=== PATIENT | female | born 1955 | race Two or more races ===

== ENCOUNTER 2022-03-30 15:10 | Outpatient (REF) | payer MEDICARE, SELFPAY ==
--- NOTE | ~2022-03-30 | XR_ITS ---
EXAMINATION: XR HAND, BILATERAL CLINICAL INFORMATION: Pain COMPARISON: None TECHNIQUE: 3 views each hand. FINDINGS: LEFT HAND: There is loss of PIP and DIP joint space with periarticular spurring, DIP joint 2nd through 4th digits. No visible fracture, dislocation or subluxation seen. There is mild soft tissue swelling. The wrist joints are unremarkable. RIGHT HAND: There is mild loss of PIP and DIP joints with mild periarticular spurring, DIP joints 2nd and 3rd digit. There is mild soft tissue swelling involving the PIP and DIP joints. No visible acute fracture, dislocation or subluxation seen. There is no soft tissue swelling. XR/XR hand RT min 3V IMPRESSION: Degenerative arthritic changes PIP and DIP joints. No visible acute fracture, dislocation or subluxation seen.
--- NOTE | ~2022-03-30 | XR_ITS ---
EXAMINATION: XR HAND, BILATERAL CLINICAL INFORMATION: Pain COMPARISON: None TECHNIQUE: 3 views each hand. FINDINGS: LEFT HAND: There is loss of PIP and DIP joint space with periarticular spurring, DIP joint 2nd through 4th digits. No visible fracture, dislocation or subluxation seen. There is mild soft tissue swelling. The wrist joints are unremarkable. RIGHT HAND: There is mild loss of PIP and DIP joints with mild periarticular spurring, DIP joints 2nd and 3rd digit. There is mild soft tissue swelling involving the PIP and DIP joints. No visible acute fracture, dislocation or subluxation seen. There is no soft tissue swelling. XR/XR hand LT min 3V IMPRESSION: Degenerative arthritic changes PIP and DIP joints. No visible acute fracture, dislocation or subluxation seen.
== END 2022-03-30 15:11 | disposition home or self-care (01) ==
LOC: HO.XRAY 15:10
PROVIDERS: PCP Physician Assistant; Visit Provider Nurse Practitioner Family
DX: M79.641 Pain in right hand (principal); M79.642 Pain in left hand
CPT/HCPCS: 73130; 99202

== ENCOUNTER 2022-04-16 14:54 | Outpatient (REF) | payer MEDICARE, SELFPAY ==
[2022-04-16 15:39] LABS: Alanine Aminotransferase 29 U/L (0-31); Aspartate Amino Transferase 33 U/L (5-31); C Reactive Protein 0.25 mg/dL (< or = 0.50); Rheumatoid Factor 80.8 IU/mL (<15.0)
[2022-04-16 15:56] LABS: Erythrocyte Sedimentation Rate 12 MM/HR (0-20)
[2022-04-20 14:19] LABS: Cyclic Citrullinated Peptide >250 UNITS
== END 2022-04-16 14:55 | disposition home or self-care (01) ==
LOC: HO.LAB 14:54
PROVIDERS: Visit Provider Nurse Practitioner Family
DX: M25.50 Pain in unspecified joint (principal); Z79.899 Other long term (current) drug therapy
CPT/HCPCS: 36415; 84450; 84460; 85652; 86140; 86200; 86431

== ENCOUNTER → 2022-05-12 11:11 | Outpatient (BNVA) | payer MEDICARE, SELFPAY | PROVIDERS: PCP Physician Assistant; Visit Provider Nurse Practitioner Family | DX: M05.9 Rheumatoid arthritis with rheumatoid factor, unspecified (principal) | CPT/HCPCS: 99212 ==

== ENCOUNTER 2022-06-01 12:13 | Outpatient (REF) | payer MEDICARE, SELFPAY ==
[2022-06-01 12:53] LABS: Alanine Aminotransferase 36 U/L (0-31); Aspartate Amino Transferase 37 U/L (5-31)
== END 2022-06-01 12:14 | disposition home or self-care (01) ==
LOC: HO.LAB 12:13
PROVIDERS: PCP Physician Assistant; Visit Provider Nurse Practitioner Family
DX: M05.9 Rheumatoid arthritis with rheumatoid factor, unspecified (principal)
CPT/HCPCS: 36415; 84450; 84460

== ENCOUNTER 2022-07-22 10:12 | Outpatient (REF) | payer MEDICARE, SELFPAY ==
[2022-07-22 11:11] LABS: MANUAL DIFF FLAG NO
[2022-07-22 11:18] LABS: Basophils Percent Auto 0.7 % (0-2); Eosinophils Absolute Auto 0.1 X10*3/uL (0.0-0.4); Eosinophils Percent Auto 1.2 % (0-4); Hematocrit 39.1 % (37.0-47.0); Hemoglobin 13.5 g/dl (12.0-16.0); Imm Gran Abs Auto 0.02 X10*3/uL (0.00-0.03); Imm Gran Pct Auto 0.3 % (0.0-0.4); Lymphocytes Absolute Auto 1.7 X10*3/uL (1.2-4.9); Lymphocytes Percent Auto 29.2 % (20-40); Mean Corpuscular HGB Conc 34.5 g/dl (31.0-35.0); Mean Corpuscular Volume 92.7 fL (80.0-98.0); Mean Platelet Volume 9.8 fL (9.4-12.3); Monocytes Absolute Auto 0.7 X10*3/uL (0.1-1.2); Monocytes Percent Auto 11.9 % (2-11); Neutrophils Absolute Auto 3.3 x10*3/uL (2.0-8.3); Neutrophils Percent Auto 56.7 % (45-73); Platelet Count 296 X10*3/uL (160-400); Red Blood Count 4.22 X10*6/uL (4.20-5.50); Red Cell Distribution Width 12.5 % (11.0-16.0); White Blood Count 5.9 X10*3/uL (4.8-10.8)
[2022-07-22 11:56] LABS: Erythrocyte Sedimentation Rate 11 MM/HR (0-20)
[2022-07-22 12:30] LABS: Alanine Aminotransferase 22 U/L (0-31); Albumin Level 4.2 g/dL (3.5-5.0); Alkaline Phosphatase 82 U/L (39-117); Anion Gap 11 (12-20); Aspartate Amino Transferase 24 U/L (5-31); Bilirubin Total 0.7 mg/dL (0.0-1.0); Blood Urea Nitrogen 11 mg/dL (9-16); C Reactive Protein 0.26 mg/dL (< or = 0.50); Calcium 9.6 mg/dL (8.4-10.2); Carbon Dioxide 29 mmol/L (22-29); Chloride 103 mmol/L (96-108); Estimated Glomerular Filt Rate > 60; Glucose Random 84 mg/dL (60-115); Phosphorus 3.1 mg/dL (2.7-4.5); Potassium 4.1 mmol/L (3.3-5.1); Sodium 139 mmol/L (135-145); Total Protein 6.7 g/dL (6.5-8.0); Vitamin D 25-OH Total 45.2 ng/mL (>30)
== END 2022-07-22 10:13 | disposition home or self-care (01) ==
LOC: HO.LAB 10:12
PROVIDERS: PCP Physician Assistant; Visit Provider Nurse Practitioner Family
DX: M05.9 Rheumatoid arthritis with rheumatoid factor, unspecified (principal); M81.0 Age-related osteoporosis without current pathological fracture
CPT/HCPCS: 36415; 80053; 82306; 84100; 85025; 85652; 86140; 99212

== ENCOUNTER 2022-08-27 10:05 | Outpatient (REF) | payer MEDICARE, SELFPAY ==
--- NOTE | ~2022-08-27 | CT_ITS ---
EXAMINATION: Chest CT without IV contrast CLINICAL INFORMATION: Chronic cough COMPARISON: Previous chest x-ray July 2022 TECHNIQUE: Axial images through the chest without IV contrast. Thin axial high-resolution images obtained. Sagittal and coronal reconstructions performed on the technologist workstation. This CT examination was performed using dose optimization techniques as appropriate, variously including the following: *Automated exposure control *Adjustment of mA and/or kV according to patient size (this includes techniques or standardized protocols for targeted exams where dose is matched to indication/reason for exam; i.e. extremities or head) *Use of iterative reconstruction technique FINDINGS: No evidence of interstitial lung disease. Clustered peribronchial nodules in the right upper lobe suggestive of tree-in-bud appearance or airways disease. 3 mm superior segment right lower lobe nodule axial image 83 series 11. 3 mm peripheral or subpleural left lower lobe nodule axial image 148 series 11. The mediastinum is normal. No coronary artery calcification. No enlarged hilar or mediastinal lymph nodes. No pleural effusion or pleural thickening. No chest wall mass or enlarged axillary lymph nodes. Images through the upper abdomen are unremarkable. Mild degenerative changes of the thoracic spine. Probable Schmorl's node in the superior endplate of the L1 vertebral body.. CT/CT chest wo con - High Res IMPRESSION: No evidence of interstitial lung disease. Clustered peribronchial nodules or tree-in-bud appearance in the right upper lobe probably representing infectious or inflammatory process/airways disease. Small pulmonary nodules. According to the UPDATED 2017 Fleischner Society recommendations, the advised follow-up imaging for less than 6 mm solid nodule: Low risk, no chest CT follow-up and high risk, optional chest CT follow-up in one year.
== END 2022-08-27 10:06 | disposition home or self-care (01) ==
LOC: HO.CT 10:05
PROVIDERS: Visit Provider Nurse Practitioner Family
DX: R05.3 Chronic cough (principal); M05.9 Rheumatoid arthritis with rheumatoid factor, unspecified
CPT/HCPCS: 71250

== ENCOUNTER 2022-11-10 08:59 | Outpatient (AMB) | payer MEDICARE, SELFPAY ==
--- NOTE | 2022-11-10 09:01 | MHC.OFFVIS ---
Intake Vital Signs 11/10/22 09:02 Height 5 ft 2.5 in Weight 128 lb BMI 23.0 BP 124/68 Blood Pressure Location Lt brachial Position Sitting Respiration 16 Pulse 75 Pulse Source Pulse Oximeter Temp 97.2 F Temp Source Temporal Artery Scan Pulse Oximetry (%) 98 Oxygen Delivery Method Room Air Intake Visit Reasons: rheumatoid arthritis - Confirmed Allergies alendronate sodium Allergy (Intermediate, Verified 11/10/22 09:08) bone pain Sulfa (Sulfonamide Antibiotics) Allergy (Intermediate, Verified 11/10/22 09:08) Nausea HPI HPI Comments History of Present Illness Details The patient returns today for evaluation of her history of rheumatoid arthritis and osteoporosis. She is getting occasional pain at the left 5th MTP joint. This had been operated on about 6 weeks ago because of bony prominence. She also is complaining of right shoulder pain. She has had 3 cortisone injections there through an orthopedist. She has also been in physical therapy for that. There is an MRI scan pending of the shoulder. She does not take any pain medicine usually. In the past she has had the diagnosis of osteoporosis made. There were plans to start her on Prolia but she was worried about the potential for side effects. She was worried that the Prolia would hang around her body for months after her received of it. She tells me it was approved at one point but she backed out of the plan. She did have alendronate orally that she took 3 or 4 years ago for about 4 months. This seemingly was causing some overall body pain so it was stopped. [facility] Medical History (Updated 11/10/22 @ 10:03 by Pete Guzmán MD) Allergic conjunctivitis and rhinitis Anxiety Astigmatism Carpal tunnel syndrome Depression GERD (gastroesophageal reflux disease) Hypercholesteremia Hyperlipidemia Hypermetropia Migraines Osteoporosis Presbyopia Seropositive rheumatoid arthritis Surgical History [place] teeth extracted Family History Mother Dementia Emphysema lung Father Myocardial infarct Social History Household Members: None Alcohol intake: current Alcohol intake frequency: does not drink Patient Tobacco Use Status: Former Tobacco user Quit Date: 25 years ago Current occupational status: 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 Const Details: Negative for appetite change, weight change, fever, chills, malaise and fatigue Eyes Details: Negative for vision change, dry eyes,headaches and dizziness GI Details: Negative indigestion/heartburn, nausea, abdominal pain, bowel changes, diarrhea, constipation and bloody stool. Aamir/Lymph Details: Negative for excessive bruising or bleeding. Physical Exam Vital Signs: Last Vital Signs Temp 97.2 F 11/10/22 09:02 Pulse 75 11/10/22 09:02 Resp 16 11/10/22 09:02 BP 124/68 11/10/22 09:02 Pulse Ox 98 11/10/22 09:02 Oxygen Delivery Method Room Air 11/10/22 09:02 BMI result Body Mass Index 23.0 APPEARANCE: Patient in no acute distress EYES no redness, pupils equal and reactive to light, eyelids normal. No temporal artery tenderness, redness or swelling EXTREMITIES: No edema, no calf tenderness, normal peripheral pulses. JOINT EXAM: ?? Cervical Spine: Full range of motion without pain; no tenderness. Thoracic Spine: No scoliosis.? No tenderness on palpation. Lumbar Spine: Alignment normal.? Full range of motion without pain, no tenderness. Hands: LEFT:? Normal pain-free range of motion without tenderness, soft tissue swelling, increased warmth or erythema.? Mild bony enlargement throughout the DIPs. Able to make a full fist and has a good automated weaver strength. ? RIGHT:? Normal pain-free range of motion without tenderness, soft tissue swelling, increased warmth or erythema. Mild bony enlargement throughout the DIPs.? Able to make a full fist and has good automated weaver strength. Wrists:? Normal pain-free range of motion without tenderness, swelling, increased warmth or erythema. Elbows: Normal pain-free range of motion without tenderness, swelling, increased warmth or erythema. Shoulders:?? Full range of motion without pain. No tenderness, weakness, swelling, increased warmth or erythema. Hips:? Full range of motion without pain. Hip bursa:? No tenderness. Knees:?? Normal pain-free range of motion without tenderness, swelling, increased warmth or erythema.? There is no effusion or crepitation Ankles:? LEFT: Normal pain-free range of motion without tenderness, swelling, increased warmth or erythema. ? RIGHT: Normal pain-free range of motion without tenderness, joint swelling, increased warmth or erythema.? Small area of soft tissue swelling below the lateral malleolus (this has been present for a few years after sprain ankle per patient report.) Feet:? LEFT: Slight prominence over the 5th MTP. The area is minimally tender without redness. There is a scar there from the surgery that seems well healed. Elsewhere there is normal pain-free range of motion without tenderness, swelling, increased warmth or erythema.? RIGHT:? Normal pain-free range of motion without tenderness, swelling, increased warmth or erythema. ? Results Reviewed Results Reviewed: Laboratory Tests 06/01/22 07/22/22 07/22/22 12:25 11:09 11:09 WBC 5.9 Hgb 13.5 ESR 11 Creatinine AST 37 H ALT 36 H C-Reactive Protein 07/22/22 11:09 WBC Hgb ESR Creatinine 0.81 AST 24 ALT 22 C-Reactive Protein 0.26 Assessment & Plan Assessment & Plan (1) Seropositive rheumatoid arthritis: Comment: Plaquenil: approx 2014- 2015 Methotrexate: approx 11/2021- February 2022 -discontinued due to increased LFTs. 07/22/2022 not on any medication for RA, no active disease on exam. Code(s): M05.9 - Rheumatoid arthritis with rheumatoid factor, unspecified (2) Osteoporosis: Comment: DEXA [facility] 03/26/2022 t-score -3.9 AP spine, -3.2 fem neck, -2.0 hip. A few months of alendronate - stopped due to arthralgia(?2019) Advised treatment July 2022, patient undecided Code(s): M81.0 - Age-related osteoporosis without current pathological fracture Plan She has no evidence currently of active rheumatoid arthritis. I suspect the right shoulder pain is from rotator cuff attrition. Surgical evaluation for that is underway with MRI scanning. The left 5th MTP was just operated on and seems to be relatively benign with some slight thickening but no redness or breaks in the skin. We had a long discussion about treating osteoporosis. It would appear like she did have some polyarthralgias and myalgias on alendronate after being on it for about 4 months. She had been offered and she says it was approved to take Prolia. She seems to be willing at this point to go on the Prolia injections. We will check BMP and vitamin-D today. We will also check and see if her approval for the use of Prolia is still in effectt. When we find that out we will have her come back for a subcutaneous injection. She wants to see me back in March so we will arrange that as well. Orders: Orders Basic Metabolic Panel Today M81.0 - Age-related osteoporosis without current pathological fracture Vitamin D 25-OH (D2 and D3) Today M81.0 - Age-related osteoporosis without current pathological fracture Coding Level of Care Code New Pt Level 3 (79048) Diagnoses Seropositive rheumatoid arthritis M05.9 Osteoporosis M81.0
[2022-11-10 09:02] VITALS: BP 124/68; PULSE 75; RESP 16; TEMP 36.2; O2SAT 98; BMI 23.0
== END 2022-11-10 09:51 | disposition home or self-care (01) ==
PROVIDERS: PCP Physician Assistant; Visit Provider Internal Medicine Rheumatology
DX: M05.89 Other rheumatoid arthritis with rheumatoid factor of multiple sites (principal); M81.0 Age-related osteoporosis without current pathological fracture
CPT/HCPCS: 99213

== ENCOUNTER → 2022-11-10 08:59 | Outpatient (BNVA) | payer MEDICARE, SELFPAY | PROVIDERS: PCP Physician Assistant; Visit Provider Internal Medicine Rheumatology ==

== ENCOUNTER 2022-11-10 09:54 | Outpatient (REF) | payer MEDICARE, SELFPAY ==
[2022-11-10 11:06] LABS: Anion Gap 15 (12-20); Blood Urea Nitrogen 14 mg/dL (9-16); Calcium 9.9 mg/dL (8.4-10.2); Carbon Dioxide 25 mmol/L (22-29); Chloride 103 mmol/L (96-108); Estimated Glomerular Filt Rate > 60; Glucose Random 66 mg/dL (60-115); Potassium 3.8 mmol/L (3.3-5.1); Sodium 139 mmol/L (135-145)
[2022-11-14 14:19] LABS: Vitamin D 25-OH, D2 <4 ng/mL; Vitamin D 25-OH, D3 62 ng/mL; Vitamin D 25-OH, Total 62 ng/mL (30-100)
== END 2022-11-10 09:55 | disposition home or self-care (01) ==
LOC: HO.10HDL 09:54
PROVIDERS: Visit Provider Internal Medicine Rheumatology
DX: M81.0 Age-related osteoporosis without current pathological fracture (principal)
CPT/HCPCS: 36415; 80048; 82306

== ENCOUNTER 2022-11-25 10:04 | Outpatient (AMB) | payer MEDICARE, SELFPAY ==
--- NOTE | 2022-11-25 12:07 | AM.OFFVISNUR ---
Intake Vital Signs 11/25/22 12:08 BP 127/78 Blood Pressure Location Lt brachial Position Sitting Pulse 77 Pulse Source Pulse Oximeter Intake Visit Reasons: osteoporosis/prolia inj Intake Note: Patient here for first Prolia injection. Patient was given all the Allergies alendronate sodium Allergy (Intermediate, Verified 11/25/22 12:10) bone pain Sulfa (Sulfonamide Antibiotics) Allergy (Intermediate, Verified 11/25/22 12:10) Nausea Medication List - Last Reconciled 11/25/22 by Ashlyn Basilio RN calcium carbonate-vitamin D3 600 mg-10 mcg (400 unit) (Calcium 600 + D(3)) 1 tab PO DAILY cetirizine (Zyrtec) 10 mg PO DAILY PRN hydrocodone-acetaminophen 5-325 mg 1 tab PO Q6H PRN ivermectin 1% (Soolantra) 1 appl topical DAILY PRN lidocaine 5% 1 appl topical DAILY PRN lorazepam 0.5 mg PO BID PRN propranolol 40 mg PO DAILY tretinoin 0.025% 1 appl topical BEDTIME PRN zolmitriptan take 1 tab at onset of headache; if no relief may repeat 1 tab after at least 2 hrs; max = 4 tabs/24 hr orally PRN; Nursing Note Patient is here to receive first Prolia injection. Patient given all pertinent information about Prolia including symptoms to report. I provided patient with a Prolia information sheet. I administered Prolia on left arm, she tolerated injection well. Patient was advised to look out for any symptoms of a reaction, patient to contact us with any questions or concerns. Office Meds Prolia Performing Provider: Pete Guzmán MD Administered by: Ashlyn Basilio RN on 11/25/22 12:18 Dose Route Admin Location Lot Number Expiration Date NDC Tapping Machine Operator Automatic 60 mg subcut [id number] 12/10/24 30423-002-19 [facility] Coding Level of Care Code Est Pt Level 1 (23773) Diagnoses Assessment & Plan Assessment & Plan Orders: Orders AMB Denosumab Injection Practice Supplied Today M81.0 - Age-related osteoporosis without current pathological fracture
[2022-11-25 12:08] VITALS: BP 127/78; PULSE 77
== END 2022-11-25 10:35 | disposition home or self-care (01) ==
PROVIDERS: PCP Physician Assistant
DX: M81.0 Age-related osteoporosis without current pathological fracture (principal)

== ENCOUNTER → 2022-11-25 10:04 | Outpatient (BNVA) | payer MEDICARE, SELFPAY | PROVIDERS: PCP Physician Assistant | DX: M81.0 Age-related osteoporosis without current pathological fracture (principal); Z79.620 Long term (current) use of immunosuppressive biologic | CPT/HCPCS: 96372; 99211; J0897 ==

== ENCOUNTER 2022-12-25 14:35 | Outpatient (AMB) | payer MEDICARE, SELFPAY ==
[2022-12-25 14:38] VITALS: BP 130/72; PULSE 68; O2SAT 98; BMI 23.8
--- NOTE | 2022-12-25 14:38 | A.OFFVIS_ITS ---
Intake Vital Signs 12/25/22 14:38 Height 5 ft 2.5 in Weight 132 lb 4 oz BMI 23.8 BP 130/72 Blood Pressure Location Rt brachial Position Sitting Pulse 68 Pulse Source Pulse Oximeter Pulse Oximetry (%) 98 Oxygen Delivery Method Room Air Intake Visit Reasons: INP Migraines - Confirmed Intake Note: Patient presents for migraines. Patient states I've had migraines since I was 11 years old and through out all the years have subsided so I decided to stop medications (propranolol) a while back and 2 months later started getting migraines so I went back on the medication. Allergies alendronate sodium Allergy (Intermediate, Verified 11/25/22 12:10) bone pain Sulfa (Sulfonamide Antibiotics) Allergy (Intermediate, Verified 11/25/22 12:10) Nausea msg Allergy (Severe, Uncoded 12/25/22 14:46) migraines nitrates Allergy (Severe, Uncoded 12/25/22 14:46) migraine Medication List - Last Reconciled 12/25/22 by KATE Alfaro calcium carbonate-vitamin D3 600 mg-10 mcg (400 unit) (Calcium 600 + D(3)) 1 tab PO DAILY cetirizine (Zyrtec) 10 mg PO DAILY PRN denosumab (Prolia) 60 mg subcut [id number] hydrocodone-acetaminophen 5-325 mg 1 tab PO Q6H PRN ivermectin 1% (Soolantra) 1 appl topical DAILY PRN lidocaine 5% 1 appl topical DAILY PRN lorazepam 0.5 mg PO BID PRN propranolol 40 mg PO DAILY tretinoin 0.025% 1 appl topical BEDTIME PRN zolmitriptan take 1 tab at onset of headache; if no relief may repeat 1 tab after at least 2 hrs; max = 4 tabs/24 hr orally PRN; HPI HPI Comments History of Present Illness Details Right-handed 67-yr-old female presents for new pt evaluation of headache disorder, to establish care with neurology. PMH significant for osteoporosis, RA, HLD, GERD, anxiety, chronic right ear hearing loss, stress incontinence. 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 Over the years, the headaches have fluctuated in frequency and severity. Then about 8 yrs ago, she was started on Propranolol which was very helpful. Could go even a year w/o a headache. Then about a year ago, she thought maybe she could stop her propranolol but to be careful increased her flutcanisone, however after a few months, the headaches slowly increased to to more frequent and severe. Thus, she resumed Propranolol, but is still having bothersome headaches. Headache questionnaire: Age/time of onset? 12-13 yo Preceding causes? None Previous work-up? None Typical headache characteristics: Prodrome symptoms? None Aura? None Location, quality, characteristics? Frontal headache. Pressure, heaviness. Pain intensity? 4-5/10, could be 7-8/10 if more severe. Associated symptoms? Photophobia, nausea, now rarely vomiting, activity tolerance. Focal weakness, Parethesias, Autonomic s/s? sinus congestion, runny nose, deep sighs Postdrome? may have an exhiliration sensation Triggers? Certain foods- MSG, nitrates. Any positional, valsalva, exertional, sexual activity triggers? none Time of day? Often at 3-4 am Duration? If takes Zomig right away, usually 2 hrs. Frequency? Tends to occur more in early Spring and early Fall. The last week, she woke up every day w/ a headache, priro 1 day per week. How does headache impact your life? Needs to rest Current acute medication use/interventions: Zomig 2.5mg 1/4-1/2 tab, may repeat. Rarely has need to take 3 doses/day. Previous acute medication use: Sumatriptan- not tolerated. Cafargot- was ineffective. Ergotamine- not effective. Current preventative medication use: Propranol Previous preventative medication use: Feverfew- ineffective. Propranol Er- was not as effective. Non-pharmacological interventions: hot wash clothes, rest Family history of migraine or other headache disorder? Mother, grandmother PFSH Medical History (Updated 12/27/22 @ 20:43 by KATE Alfaro) Osteoporosis Seropositive rheumatoid arthritis GERD (gastroesophageal reflux disease) Allergic conjunctivitis and rhinitis Presbyopia Astigmatism Hypermetropia Carpal tunnel syndrome Migraines Depression Anxiety Hyperlipidemia Hypercholesteremia Surgical History [place] teeth extracted Family History Mother Dementia Emphysema lung Father Myocardial infarct Social History (Updated 12/25/22 @ 14:49 by Ibis Conte [facility]) Household Members: None Alcohol intake: current Alcohol intake frequency: does not drink Patient Tobacco Use Status: Former Tobacco user Quit Date: 25 years ago Current occupational status: 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 Const Details: See scanned ROS form Physical Exam Vital Signs: Last Vital Signs Pulse 68 12/25/22 14:38 BP 130/72 12/25/22 14:38 Pulse Ox 98 12/25/22 14:38 Oxygen Delivery Method Room Air 12/25/22 14:38 BMI result Body Mass Index 23.8 Const Orientation/consciousness: patient oriented x3 HEENT Other: No palpable scalp tenderness. Head: Yes normocephalic Resp Effort & Inspection: normal respiratory effort and able to speak in complete sentences Neuro General: patient oriented x3 Cranial nerves: Yes CN's II-XII intact bilaterally Cognition (Neuro): normal cognition Gait exam (Neuro): Normal gait present Motor exam (neuro): 5/5 motor strength present throughout Deep tendon reflexes (DTR's): Right triceps reflex intensity grade: 2+, Left triceps reflex intensity grade: 2+, Rt Biceps (C5, C6): 2+, Left biceps reflex intensity grade: 2+, Right brachioradialis reflex intensity grade: 2+, Left brachioradialis reflex intensity grade: 2+, Right patellar reflex intensity grade: 2+ and Left patellar reflex intensity grade: 2+ Coordination: [id number] test normal and Romberg test negative Pupils: Normal pupillary reactivity/response: bilateral Psych Appearance: grossly normal Mental Status: mental status grossly normal Speech and movement: Normal speech and movement present Affect: normal affect Attitude: cooperative Thought process: Normal thought process present Assessment & Plan Assessment & Plan (1) Migraine without aura: Code(s): G43.009 - Migraine without aura, not intractable, without status migrainosus Plan For overall headache management: Discussed importance of good self-care, including but not limited to maintaining a healthy diet, adequate fluid intake, adequate sleep, and engaging in regular physical activity. For headache triggers: Track headaches. Light sensitivity tips: Patient may try blue light filtering glasses, green glasses, green light therapy.. Information also given on non-pharmacological interventions, such as migraine cooling/warming caps.. For acute headache treatment: Discussed importance of taking acute medications at the first sign of headache. Continue Zolmitriptan 2.5mg prn at onset of migraine, MR in 2 hrs. Previous acute migraine medication trials: Sumatriptan- not tolerated. Cafargot- was ineffective. Ergotamine- not effective. Acute migraine medication contraindications: None at this time For headache prevention medication: Discussed that preventative medications should be taken routinely as prescribed for best effect, it may take several weeks for full effect to take effect. Start Riboflavin 400mg qam Start Magnesium 400mg qhs Try increasing Propranolol from 40mg to 60mg qam and 40mg qpm, if tolerated may increase up to 60mg bid. Reviewed potential adverse effects of betablockers, including but not limited to fatigue, hypotension, slow heart rate, mood changes, respiratory changes. Previous preventative medication use: Feverfew- ineffective. Propranol Er- was not as effective. Migraine prevention medication contraindications: None absolute contraindications at this time. Pt to follow-up in 3-4 months or sooner prn. Medications: New riboflavin (vitamin B2) 400 mg PO DAILY 30 days 30 tabs 6RF magnesium oxide may hold for loose stools 400 mg PO BEDTIME 30 days 30 tabs 6RF Changed From propranolol 40 mg PO DAILY To propranolol 60mg qam and 40mg qpm, may increase to 60mg bid orally daily; 30 days 90 tabs 0RF Coding Level of Care Code New Pt Level 4 (06226) Diagnoses Migraine without aura G43.009
== END 2022-12-25 15:59 | disposition home or self-care (01) ==
PROVIDERS: PCP Physician Assistant; Visit Provider Nurse Practitioner Family
DX: G43.009 Migraine without aura, not intractable, without status migrainosus (principal)
CPT/HCPCS: 99204; 99214

== ENCOUNTER → 2022-12-25 14:35 | Outpatient (BNVA) | payer MEDICARE, SELFPAY | PROVIDERS: PCP Physician Assistant; Visit Provider Nurse Practitioner Family ==

== ENCOUNTER 2023-01-14 09:47 | Outpatient (AMB) | payer MEDICARE, SELFPAY ==
--- NOTE | 2023-01-14 09:51 | MHC.OFFVIS ---
Intake Vital Signs 01/14/23 10:02 Height 5 ft 2.5 in Weight 130 lb 15.273 oz BMI 23.6 BP 150/90 H Blood Pressure Location Rt brachial Position Sitting Pulse 71 Pulse Source Pulse Oximeter Temp 97.4 F Temp Source Skin Pulse Oximetry (%) 98 Oxygen Delivery Method Room Air Intake Visit Reasons: Osteoporosis Intake Note: Patient presents today to follow up on osteoporosis. 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: No Allergies alendronate sodium Allergy (Intermediate, Verified 01/14/23 09:51) bone pain Sulfa (Sulfonamide Antibiotics) Allergy (Intermediate, Verified 01/14/23 09:51) Nausea msg Allergy (Severe, Uncoded 01/14/23 09:51) migraines nitrates Allergy (Severe, Uncoded 01/14/23 09:51) migraine Medication List - Last Reconciled 01/14/23 by Pete Guzmán MD calcium carbonate-vitamin D3 600 mg-10 mcg (400 unit) (Calcium 600 + D(3)) 1 tab PO DAILY cetirizine (Zyrtec) 10 mg PO DAILY PRN denosumab (Prolia) 60 mg subcut [id number] ivermectin 1% (Soolantra) 1 appl topical DAILY PRN lidocaine 5% 1 appl topical DAILY PRN lorazepam 0.5 mg PO BID PRN magnesium oxide 400 mg PO BEDTIME 30 days pantoprazole 20 mg PO BID propranolol 60mg qam and 40mg qpm, may increase to 60mg bid orally daily; 30 days riboflavin (vitamin B2) 400 mg PO DAILY 30 days sertraline 25 mg PO BEDTIME tretinoin 0.025% 1 appl topical BEDTIME PRN zolmitriptan take 1 tab at onset of headache; if no relief may repeat 1 tab after at least 2 hrs; max = 4 tabs/24 hr orally PRN; HPI HPI Comments History of Present Illness Details The patient presents with concerns about side effects from the administration of Prolia about 6 weeks ago. We had spoken on the phone yesterday. Since Wednesday she has been bothered by episodes of feeling flushed in the face and chest. She says the skin feels burning but does not turn red. This is followed shortly thereafter by of heaviness in the anterior head suggesting a migraine but not quite as severe as such. She also gets some epigastric discomfort that she describes as an empty feeling. She feels like she cannot eat. She does not have any vomiting but she was occasionally nauseated. She says she had similar symptoms in November after she had received the Prolia injection. She does not have any fevers, chills, chest pain or diarrhea. She does seem to have some degree of constipation. Review of her records that I was able to found showed she had a colonoscopy with polyp removal a few years ago and also upper endoscopy that was basically normal for symptoms of recurrent cough. The cough is felt to be due to GERD and did improve with pantoprazole but she has since stopped the medication. She also has a history of being depressed over the last 2 years following the of her . She had been on sertraline but tapered off it earlier this year. She decided to restart it on Wednesday. She also took a dose of sertraline 25 mg on Wednesday. She does have lorazepam at home that she takes for anxiety with flying but did not take any of that. She is on some propranolol for migraine prevention. Earlier this year she has had some discomfort in the right shoulder thought to be due to rotator cuff tear. This was minor and eventually improved on its own. Yesterday, after our discussion she did visit the [facility] ER. She brings n the discharge papers. Exam and lab work failed to find anything significant. She brings in the discharge note from there showing normal blood pressure and temperature. She also had a normal CBC, urinalysis showing trace blood but no red cells, normal electrolytes, normal creatinine, normal bilirubin, normal alkaline phosphatase, normal lipase and slight elevation of SGPT at 62. She also underwent CT scanning of the abdomen showing a few punctate calcifications in the pancreas but it was otherwise interpreted as normal. Says she feels absolutely terrible when these events occur. She still believes that could be some connection to the Prolia since she did have similar symptoms a day or 2 after the Prolia injection back in November. [facility] Medical History (Updated 01/14/23 @ 13:27 by Pete Guzmán MD) Osteoporosis Seropositive rheumatoid arthritis GERD (gastroesophageal reflux disease) Allergic conjunctivitis and rhinitis Presbyopia Astigmatism Hypermetropia Carpal tunnel syndrome Migraines Depression Anxiety Hyperlipidemia Hypercholesteremia Surgical History [place] teeth extracted Family History Mother Dementia Emphysema lung Father Myocardial infarct Social History Household Members: None Alcohol intake: current Alcohol intake frequency: does not drink Patient Tobacco Use Status: Former Tobacco user Quit Date: 25 years ago Current occupational status: 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 Const Details: Fatigue and malaise, especially when she gets 1 of her spells. Some anorexia as well over the last few days. Negative for weight change, fever, chill Eyes Details: As she is prone to migraine headaches but does not think she has had 1 recently. Negative for vision change, dry eyes,headaches and dizziness ENT Details: Negative for hearing change, tinnitus, oral ulcer, nose bleeds and oral dryness. Card Details: Negative chest pain, edema and syncope Resp Details: She says that when she feels very uncomfortable she does re heavily but does not think it is because of pain. Negative for exertional SOB, cough and wheezing GI Details: Rare heartburn at present, nausea during the spells as noted above. Negative abdominal pain, bowel changes, diarrhea, constipation and bloody stool. Details: Negative for dysuria, hematuria, nocturia, decreased force/flow and genital discharge Skin/Breast Details: She has the burning and warmth feeling of the skin, mostly over her upper torso and face. Negative for itching, rash, hives, Raynaud's symptoms, sun sensitivity, and skin cancer Neuro Details: Negative for epilepsy, palsy, stroke, changes in speech, tingling and weakness Psych Details: She does not except that this could be related to anxiety. She admits to feeling a bit more depressed recently and did take some of the sertraline. Endo Details: Negative for polyuria and polydypsia Aamir/Lymph Details: Negative for excessive bruising or bleeding. Physical Exam Vital Signs: Last Vital Signs Temp 97.4 F 01/14/23 10:02 Pulse 71 01/14/23 10:02 BP 150/90 H 01/14/23 10:02 Pulse Ox 98 01/14/23 10:02 Oxygen Delivery Method Room Air 01/14/23 10:02 BMI result Body Mass Index 23.6 APPEARANCE: Patient in no acute distress EYES no redness, pupils equal and reactive to light, eyelids normal. No temporal artery tenderness, redness or swelling NOSE/SINUS: Airflow through both nares, no nasal discharge, no bleeding THROAT: Oral mucosa moist, no ulcerations NECK: No thyromegaly or masses, no adenopathy, trachea midline. HEART: Regulrar rhythm, S1-S2 heard, no murmurs, rubs or gallops. LUNG: Clear to percussion and auscultation ABD: Normal bowel sounds, no organomegaly, masses or tenderness. EXTREMITIES: No edema, no calf tenderness, normal peripheral pulses. NEURO: Oriented and alert x3. No focal weakness. Reflexes symmetric. Gait normal. SKIN: No inflammatory or neoplastic lesions. Normal color and turgor JOINT EXAM:? Cervical Spine: Full range of motion without pain; no tenderness. Thoracic Spine: No scoliosis.? No tenderness on palpation. Lumbar Spine: Alignment normal.? Full range of motion without pain, no tenderness. Hands: LEFT:? Normal pain-free range of motion without tenderness, soft tissue swelling, increased warmth or erythema.? Mild bony enlargement throughout the DIPs. Able to make a full fist and has a good professor of poultry science strength. ? RIGHT:? Normal pain-free range of motion without tenderness, soft tissue swelling, increased warmth or erythema. Mild bony enlargement throughout the DIPs.? Able to make a full fist and has good professor of poultry science strength. Wrists:? Normal pain-free range of motion without tenderness, swelling, increased warmth or erythema. Elbows: Normal pain-free range of motion without tenderness, swelling, increased warmth or erythema. Shoulders: Left: Slight top of the shoulder discomfort with extremes of range of motion. No tenderness, weakness or swelling. No adenopathy. Right:?? Full range of motion without pain. No tenderness, weakness, swelling, increased warmth or erythema. Hips:? Full range of motion without pain. Hip bursa:? No tenderness. Knees:?? Normal pain-free range of motion without tenderness, swelling, increased warmth or erythema.? There is no effusion or crepitation Ankles:? LEFT: Normal pain-free range of motion without tenderness, swelling, increased warmth or erythema. ? RIGHT: Normal pain-free range of motion without tenderness, joint swelling, increased warmth or erythema.? Small area of soft tissue swelling below the lateral malleolus (this has been present for a few years after sprain ankle per patient report.) Results Reviewed Results Reviewed: Lab work and CT scan from [facility] as noted above in the HPI Assessment & Plan Assessment & Plan (1) Osteoporosis: Comment: DEXA [facility] 03/26/2022 t-score -3.9 AP spine, -3.2 fem neck, -2.0 hip. A few months of alendronate - stopped due to arthralgia(?2019) Advised treatment July 2022, patient undecided Code(s): M81.0 - Age-related osteoporosis without current pathological fracture (2) Malaise and fatigue: Code(s): R53.81 - Other malaise; R53.83 - Other fatigue (3) Nausea: Code(s): R11.0 - Nausea Plan: Patient has been experiencing now a few days of some flushing, a feeling of skin warmth, dyspnea and nausea. She is very distressed by this level of symptoms and says she cannot sleep. She has been on sertraline in the past for depression and decided to try to restart it recently. It is possible the sertraline is giving her a bit more anxiety as it was restarted. I told her I do not see anything that we could treat right now outside of symptoms. It is possible that her current syndrome is related to anxiety and panic disorder. She does not seem to receptive to that idea for now. I did suggest she could take some [id number] Benadryl in the evening to see if that would help her. She does have a GI appointment tomorrow and unless further problems are discovered I think she may need to return to PCP for some treatment of her anxiety. I told her that the Prolia injection was weeks ago and 1 would have expected more side effects in the short term rather than coming out at this late stage. I asked her to call me in a few weeks to let me know the outcome of her symptoms at that point. Coding Level of Care Code Est Pt Level 4 (53124) Diagnoses Osteoporosis M81.0 Malaise and fatigue R53.81; R53.83 Nausea R11.0
[2023-01-14 10:02] VITALS: BP 150/90; PULSE 71; TEMP 36.3; O2SAT 98; BMI 23.6
== END 2023-01-14 11:00 | disposition home or self-care (01) ==
PROVIDERS: PCP Physician Assistant; Visit Provider Internal Medicine Rheumatology
DX: M81.0 Age-related osteoporosis without current pathological fracture (principal); R53.81 Other malaise; R53.83 Other fatigue; R11.0 Nausea
CPT/HCPCS: 99214

== ENCOUNTER → 2023-01-14 09:47 | Outpatient (BNVA) | payer MEDICARE, SELFPAY | PROVIDERS: PCP Physician Assistant; Visit Provider Internal Medicine Rheumatology | DX: M81.0 Age-related osteoporosis without current pathological fracture (principal); R53.81 Other malaise; R53.83 Other fatigue; R11.0 Nausea | CPT/HCPCS: 99212 ==

== ENCOUNTER 2023-03-09 14:28 | Outpatient (AMB) | payer MEDICARE, SELFPAY ==
--- NOTE | 2023-03-09 14:40 | MHC.OFFVIS ---
Intake Vital Signs 03/09/23 14:41 Height 5 ft 2.5 in Weight 133 lb 2 oz BMI 24.0 BP 128/70 Blood Pressure Location Lt brachial Position Sitting Pulse 83 Pulse Source Pulse Oximeter Pulse Oximetry (%) 97 Oxygen Delivery Method Room Air Intake Visit Reasons: f/u Migraines and meds not working/Confirmed Intake Note: Patient presents for migraines. Allergies alendronate sodium Allergy (Intermediate, Verified 03/09/23 14:50) bone pain Sulfa (Sulfonamide Antibiotics) Allergy (Intermediate, Verified 03/09/23 14:50) Nausea msg Allergy (Severe, Uncoded 03/09/23 14:50) migraines nitrates Allergy (Severe, Uncoded 03/09/23 14:50) migraine Medication List - Last Reconciled 03/09/23 by KATE Alfaro calcium carbonate-vitamin D3 600 mg-10 mcg (400 unit) (Calcium 600 + D(3)) 1 tab PO DAILY cetirizine (Zyrtec) 10 mg PO DAILY PRN denosumab (Prolia) 60 mg subcut [id number] ivermectin 1% (Soolantra) 1 appl topical DAILY PRN lidocaine 5% 1 appl topical DAILY PRN lorazepam 0.5 mg PO BID PRN propranolol 1 tab orally 2 times a day; 30 days riboflavin (vitamin B2) 400 mg PO DAILY 30 days sertraline 25 mg PO BEDTIME tretinoin 0.025% 1 appl topical BEDTIME PRN zolmitriptan take 1 tab at onset of headache; if no relief may repeat 1 tab after at least 2 hrs; max = 4 tabs/24 hr orally PRN; HPI HPI Comments History of Present Illness Details 67-yr-old female presents for f/u visit. Pt denies any significant interval medical changes. Pt endorses the following interval medical history changes: Recently was tx'd w/ nitroforantoin for an uncomplicated UTI. Pt reports she has had a slight change in her headaches- was typically 4-5am, but in the past few weeks, she has had a headache in the am and again around 9pm. She does note that an area between her shoulder blades that is sore and painful when she has a migraine- does not radiate. Currently having 4-5 migraine days per week. She is usually compliant w/ Propranolol 60mg bid. [facility] Medical History Osteoporosis Seropositive rheumatoid arthritis GERD (gastroesophageal reflux disease) Allergic conjunctivitis and rhinitis Presbyopia Astigmatism Hypermetropia Carpal tunnel syndrome Migraines Depression Anxiety Hyperlipidemia Hypercholesteremia Surgical History [place] teeth extracted Family History Mother Dementia Emphysema lung Father Myocardial infarct Social History (Updated 03/09/23 @ 14:53 by Sole Brown MA) Household Members: None Alcohol intake: current Alcohol intake frequency: a few times a month Alcohol type: hard liquor Patient Tobacco Use Status: Former Tobacco user Quit Date: 25 years ago Current occupational status: 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 Const All systems reviewed & are unremarkable except as noted in HPI and below Physical Exam Vital Signs: Last Vital Signs Pulse 83 03/09/23 14:41 BP 128/70 03/09/23 14:41 Pulse Ox 97 03/09/23 14:41 Oxygen Delivery Method Room Air 03/09/23 14:41 BMI result Body Mass Index 24.0 Const General: cooperative and no acute distress Orientation/consciousness: patient oriented x3 HEENT Head: Yes normocephalic Resp Effort & Inspection: normal respiratory effort and able to speak in complete sentences Neuro General: patient oriented x3, gait normal and CN's II-XI intact bilaterally Cognition (Neuro): normal cognition Motor exam (neuro): 5/5 motor strength present throughout Psych Appearance: grossly normal Mental Status: mental status grossly normal Speech and movement: Normal speech and movement present Affect: normal affect Attitude: cooperative Thought process: Normal thought process present Thought content: Normal thought content present Insight: Good insight present (Psych) Judgement: Good judgement present (Psych) Assessment & Plan Assessment & Plan (1) Migraine without aura: Code(s): G43.009 - Migraine without aura, not intractable, without status migrainosus (2) Back pain: Code(s): M54.9 - Dorsalgia, unspecified (3) Cervicalgia: Code(s): M54.2 - Cervicalgia Plan Will check c-spine and t-spine XR. For overall headache management: Continue to optimize good self-care, including but not limited to maintaining a healthy diet, adequate fluid intake, adequate sleep, and engaging in regular physical activity. Track headaches. ? For acute headache treatment: Continue Zolmitriptan 2.5mg prn at onset of migraine, MR in 2 hrs. Previous acute migraine medication trials: Sumatriptan- not tolerated. Cafargot- was ineffective. Ergotamine- not effective. Acute migraine medication contraindications: None at this time ? For headache prevention medication: Continue Riboflavin 400mg qam Hold Magnesium 400mg qhs Continue Propranolol from 60 mg bid. As pt is continuing to have at least 4 migraine days per week, pt advised to start Ajovy 225mg sc q month. In the meantime, continue Sertraline 75mg qd. Previous preventative medication use: Feverfew- ineffective. Propranol Er- was not as effective. Migraine prevention medication contraindications: TCAs and AEDs as pt is 67 yo ? Pt to follow-up in 3-4 months or sooner prn. Orders: Orders XR thoracic spine 2V Today M54.2 - Cervicalgia, M54.9 - Dorsalgia, unspecified, M81.0 - Age-related osteoporosis without current pathological fracture XR cervical spine 2V Today M54.2 - Cervicalgia, M54.9 - Dorsalgia, unspecified, M81.0 - Age-related osteoporosis without current pathological fracture Medications: New fremanezumab-vfrm (Ajovy) administer 225mg sc q month 225 mg (1.5 mL) subcut ONCE 30 days 1.5 mL 6RF Changed From sertraline 25 mg PO BEDTIME To sertraline 75 mg PO BEDTIME Coding Level of Care Code Est Pt Level 4 (51320) Diagnoses Migraine without aura G43.009 Back pain M54.9 Cervicalgia M54.2
[2023-03-09 14:41] VITALS: BP 128/70; PULSE 83; O2SAT 97; BMI 24.0
== END 2023-03-09 15:53 | disposition home or self-care (01) ==
PROVIDERS: PCP Physician Assistant; Visit Provider Nurse Practitioner Family
DX: G43.009 Migraine without aura, not intractable, without status migrainosus (principal); M54.9 Dorsalgia, unspecified; M54.2 Cervicalgia
CPT/HCPCS: 99214

== ENCOUNTER → 2023-03-09 14:28 | Outpatient (BNVA) | payer MEDICARE, SELFPAY | PROVIDERS: PCP Physician Assistant; Visit Provider Nurse Practitioner Family | DX: G43.009 Migraine without aura, not intractable, without status migrainosus (principal); M54.9 Dorsalgia, unspecified; M54.2 Cervicalgia | CPT/HCPCS: 99212 ==

== ENCOUNTER 2023-03-11 10:29 | Outpatient (REF) | payer MEDICARE, SELFPAY ==
--- NOTE | ~2023-03-11 | XR_ITS ---
STUDY: Cervical and thoracic spine HISTORY: Dorsalgia COMPARISON: None. TECHNIQUE: 3 view cervical and three-view thoracic spine FINDINGS: Cervical spine: Straightening of normal cervical lordosis. Mild anterolisthesis C4 and C5. Mild vertebral body height losses likely degenerative. Multilevel disc space narrowings, most pronounced C7-T1. Odontoid is intact, posterior elements are aligned and no prevertebral soft tissue swelling is seen. Lung apices are clear. Soft tissues are unremarkable. Thoracic spine: Vertebral bodies and intervertebral discs are maintained in height. Pedicles and visualized ribs are intact. No focal paravertebral soft tissue swelling seen. Heart, mediastinum and visualized lung chou are unremarkable. Aortic calcifications identified. XR/XR cervical spine 2V IMPRESSION: Cervical lordotic straightening, mild anterolisthesis C4 on C5. Multilevel disc space narrowings, most pronounced C7-T1. Unremarkable thoracic spine.
--- NOTE | ~2023-03-11 | XR_ITS ---
STUDY: Cervical and thoracic spine HISTORY: Dorsalgia COMPARISON: None. TECHNIQUE: 3 view cervical and three-view thoracic spine FINDINGS: Cervical spine: Straightening of normal cervical lordosis. Mild anterolisthesis C4 and C5. Mild vertebral body height losses likely degenerative. Multilevel disc space narrowings, most pronounced C7-T1. Odontoid is intact, posterior elements are aligned and no prevertebral soft tissue swelling is seen. Lung apices are clear. Soft tissues are unremarkable. Thoracic spine: Vertebral bodies and intervertebral discs are maintained in height. Pedicles and visualized ribs are intact. No focal paravertebral soft tissue swelling seen. Heart, mediastinum and visualized lung chou are unremarkable. Aortic calcifications identified. XR/XR thoracic spine 2V IMPRESSION: Cervical lordotic straightening, mild anterolisthesis C4 on C5. Multilevel disc space narrowings, most pronounced C7-T1. Unremarkable thoracic spine.
== END 2023-03-11 10:30 | disposition home or self-care (01) ==
LOC: HO.XRAY 10:29
PROVIDERS: PCP Physician Assistant; Visit Provider Nurse Practitioner Family
DX: M54.2 Cervicalgia (principal); M54.9 Dorsalgia, unspecified; M81.0 Age-related osteoporosis without current pathological fracture
CPT/HCPCS: 72040; 72070

== ENCOUNTER 2023-03-23 09:53 | Outpatient (REF) | payer MEDICARE, SELFPAY ==
[2023-03-23 10:37] LABS: MANUAL DIFF FLAG NO
[2023-03-23 10:42] LABS: Basophils Absolute Auto 0.1 X10*3/uL (0.0-0.2); Basophils Percent Auto 0.9 % (0-2); Eosinophils Absolute Auto 0.1 X10*3/uL (0.0-0.4); Eosinophils Percent Auto 1.7 % (0-4); Hematocrit 37.5 % (37.0-47.0); Hemoglobin 12.5 g/dl (12.0-16.0); Imm Gran Abs Auto 0.02 X10*3/uL (0.00-0.03); Imm Gran Pct Auto 0.3 % (0.0-0.4); Lymphocytes Absolute Auto 1.6 X10*3/uL (1.2-4.9); Mean Corpuscular HGB Conc 33.3 g/dl (31.0-35.0); Mean Corpuscular Hemoglobin 31.1 pg (27.0-33.0); Mean Corpuscular Volume 93.3 fL (80.0-98.0); Monocytes Absolute Auto 0.8 X10*3/uL (0.1-1.2); Monocytes Percent Auto 12.6 % (2-11); Neutrophils Absolute Auto 3.9 x10*3/uL (2.0-8.3); Neutrophils Percent Auto 59.5 % (45-73); Platelet Count 326 X10*3/uL (160-400); Red Blood Count 4.02 X10*6/uL (4.20-5.50); Red Cell Distribution Width 11.4 % (11.0-16.0); White Blood Count 6.5 X10*3/uL (4.8-10.8)
[2023-03-23 10:52] LABS: Alanine Aminotransferase 33 U/L (0-31); Alkaline Phosphatase 82 U/L (39-117); Anion Gap 9 (12-20); Aspartate Amino Transferase 29 U/L (5-31); Bilirubin Total 0.3 mg/dL (0.0-1.0); Blood Urea Nitrogen 10 mg/dL (9-16); C Reactive Protein 0.46 mg/dL (< or = 0.50); Calcium 9.2 mg/dL (8.4-10.2); Carbon Dioxide 28 mmol/L (22-29); Chloride 101 mmol/L (96-108); Estimated Glomerular Filt Rate > 60; Glucose Random 77 mg/dL (60-115); Potassium 4.1 mmol/L (3.3-5.1); Sodium 134 mmol/L (135-145); Total Protein 7.2 g/dL (6.5-8.0)
[2023-03-23 11:24] LABS: HBc Num1 0.06 S/CO (0.00-0.79); HBsAGNum1 0.32 S/CO (0.00-0.99); Hepatitis A Antibody IgM 0.15 Index (0-0.79); Hepatitis B Core Antibody Nonreactive (Nonreactive); Hepatitis B Surface Antigen Negative (Negative); ~HepC Num1 0.08 S/CO (0.00-0.79); ~Hepatitis A Antibody IgM Nonreactive (Nonreactive); ~Hepatitis B Surface Antibody NONREACTIVE (Nonreactive); ~Hepatitis C Antibody Nonreactive (Nonreactive)
[2023-03-23 12:58] LABS: Erythrocyte Sedimentation Rate 16 MM/HR (0-20)
== END 2023-03-23 09:54 | disposition home or self-care (01) ==
LOC: HO.10HDL 09:53
PROVIDERS: Visit Provider Internal Medicine Rheumatology
DX: R76.8 Other specified abnormal immunological findings in serum (principal); R74.01 Elevation of levels of liver transaminase levels; Z79.899 Other long term (current) drug therapy
CPT/HCPCS: 36415; 80053; 85025; 85652; 86140; 86704; 86706; 86709; 86803; 87340

== ENCOUNTER 2023-03-29 09:04 | Outpatient (AMB) | payer MEDICARE, SELFPAY ==
[2023-03-29 09:06] VITALS: BP 124/60; PULSE 76; TEMP 36.1; O2SAT 97; BMI 23.7
--- NOTE | 2023-03-29 09:06 | A.OFFVIS_ITS ---
Intake Vital Signs 03/29/23 09:06 Height 5 ft 2.5 in Weight 131 lb 13.383 oz BMI 23.7 BP 124/60 Blood Pressure Location Lt brachial Position Sitting Pulse 76 Pulse Source Pulse Oximeter Temp 97 F Temp Source Skin Pulse Oximetry (%) 97 Oxygen Delivery Method Room Air Intake Visit Reasons: 4 mnts f/u Intake Note: Patient presents today c/o hand inflammation since Wednesday night. Took Nabumetone through Wednesday, caused abd discomfort. Science Writer Required: No Accompanied by: Self / Same As Patient Allergies alendronate sodium Allergy (Intermediate, Verified 03/09/23 14:50) bone pain Sulfa (Sulfonamide Antibiotics) Allergy (Intermediate, Verified 03/09/23 14:50) Nausea msg Allergy (Severe, Uncoded 03/09/23 14:50) migraines nitrates Allergy (Severe, Uncoded 03/09/23 14:50) migraine Medication List - Last Reconciled 03/29/23 by Pete Guzmán MD calcium carbonate-vitamin D3 600 mg-10 mcg (400 unit) (Calcium 600 + D(3)) 1 tab PO DAILY cetirizine (Zyrtec) 10 mg PO DAILY PRN denosumab (Prolia) 60 mg subcut [id number] fremanezumab-vfrm (Ajovy) 225 mg (1.5 mL) subcut ONCE 30 days ivermectin 1% (Soolantra) 1 appl topical DAILY PRN lidocaine 5% 1 appl topical DAILY PRN lorazepam 0.5 mg PO BID PRN propranolol 1 tab orally 2 times a day; 30 days riboflavin (vitamin B2) 400 mg PO DAILY 30 days sertraline 75 mg PO BEDTIME tretinoin 0.025% 1 appl topical BEDTIME PRN zolmitriptan take 1 tab at onset of headache; if no relief may repeat 1 tab afte r at least 2 hrs; max = 4 tabs/24 hr orally PRN; HPI HPI Comments History of Present Illness Details The patient returns for evaluation of hand pain. She has been followed in the past for seropositive rheumatoid arthritis but recently she has been off methotrexate for about a year now with no joint swelling. It was not clear she had much in the way of joint swelling before that. Methotrexate was stopped because of LFT elevations. She also had been on hydroxychloroquine for a number of months that was not helpful so it was stopped. She saw her primary doctor last week after developing some hand pain on Wednesday. She was prescribed 500 mg nabumetone b.i.d. which she took once a day. The hands did improve. However she developed epigastric fullness and heartburn. She recalls that she was treated with Cipro for urinary symptoms a few days before the hands started to be painful. She also thinks there was some widespread but migratory itchiness in her skin. This seemed to also follow the Cipro but she was not quite sure exactly the time between the dose of the Cipro and this pruritus. No rash ever developed. When the hands were painful there was also some numbness that she felt. She only took 1 tablet of the Cipro and stopped it when she read that it could cause tendinitis. She has had intermittent problems with the left shoulder and that has been worse in the last 2 weeks or so. There was no injury involved. In the past she had had right shoulder pain and was thought to have a small rotator cuff tear. This was treated conservatively with physical therapy. She is back on sertraline 75 mg daily and has not been requiring the lorazepam. She takes propranolol as prevention for migraine headaches. She had received a dose of Prolia back in November for osteoporosis. She was very anxious before taking it and had been declining it for a year or so before that. Afterwards she felt like she had some side effects including some lightheadedness, nausea, abdominal fullness. This resulted in a visit to the ER where she had further workup that did not reveal any pathology. She would be due for another dose of the Prolia in May. Present she says she is not inclined to take it. [facility] Medical History Osteoporosis Seropositive rheumatoid arthritis GERD (gastroesophageal reflux disease) Allergic conjunctivitis and rhinitis Presbyopia Astigmatism Hypermetropia Carpal tunnel syndrome Migraines Depression Anxiety Hyperlipidemia Hypercholesteremia Surgical History [place] teeth extracted Family History Mother Dementia Emphysema lung Father Myocardial infarct Social History Household Members: None Alcohol intake: current Alcohol intake frequency: a few times a month Alcohol type: hard liquor Patient Tobacco Use Status: Former Tobacco user Quit Date: 25 years ago Current occupational status: 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 Const Details: Negative for appetite change, weight change, fever, chills, malaise and fatigue Eyes Details: Negative for vision change, dry eyes,headaches and dizziness ENT Details: Negative for hearing change, tinnitus, oral ulcer, nose bleeds and oral dryness. Card Details: Negative chest pain, edema and syncope Resp Details: Negative for SOB, cough and wheezing GI Details: Intermittent epigastric fullness and discomfort. This seemed to developed in the past day or so. Negative nausea, abdominal pain, bowel changes, diarrhea, constipation and bloody stool. Skin/Breast Details: Negative for itching, rash, hives, Raynaud's symptoms, sun sensitivity, and skin cancer Neuro Details: Negative for epilepsy, palsy, stroke, changes in speech, tingling and weakness Psych Details: Negative for anxiety, depression and stress Endo Details: Negative for polyuria and polydypsia Aamir/Lymph Details: Negative for excessive bruising or bleeding. Physical Exam Vital Signs: Last Vital Signs Temp 97 F 03/29/23 09:06 Pulse 76 03/29/23 09:06 BP 124/60 03/29/23 09:06 Pulse Ox 97 03/29/23 09:06 Oxygen Delivery Method Room Air 03/29/23 09:06 BMI result Body Mass Index 23.7 APPEARANCE: Patient in no acute distress EYES no redness, pupils equal and reactive to light, eyelids normal ABD: Normal bowel sounds, no organomegaly. There is some slight epigastric discomfort with pressure. No mass palpable. EXTREMITIES: No edema, no calf tenderness, normal peripheral pulses. NEURO: Oriented and alert x3. No focal weakness. Reflexes symmetric. Gait normal. SKIN: No inflammatory or neoplastic lesions. Normal color and turgor JOINT EXAM: ?? Cervical Spine: Full range of motion without pain; no tenderness. Thoracic Spine: No scoliosis.? No tenderness on palpation. Lumbar Spine: Alignment normal.? Full range of motion without pain, no tenderness. Hands: LEFT:? Normal pain-free range of motion with slight tenderness without swelling in the 1st MCP joint. The other MCP and PIP is are without tenderness, soft tissue swelling, increased warmth or erythema.? Mild bony enlargement throughout the DIPs. 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 ? RIGHT:? Normal pain-free range of motion with some slight tenderness at the base of the thumb, the 1st MCP, and all the PIP is where there is some slight bony in thickening. Elsewhere there is no tenderness, soft tissue swelling, increased warmth or erythema. Mild bony enlargement throughout the DIPs.? Able to make a full fist and has good steam shovel engineer strength. Wrists:? Normal pain-free range of motion with slight dorsal tenderness but no swelling, increased warmth or erythema. Elbows: Normal pain-free range of motion without tenderness, swelling, increased warmth or erythema. Shoulders:?? Left: The pain with 150 degrees of abduction or with extremes of rotation. The pain is felt over the posterior shoulder and anterior deltoid. The anterior region is slightly tender without swelling or adenopathy. Right: Full range of motion without pain. No tenderness, weakness, swelling, increased warmth or erythema. Hips:? Full range of motion without pain. Hip bursa:? No tenderness. Knees:?? Normal pain-free range of motion without tenderness, swelling, increased warmth or erythema.? There is no effusion or crepitation Ankles:? LEFT: Normal pain-free range of motion without tenderness, swelling, increased warmth or erythema. ? RIGHT: Normal pain-free range of motion without tenderness, joint swelling, increased warmth or erythema.? Small area of soft tissue swelling below the lateral malleolus (this has been present for a few years after sprain ankle per patient report.) Feet:? LEFT: Slight prominence over the 5th MTP. The area is minimally tender without redness. There is a scar there from the surgery that seems well healed. Elsewhere there is normal pain-free range of motion without tenderness, swelling, increased warmth or erythema.? Tender points:.? Slight tenderness to digital palpation at the trapezius, greater trochanter area bilaterally. ? Results Reviewed Results Reviewed: Laboratory Tests 03/23/23 10:00 WBC 6.5 Hgb 12.5 ESR 16 AST 29 ALT 33 H C-Reactive Protein [address] [address] XRay Report Signed Patient: Chanel Ruelas MR#: [id number] : 1955 Acct:[id number] Age/Sex: 66 / F ADM Date: 03/30/22 Ordering Physician: Steffanie Talbot NP Date of Service: 03/30/22 Procedure(s): XR hand RT min 3V Accession Number(s): [id number] cc: Steffanie Talbot COMMUNICATIONS SYSTEMS ENGINEER~ EXAMINATION: XR HAND, BILATERAL CLINICAL INFORMATION: Pain COMPARISON: None TECHNIQUE: 3 views each hand. FINDINGS: LEFT HAND: There is loss of PIP and DIP joint space with periarticular spurring, DIP joint 2nd through 4th digits. No visible fracture, dislocation or subluxation seen. There is mild soft tissue swelling. The wrist joints are unremarkable. RIGHT HAND: There is mild loss of PIP and DIP joints with mild periarticular spurring, DIP joints 2nd and 3rd digit. There is mild soft tissue swelling involving the PIP and DIP joints. No visible acute fracture, dislocation or subluxation seen. There is no soft tissue swelling. XR/XR hand RT min 3V IMPRESSION: Degenerative arthritic changes PIP and DIP joints. No visible acute fracture, dislocation or subluxation seen. Dictated By: Zoltan Dickey MD Signed By: <Electronically signed by Zoltan Dickey MD in OV> 04/08/22 1638 Assessment & Plan Assessment & Plan (1) Elevated transaminase measurement: Code(s): R74.01 - Elevation of levels of liver transaminase levels (2) Osteoarthritis of hands, bilateral: Code(s): M19.041 - Primary osteoarthritis, right hand; M19.042 - Primary osteoarthritis, left hand (3) Shoulder pain, left: Code(s): M25.512 - Pain in left shoulder (4) Rheumatoid factor positive: Code(s): R76.8 - Other specified abnormal immunological findings in serum Plan The patient had a flare-up of joint pain in the hands last week although it seems to be better this week. Whether the 4 doses of the nabumetone were all that helpful is unclear. She also questions of course whether there could have been a reaction to the Cipro that she had taken a week or so before that. It would be hard to say how that would happen after just one dose and last so long however. She does have a positive rheumatoid factor and a markedly positive CCP antibody. I told her she probably fit the category of what most people are calling pre RA. This would be arthralgias with positive serologies but no active synovitis. This has been going on for 10 years so I told her there was a likelihood that this would never evolve into full RA but one could not say that that for sure. She has already had treatment with hydroxychloroquine that was not effective treatment with methotrexate also not effective and it caused LFT ab abnormalities. The next step if one wanted to treat this type of disorder would be a TNF inhibitor, abatacept, LUDWIN inhibitor or a similar strong immunosuppressive drug. I do not think she has enough disease to warrant that approach. She probably had some benefit taking nabumetone but it did bother stomach. We suggested a trial of the Celebrex 200 mg daily. It still could cause some GI upset but that is less likely to occur than with other NSAIDs. A follow-up in about 6 weeks would be reasonable. She would be seeing a new leather dresser then to also consider what to do with her osteoporosis. She had the reaction to the Prolia which sounded more like an anxiety attack rather than anything physiologic or that worrisome. She still is very anxious of course about trying any new drug for a chronic basis. Orders: Orders XR shoulder LT min 2V Today M25.512 - Pain in left shoulder Medications: New celecoxib 200 mg PO DAILY 30 caps 2RF M19.041 - Primary osteoarthritis, right hand, M19.042 - Primary osteoarthritis, left hand, M25.512 - Pain in left shoulder Coding Level of Care Code Est Pt Level 4 (49027) Diagnoses Elevated transaminase measurement R74.01 Osteoarthritis of hands, bilateral M19.041; M19.042 Shoulder pain, left M25.512 Rheumatoid factor positive R76.8
== END 2023-03-29 10:05 | disposition home or self-care (01) ==
PROVIDERS: PCP Physician Assistant; Visit Provider Internal Medicine Rheumatology
DX: R74.01 Elevation of levels of liver transaminase levels (principal); M19.041 Primary osteoarthritis, right hand; M19.042 Primary osteoarthritis, left hand; M25.512 Pain in left shoulder; R76.8 Other specified abnormal immunological findings in serum
CPT/HCPCS: 99214

== ENCOUNTER 2023-03-29 09:04 | Outpatient (REF) | payer MEDICARE, SELFPAY ==
--- NOTE | ~2023-03-29 | XR_ITS ---
EXAMINATION: XR SHOULDER, LEFT CLINICAL INFORMATION: Pain in left shoulder COMPARISON: None available. TECHNIQUE: AP external rotation, Grashey, scapular Y, and axillary views of the left shoulder. FINDINGS: The bones are diffusely osteopenic. The bones are intact. No fracture. Glenohumeral and acromioclavicular alignment is anatomic with glenohumeral normal joint space. Mild degenerative change acromioclavicular joint. Small cortical defect is seen in the posterior aspect of the humeral head likely due to prior trauma. No abnormal soft tissue calcifications. XR/XR shoulder LT min 2V IMPRESSION: 1. No acute bony abnormality. 2. Mild degenerative change of the acromioclavicular joint.
== END 2023-03-29 09:05 | disposition home or self-care (01) ==
LOC: HO.XRAY 09:04
PROVIDERS: PCP Physician Assistant; Visit Provider Internal Medicine Rheumatology
DX: R74.01 Elevation of levels of liver transaminase levels (principal); R76.8 Other specified abnormal immunological findings in serum; M19.041 Primary osteoarthritis, right hand; M19.042 Primary osteoarthritis, left hand; M25.512 Pain in left shoulder
CPT/HCPCS: 73030; 99212

== ENCOUNTER 2023-05-10 14:31 | Outpatient (AMB) | payer MEDICARE, SELFPAY ==
--- OUTSIDE RECORDS SUMMARY | 2023-05-10 14:33 | XMS_ITS | Continuity of Care Document ---
Author Name Unknown Organization [facility] Address [address] [place] [address]- Care Team Providers Care Angiography Technologist Name Role Phone Shyann Desai Primary Care Physician [id number] Date(s): 04/28/23 - 05/05/23 [facility] [address] [place] [address]- Attending Physician: Abram Mackay Referring Physician: Shyann Desai Allergies, Adverse Reactions, Alerts Substance Reaction Severity Status Bactrim Itchy Active Medications adapalene 0.1% topical lotion 1 application, Topically, Daily, # 45 Gm, 0 Refills, Maintenance, 04/19/18 10:24:17 EST, Lotion Start Date: 04/19/18 Status: Ordered Advil By Mouth, PRN, Maintenance, as needed for pain, 06/23/12 11:18:48 Start Date: 06/23/12 Status: Ordered aspirin 81 mg oral tablet 1 tablet = 81 mg, By Mouth, Daily, 0 Refills, Maintenance Start Date: 06/23/12 Status: Ordered Clindamycin Maintenance, 04/19/18 10:23:41 EST Start Date: 04/19/18 Status: Ordered Fluticasone Nasal Daily, 0 Refills, Maintenance Start Date: 06/23/12 Status: Ordered Gabapentin By Mouth, 0 Refills, Maintenance, 04/19/18 10:23:50 EST Start Date: 04/19/18 Status: Ordered magic mouthwash magic mouthwash, See Instructions, # 200 mL, Refills 0, Tot. Refills 0, Maintenance, swish and spitevery 2 hours prn for pain., 04/19/18 10:43:44 EST, equal parts maalox, lidocaine and benadryl, Compound Start Date: 04/19/18 Status: Ordered Naproxen By Mouth, 0 Refills, Maintenance, 04/19/18 10:23:59 EST Start Date: 04/19/18 Status: Ordered NuLYTELY with Flavor Packs oral powder for reconstitution See Instructions, 1 glass every 15-30 minutes until finished, # 4,000 mL, 0 Refills, Maintenance, 02/08/19 12:07:48 EDT, 1 glass every 15-30 minutes until finished Start Date: 02/08/19 Status: Ordered omeprazole 20 mg oral enteric coated capsule 1 capsule = 20 mg, By Mouth, 2 times a day, # 60 capsule, 1 Refills, Maintenance, 06/11/22 7:38:00 EST, EC Capsule, [facility], Partial fill upon patient request if the prescription is for a schedule II opioid drug., 160, cm, 05/14/22 8:33:00... Start Date: 06/11/22 Status: Ordered omeprazole 20 mg oral enteric coated capsule 1 capsule = 20 mg, By Mouth, Daily, # 30 capsule, 6 Refills, Maintenance Start Date: 10/20/12 Status: Ordered pantoprazole 20 mg oral delayed release tablet 1 tablet = 20 mg, By Mouth, 2 times a day, # 30 tablet, 3 Refills, Maintenance, 05/29/22 15:32:00 EST, 160, cm, 05/14/22 8:33:00 EST, Height Start Date: 05/29/22 Status: Ordered pantoprazole 40 mg oral delayed release tablet 1 tablet = 40 mg, By Mouth, 2 times a day, # 60 tablet, 3 Refills, Maintenance, 06/30/22 10:56:00 EDT, CR Tablet, 160, cm, 06/30/22 10:39:00 EDT, Height Start Date: 06/30/22 Status: Ordered Propranolol Maintenance, 06/23/12 11:16:35 Start Date: 06/23/12 Status: Ordered sulfacetamide sodium-sulfur 8%-4% topical suspension 1 application, Topically, Daily, # 473 mL, 0 Refills, Maintenance, 04/19/18 10:23:33 EST, Suspension Start Date: 04/19/18 Status: Ordered Suprep Bowel Prep Kit oral liquid See Instructions, Bottle 1: the night before colonoscopy Bottle 2: the morning of colonoscopy, 6 hours before, # 1 kit, 0 Refills, Maintenance, 06/06/19 10:44:00 EST, [facility], Bottle1: the night before colonoscopy; Bottle 2: the mor... Start Date: 06/06/19 Status: Ordered Tylenol (PRN) Tylenol (PRN), Refills 0, Maintenance, 06/23/12 11:18:23 Start Date: 06/23/12 Status: Ordered Zomig By Mouth, Daily, 0 Refills, Maintenance Start Date: 06/23/12 Status: Ordered Zyrtec Zyrtec, Refills 0, Maintenance, 06/23/12 11:17:27 Start Date: 06/23/12 Status: Ordered Problem List Condition Confirmation Course Effective Dates Status Health St atus Informant Epigastric discomfort Confirmed Active HTN - Hypertension Confirmed Active Screening colonoscopy Confirmed Active Tubular adenoma of colon 1 Confirmed Active Well female adult Confirmed Active 1repeat screening colonoscopy in 2026 Vital Signs Most recent to oldest [Reference Range]: 1 Height 160 cm (04/28/23 5:48 PM) Oxygen Saturation [94-100 %] 96 % (04/28/23 5:48 PM) Pulse Rate [55-90 bpm] 62 bpm (04/28/23 5:48 PM) Blood Pressure [90-138/55-84 mm Hg] 118/ 65mm Hg (04/28/23 5:48 PM) Respiratory Rate [16-30 br/min] 18 br/mi n (04/28/23 5:48 PM) Temperature [96.8-100.4 DegF] 98.0 DegF (04/28/23 5:48 PM) Mode of Delivery (Oxygen) Room air (04/28/23 5:48 PM) Blood pressure sites Arm, right (04/28/23 5:48 PM) Temperature Route Oral (04/28/23 5:48 PM) Patient Care team information Care Team Personnel Name: Shyann Desai Position: [facility] Associate Professional Member Role: PCP Address: Address: [address] [place] [id number] Name: Pete Guzmán Position: [facility] Outreach Member Role: Lifetime Consulting Physician Care Team Related Persons Name: SERA AVERY Name: ELENI LI Address: [address] [address]
--- OUTSIDE RECORDS SUMMARY | 2023-05-10 14:33 | XMS_ITS | Continuity of Care Document ---
Author Name Unknown Organization [facility] Address [address] [place] [address]- Care Team Providers Care Industrial Maintenance Repairer Name Role Phone Shyann Desai Primary Care Physician Encounter 04/02/23 - 04/09/23 [facility] [address], [address] [place] [address]- Attending Physician: Shyann Desai Admitting Physician: Shyann Desai Referring Physician: Shyann Desai Allergies, Adverse Reactions, [...] kit, 0 Refills, Maintenance, 06/06/19 10:44:00 EST, [facility], Bottle1: the night before [...] Confirmed Active 1repeat screening colonoscopy in 2026 Results Radiology Reports * Exam Date Time Procedure Performing Provider Status 04/02/23 4:22 PM US Breast Right Limited Joey Mcmahon (Verified) Notes: (US Breast Right Limited) Reason For Exam: RT ABNORMAL MAMMO RESULT: US Breast Right Limited PROCEDURE: MM Digital Mammo Unilat Right, US Breast Right Limited INDICATION: Reason: RT ABNORMAL MAMMO Callback from screening mammogram, medial RIGHT breast asymmetry. COMPARISON: 03/25/2023 mammogram and dating back to 02/28/2019. TECHNIQUE: Digital diagnostic RIGHT mammogram: 3-D spot compression CC view. 3-D full field ML view. Computer-aided detection (CAD) was utilized in the interpretation of this study. Targeted high-resolution RIGHT breast ultrasound. FINDINGS: MAMMOGRAM: The previously described asymmetry effaces on the spot compression CC view, consistent with superimposition artifact. There is no significant abnormality on the full-field ML view. There are no suspicious masses, suspicious areas of architectural distortion or suspicious microcalcifications. ULTRASOUND: Targeted high-resolution RIGHT breast ultrasound. Focused imaging 2:00 to 4:00 between 1 cm and 6 cm from the nipple, in the region of the originallydescribed asymmetry. There is no solid mass, cyst or suspicious shadowing. Normal breast tissue identified. IMPRESSION: No mammographic or ultrasound evidence of malignancy. No persistent abnormality. RECOMMENDATION: Annual mammographic screening BI-RADS: 1 (Negative) Lay letter mailed to patient Results and follow-up recommendations verbally communicated to the patient at [facility] 04/02/2023 4:25 PM. WSN: [id number] Ordering Physician: Shyann Sandoval Dictated By: Daysi Ng MD Dictated Date/Time: 04/02/23 4:25 pm Reviewed By: Daysi Ng MD Signed By: Daysi Ng MD Signed Date/Time: 04/02/23 4:25 pm Transcribed By: PANCHITO Transcribed Date/Time: 04/02/23 4:16 pm * Exam Date Time Procedure Performing Provider Status 04/02/23 4:01 PM MM Digital Mammo Unilat Right Kay Kearns; Auth (Verified) Notes: (MM Digital Mammo Unilat Right) Reason For Exam: RT ABNORMAL MAMMO RESULT: MM Digital Mammo Unilat Right PROCEDURE: MM Digital Mammo Unilat Right, US Breast Right Limited INDICATION: Reason: RT ABNORMAL MAMMO Callback from screening mammogram, medial RIGHT breast asymmetry. COMPARISON: 03/25/2023 mammogram and dating back to 02/28/2019. TECHNIQUE: Digital diagnostic RIGHT mammogram: 3-D spot compression CC view. 3-D full field ML view. Computer-aided detection (CAD) was utilized in the interpretation of this study. Targeted high-resolution RIGHT breast ultrasound. FINDINGS: MAMMOGRAM: The previously described asymmetry effaces on the spot compression CC view, consistent with superimposition artifact. There is no significant abnormality on the full-field ML view. There are no suspicious masses, suspicious areas of architectural distortion or suspicious microcalcifications. ULTRASOUND: Targeted high-resolution RIGHT breast ultrasound. Focused imaging 2:00 to 4:00 between 1 cm and 6 cm from the nipple, in the region of the originallydescribed asymmetry. There is no solid mass, cyst or suspicious shadowing. Normal breast tissue identified. IMPRESSION: No mammographic or ultrasound evidence of malignancy. No persistent abnormality. RECOMMENDATION: Annual mammographic screening BI-RADS: 1 (Negative) Lay letter mailed to patient Results and follow-up recommendations verbally communicated to the patient at [facility] 04/02/2023 4:25 PM. WSN: [id number] Ordering Physician: Shyann Sandoval Dictated By: Daysi Ng MD Dictated Date/Time: 04/02/23 4:25 pm Reviewed By: Daysi Ng MD Signed By: Daysi Ng MD Signed Date/Time: 04/02/23 4:25 pm Transcribed By: PANCHITO Mri Technician Date/Time: 04/02/23 4:16 pm Birads: Patient Care team information Care Team Personnel Name: Shyann Desai Position: [facility] Associate Professional Member Role: PCP Address: Address: [address] [place] [id number] Name: Pete Guzmán Position: [facility] Outreach Member Role: Lifetime Consulting Physician Care Team Related Persons Name: SERA AVERY Name: ELENI LI Address: [address] [address]
--- OUTSIDE RECORDS SUMMARY | 2023-05-10 14:34 | XMS_ITS | Continuity of Care Document ---
Author Name Unknown Organization [facility] Address [address] [place] [address]- Care Team Providers Care Tire Curer Name Role Phone Shyann Desai Primary Care Physician Encounter 03/25/23 - 04/01/23 [facility] [address], [address] [place] [address]- Attending Physician: Shyann Desai Admitting Physician: Shyann [...] kit, 0 Refills, Maintenance, 06/06/19 10:44:00 EST, [facility], Bottle1: the night before [...] Exam Date Time Procedure Performing Provider Status 03/25/23 11:05 AM MM Digital Mammo Screening Kay Kearns; Auth (Verified) Notes: (MM Digital Mammo Screening) Reason For Exam: Z12.31 SCREENING MAMMOGRAM RESULT: MM Digital Mammo Screening PROCEDURE: MM Digital Mammo Screening INDICATION: Screening for breast cancer. No known palpable abnormalities. COMPARISON: [facility] dating back to 02/28/2019. TECHNIQUE: Full-field digital CC and MLO 3D tomosynthesis images of both breasts were acquired. Computer-aided detection (CAD) was utilized in the interpretation of this study. DENSITY: The breast tissue contains scattered areas of fibroglandular density. FINDINGS: The right breast demonstrates a tiny irregular 1 view asymmetry in the medial breast about 4 cm from nipple (cc bereket image 35/54.) 3-D Spot cc and full 90 degree view are recommended with ultrasound to follow if a lesion persists. No suspicious findings are seen in the left breast. IMPRESSION: Additional imaging recommended. We will recall the patient. RECOMMENDATION: Diagnostic 3D tomosynthesis of the right breast with scheduled ultrasound BI-RADS: 0 Incomplete - Need Additional Imaging Evaluation. Lay letter mailed to patient WSN: [id number] Ordering Physician: Shyann Sandoval Dictated By: Heydi Brown MD, I Dictated Date/Time: 03/25/23 4:01 pm Reviewed By: Heydi Brown MD, I Signed By: Heydi Brown MD, I Signed Date/Time: 03/25/23 4:01 pm Transcribed By: PANCHITO Bog Worker Date/Time: 03/25/23 3:57 pm Birads: Patient Care team information Care Team Personnel Name: Shyann Desai Position: [facility] Associate Professional Member Role: PCP Address: Address: [address] [place] [id number] Name: Pete Guzmán Position: [facility] Outreach Member Role: Lifetime Consulting Physician Care Team Related Persons Name: SERA AVERY Name: ELENI LI Address: [address] [address]
--- OUTSIDE RECORDS SUMMARY | 2023-05-10 14:34 | XMS_ITS | Continuity of Care Document ---
Author Name Unknown Organization [facility] Address [address] [place] [id number]- Care Team Providers Care Extruding Machine Operator Name Role Phone Shyann Desai Primary Care Physician Encounter [facility] [id number] Date(s): 06/30/22 - 07/30/22 [facility] [address] [place] [id number]- Attending Physician: Mary Lou Jasso Admitting Physician: Admtr, Mary Lou Referring Physician: Admtr, Ar8 Allergies, Adverse Reactions, Alerts Substance Reaction Severity [...] 0 Refills, Maintenance, 06/06/19 10:44:00 EST, [facility], Bottle1: the night before colonoscopy; [...] Confirmed Active 1repeat screening colonoscopy in 2026 Patient Care team information Care Team Personnel Name: Shyann Desai Position: S Associate Professional Member Role: PCP Address: Address: [address] [place] [id number]- Care Team Related Persons Name: SERA AVERY Name: ELENI LI Address: home [address] [place] [id number]
--- NOTE | 2023-05-10 14:38 | MHC.OFFVIS ---
Intake Vital Signs 05/10/23 14:39 Height 5 ft 2.5 in Weight 133 lb 13.129 oz BMI 24.1 BP 108/64 Blood Pressure Location Rt brachial Position Sitting Pulse 67 Pulse Source Pulse Oximeter Temp 96.8 F Temp Source Skin Pulse Oximetry (%) 96 Oxygen Delivery Method Room Air Intake Visit Reasons: op, ? ra Intake Note: Patient last seen 03/29/23 presents today for follow up and test results. Nail Kegger Required: No Accompanied by: Self / Same As Patient Allergies alendronate sodium Allergy (Intermediate, Verified 05/10/23 14:42) bone pain Sulfa (Sulfonamide Antibiotics) Allergy (Intermediate, Verified 05/10/23 14:42) Nausea msg Allergy (Severe, Uncoded 05/10/23 14:42) migraines nitrates Allergy (Severe, Uncoded 05/10/23 14:42) migraine Medication List - Last Reconciled 05/10/23 by Polo Zamudio MD calcium carbonate-vitamin D3 600 mg-10 mcg (400 unit) (Calcium 600 + D(3)) 1 tab PO DAILY cetirizine (Zyrtec) 10 mg PO DAILY PRN denosumab (Prolia) 60 mg subcut [id number] fremanezumab-vfrm (Ajovy) 225 mg (1.5 mL) subcut ONCE 30 days ivermectin 1% (Soolantra) 1 appl topical DAILY PRN lidocaine 5% 1 appl topical DAILY PRN lorazepam 0.5 mg PO BID PRN propranolol 1 tab orally 2 times a day; 30 days riboflavin (vitamin B2) 400 mg PO DAILY 30 days sertraline 50 mg PO BEDTIME tretinoin 0.025% 1 appl topical BEDTIME PRN zolmitriptan take 1 tab at onset of headache; if no relief may repeat 1 tab after at least 2 hrs; max = 4 tabs/24 hr orally PRN; HPI HPI Comments History of Present Illness Details This is a 67-year-old female with bilateral hand pain and positive RF and anti CCP who presents for follow-up. Patient states that for about 10 years she has had intermittent swollen tendons She stated that she twisted her left ankle years ago and afterwards she well developed prolonged pain and swelling of the posterior tibial tendon she mentions that about 5 years ago while moving, she was doing a lot of twisting movements with her right hand and she developed pain of the ulnar aspect of her right wrist and she received 4-5 injections in that area over a few years by hand surgeon which helped. She developed similar left wrist pain that was treated in the same way. Last summer while patient was working in the garden, she believes she lifted something heavy. She had chronic pain in that right shoulder for at least 2 months. She did PT which did not help, eventually she had right shoulder MRI which showed a partial supraspinatus tear, slap injury and moderate glenohumeral joint synovitis and synovial thickening. She also states that she developed similar left shoulder condition last year. Last month she was having bilateral hand pain that lasted a few days. This was after taking 1 dose of ciprofloxacin. She mentions that with Prolia she felt sick for 1-2 days after the injection and a few weeks later she was tired and fatigued for 4 days she attributes that to Prolia Patient feels well today. She has no active complaints Most recent history by Dr. Guzmán 03/2023: The patient returns for evaluation of hand pain. She has been followed in the past for seropositive rheumatoid arthritis but recently she has been off methotrexate for about a year now with no joint swelling. It was not clear she had much in the way of joint swelling before that. Methotrexate was stopped because of LFT elevations. She also had been on hydroxychloroquine for a number of months that was not helpful so it was stopped. She saw her primary doctor last week after developing some hand pain on Wednesday. She was prescribed 500 mg nabumetone b.i.d. which she took once a day. The hands did improve. However she developed epigastric fullness and heartburn. She recalls that she was treated with Cipro for urinary symptoms a few days before the hands started to be painful. She also thinks there was some widespread but migratory itchiness in her skin. This seemed to also follow the Cipro but she was not quite sure exactly the time between the dose of the Cipro and this pruritus. No rash ever developed. When the hands were painful there was also some numbness that she felt. She only took 1 tablet of the Cipro and stopped it when she read that it could cause tendinitis. She has had intermittent problems with the left shoulder and that has been worse in the last 2 weeks or so. There was no injury involved. In the past she had had right shoulder pain and was thought to have a small rotator cuff tear. This was treated conservatively with physical therapy. She is back on sertraline 75 mg daily and has not been requiring the lorazepam. She takes propranolol as prevention for migraine headaches. She had received a dose of Prolia back in November for osteoporosis. She was very anxious before taking it and had been declining it for a year or so before that. Afterwards she felt like she had some side effects including some lightheadedness, nausea, abdominal fullness. This resulted in a visit to the ER where she had further workup that did not reveal any pathology. She would be due for another dose of the Prolia in May. Present she says she is not inclined to take it. [facility] Medical History Osteoporosis Seropositive rheumatoid arthritis GERD (gastroesophageal reflux disease) Allergic conjunctivitis and rhinitis Presbyopia Astigmatism Hypermetropia Carpal tunnel syndrome Migraines Depression Anxiety Hyperlipidemia Hypercholesteremia Surgical History [place] teeth extracted Family History Mother Dementia Emphysema lung Father Myocardial infarct Social History Household Members: None Alcohol intake: current Alcohol intake frequency: a few times a month Alcohol type: hard liquor Patient Tobacco Use Status: Former Tobacco user Quit Date: 25 years ago Current occupational status: 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 Musc Denies arthralgias, Denies joint swelling and Denies stiffness Physical Exam Vital Signs: Last Vital Signs Temp 96.8 F 05/10/23 14:39 Pulse 67 05/10/23 14:39 BP 108/64 05/10/23 14:39 Pulse Ox 96 05/10/23 14:39 Oxygen Delivery Method Room Air 05/10/23 14:39 BMI result Body Mass Index 24.1 Const General: cooperative, healthy appearing and comfortable Nutritional Appearance: average body habitus Orientation/consciousness: patient oriented x3 Limitations: no limitations HEENT Head: Yes normocephalic and Yes atraumatic Mouth: moist mucous membranes Resp Effort & Inspection: normal respiratory effort and able to speak in complete sentences Auscultation: clear to auscultation bilaterally Cardio Rate: regular rate Rhythm: regular rhythm Skin General skin exam: no rashes or lesions noted Neuro General: patient oriented x3 Extrem Other: Mild osteoarthritic changes of both hands with no active synovitis Mild prominence of ulnar styloid bilaterally without swelling or tenderness Normal range of motion of both shoulders without pain Equivocal Speed's test on the right Negative empty can test, infraspinatus test and lift-off test bilaterally Negative MTP tenderness bilaterally No ankle swelling or tenderness bilateral Results Reviewed Results Reviewed: Laboratory Tests 03/23/ Patient: Chanel Ruelas MR#: [id number] : 1955 Acct:[id number] Age/Sex: 66 / F ADM Date: 03/30/22 Ordering Physician: Steffanie Talbot NP Date of Service: 03/30/22 Procedure(s): XR hand RT min 3V Accession Number(s): [id number] cc: Steffanie Talbot NP~ EXAMINATION: XR HAND, BILATERAL CLINICAL INFORMATION: Pain COMPARISON: None TECHNIQUE: 3 views each hand. FINDINGS: LEFT HAND: There is loss of PIP and DIP joint space with periarticular spurring, DIP joint 2nd through 4th digits. No visible fracture, dislocation or subluxation seen. There is mild soft tissue swelling. The wrist joints are unremarkable. RIGHT HAND: There is mild loss of PIP and DIP joints with mild periarticular spurring, DIP joints 2nd and 3rd digit. There is mild soft tissue swelling involving the PIP and DIP joints. No visible acute fracture, dislocation or subluxation seen. There is no soft tissue swelling. XR/XR hand RT min 3V IMPRESSION: Degenerative arthritic changes PIP and DIP joints. No visible acute fracture, dislocation or subluxation seen. Dictated By: Zoltan Dickey MD Signed By: <Electronically signed by Zoltan Dickey MD in OV> 04/08/22 [id number] Assessment & Plan Assessment & Plan (1) Seropositive rheumatoid arthritis: Comment: ++RF +++CCP Plaquenil: approx 2014- 2015 not effective Methotrexate: approx 11/2021- February 2022 -discontinued due to increased LFTs. Also not effective 07/22/2022 not on any medication for RA, no active disease on exam. Code(s): M05.9 - Rheumatoid arthritis with rheumatoid factor, unspecified Plan: This is a 67-year-old female who presents for evaluation of RA. 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 She does not have any active disease on exam today. Will continue to monitor patient off DMARDs. Follow-up in about 7 months. Advised patient to call our clinic if she develops any pain or swelling as I would like to see her in clinic. Can consider TNF inhibitors or Orencia if needed (2) Osteoporosis: Comment: DEXA [facility] 03/26/2022 t-score -3.9 AP spine, -3.2 fem neck, -2.0 hip. A few months of alendronate - stopped due to arthralgia(?2019) Advised Prolia treatment July 2022, patient undecided -eventually agreed to Prolia 11/25/2022 - followed by nausea, malaise, abdominal discomfort ? cause Code(s): M81.0 - Age-related osteoporosis without current pathological fracture Qualifiers: Presence of current pathological fracture: without current pathological fracture Osteoporosis type: age-related Qualified Code(s): M81.0 - Age-related osteoporosis without current pathological fracture Plan: Severe osteoporosis.. Needs antiresorptive therapy. We had a long conversation about osteoporosis today. Discussed continuing Prolia versus starting Tymlos or Forteo. We discussed risks and benefits of each. Patient elected to continue with Prolia. She is scheduled for injection in about 3 weeks. Will continue with Prolia for a total of 4 injections and repeat DEXA scan. Discussed calcium and vitamin-D supplementation as well as weight-bearing exercises Plan I spent 47 minutes reviewing patient's chart, evaluating patient, ordering diagnostic workup, counseling patient and documenting in the chart Coding Level of Care Code Est Pt Level 5 (51267) Diagnoses Seropositive rheumatoid arthritis M05.9 Age-related osteoporosis without current pathological fracture M81.0 Presence of current pathological fracture: without current pathological fracture Osteoporosis type: age-related
[2023-05-10 14:39] VITALS: BP 108/64; PULSE 67; TEMP 36; O2SAT 96; BMI 24.1
== END 2023-05-10 15:44 | disposition home or self-care (01) ==
LOC: HO.RHE 14:31
PROVIDERS: PCP Physician Assistant; Visit Provider Student in an Organized Health Care Education/Training Program
DX: M05.79 Rheumatoid arthritis with rheumatoid factor of multiple sites without organ or systems involvement (principal); M81.0 Age-related osteoporosis without current pathological fracture
CPT/HCPCS: 99215

== ENCOUNTER → 2023-05-10 14:31 | Outpatient (BNVA) | payer MEDICARE, SELFPAY | PROVIDERS: PCP Physician Assistant; Visit Provider Student in an Organized Health Care Education/Training Program | DX: M05.9 Rheumatoid arthritis with rheumatoid factor, unspecified (principal); M81.0 Age-related osteoporosis without current pathological fracture | CPT/HCPCS: 99212 ==

== ENCOUNTER 2023-05-18 13:00 | Outpatient (RCR) | payer MEDICARE, SELFPAY | END 2023-05-27 08:12 | disposition home or self-care (01) | LOC: HO.PT 13:00 | PROVIDERS: PCP Physician Assistant; Visit Provider Nurse Practitioner Family | DX: M54.2 Cervicalgia (principal); M81.0 Age-related osteoporosis without current pathological fracture; M54.9 Dorsalgia, unspecified | CPT/HCPCS: 97110; 97140; 97161 ==

== ENCOUNTER 2023-06-01 11:05 | Outpatient (AMB) | payer MEDICARE, SELFPAY ==
--- OUTSIDE RECORDS SUMMARY | 2023-06-01 11:07 | XMS_ITS | Continuity of Care Document ---
Author Name Unknown Organization [facility] Address [address] [place] [address]- Care Team Providers Care Stab Setter And Driller Name Role Phone Shyann Desai Primary Care Physician [place] [facility] Date(s): 04/28/23 - 05/28/23 [facility] [address] [place], [place] [address] Attending Physician: Mary Lou Jasso Admitting Physician: Mary Lou Jasso Referring Physician: AdmtrMary Lou Allergies, Adverse Reactions, Alerts Substance Reaction Severity [...] kit, 0 Refills, Maintenance, 06/06/19 10:44:00 EST, [facility], Bottle1: the night before [...] Care Team Personnel Name: Shyann Desai Position: [facility] Associate Professional Member Role: PCP Address: Address: [address] [place] [id number] Name: Pete Guzmán Position: [facility] Outreach Member Role: Lifetime Consulting Physician Care Team Related Persons Name: SERA AVERY Name: ELENI LI Address: [address] [address]
--- NOTE | 2023-06-01 15:58 | AM.OFFVISNUR ---
Intake Intake Visit Reasons: osteoporosis/prolia inj Allergies alendronate sodium Allergy (Intermediate, Verified 05/10/23 14:42) bone pain Sulfa (Sulfonamide Antibiotics) Allergy (Intermediate, Verified 05/10/23 14:42) Nausea msg Allergy (Severe, Uncoded 05/10/23 14:42) migraines nitrates Allergy (Severe, Uncoded 05/10/23 14:42) migraine Nursing Note Patient here for continued Prolia therapy. Patient denies new allergies and tolerated last injection. I administered Prolia on right arm, she tolerated injection well. Office Meds Prolia 60 mg/mL subcutaneous syringe Performing Provider: Polo Zamudio MD Performing Location: [facility] Administered by: Ashlyn Basilio RN on 06/01/23 11:02 Dose Route Admin Location Dispensed Lot Number Expiration Date [facility] [employer] Manager 60 mg subcut right arm 1 mL [id number] 06/09/25 55364-459-64 [facility] Coding Level of Care Code Procedure Only Assessment & Plan Assessment & Plan Orders: Orders AMB Denosumab Injection Practice Supplied Today M81.0 - Age-related osteoporosis without current pathological fracture
== END 2023-06-01 11:47 | disposition home or self-care (01) ==
LOC: HO.RHE 11:05
PROVIDERS: PCP Physician Assistant
DX: M81.0 Age-related osteoporosis without current pathological fracture (principal)

== ENCOUNTER → 2023-06-01 11:05 | Outpatient (BNVA) | payer MEDICARE, SELFPAY | PROVIDERS: PCP Physician Assistant | DX: M81.0 Age-related osteoporosis without current pathological fracture (principal) | CPT/HCPCS: 96372; J0897 ==

== ENCOUNTER 2023-06-08 09:16 | Outpatient (AMB) | payer MEDICARE, SELFPAY ==
--- NOTE | 2023-06-08 09:19 | A.OFFVIS_ITS ---
Intake Vital Signs 3 06/08/23 09:23 Height 5 ft 2.5 in Weight 135 lb 12.876 oz BMI 24.4 BP 118/62 Blood Pressure Location Rt brachial Position Sitting Pulse 71 Pulse Source Pulse Oximeter Temp 97.6 F Temp Source Skin Pulse Oximetry (%) 98 Oxygen Delivery Method Room Air Intake Visit Reasons: Hand pain Intake Note: Patient last seen Apr, [address] Zamudio. Presents to office today complaining of hand pain/swelling. 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 Accompanied by: Self / Same As Patient Allergies alendronate sodium Allergy (Intermediate, Verified 06/08/23 09:26) bone pain Sulfa (Sulfonamide Antibiotics) Allergy (Intermediate, Verified 06/08/23 09:26) Nausea msg Allergy (Severe, Uncoded 06/08/23 09:26) migraines nitrates Allergy (Severe, Uncoded 06/08/23 09:26) migraine Medication List - Last Reconciled 06/08/23 by Polo Zamudio MD calcium carbonate-vitamin D3 600 mg-10 mcg (400 unit) (Calcium 600 + D(3)) 1 tab PO DAILY cetirizine (Zyrtec) 10 mg PO DAILY PRN denosumab (Prolia) 60 mg subcut [id number] esomeprazole magnesium 40 mg PO DAILY fremanezumab-vfrm (Ajovy) 225 mg (1.5 mL) subcut ONCE 30 days ivermectin 1% (Soolantra) 1 appl topical DAILY PRN lidocaine 5% 1 appl topical DAILY PRN lorazepam 0.5 mg PO BID PRN propranolol 1 tab orally 2 times a day; 30 days riboflavin (vitamin B2) 400 mg PO DAILY 30 days sertraline 50 mg PO DAILY tretinoin 0.025% 1 appl topical BEDTIME PRN zolmitriptan take 1 tab at onset of headache; if no relief may repeat 1 tab after at least 2 hrs; max = 4 tabs/24 hr orally PRN; HPI HPI Comments 2 History of Present Illness0 Details Patient returns for urgent follow-up visit due to abrupt onset of 2 day history of right hand pain and swelling. She has been taking Celebrex with some improvement. About 50% improvement. She does not recall any triggering factor. No trauma, infections or overuse. She stated that in the past when she was started on hydroxychloroquine, she was having pain at the bottom of her toes especially when walking, hydroxychloroquine did not help those. She was on hydroxychloroquine for at least 9 months Initial visit with me 04/2023: This is a 67-year-old female with bilateral hand pain and positive RF and anti CCP who presents for follow-up. Patient states that for about 10 years she has had intermittent swollen tendons She stated that she twisted her left ankle years ago and afterwards she well developed prolonged pain and swelling of the posterior tibial tendon she mentions that about 5 years ago while moving, she was doing a lot of twisting movements with her right hand and she developed pain of the ulnar aspect of her right wrist and she received 4-5 injections in that area over a few years by hand surgeon which helped. She developed similar left wrist pain that was treated in the same way. Last summer while patient was working in the garden, she believes she lifted something heavy. She had chronic pain in that right shoulder for at least 2 months. She did PT which did not help, eventually she had right shoulder MRI which showed a partial supraspinatus tear, slap injury and moderate glenohumeral joint synovitis and synovial thickening. She also states that she developed similar left shoulder condition last year. Last month she was having bilateral hand pain that lasted a few days. This was after taking 1 dose of ciprofloxacin. She mentions that with Prolia she felt sick for 1-2 days after the injection and a few weeks later she was tired and fatigued for 4 days she attributes that to Prolia Patient feels well today. She has no active complaints Most recent history by Dr. Guzmán 03/2023: The patient returns for evaluation of hand pain. She has been followed in the past for seropositive rheumatoid arthritis but recently she has been off methotrexate for about a year now with no joint swelling. It was not clear she had much in the way of joint swelling before that. Methotrexate was stopped because of LFT elevations. She also had been on hydroxychloroquine for a number of months that was not helpful so it was stopped. She saw her primary doctor last week after developing some hand pain on Wednesday. She was prescribed 500 mg nabumetone b.i.d. which she took once a day. The hands did improve. However she developed epigastric fullness and heartburn. She recalls that she was treated with Cipro for urinary symptoms a few days before the hands started to be painful. She also thinks there was some widespread but migratory itchiness in her skin. This seemed to also follow the Cipro but she was not quite sure exactly the time between the dose of the Cipro and this pruritus. No rash ever developed. When the hands were painful there was also some numbness that she felt. She only took 1 tablet of the Cipro and stopped it when she read that it could cause tendinitis. She has had intermittent problems with the left shoulder and that has been worse in the last 2 weeks or so. There was no injury involved. In the past she had had right shoulder pain and was thought to have a small rotator cuff tear. This was treated conservatively with physical therapy. She is back on sertraline 75 mg daily and has not been requiring the lorazepam. She takes propranolol as prevention for migraine headaches. She had received a dose of Prolia back in November for osteoporosis. She was very anxious before taking it and had been declining it for a year or so before that. Afterwards she felt like she had some side effects including some lightheadedness, nausea, abdominal fullness. This resulted in a visit to the ER where she had further workup that did not reveal any pathology. She would be due for another dose of the Prolia in May. Present she says she is not inclined to take it. [facility] Medical History Osteoporosis Seropositive rheumatoid arthritis GERD (gastroesophageal reflux disease) Allergic conjunctivitis and rhinitis Presbyopia Astigmatism Hypermetropia Carpal tunnel syndrome Migraines Depression Anxiety Hyperlipidemia Hypercholesteremia Surgical History [place] teeth extracted Family History Mother Dementia Emphysema lung Father Myocardial infarct Social History Household Members: None Alcohol intake: current Alcohol intake frequency: a few times a month Alcohol type: hard liquor Patient Tobacco Use Status: Former Tobacco user Quit Date: 25 years ago Current occupational status: 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 [facility] Reports arthralgias, Reports joint swelling and Reports stiffness Physical Exam Vital Signs: Last Vital Signs Temp 97.6 F 06/08/23 09:23 Pulse 71 06/08/23 09:23 BP 118/62 06/08/23 09:23 Pulse Ox 98 06/08/23 09:23 Oxygen Delivery Method Room Air 06/08/23 09:23 BMI result Body Mass Index 24.4 Const General: cooperative, healthy appearing and comfortable Nutritional Appearance: average body habitus Orientation/consciousness: patient oriented x3 Limitations: no limitations HEENT Head: Yes normocephalic and Yes atraumatic Mouth: moist mucous membranes Resp Effort & Inspection: normal respiratory effort and able to speak in complete sentences Cardio Rate: regular rate Rhythm: regular rhythm Skin General skin exam: no rashes or lesions noted Neuro General: patient oriented x3 Extrem Other: Osteoarthritic changes of both hands Puffiness of right hand fingers Tenderness across the flexor tendons Left 1st MCP tenderness Results Reviewed Results Reviewed: Laboratory Tests Patient: Chanel Ruelas MR#: [id number] : 1955 Acct:[id number] Age/Sex: 66 / F ADM Date: 03/30/22 Ordering Physician: Steffanie Talbot NP Date of Service: 03/30/22 Procedure(s): XR hand RT min 3V Accession Number(s): [id number] cc: Steffanie Talbot NP~ EXAMINATION: XR HAND, BILATERAL CLINICAL INFORMATION: Pain COMPARISON: None TECHNIQUE: 3 views each hand. FINDINGS: LEFT HAND: There is loss of PIP and DIP joint space with periarticular spurring, DIP joint 2nd through 4th digits. No visible fracture, dislocation or subluxation seen. There is mild soft tissue swelling. The wrist joints are unremarkable. RIGHT HAND: There is mild loss of PIP and DIP joints with mild periarticular spurring, DIP joints 2nd and 3rd digit. There is mild soft tissue swelling involving the PIP and DIP joints. No visible acute fracture, dislocation or subluxation seen. There is no soft tissue swelling. XR/XR hand RT min 3V IMPRESSION: Degenerative arthritic changes PIP and DIP joints. No visible acute fracture, dislocation or subluxation seen. Dictated By: Zoltan Dickey MD Signed By: <Electronically signed by Zoltan Dickey MD in [place]> 04/08/22 3536 Assessment & Plan Assessment & Plan (1) Seropositive rheumatoid arthritis: Comment: ++RF +++CCP Plaquenil: approx 2014- 2015 not effective Methotrexate: approx 11/2021- February 2022 -discontinued due to increased LFTs. Also not effective 07/22/2022 not on any medication for RA, no active disease on exam. Code(s): M05.9 - Rheumatoid arthritis with rheumatoid factor, unspecified Plan: This is a 67-year-old female who presents for evaluation of RA. 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 Right shoulder MRI last year showed glenohumeral synovitis with synovial thickening, which is also a sign of rheumatoid arthritis Upon evaluation today patient is having synovitis affecting her right hand, especially affecting the flexor tendons. Left 1st MCP swelling and tenderness Needs to restart DMARDs. Hydroxychloroquine was not effective, methotrexate was not effective and caused transaminitis. We had a long conversation about rheumatoid arthritis, its complications including deformities, tendon ruptures and increase cardiovascular risk. I suggested starting a TNF inhibitor such as Enbrel. She will think about and give us a call (2) Osteoporosis: Comment: DEXA [facility] 03/26/2022 t-score -3.9 AP spine, -3.2 fem neck, -2.0 hip. A few months of alendronate - stopped due to arthralgia(?2019) Advised Prolia treatment July 2022, patient undecided -eventually agreed to Prolia 11/25/2022 - followed by nausea, malaise, abdominal discomfort ? cause Code(s): M81.0 - Age-related osteoporosis without current pathological fracture Qualifiers: Osteoporosis type: age-related Presence of current pathological fracture: without current pathological fracture Qualified Code(s): M81.0 - Age- related osteoporosis without current pathological fracture Plan: Patient had some side effects with 1st Prolia injection She received her 2nd Prolia injection 05/2023 it was uneventful but patient took lorazepam Will continue with Prolia for a total of 4 injections and repeat DEXA scan. Discussed calcium and vitamin-D supplementation as well as weight-bearing exercises Plan I spent 47 minutes reviewing patient's chart, evaluating patient, ordering diagnostic workup, counseling patient and documenting in the chart Orders: Orders 2 Complete Blood Count Auto Diff Today M05.9 - Rheumatoid arthritis with rheumatoid factor, unspecified C Reactive Protein Today M05.9 - Rheumatoid arthritis with rheumatoid factor, unspecified T Spot TB Today Z11.7 - Encounter for testing for latent tuberculosis infection Comprehensive Met. Panel Today M05.9 - Rheumatoid arthritis with rheumatoid factor, unspecified Erythrocyte Sedimentation Rate Today M05.9 - Rheumatoid arthritis with rheumatoid factor, unspecified Coding Level of Care Code Est Pt Level 5 (17577) Diagnoses Seropositive rheumatoid arthritis M05.9 Age-related osteoporosis without current pathological fracture M81.0 Osteoporosis type: age-related Presence of current pathological fracture: without current pathological fracture
[2023-06-08 09:23] VITALS: BP 118/62; PULSE 71; TEMP 36.4; O2SAT 98; BMI 24.4
== END 2023-06-08 10:03 | disposition home or self-care (01) ==
LOC: HO.RHE 09:18
PROVIDERS: PCP Physician Assistant; Visit Provider Student in an Organized Health Care Education/Training Program
DX: M05.79 Rheumatoid arthritis with rheumatoid factor of multiple sites without organ or systems involvement (principal); M81.0 Age-related osteoporosis without current pathological fracture
CPT/HCPCS: 99214

== ENCOUNTER → 2023-06-08 09:16 | Outpatient (BNVA) | payer MEDICARE, SELFPAY | PROVIDERS: PCP Physician Assistant; Visit Provider Student in an Organized Health Care Education/Training Program | DX: M05.9 Rheumatoid arthritis with rheumatoid factor, unspecified (principal); M81.0 Age-related osteoporosis without current pathological fracture | CPT/HCPCS: 36415; 80053; 85025; 85652; 86140; 86481; 99212 ==

== ENCOUNTER 2023-06-08 10:10 | Outpatient (REF) | payer MEDICARE, SELFPAY ==
[2023-06-08 13:25] LABS: MANUAL DIFF FLAG NO
[2023-06-08 13:40] LABS: Basophils Absolute Auto 0.1 X10*3/uL (0.0-0.2); Basophils Percent Auto 0.8 % (0-2); Eosinophils Absolute Auto 0.1 X10*3/uL (0.0-0.4); Eosinophils Percent Auto 1.3 % (0-4); Hematocrit 38.2 % (37.0-47.0); Hemoglobin 12.9 g/dl (12.0-16.0); Imm Gran Abs Auto 0.02 X10*3/uL (0.00-0.03); Imm Gran Pct Auto 0.3 % (0.0-0.4); Lymphocytes Absolute Auto 1.7 X10*3/uL (1.2-4.9); Lymphocytes Percent Auto 28.3 % (20-40); Mean Corpuscular HGB Conc 33.8 g/dl (31.0-35.0); Mean Corpuscular Hemoglobin 31.3 pg (27.0-33.0); Mean Corpuscular Volume 92.7 fL (80.0-98.0); Mean Platelet Volume 11.1 fL (9.4-12.3); Monocytes Absolute Auto 0.7 X10*3/uL (0.1-1.2); Monocytes Percent Auto 11.6 % (2-11); Neutrophils Absolute Auto 3.5 x10*3/uL (2.0-8.3); Neutrophils Percent Auto 57.7 % (45-73); Platelet Count 309 X10*3/uL (160-400); Red Blood Count 4.12 X10*6/uL (4.20-5.50); Red Cell Distribution Width 13.1 % (11.0-16.0); White Blood Count 6.1 X10*3/uL (4.8-10.8)
[2023-06-08 14:10] LABS: Alanine Aminotransferase 117 U/L (0-31); Albumin Level 4.2 g/dL (3.5-5.0); Alkaline Phosphatase 135 U/L (39-117); Anion Gap 10 (12-20); Aspartate Amino Transferase 70 U/L (5-31); Bilirubin Total 0.4 mg/dL (0.0-1.0); Blood Urea Nitrogen 10 mg/dL (9-16); C Reactive Protein 1.13 mg/dL (< or = 0.50); Calcium 9.5 mg/dL (8.4-10.2); Carbon Dioxide 29 mmol/L (22-29); Chloride 102 mmol/L (96-108); Estimated Glomerular Filt Rate > 60; Glucose Random 72 mg/dL (60-115); Potassium 4.2 mmol/L (3.3-5.1); Sodium 137 mmol/L (135-145); Total Protein 7.4 g/dL (6.5-8.0)
[2023-06-08 14:15] LABS: Erythrocyte Sedimentation Rate 20 MM/HR (0-20)
[2023-06-10 21:44] LABS: TS Negative Control Passed; TS Panel A 0; TS Panel B 0; TS Positive Control Passed; TSpotTB Negative (Negative)
== END 2023-06-08 10:11 | disposition home or self-care (01) ==
LOC: HO.10HDL 10:10
PROVIDERS: Visit Provider Student in an Organized Health Care Education/Training Program
DX: Z13.89 Encounter for screening for other disorder (principal)
CPT/HCPCS: 36415; 80053; 85025; 85652; 86140; 86481

== ENCOUNTER 2023-06-15 11:00 | Outpatient (RCR) | payer MEDICARE, SELFPAY | END 2023-06-15 14:36 | disposition home or self-care (01) | LOC: HO.PT 11:00 | PROVIDERS: Absent Provider Nurse Practitioner Family; PCP Physician Assistant; Visit Provider Internal Medicine Sports Medicine | DX: M81.0 Age-related osteoporosis without current pathological fracture (principal); M54.9 Dorsalgia, unspecified; M54.2 Cervicalgia | CPT/HCPCS: 97110; 97112; 97162 ==

== ENCOUNTER 2023-06-18 14:23 | Outpatient (AMB) | payer MEDICARE, SELFPAY ==
--- NOTE | 2023-06-18 14:31 | A.OFFVIS_ITS ---
Intake Vital Signs 06/18/23 14:32 Height 5 ft 2.5 in Pulse 68 Pulse Source Pulse Oximeter Pulse Oximetry (%) 97 Oxygen Delivery Method Room Air Intake Visit Reasons: 4 mo f/u- Migraines-conf Intake Note: Patient presents for 4 month follow up migraines. last couple of weeks they've been better Allergies alendronate sodium Allergy (Intermediate, Verified 06/18/23 14:36) bone pain Sulfa (Sulfonamide Antibiotics) Allergy (Intermediate, Verified 06/18/23 14:36) Nausea msg Allergy (Severe, Uncoded 06/18/23 14:36) migraines nitrates Allergy (Severe, Uncoded 06/18/23 14:36) migraine Medication List - Last Reconciled 06/18/23 by KATE Alfaro calcium carbonate-vitamin D3 600 mg-10 mcg (400 unit) (Calcium 600 + D(3)) 1 tab PO DAILY cetirizine (Zyrtec) 10 mg PO DAILY PRN denosumab (Prolia) 60 mg subcut [id number] esomeprazole magnesium 40 mg PO DAILY fexofenadine (Samreen Allergy) 60 mg PO Q12H fremanezumab-vfrm (Ajovy) 225 mg (1.5 mL) subcut ONCE 30 days ivermectin 1% (Soolantra) 1 appl topical DAILY PRN lidocaine 5% 1 appl topical DAILY PRN lorazepam 0.5 mg PO BID PRN propranolol 1 tab orally 2 times a day; 30 days riboflavin (vitamin B2) 400 mg PO DAILY 30 days sertraline 50 mg PO DAILY tretinoin 0.025% 1 appl topical BEDTIME PRN zolmitriptan take 1 tab at onset of headache; if no relief may repeat 1 tab after at least 2 hrs; max = 4 tabs/24 hr orally PRN; HPI HPI Comments History of Present Illness Details 68-yr-old female presents for f/u visit. Her construction analyst has advised her to start Embrel, which she has not started yet. Had allergy consult- allergy testing confirmed her cat and dust mite allergy, but other environmental allergies. She was advised to try samreen, zyrtec, poss ibly trying allergy shots. She had 10 migraine days in the last month- she can have longer durations w/o a migraine attack. She did try accupuncture- she does not know if she likes it. She is taking Propranolol 60mg IR tab qd, down from 60mg bid. She did not start Ajovy- was worried about starting it w/ Embrel. Baseline headache characteristics: Moderate to Severe frontal headache. Pressure, heaviness a/e photophobia, nausea, now rarely vomiting, activity tolerance, sinus congestion, runny nose, deep sighs Postdrome- may have an exhilaration sensation C-spine and T-spine XR: XR/XR cervical spine 2V IMPRESSION: Cervical lordotic straightening, mild anterolisthesis C4 on C5. Multilevel disc space narrowings, most pronounced C7-T1. Unremarkable thoracic spine. [facility] Medical History (Updated 06/08/23 @ 16:58 by Polo Zamudio MD) Osteoporosis Seropositive rheumatoid arthritis GERD (gastroesophageal reflux disease) Allergic conjunctivitis and rhinitis Presbyopia Astigmatism Hypermetropia Carpal tunnel syndrome Migraines Depression Anxiety Hyperlipidemia Hypercholesteremia Surgical History [place] teeth extracted Family History Mother Dementia Emphysema lung Father Myocardial infarct Social History Household Members: None Alcohol intake: current Alcohol intake frequency: a few times a month Alcohol type: hard liquor Patient Tobacco Use Status: Former Tobacco user Quit Date: 25 years ago Current occupational status: retired Physical Exam Vital Signs: Last Vital Signs Pulse 68 06/18/23 14:32 Pulse Ox 97 06/18/23 14:32 Oxygen Delivery Method Room Air 06/18/23 14:32 Const General: cooperative and no acute distress Orientation/consciousness: patient oriented x3 Resp Effort & Inspection: normal respiratory effort and able to speak in complete sentences Neuro General: patient oriented x3 Cranial nerves: Yes CN's II-XII intact bilaterally Cognition (Neuro): normal cognition Psych Appearance: grossly normal Mental Status: mental status grossly normal Speech and movement: Normal speech and movement present Affect: normal affect Attitude: cooperative Assessment & Plan Assessment & Plan (1) Migraine without aura: Code(s): G43.009 - Migraine without aura, not intractable, without status migrainosus (2) Cervicalgia: Code(s): M54.2 - Cervicalgia Plan Reviewed c-spine and t-spine XR- Cervical lordotic straightening, mild anterolisthesis C4 on C5, Multilevel disc space narrowings, most pronounced C7- T1. F/u w/ rheumatology. For overall headache management: Continue to optimize good self-care, including but not limited to maintaining a healthy diet, adequate fluid intake, adequate sleep, and engaging in regular physical activity. Track headaches. ? For acute headache treatment: Continue Zolmitriptan 2.5mg prn at onset of migraine, MR in 2 hrs. Previous acute migraine medication trials: Sumatriptan- not tolerated. Cafargot- was ineffective. Ergotamine- not effective. Acute migraine medication contraindications: None at this time ? For headache prevention medication: Continue Riboflavin 400mg qam Hold Magnesium 400mg qhs Continue Propranolol 60 mg qd. May start Ajovy 225mg sc q month. Continue Sertraline. Previous preventative medication use: Feverfew- ineffective. Propranol Er- was not as effective. Migraine prevention medication contraindications: TCAs and AEDs as pt is 67 yo ? Pt to follow-up in 4 months or sooner prn. Coding Level of Care Code Est Pt Level 4 (04530) Diagnoses Migraine without aura G43.009 Cervicalgia M54.2
[2023-06-18 14:32] VITALS: PULSE 68; O2SAT 97
== END 2023-06-18 15:34 | disposition home or self-care (01) ==
PROVIDERS: PCP Physician Assistant; Visit Provider Nurse Practitioner Family
DX: G43.009 Migraine without aura, not intractable, without status migrainosus (principal); M54.2 Cervicalgia
CPT/HCPCS: 99214

== ENCOUNTER → 2023-06-18 14:23 | Outpatient (BNVA) | payer MEDICARE, SELFPAY | PROVIDERS: PCP Physician Assistant; Visit Provider Nurse Practitioner Family | DX: G43.009 Migraine without aura, not intractable, without status migrainosus (principal); M54.2 Cervicalgia | CPT/HCPCS: 99212 ==

== ENCOUNTER 2023-08-13 11:19 | Outpatient (REF) | payer MEDICARE, SELFPAY ==
[2023-08-13 13:04] LABS: MANUAL DIFF FLAG NO
[2023-08-13 13:08] LABS: MANUAL DIFF FLAG NO
[2023-08-13 13:13] LABS: Basophils Absolute Auto 0.1 X10*3/uL (0.0-0.2); Basophils Percent Auto 0.9 % (0-2); Eosinophils Absolute Auto 0.1 X10*3/uL (0.0-0.4); Eosinophils Percent Auto 1.4 % (0-4); Hematocrit 37.8 % (37.0-47.0); Hemoglobin 12.8 g/dl (12.0-16.0); Imm Gran Abs Auto 0.03 X10*3/uL (0.00-0.03); Imm Gran Pct Auto 0.5 % (0.0-0.4); Lymphocytes Absolute Auto 1.8 X10*3/uL (1.2-4.9); Lymphocytes Percent Auto 27.6 % (20-40); Mean Corpuscular HGB Conc 33.9 g/dl (31.0-35.0); Mean Corpuscular Hemoglobin 31.4 pg (27.0-33.0); Mean Corpuscular Volume 92.6 fL (80.0-98.0); Mean Platelet Volume 10.2 fL (9.4-12.3); Monocytes Absolute Auto 0.8 X10*3/uL (0.1-1.2); Monocytes Percent Auto 11.6 % (2-11); Neutrophils Absolute Auto 3.9 x10*3/uL (2.0-8.3); Platelet Count 357 X10*3/uL (160-400); Red Blood Count 4.08 X10*6/uL (4.20-5.50); Red Cell Distribution Width 11.9 % (11.0-16.0); White Blood Count 6.6 X10*3/uL (4.8-10.8)
[2023-08-13 13:40] LABS: Alanine Aminotransferase 42 U/L (0-31); Albumin Level 4.1 g/dL (3.5-5.0); Alkaline Phosphatase 73 U/L (39-117); Anion Gap 13 (12-20); Aspartate Amino Transferase 44 U/L (5-31); Bilirubin Total 0.4 mg/dL (0.0-1.0); Blood Urea Nitrogen 14 mg/dL (9-16); C Reactive Protein 0.24 mg/dL (< or = 0.50); Calcium 9.5 mg/dL (8.4-10.2); Carbon Dioxide 27 mmol/L (22-29); Chloride 101 mmol/L (96-108); Estimated Glomerular Filt Rate > 60; Glucose Random 72 mg/dL (60-115); Potassium 4.2 mmol/L (3.3-5.1); Sodium 137 mmol/L (135-145); Total Protein 7.3 g/dL (6.5-8.0)
[2023-08-13 13:47] LABS: Erythrocyte Sedimentation Rate 13 MM/HR (0-20)
== END 2023-08-13 11:20 | disposition home or self-care (01) ==
LOC: HO.10HDL 11:19
PROVIDERS: Student in an Organized Health Care Education/Training Program; Visit Provider Nurse Practitioner Family
DX: M05.9 Rheumatoid arthritis with rheumatoid factor, unspecified (principal); R74.01 Elevation of levels of liver transaminase levels; R74.8 Abnormal levels of other serum enzymes
CPT/HCPCS: 36415; 80053; 85025; 85652; 86140

== ENCOUNTER 2023-08-30 09:38 | Outpatient (AMB) | payer MEDICARE, SELFPAY ==
--- NOTE | 2023-08-30 09:40 | MHC.OFFVIS ---
Vital Signs 08/30/23 09:51 Height 5 ft 2.5 in Weight 133 lb 9.602 oz BMI 24.0 BP 122/68 Blood Pressure Location Rt brachial Position Sitting Pulse 70 Pulse Source Pulse Oximeter Pulse Oximetry (%) 95 Oxygen Delivery Method Room Air Intake Visit Reasons: RA Intake Note: Patient last seen 06/08/23 presents today for follow up and test results. Pt has been taking plaquenil 1 tab as opposed to 1.5 tabs because she couldn't tolerate it. She would like to know if she needs another bone density before prolia in November. Animal Husbandman Required: No Accompanied by: Self / Same As Patient Allergies alendronate sodium Allergy (Intermediate, Verified 08/30/23 09:52) bone pain Sulfa (Sulfonamide Antibiotics) Allergy (Intermediate, Verified 08/30/23 09:52) Nausea msg Allergy (Severe, Uncoded 08/30/23 09:52) migraines nitrates Allergy (Severe, Uncoded 08/30/23 09:52) migraine Medication List - Last Reconciled 08/30/23 by Polo Zamudio MD calcium carbonate-vitamin D3 600 mg-10 mcg (400 unit) (Calcium 600 + D(3)) 1 tab PO DAILY cetirizine (Zyrtec) 10 mg PO DAILY PRN denosumab (Prolia) 60 mg subcut [id number] fexofenadine (Sweta Allergy) 60 mg PO Q12H hydroxychloroquine 300 mg (1.5 x 200 mg) PO DAILY ivermectin 1% (Soolantra) 1 appl topical DAILY PRN lidocaine 5% 1 appl topical DAILY PRN lorazepam 0.5 mg PO BID PRN propranolol 1 tab orally 2 times a day; 30 days riboflavin (vitamin B2) 400 mg PO DAILY 30 days sertraline 50 mg PO DAILY tretinoin 0.025% 1 appl topical BEDTIME PRN zolmitriptan take 1 tab at onset of headache; if no relief may repeat 1 tab after at least 2 hrs; max = 4 tabs/24 hr orally PRN; HPI Comments Details: 68-year-old female with seropositive RA returns for follow-up. After last visit patient was having a flare-up. She did not start hydroxychloroquine as prescribed. She started it only after she completed the prednisone taper. She only started the hydroxychloroquine in July. She was taking 1.5 tabs as prescribed but it caused stomach upset. She had 1 episode of GI upset and vomiting. She was advised by Roxane to lower the dose to 1 tab daily. He further lowered it 0.5 tabs daily for about a week and now she is back on 1 tab daily. She is tolerating this dose well enough. Denies any joint pain or swelling of her hands. But she is having some left shoulder achiness. Initial visit with me 04/2023: This is a 67-year-old female with bilateral hand pain and positive RF and anti CCP who presents for follow-up. Patient states that for about 10 years she has had intermittent swollen tendons She stated that she twisted her left ankle years ago and afterwards she well developed prolonged pain and swelling of the posterior tibial tendon she mentions that about 5 years ago while moving, she was doing a lot of twisting movements with her right hand and she developed pain of the ulnar aspect of her right wrist and she received 4-5 injections in that area over a few years by hand surgeon which helped. She developed similar left wrist pain that was treated in the same way. Last summer while patient was working in the garden, she believes she lifted something heavy. She had chronic pain in that right shoulder for at least 2 months. She did PT which did not help, eventually she had right shoulder MRI which showed a partial supraspinatus tear, slap injury and moderate glenohumeral joint synovitis and synovial thickening. She also states that she developed similar left shoulder condition last year. Last month she was having bilateral hand pain that lasted a few days. This was after taking 1 dose of ciprofloxacin. She mentions that with Prolia she felt sick for 1-2 days after the injection and a few weeks later she was tired and fatigued for 4 days she attributes that to Prolia Patient feels well today. She has no active complaints Most recent history by Dr. Guzmán 03/2023: The patient returns for evaluation of hand pain. She has been followed in the past for seropositive rheumatoid arthritis but recently she has been off methotrexate for about a year now with no joint swelling. It was not clear she had much in the way of joint swelling before that. Methotrexate was stopped because of LFT elevations. She also had been on hydroxychloroquine for a number of months that was not helpful so it was stopped. She saw her primary doctor last week after developing some hand pain on Wednesday. She was prescribed 500 mg nabumetone b.i.d. which she took once a day. The hands did improve. However she developed epigastric fullness and heartburn. She recalls that she was treated with Cipro for urinary symptoms a few days before the hands started to be painful. She also thinks there was some widespread but migratory itchiness in her skin. This seemed to also follow the Cipro but she was not quite sure exactly the time between the dose of the Cipro and this pruritus. No rash ever developed. When the hands were painful there was also some numbness that she felt. She only took 1 tablet of the Cipro and stopped it when she read that it could cause tendinitis. She has had intermittent problems with the left shoulder and that has been worse in the last 2 weeks or so. There was no injury involved. In the past she had had right shoulder pain and was thought to have a small rotator cuff tear. This was treated conservatively with physical therapy. She is back on sertraline 75 mg daily and has not been requiring the lorazepam. She takes propranolol as prevention for migraine headaches. She had received a dose of Prolia back in November for osteoporosis. She was very anxious before taking it and had been declining it for a year or so before that. Afterwards she felt like she had some side effects including some lightheadedness, nausea, abdominal fullness. This resulted in a visit to the ER where she had further workup that did not reveal any pathology. She would be due for another dose of the Prolia in May. Present she says she is not inclined to take it. [facility] Medical History Osteoporosis Seropositive rheumatoid arthritis GERD (gastroesophageal reflux disease) Allergic conjunctivitis and rhinitis Presbyopia Astigmatism Hypermetropia Carpal tunnel syndrome Migraines Depression Anxiety Hyperlipidemia Hypercholesteremia Surgical History [place] teeth extracted Family History Mother Dementia Emphysema lung Father Myocardial infarct Social History Household Members: None Alcohol intake: current Alcohol intake frequency: a few times a month Alcohol type: hard liquor Patient Tobacco Use Status: Former Tobacco user Quit Date: 25 years ago Current occupational status: 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 [facility]ralgias Physical Exam Vital Signs: Last Vital Signs Pulse 70 08/30/23 09:51 BP 122/68 08/30/23 09:51 Pulse Ox 95 08/30/23 09:51 Oxygen Delivery Method Room Air 08/30/23 09:51 BMI result Body Mass Index 24.0 Const General: cooperative, healthy appearing and comfortable Nutritional Appearance: average body habitus Orientation/consciousness: patient oriented x3 Limitations: no limitations HEENT Head: Yes normocephalic and Yes atraumatic Mouth: moist mucous membranes Resp Effort & Inspection: normal respiratory effort and able to speak in complete sentences Cardio Rate: regular rate Rhythm: regular rhythm Skin General skin exam: no rashes or lesions noted Neuro General: patient oriented x3 Extrem Other: Osteoarthritic changes of both hands with no active synovitis Results Reviewed Results Reviewed: Laboratory Tests 03/23/ Patient: Chanel Ruelas MR#: [id number] : 1955 Acct:[id number] Age/Sex: 66 / F ADM Date: 03/30/22 Ordering Physician: Steffanie Talbot NP Date of Service: 03/30/22 Procedure(s): XR hand RT min 3V Accession Number(s): [id number] cc: Steffanie Talbot NP~ EXAMINATION: XR HAND, BILATERAL CLINICAL INFORMATION: Pain COMPARISON: None TECHNIQUE: 3 views each hand. FINDINGS: LEFT HAND: There is loss of PIP and DIP joint space with periarticular spurring, DIP joint 2nd through 4th digits. No visible fracture, dislocation or subluxation seen. There is mild soft tissue swelling. The wrist joints are unremarkable. RIGHT HAND: There is mild loss of PIP and DIP joints with mild periarticular spurring, DIP joints 2nd and 3rd digit. There is mild soft tissue swelling involving the PIP and DIP joints. No visible acute fracture, dislocation or subluxation seen. There is no soft tissue swelling. XR/XR hand RT min 3V IMPRESSION: Degenerative arthritic changes PIP and DIP joints. No visible acute fracture, dislocation or subluxation seen. Dictated By: Zoltan Dickey MD Signed By: <Electronically signed by Zoltan Dickey MD in OV> 04/08/22 5699 Assessment & Plan Assessment & Plan (1) Seropositive rheumatoid arthritis: Comment: ++RF +++CCP Plaquenil: approx 2014- 2015 not effective Methotrexate: approx 11/2021- February 2022 -discontinued due to increased LFTs. Also not effective 07/22/2022 not on any medication for RA, no active disease on exam. Flare 05/2023 HCQ started Code(s): M05.9 - Rheumatoid arthritis with rheumatoid factor, unspecified Category: Medical Plan: This is a 68-year-old female with seropositive RA who presents for follow-up. Patient could not tolerate hydroxychloroquine 1.5 tabs daily due to GI upset and 1 episode of vomiting. She lowered it to 1 tab daily then further lowered it 0.5 tabs daily. She has been taking 1 tab daily recently however and well-tolerated. There is no active synovitis on exam but patient had just completed the prednisone taper a month ago. I had a long conversation today with patient about the importance of medication compliance and different side effects of medication. Advised patient to continue with hydroxychloroquine 1 tab daily for 3 months and we will assess response. Labs before next visit in 3 months (2) Osteoporosis: Comment: DEXA [facility] 03/26/2022 t-score -3.9 AP spine, -3.2 fem neck, -2.0 hip. A few months of alendronate - stopped due to arthralgia(?2019) Advised Prolia treatment July 2022, patient undecided -eventually agreed to Prolia 11/25/2022 - followed by nausea, malaise, abdominal discomfort ? cause Code(s): M81.0 - Age-related osteoporosis without current pathological fracture Category: Medical Qualifiers: Osteoporosis type: age-related Presence of current pathological fracture: without current pathological fracture Qualified Code(s): M81.0 - Age-related osteoporosis without current pathological fracture Plan: Patient had some side effects with 1st Prolia injection She received her 2nd Prolia injection 05/2023 it was uneventful but patient took lorazepam. Next Prolia 11/2023 Will continue with Prolia for a total of 4 injections and repeat DEXA scan. Discussed calcium and vitamin-D supplementation as well as weight-bearing exercises Plan I spent 47 minutes reviewing patient's chart, evaluating patient, ordering diagnostic workup, counseling patient and documenting in the chart Orders: Orders Complete Blood Count Auto Diff 3 Months M05.9 - Rheumatoid arthritis with rheumatoid factor, unspecified Comprehensive Met. Panel 3 Months M05.9 - Rheumatoid arthritis with rheumatoid factor, unspecified Erythrocyte Sedimentation Rate 3 Months M05.9 - Rheumatoid arthritis with rheumatoid factor, unspecified C Reactive Protein 3 Months M05.9 - Rheumatoid arthritis with rheumatoid factor, unspecified Coding Level of Care Code Est Pt Level 4 (70304) Diagnoses Seropositive rheumatoid arthritis M05.9 Age-related osteoporosis without current pathological fracture M81.0 Osteoporosis type: age-related Presence of current pathological fracture: without current pathological fracture
[2023-08-30 09:51] VITALS: BP 122/68; PULSE 70; O2SAT 95; BMI 24.0
== END 2023-08-30 10:17 | disposition home or self-care (01) ==
PROVIDERS: PCP Physician Assistant; Visit Provider Student in an Organized Health Care Education/Training Program
DX: M05.79 Rheumatoid arthritis with rheumatoid factor of multiple sites without organ or systems involvement (principal); M81.0 Age-related osteoporosis without current pathological fracture
CPT/HCPCS: 99214

== ENCOUNTER → 2023-08-30 09:38 | Outpatient (BNVA) | payer MEDICARE, SELFPAY | PROVIDERS: PCP Physician Assistant; Visit Provider Student in an Organized Health Care Education/Training Program | DX: M05.9 Rheumatoid arthritis with rheumatoid factor, unspecified (principal); M81.0 Age-related osteoporosis without current pathological fracture; Z79.899 Other long term (current) drug therapy; Z79.620 Long term (current) use of immunosuppressive biologic | CPT/HCPCS: 99212 ==

== ENCOUNTER 2023-09-28 09:00 | Outpatient (AMB) | payer MEDICARE, SELFPAY ==
--- OUTSIDE RECORDS SUMMARY | 2023-09-28 09:03 | XMS_ITS | Continuity of Care Document ---
Author Organization [facility] ter Address [address] [place] [id number]- Care Team Providers Care Die Sinker Apprentice Name Role Phone Shyann Desai Primary Care Physician [phone] Encounter 09/17/23 - 09/18/[address] [id number] Attending Physician: Not on Staff, Attending MD Referring Physician: Not on Staff, Referring MD Allergies, Adverse Reactions, Alerts Substance Reaction Severity [...] kit, 0 Refills, Maintenance, 06/06/19 10:44:00 EST, [facility], Bottle1: the night before [...] Care Team Personnel Name: Shyann Desai Position: [facility] Associate Professional Member Role: PCP Address: Address: [address] [place] [id number] Name: Pete Guzmán Position: [facility] Outreach Member Role: Lifetime Consulting Physician Care Team Related Persons Name: SERA AVERY Name: ELENI LI Address: [address] [address]
--- NOTE | 2023-09-28 09:08 | MHC.OFFVIS ---
Vital Signs 09/28/23 09:09 Height 5 ft 2.5 in Weight 134 lb 0.657 oz BMI 24.1 BP 120/80 Blood Pressure Location Rt brachial Position Sitting Pulse 67 Pulse Source Pulse Oximeter Pulse Oximetry (%) 97 Oxygen Delivery Method Room Air Intake Visit Reasons: RA/Discuss med/CM Intake Note: Patient present today for RA follow up visit and to discuss medication. [employer] [place] Required: No Accompanied by: Self / Same As Patient Allergies alendronate sodium Allergy (Intermediate, Verified 09/28/23 09:14) bone pain Sulfa (Sulfonamide Antibiotics) Allergy (Intermediate, Verified 09/28/23 09:14) Nausea msg Allergy (Severe, Uncoded 09/28/23 09:14) migraines nitrates Allergy (Severe, Uncoded 09/28/23 09:14) migraine Medication List - Last Reconciled 09/28/23 by Polo Zamudio MD calcium carbonate-vitamin D3 600 mg-10 mcg (400 unit) (Calcium 600 + D(3)) 1 tab PO DAILY cetirizine (Zyrtec) 10 mg PO DAILY PRN denosumab (Prolia) 60 mg subcut [id number] fexofenadine (Sweta Allergy) 60 mg PO Q12H ivermectin 1% (Soolantra) 1 appl topical DAILY PRN lidocaine 5% 1 appl topical DAILY PRN lorazepam 0.5 mg PO BID PRN oxycodone-acetaminophen 5-325 mg 1 tab PO DAILY PRN prednisone 10 mg PO DAILY propranolol 1 tab orally 2 times a day; 30 days riboflavin (vitamin B2) 400 mg PO DAILY 30 days sertraline 50 mg PO DAILY tretinoin 0.025% 1 appl topical BEDTIME PRN zolmitriptan take 1 tab at onset of headache; if no relief may repeat 1 tab after at least 2 hrs; max = 4 tabs/24 hr orally PRN; HPI Comments Details: 68-year-old female with seropositive RA returns for follow-up. She is on hydroxychloroquine 300 mg daily. Over the last 3-4 weeks patient has been having left shoulder pain. She was evaluated by an orthopedic surgeon and had a left shoulder MRI which showed glenohumeral synovitis. No significant tendon tears. She a couple of left shoulder injections, 1 was blind and the other was ultrasound-guided. Patient stated that it did not help much. She was prescribed Percocet by her PCP with some improvement. Patient call the clinic and I had prescribed her prednisone taper which did provide some relief but not as much relief as she had when she had a flare-up in her hands. Initial visit with me 04/2023: This is a 67-year-old female with bilateral hand pain and positive RF and anti CCP who presents for follow-up. Patient states that for about 10 years she has had intermittent swollen tendons She stated that she twisted her left ankle years ago and afterwards she well developed prolonged pain and swelling of the posterior tibial tendon she mentions that about 5 years ago while moving, she was doing a lot of twisting movements with her right hand and she developed pain of the ulnar aspect of her right wrist and she received 4-5 injections in that area over a few years by hand surgeon which helped. She developed similar left wrist pain that was treated in the same way. Last summer while patient was working in the garden, she believes she lifted something heavy. She had chronic pain in that right shoulder for at least 2 months. She did PT which did not help, eventually she had right shoulder MRI which showed a partial supraspinatus tear, slap injury and moderate glenohumeral joint synovitis and synovial thickening. She also states that she developed similar left shoulder condition last year. Last month she was having bilateral hand pain that lasted a few days. This was after taking 1 dose of ciprofloxacin. She mentions that with Prolia she felt sick for 1-2 days after the injection and a few weeks later she was tired and fatigued for 4 days she attributes that to Prolia Patient feels well today. She has no active complaints Most recent history by Dr. Guzmán 03/2023: The patient returns for evaluation of hand pain. She has been followed in the past for seropositive rheumatoid arthritis but recently she has been off methotrexate for about a year now with no joint swelling. It was not clear she had much in the way of joint swelling before that. Methotrexate was stopped because of LFT elevations. She also had been on hydroxychloroquine for a number of months that was not helpful so it was stopped. She saw her primary doctor last week after developing some hand pain on Wednesday. She was prescribed 500 mg nabumetone b.i.d. which she took once a day. The hands did improve. However she developed epigastric fullness and heartburn. She recalls that she was treated with Cipro for urinary symptoms a few days before the hands started to be painful. She also thinks there was some widespread but migratory itchiness in her skin. This seemed to also follow the Cipro but she was not quite sure exactly the time between the dose of the Cipro and this pruritus. No rash ever developed. When the hands were painful there was also some numbness that she felt. She only took 1 tablet of the Cipro and stopped it when she read that it could cause tendinitis. She has had intermittent problems with the left shoulder and that has been worse in the last 2 weeks or so. There was no injury involved. In the past she had had right shoulder pain and was thought to have a small rotator cuff tear. This was treated conservatively with physical therapy. She is back on sertraline 75 mg daily and has not been requiring the lorazepam. She takes propranolol as prevention for migraine headaches. She had received a dose of Prolia back in November for osteoporosis. She was very anxious before taking it and had been declining it for a year or so before that. Afterwards she felt like she had some side effects including some lightheadedness, nausea, abdominal fullness. This resulted in a visit to the ER where she had further workup that did not reveal any pathology. She would be due for another dose of the Prolia in May. Present she says she is not inclined to take it. PENDING SALE TO [facility] Medical History Osteoporosis Seropositive rheumatoid arthritis GERD (gastroesophageal reflux disease) Allergic conjunctivitis and rhinitis Presbyopia Astigmatism Hypermetropia Carpal tunnel syndrome Migraines Depression Anxiety Hyperlipidemia Hypercholesteremia Surgical History [place] teeth extracted Family History Mother Dementia Emphysema lung Father Myocardial infarct Social History Household Members: None Alcohol intake: current Alcohol intake frequency: a few times a month Alcohol type: hard liquor Patient Tobacco Use Status: Former Tobacco user Current occupational status: 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 [facility] [place] Reports arthralgias and Reports limited range of motion Physical Exam Vital Signs: Last Vital Signs Pulse 67 09/28/23 09:09 BP 120/80 09/28/23 09:09 Pulse Ox 97 09/28/23 09:09 Oxygen Delivery Method Room Air 09/28/23 09:09 BMI result Body Mass Index 24.1 Const General: cooperative, healthy appearing and comfortable Nutritional Appearance: average body habitus Orientation/consciousness: patient oriented x3 Limitations: no limitations HEENT Head: Yes normocephalic and Yes atraumatic Mouth: moist mucous membranes Resp Effort & Inspection: normal respiratory effort and able to speak in complete sentences Cardio Rate: regular rate Rhythm: regular rhythm Skin General skin exam: no rashes or lesions noted Neuro General: patient oriented x3 Extrem Other: Osteoarthritic changes of both hands with no active synovitis Significantly limited range of motion left shoulder Results Reviewed Results Reviewed: Laboratory Tests Patient: Chanel Ruelas MR#: [id number] : 1955 Acct:[id number] Age/Sex: 66 / F ADM Date: 03/30/22 Ordering Physician: Steffanie Talbot NP Date of Service: 03/30/22 Procedure(s): XR hand RT min 3V Accession Number(s): [id number] cc: Steffanie Talbot NP~ EXAMINATION: XR HAND, BILATERAL CLINICAL INFORMATION: Pain COMPARISON: None TECHNIQUE: 3 views each hand. FINDINGS: LEFT HAND: There is loss of PIP and DIP joint space with periarticular spurring, DIP joint 2nd through 4th digits. No visible fracture, dislocation or subluxation seen. There is mild soft tissue swelling. The wrist joints are unremarkable. RIGHT HAND: There is mild loss of PIP and DIP joints with mild periarticular spurring, DIP joints 2nd and 3rd digit. There is mild soft tissue swelling involving the PIP and DIP joints. No visible acute fracture, dislocation or subluxation seen. There is no soft tissue swelling. XR/XR hand RT min 3V IMPRESSION: Degenerative arthritic changes PIP and DIP joints. No visible acute fracture, dislocation or subluxation seen. Dictated By: Zoltan Dickey MD Signed By: <Electronically signed by Zoltan Dickey MD in OV> 04/08/22 1635 Left shoulder MRI 09/17/2023? Impression: Images are degraded by motion artifact Moderate size complex glenohumeral joint effusion extending into the biceps tendon sheath is consistent with glenohumeral synovitis and biceps tenosynovitis Supraspinatus and infraspinatus tendinopathy.? Superimposed small low-grade partial supraspinatus tear. Mild acromioclavicular osteoarthritis Assessment & Plan Assessment & Plan (1) Seropositive rheumatoid arthritis: Comment: ++RF +++CCP Plaquenil: approx 2014- 2015 not effective Methotrexate: approx 11/2021- February 2022 -discontinued due to increased LFTs. Also not effective 07/22/2022 not on any medication for RA, no active disease on exam. Flare 05/2023 HCQ started. DC 09/2023 ineffective Code(s): M05.9 - Rheumatoid arthritis with rheumatoid factor, unspecified Category: Medical Plan: This is a 68-year-old female with seropositive RA who presents for follow-up. She is on hydroxychloroquine 300 mg daily for the last 2 months without relief. She has having significant flare-up affecting her left shoulder which did not respond to a couple of steroid injections and a prednisone course. Will need to change DMARDs. DC hydroxychloroquine. It has not been effective. Patient can not be on methotrexate, leflunomide, sulfasalazine due to transaminitis. We had a long conversation about medications and their side effects today. Discussed risks and benefits of TNF inhibitors. Patient agreed to proceed. Will start prior authorization for Enbrel Continue prednisone 20 mg for 5 days, 10 mg for 5 days then stop Labs before next visit in 2 months (2) Osteoporosis: Comment: DEXA [facility] 03/26/2022 t-score -3.9 AP spine, -3.2 fem neck, -2.0 hip. A few months of alendronate - stopped due to arthralgia(?2019) Advised Prolia treatment July 2022, patient undecided -eventually agreed to Prolia 11/25/2022 - followed by nausea, malaise, abdominal discomfort ? cause Code(s): M81.0 - Age-related osteoporosis without current pathological fracture Category: Medical Qualifiers: Osteoporosis type: age-related Presence of current pathological fracture: without current pathological fracture Qualified Code(s): M81.0 - Age-related osteoporosis without current pathological fracture Plan: Patient had some side effects with 1st Prolia injection She received her 2nd Prolia injection 05/2023 it was uneventful but patient took lorazepam. Next Prolia 11/2023 Will continue with Prolia for a total of 4 injections and repeat DEXA scan. 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 Side effects of Enbrel were discussed with the patient in detail including increased risk of infection, demyelinating disease, possible increased risk of solid and skin tumors. Patient fully aware. Patient has had all her age appropriate malignancy screenings. There is no known family history of cancer. She does not have any known heart conditions. She is unaware of any family history of a demyelinating disease. Advised patient to seek medical care as soon as possible if patient has an infection and advised patient to stop the medication until the infection is resolved. Plan I spent 47 minutes reviewing patient's chart, evaluating patient, ordering diagnostic workup, counseling patient and documenting in the chart Coding Level of Care Code Est Pt Level 5 (99652) Complex EM visit Add On G2211 Diagnoses Seropositive rheumatoid arthritis M05.9 Age-related osteoporosis without current pathological fracture M81.0 Osteoporosis type: age-related Presence of current pathological fracture: without current pathological fracture On etanercept therapy Z79.620
[2023-09-28 09:09] VITALS: BP 120/80; PULSE 67; O2SAT 97; BMI 24.1
== END 2023-09-28 09:46 | disposition home or self-care (01) ==
LOC: HO.RHE 09:00
PROVIDERS: PCP Family Medicine; Visit Provider Student in an Organized Health Care Education/Training Program
DX: M05.79 Rheumatoid arthritis with rheumatoid factor of multiple sites without organ or systems involvement (principal); M81.0 Age-related osteoporosis without current pathological fracture; Z79.620 Long term (current) use of immunosuppressive biologic
CPT/HCPCS: 99215; G2211

== ENCOUNTER → 2023-09-28 09:00 | Outpatient (BNVA) | payer MEDICARE, SELFPAY | PROVIDERS: PCP Family Medicine; Visit Provider Student in an Organized Health Care Education/Training Program | DX: M05.9 Rheumatoid arthritis with rheumatoid factor, unspecified (principal); M81.0 Age-related osteoporosis without current pathological fracture; Z79.52 Long term (current) use of systemic steroids; Z79.620 Long term (current) use of immunosuppressive biologic; Z79.899 Other long term (current) drug therapy | CPT/HCPCS: 99212 ==

== ENCOUNTER 2023-11-25 11:40 | Outpatient (REF) | payer MEDICARE, SELFPAY ==
[2023-11-25 12:01] LABS: MANUAL DIFF FLAG NO
[2023-11-25 12:38] LABS: Basophils Absolute Auto 0.1 X10*3/uL (0.0-0.2); Basophils Percent Auto 0.8 % (0-2); Eosinophils Absolute Auto 0.1 X10*3/uL (0.0-0.4); Eosinophils Percent Auto 1.4 % (0-4); Hematocrit 34.4 % (37.0-47.0); Imm Gran Abs Auto 0.03 X10*3/uL (0.00-0.03); Imm Gran Pct Auto 0.4 % (0.0-0.4); Lymphocytes Absolute Auto 1.9 X10*3/uL (1.2-4.9); Lymphocytes Percent Auto 24.2 % (20-40); Mean Corpuscular HGB Conc 34.9 g/dl (31.0-35.0); Mean Corpuscular Hemoglobin 31.5 pg (27.0-33.0); Mean Corpuscular Volume 90.3 fL (80.0-98.0); Mean Platelet Volume 9.9 fL (9.4-12.3); Monocytes Absolute Auto 0.7 X10*3/uL (0.1-1.2); Monocytes Percent Auto 9.4 % (2-11); Neutrophils Absolute Auto 4.9 x10*3/uL (2.0-8.3); Neutrophils Percent Auto 63.8 % (45-73); Platelet Count 318 X10*3/uL (160-400); Red Blood Count 3.81 X10*6/uL (4.20-5.50); Red Cell Distribution Width 12.9 % (11.0-16.0); White Blood Count 7.7 X10*3/uL (4.8-10.8)
[2023-11-25 13:12] LABS: Alanine Aminotransferase 83 U/L (0-31); Alkaline Phosphatase 102 U/L (39-117); Anion Gap 13 (12-20); Aspartate Amino Transferase 71 U/L (5-31); Bilirubin Total 0.4 mg/dL (0.0-1.0); Blood Urea Nitrogen 14 mg/dL (9-16); C Reactive Protein 0.76 mg/dL (< or = 0.50); Calcium 9.4 mg/dL (8.4-10.2); Carbon Dioxide 25 mmol/L (22-29); Chloride 99 mmol/L (96-108); Estimated Glomerular Filt Rate > 60; Glucose Random 86 mg/dL (60-115); Potassium 4.3 mmol/L (3.3-5.1); Sodium 133 mmol/L (135-145); Total Protein 6.9 g/dL (6.5-8.0)
[2023-11-25 13:16] LABS: Erythrocyte Sedimentation Rate 14 MM/HR (0-20)
[2023-11-25 13:29] LABS: Vitamin D 25-OH Total 56.1 ng/mL (>30)
== END 2023-11-25 11:41 | disposition home or self-care (01) ==
LOC: HO.LAB 11:40
PROVIDERS: PCP Family Medicine; Visit Provider Student in an Organized Health Care Education/Training Program
DX: M05.9 Rheumatoid arthritis with rheumatoid factor, unspecified (principal); Z13.21 Encounter for screening for nutritional disorder
CPT/HCPCS: 36415; 80053; 82306; 85025; 85652; 86140

== ENCOUNTER 2023-11-26 07:49 | Outpatient (REF) | payer MEDICARE, SELFPAY ==
[2023-12-02 22:08] LABS: Collagen Type I C-Telopeptide 181 pg/mL (see note)
== END 2023-11-26 07:50 | disposition home or self-care (01) ==
LOC: HO.LAB 07:49
PROVIDERS: PCP Family Medicine; Visit Provider Student in an Organized Health Care Education/Training Program
DX: M81.0 Age-related osteoporosis without current pathological fracture (principal)
CPT/HCPCS: 36415; 82523

== ENCOUNTER 2023-12-09 11:07 | Outpatient (AMB) | payer MEDICARE, SELFPAY ==
[2023-12-09 11:19] VITALS: BP 118/66; PULSE 66; O2SAT 97; BMI 24.5
--- NOTE | 2023-12-09 11:19 | MHC.OFFVIS ---
Vital Signs 12/09/23 11:19 Height 5 ft 2.5 in Weight 136 lb 3.931 oz BMI 24.5 BP 118/66 Blood Pressure Location Lt brachial Position Sitting Pulse 66 Pulse Source Pulse Oximeter Pulse Oximetry (%) 97 Oxygen Delivery Method Room Air Intake Visit Reasons: RA follow up/ osteoporosisProlia injection Allergies alendronate sodium Allergy (Intermediate, Verified 09/28/23 09:14) bone pain Sulfa (Sulfonamide Antibiotics) Allergy (Intermediate, Verified 09/28/23 09:14) Nausea msg Allergy (Severe, Uncoded 09/28/23 09:14) migraines nitrates Allergy (Severe, Uncoded 09/28/23 09:14) migraine Medication List - Last Reconciled 12/09/23 by Polo Zamudio MD calcium carbonate-vitamin D3 600 mg-10 mcg (400 unit) (Calcium 600 + D(3)) 1 tab PO DAILY cetirizine (Zyrtec) 10 mg PO DAILY PRN denosumab (Prolia) 60 mg subcut [id number] fexofenadine (Sweta Allergy) 60 mg PO Q12H hydroxychloroquine 300 mg (1.5 x 200 mg) PO DAILY ivermectin 1% (Soolantra) 1 appl topical DAILY PRN lidocaine 5% 1 appl topical DAILY PRN lorazepam 0.5 mg PO BID PRN oxycodone-acetaminophen 5-325 mg 1 tab PO DAILY PRN prednisone 10 mg PO DAILY propranolol 60 mg PO BID 30 days riboflavin (vitamin B2) 400 mg PO DAILY 30 days sertraline 50 mg PO DAILY tretinoin 0.025% 1 appl topical BEDTIME PRN zolmitriptan take 1 tab at onset of headache; if no relief may repeat 1 tab after at least 2 hrs; max = 4 tabs/24 hr orally PRN; HPI Comments Details: 68-year-old female with seropositive RA returns for follow-up. She is on hydroxychloroquine 300 mg daily. She has been on it consistently for 2 months now. She states that she had a left shoulder injection into the joint about 4 weeks ago by Orthopedics. She stated that this was the injection that was helpful compared to the previous 2 injections. She has chronic swelling of her right 3rd PIP. It is not particularly helpful. She takes Celebrex daily Initial visit with me 04/2023: This is a 67-year-old female with bilateral hand pain and positive RF and anti CCP who presents for follow-up. Patient states that for about 10 years she has had intermittent swollen tendons She stated that she twisted her left ankle years ago and afterwards she well developed prolonged pain and swelling of the posterior tibial tendon she mentions that about 5 years ago while moving, she was doing a lot of twisting movements with her right hand and she developed pain of the ulnar aspect of her right wrist and she received 4-5 injections in that area over a few years by hand surgeon which helped. She developed similar left wrist pain that was treated in the same way. Last summer while patient was working in the garden, she believes she lifted something heavy. She had chronic pain in that right shoulder for at least 2 months. She did PT which did not help, eventually she had right shoulder MRI which showed a partial supraspinatus tear, slap injury and moderate glenohumeral joint synovitis and synovial thickening. She also states that she developed similar left shoulder condition last year. Last month she was having bilateral hand pain that lasted a few days. This was after taking 1 dose of ciprofloxacin. She mentions that with Prolia she felt sick for 1-2 days after the injection and a few weeks later she was tired and fatigued for 4 days she attributes that to Prolia Patient feels well today. She has no active complaints Most recent history by Dr. Guzmán 03/2023: The patient returns for evaluation of hand pain. She has been followed in the past for seropositive rheumatoid arthritis but recently she has been off methotrexate for about a year now with no joint swelling. It was not clear she had much in the way of joint swelling before that. Methotrexate was stopped because of LFT elevations. She also had been on hydroxychloroquine for a number of months that was not helpful so it was stopped. She saw her primary doctor last week after developing some hand pain on Wednesday. She was prescribed 500 mg nabumetone b.i.d. which she took once a day. The hands did improve. However she developed epigastric fullness and heartburn. She recalls that she was treated with Cipro for urinary symptoms a few days before the hands started to be painful. She also thinks there was some widespread but migratory itchiness in her skin. This seemed to also follow the Cipro but she was not quite sure exactly the time between the dose of the Cipro and this pruritus. No rash ever developed. When the hands were painful there was also some numbness that she felt. She only took 1 tablet of the Cipro and stopped it when she read that it could cause tendinitis. She has had intermittent problems with the left shoulder and that has been worse in the last 2 weeks or so. There was no injury involved. In the past she had had right shoulder pain and was thought to have a small rotator cuff tear. This was treated conservatively with physical therapy. She is back on sertraline 75 mg daily and has not been requiring the lorazepam. She takes propranolol as prevention for migraine headaches. She had received a dose of Prolia back in November for osteoporosis. She was very anxious before taking it and had been declining it for a year or so before that. Afterwards she felt like she had some side effects including some lightheadedness, nausea, abdominal fullness. This resulted in a visit to the ER where she had further workup that did not reveal any pathology. She would be due for another dose of the Prolia in May. Present she says she is not inclined to take it. [facility] Medical History Osteoporosis Seropositive rheumatoid arthritis GERD (gastroesophageal reflux disease) Allergic conjunctivitis and rhinitis Presbyopia Astigmatism Hypermetropia Carpal tunnel syndrome Migraines Depression Anxiety Hyperlipidemia Hypercholesteremia Surgical History [place] teeth extracted Family History Mother Dementia Emphysema lung Father Myocardial infarct Social History Household Members: None Alcohol intake: current Alcohol intake frequency: a few times a month Alcohol type: hard liquor Patient Tobacco Use Status: Former Tobacco user Current occupational status: 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 [facility] Reports arthralgias, Reports joint swelling and Reports limited range of motion Physical Exam Const General: cooperative, healthy appearing and comfortable Nutritional Appearance: average body habitus Orientation/consciousness: patient oriented x3 Limitations: no limitations HEENT Head: Yes normocephalic and Yes atraumatic Mouth: moist mucous membranes Resp Effort & Inspection: normal respiratory effort and able to speak in complete sentences Cardio Rate: regular rate Rhythm: regular rhythm Skin General skin exam: no rashes or lesions noted Neuro General: patient oriented x3 Extrem Other: Osteoarthritic changes of both hands Significant right 3rd PIP swelling No active synovitis otherwise Office Meds Prolia 60 mg/mL subcutaneous syringe Performing Provider: Polo Zamudio MD Performing Location: [facility] Rheumatology Administered by: Pretty Darden RN on 12/09/23 11:29 Dose Route Admin Location Dispensed Lot Number Expiration Date [facility] [employer] 60 mg subcut right upper arm 1 mL [id number] 03/11/26 79736-774-52 AMGEN Comments: Consent form signed. Pt tolerated well. Pt denies any problems with previous injections. This is pt's 3rd injection. Results Reviewed Results Reviewed: Laboratory Tests Patient: Chanel Ruelas MR#: [id number] : 1955 Acct:[id number] Age/Sex: 66 / F ADM Date: 03/30/22 Ordering Physician: Steffanie Talbot NP Date of Service: 03/30/22 Procedure(s): XR hand RT min 3V Accession Number(s): [id number] cc: Steffanie Talbot NP~ EXAMINATION: XR HAND, BILATERAL CLINICAL INFORMATION: Pain COMPARISON: None TECHNIQUE: 3 views each hand. FINDINGS: LEFT HAND: There is loss of PIP and DIP joint space with periarticular spurring, DIP joint 2nd through 4th digits. No visible fracture, dislocation or subluxation seen. There is mild soft tissue swelling. The wrist joints are unremarkable. RIGHT HAND: There is mild loss of PIP and DIP joints with mild periarticular spurring, DIP joints 2nd and 3rd digit. There is mild soft tissue swelling involving the PIP and DIP joints. No visible acute fracture, dislocation or subluxation seen. There is no soft tissue swelling. XR/XR hand RT min 3V IMPRESSION: Degenerative arthritic changes PIP and DIP joints. No visible acute fracture, dislocation or subluxation seen. Dictated By: Zoltan Dickey MD Signed By: <Electronically signed by Zoltan Dickey MD in OV> 04/08/22 1635 Left shoulder MRI 09/17/2023? Impression: Images are degraded by motion artifact Moderate size complex glenohumeral joint effusion extending into the biceps tendon sheath is consistent with glenohumeral synovitis and biceps tenosynovitis Supraspinatus and infraspinatus tendinopathy.? Superimposed small low-grade partial supraspinatus tear. Mild acromioclavicular osteoarthritis Assessment & Plan Assessment & Plan (1) Seropositive rheumatoid arthritis: Comment: ++RF +++CCP Plaquenil: approx 2014- 2015 not effective Methotrexate: approx 11/2021- February 2022 -discontinued due to increased LFTs. Also not effective 07/22/2022 not on any medication for RA, no active disease on exam. Flare 05/2023 HCQ started. DC 09/2023 ineffective, restarted 09/2023 Code(s): M05.9 - Rheumatoid arthritis with rheumatoid factor, unspecified Category: Medical Plan: This is a 68-year-old female with seropositive RA who presents for follow-up. She is on hydroxychloroquine 300 mg daily for the last 2 months. On exam she only has 1 swollen joint today. The right 3rd PIP. No active synovitis otherwise. She also received steroid injections in her left shoulder over the last few months, the last of which was a month ago which was helpful. Continue hydroxychloroquine 200 mg daily Labs before next visit in 3 months (2) Osteoporosis: [place] t-score -3.9 AP spine, -3.2 fem neck, -2.0 hip. A few months of alendronate - stopped due to arthralgia(?2019) Advised Prolia treatment July 2022, patient undecided -eventually agreed to Prolia 11/25/2022 - followed by nausea, malaise, abdominal discomfort ? cause Code(s): M81.0 - Age-related osteoporosis without current pathological fracture Category: Medical Qualifiers: Osteoporosis type: age-related Presence of current pathological fracture: without current pathological fracture Qualified Code(s): M81.0 - Age-related osteoporosis without current pathological fracture Plan: Patient had some side effects with 1st Prolia injection She received her 2nd Prolia injection 05/2023 it was uneventful but patient took lorazepam. She received her 3rd Prolia in clinic today with no side effects Will continue with Prolia for a total of 4 injections and repeat DEXA scan. Discussed calcium and vitamin-D supplementation as well as weight-bearing exercises (3) termination clerk (current) use of non-steroidal anti-inflammatories (nsaid): Code(s): Z79.1 - jail (current) use of non-steroidal anti-inflammatories (NSAID) Category: Medical Plan: Discussed long-term side effects of systemic NSAID use including cardiac, GI and nephrotoxicity. Patient has been using Celebrex 200 mg daily. Advised patient to use it only sparingly Plan I spent 47 minutes reviewing patient's chart, evaluating patient, ordering diagnostic workup, counseling patient and documenting in the chart Orders: Orders Complete Blood Count Auto Diff 3 Months M05.9 - Rheumatoid arthritis with rheumatoid factor, unspecified Comprehensive Met. Panel 3 Months M05.9 - Rheumatoid arthritis with rheumatoid factor, unspecified Erythrocyte Sedimentation Rate 3 Months M05.9 - Rheumatoid arthritis with rheumatoid factor, unspecified Complete Blood Count Auto Diff 6 Months M05.9 - Rheumatoid arthritis with rheumatoid factor, unspecified Erythrocyte Sedimentation Rate 6 Months M05.9 - Rheumatoid arthritis with rheumatoid factor, unspecified Vitamin D 25-OH (D2 and D3) 6 Months E55.9 - Vitamin D deficiency, unspecified AMB Denosumab Injection Practice Supplied Today M81.0 - Age-related osteoporosis without current pathological fracture C Reactive Protein 3 Months M05.9 - Rheumatoid arthritis with rheumatoid factor, unspecified Comprehensive Met. Panel 6 Months M05.9 - Rheumatoid arthritis with rheumatoid factor, unspecified C Reactive Protein 6 Months M05.9 - Rheumatoid arthritis with rheumatoid factor, unspecified Medications: Changed From celecoxib 200 mg PO DAILY 30 caps 2RF M19.041 - Primary osteoarthritis, right hand, M19.042 - Primary osteoarthritis, left hand, M25.512 - Pain in left shoulder To celecoxib 200 mg PO DAILY PRN 15 caps 1RF pain M19.041 - Primary osteoarthritis, right hand, M19.042 - Primary osteoarthritis, left hand, M25.512 - Pain in left shoulder Coding Level of Care Code Est Pt Level 5 (66770) Complex EM visit Add On G2211 Diagnoses Seropositive rheumatoid arthritis M05.9 Age-related osteoporosis without current pathological fracture M81.0 Osteoporosis type: age-related Presence of current pathological fracture: without current pathological fracture termination clerk (current) use of non-steroidal anti-inflammatories (nsaid) Z79.1
== END 2023-12-09 11:49 | disposition home or self-care (01) ==
PROVIDERS: PCP Physician Assistant; Visit Provider Student in an Organized Health Care Education/Training Program
DX: M05.79 Rheumatoid arthritis with rheumatoid factor of multiple sites without organ or systems involvement (principal); M81.0 Age-related osteoporosis without current pathological fracture; Z79.1 Long term (current) use of non-steroidal anti-inflammatories (NSAID)
CPT/HCPCS: 99215; G2211

== ENCOUNTER → 2023-12-09 11:07 | Outpatient (BNVA) | payer MEDICARE, SELFPAY | PROVIDERS: PCP Physician Assistant; Visit Provider Student in an Organized Health Care Education/Training Program | DX: M05.9 Rheumatoid arthritis with rheumatoid factor, unspecified (principal); M81.0 Age-related osteoporosis without current pathological fracture; M19.041 Primary osteoarthritis, right hand; M19.042 Primary osteoarthritis, left hand; Z79.1 Long term (current) use of non-steroidal anti-inflammatories (NSAID) | CPT/HCPCS: 96372; 99212; J0897 ==

== ENCOUNTER 2024-01-05 10:00 | Outpatient (RCR) | payer MEDICARE, SELFPAY | END 2024-02-15 14:36 | disposition home or self-care (01) | LOC: HO.PT 10:00 | PROVIDERS: PCP Family Medicine; Visit Provider Internal Medicine Sports Medicine | DX: M67.814 Other specified disorders of tendon, left shoulder (principal) | CPT/HCPCS: 97014; 97035; 97110; 97140; 97162; 97535 ==

== ENCOUNTER 2024-01-10 10:00 | Outpatient (RCR) | payer MEDICARE, SELFPAY | END 2024-02-02 11:57 | disposition home or self-care (01) | LOC: HO.OT 10:00 | PROVIDERS: PCP Family Medicine; Visit Provider Internal Medicine Sports Medicine | DX: M79.642 Pain in left hand (principal) | CPT/HCPCS: 97035; 97110; 97140; 97165 ==

== ENCOUNTER 2024-01-21 12:58 | Outpatient (REF) | payer MEDICARE, SELFPAY ==
[2024-01-21 13:16] LABS: MANUAL DIFF FLAG NO
[2024-01-21 13:32] LABS: Basophils Percent Auto 0.3 % (0-2); Eosinophils Percent Auto 0.1 % (0-4); Hematocrit 37.3 % (37.0-47.0); Hemoglobin 12.4 g/dl (12.0-16.0); Imm Gran Abs Auto 0.06 X10*3/uL (0.00-0.03); Imm Gran Pct Auto 0.7 % (0.0-0.4); Lymphocytes Absolute Auto 1.9 X10*3/uL (1.2-4.9); Lymphocytes Percent Auto 21.3 % (20-40); Mean Corpuscular HGB Conc 33.2 g/dl (31.0-35.0); Mean Corpuscular Hemoglobin 30.5 pg (27.0-33.0); Mean Corpuscular Volume 91.6 fL (80.0-98.0); Mean Platelet Volume 8.9 fL (9.4-12.3); Monocytes Absolute Auto 0.7 X10*3/uL (0.1-1.2); Monocytes Percent Auto 7.6 % (2-11); Neutrophils Absolute Auto 6.4 x10*3/uL (2.0-8.3); Platelet Count 394 X10*3/uL (160-400); Red Blood Count 4.07 X10*6/uL (4.20-5.50); White Blood Count 9.1 X10*3/uL (4.8-10.8)
[2024-01-21 14:11] LABS: Alanine Aminotransferase 29 U/L (0-31); Albumin Level 4.4 g/dL (3.5-5.0); Alkaline Phosphatase 93 U/L (39-117); Anion Gap 12 (12-20); Aspartate Amino Transferase 25 U/L (5-31); Bilirubin Total 0.3 mg/dL (0.0-1.0); Blood Urea Nitrogen 15 mg/dL (9-16); C Reactive Protein 0.48 mg/dL (< or = 0.50); Calcium 10.5 mg/dL (8.4-10.2); Carbon Dioxide 27 mmol/L (22-29); Chloride 99 mmol/L (96-108); Estimated Glomerular Filt Rate > 60; Glucose Random 99 mg/dL (60-115); Potassium 3.8 mmol/L (3.3-5.1); Sodium 134 mmol/L (135-145)
[2024-01-21 14:15] LABS: Erythrocyte Sedimentation Rate 30 MM/HR (0-20)
== END 2024-01-21 12:59 | disposition home or self-care (01) ==
LOC: HO.LAB 12:58
PROVIDERS: Absent Provider Student in an Organized Health Care Education/Training Program; PCP Family Medicine; Visit Provider Nurse Practitioner Family
DX: M05.9 Rheumatoid arthritis with rheumatoid factor, unspecified (principal); M81.0 Age-related osteoporosis without current pathological fracture; Z79.1 Long term (current) use of non-steroidal anti-inflammatories (NSAID); Z79.899 Other long term (current) drug therapy
CPT/HCPCS: 36415; 80053; 85025; 85652; 86140; 99212

== ENCOUNTER 2024-01-21 14:31 | Outpatient (AMB) | payer MEDICARE, SELFPAY ==
--- NOTE | 2024-01-21 14:40 | MHC.OFFVIS ---
Vital Signs 01/21/24 14:45 Height 5 ft 2.5 in Weight 132 lb 0.91 oz BMI 23.8 BP 118/70 Blood Pressure Location Rt brachial Position Sitting Pulse 82 Pulse Source Pulse Oximeter Pulse Oximetry (%) 97 Oxygen Delivery Method Room Air Intake Visit Reasons: RA Intake Note: Patient presents for RA. Allergies alendronate sodium Allergy (Intermediate, Verified 01/21/24 14:43) bone pain Sulfa (Sulfonamide Antibiotics) Allergy (Intermediate, Verified 01/21/24 14:43) Nausea msg Allergy (Severe, Uncoded 09/28/23 09:14) migraines nitrates Allergy (Severe, Uncoded 09/28/23 09:14) migraine Medication List - Last Reconciled 01/21/24 by Polo Zamudio MD calcium carbonate-vitamin D3 600 mg-10 mcg (400 unit) (Calcium 600 + D(3)) 1 tab PO DAILY celecoxib 200 mg PO DAILY PRN cetirizine (Zyrtec) 10 mg PO DAILY PRN denosumab (Prolia) 60 mg subcut [id number] fexofenadine (Sweta Allergy) 60 mg PO Q12H golimumab (Simponi ARIA) 100 mg IV Q8W ivermectin 1% (Soolantra) 1 appl topical DAILY PRN lidocaine 5% 1 appl topical DAILY PRN lorazepam 0.5 mg PO BID PRN oxycodone-acetaminophen 5-325 mg 1 tab PO DAILY PRN prednisone 10 mg PO DAILY propranolol 60 mg PO BID 30 days riboflavin (vitamin B2) 400 mg PO DAILY 30 days sertraline 50 mg PO DAILY tretinoin 0.025% 1 appl topical BEDTIME PRN zolmitriptan take 1 tab at onset of headache; if no relief may repeat 1 tab after at least 2 hrs; max = 4 tabs/24 hr orally PRN; HPI Comments Details: 68-year-old female with seropositive RA returns for follow-up. Throughout this past month she was having frequent flare-ups affecting multiple joints. Including swelling of her right middle finger. She finally agreed to start Simponi infusions. She received the infusion 3 days ago. She states that she had significant relief of her overall pains. She had a steroid injection her left shoulder 02/18. She states that her left shoulder is also improving. Initial visit with me 04/2023: This is a 67-year-old female with bilateral hand pain and positive RF and anti CCP who presents for follow-up. Patient states that for about 10 years she has had intermittent swollen tendons She stated that she twisted her left ankle years ago and afterwards she well developed prolonged pain and swelling of the posterior tibial tendon she mentions that about 5 years ago while moving, she was doing a lot of twisting movements with her right hand and she developed pain of the ulnar aspect of her right wrist and she received 4-5 injections in that area over a few years by hand surgeon which helped. She developed similar left wrist pain that was treated in the same way. Last summer while patient was working in the garden, she believes she lifted something heavy. She had chronic pain in that right shoulder for at least 2 months. She did PT which did not help, eventually she had right shoulder MRI which showed a partial supraspinatus tear, slap injury and moderate glenohumeral joint synovitis and synovial thickening. She also states that she developed similar left shoulder condition last year. Last month she was having bilateral hand pain that lasted a few days. This was after taking 1 dose of ciprofloxacin. She mentions that with Prolia she felt sick for 1-2 days after the injection and a few weeks later she was tired and fatigued for 4 days she attributes that to Prolia Patient feels well today. She has no active complaints Most recent history by Dr. Guzmán 03/2023: The patient returns for evaluation of hand pain. She has been followed in the past for seropositive rheumatoid arthritis but recently she has been off methotrexate for about a year now with no joint swelling. It was not clear she had much in the way of joint swelling before that. Methotrexate was stopped because of LFT elevations. She also had been on hydroxychloroquine for a number of months that was not helpful so it was stopped. She saw her primary doctor last week after developing some hand pain on Wednesday. She was prescribed 500 mg nabumetone b.i.d. which she took once a day. The hands did improve. However she developed epigastric fullness and heartburn. She recalls that she was treated with Cipro for urinary symptoms a few days before the hands started to be painful. She also thinks there was some widespread but migratory itchiness in her skin. This seemed to also follow the Cipro but she was not quite sure exactly the time between the dose of the Cipro and this pruritus. No rash ever developed. When the hands were painful there was also some numbness that she felt. She only took 1 tablet of the Cipro and stopped it when she read that it could cause tendinitis. She has had intermittent problems with the left shoulder and that has been worse in the last 2 weeks or so. There was no injury involved. In the past she had had right shoulder pain and was thought to have a small rotator cuff tear. This was treated conservatively with physical therapy. She is back on sertraline 75 mg daily and has not been requiring the lorazepam. She takes propranolol as prevention for migraine headaches. She had received a dose of Prolia back in November for osteoporosis. She was very anxious before taking it and had been declining it for a year or so before that. Afterwards she felt like she had some side effects including some lightheadedness, nausea, abdominal fullness. This resulted in a visit to the ER where she had further workup that did not reveal any pathology. She would be due for another dose of the Prolia in May. Present she says she is not inclined to take it. [facility] Medical History Osteoporosis Seropositive rheumatoid arthritis GERD (gastroesophageal reflux disease) Allergic conjunctivitis and rhinitis Presbyopia Astigmatism Hypermetropia Carpal tunnel syndrome Migraines Depression Anxiety Hyperlipidemia Hypercholesteremia Surgical History [place] teeth extracted Family History Mother Dementia Emphysema lung Father Myocardial infarct Social History Household Members: None Alcohol intake: current Alcohol intake frequency: a few times a month Alcohol type: hard liquor Patient Tobacco Use Status: Former Tobacco user Current occupational status: 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 [facility] Reports arthralgias, Denies joint swelling and Reports limited range of motion Physical Exam Vital Signs: Last Vital Signs Pulse 82 01/21/24 14:45 BP 118/70 01/21/24 14:45 Pulse Ox 97 01/21/24 14:45 Oxygen Delivery Method Room Air 01/21/24 14:45 BMI result Body Mass Index 23.8 Const General: cooperative, healthy appearing and comfortable Nutritional Appearance: average body habitus Orientation/consciousness: patient oriented x3 Limitations: no limitations HEENT Head: Yes normocephalic and Yes atraumatic Mouth: moist mucous membranes Resp Effort & Inspection: normal respiratory effort and able to speak in complete sentences Cardio Rate: regular rate Rhythm: regular rhythm Skin General skin exam: no rashes or lesions noted Neuro General: patient oriented x3 Extrem Other: Osteoarthritic changes of both hands Significant right 3rd PIP swelling, does not look acute today Limited range of motion of left shoulder No active synovitis otherwise Results Reviewed Results Reviewed: Laboratory Tests 03/23/ Patient: Chanel Ruelas MR#: [id number] : 1955 Acct:[id number] Age/Sex: 66 / F ADM Date: 03/30/22 Ordering Physician: Steffanie Talbot NP Date of Service: 03/30/22 Procedure(s): XR hand RT min 3V Accession Number(s): [id number] cc: Steffanie Tlabot NP~ EXAMINATION: XR HAND, BILATERAL CLINICAL INFORMATION: Pain COMPARISON: None TECHNIQUE: 3 views each hand. FINDINGS: LEFT HAND: There is loss of PIP and DIP joint space with periarticular spurring, DIP joint 2nd through 4th digits. No visible fracture, dislocation or subluxation seen. There is mild soft tissue swelling. The wrist joints are unremarkable. RIGHT HAND: There is mild loss of PIP and DIP joints with mild periarticular spurring, DIP joints 2nd and 3rd digit. There is mild soft tissue swelling involving the PIP and DIP joints. No visible acute fracture, dislocation or subluxation seen. There is no soft tissue swelling. XR/XR hand RT min 3V IMPRESSION: Degenerative arthritic changes PIP and DIP joints. No visible acute fracture, dislocation or subluxation seen. Dictated By: Zoltan Dickey MD Signed By: <Electronically signed by Zoltan Dickey MD in OV> 04/08/22 [id number] Left shoulder MRI 09/17/2023? Impression: Images are degraded by motion artifact Moderate size complex glenohumeral joint effusion extending into the biceps tendon sheath is consistent with glenohumeral synovitis and biceps tenosynovitis Supraspinatus and infraspinatus tendinopathy.? Superimposed small low-grade partial supraspinatus tear. Mild acromioclavicular osteoarthritis Assessment & Plan Assessment & Plan (1) Seropositive rheumatoid arthritis: Comment: ++RF +++CCP Plaquenil: approx 2014- 2015 not effective Methotrexate: approx 11/2021- February 2022 -discontinued due to increased LFTs. Also not effective 07/22/2022 not on any medication for RA, no active disease on exam. Flare 05/2023 HCQ started. DC 09/2023 ineffective, restarted 09/2023-DC 01/2024 ineffective Simponi infusions 01/2024 effective Code(s): M05.9 - Rheumatoid arthritis with rheumatoid factor, unspecified Category: Medical Plan: This is a 68-year-old female with seropositive RA who presents for follow-up. She received her 1st Simponi infusion 01/17. Has not had any side effects. She is actually feeling much better overall. Improved joint pain swelling and stiffness. Continue Simponi infusions as prescribed Labs before next visit in 3 months (2) Osteoporosis: Comment: DEXA [facility] 03/26/2022 t-score -3.9 AP spine, -3.2 fem neck, -2.0 hip. A few months of alendronate - stopped due to arthralgia(?2019) Advised Prolia treatment July 2022, patient undecided -eventually agreed to Prolia 11/25/2022 - followed by nausea, malaise, abdominal discomfort ? cause Code(s): M81.0 - Age-related osteoporosis without current pathological fracture Category: Medical Qualifiers: Osteoporosis type: age-related Presence of current pathological fracture: without current pathological fracture Qualified Code(s): M81.0 - Age-related osteoporosis without current pathological fracture Plan: Patient had some side effects with 1st Prolia injection She received her 2nd Prolia injection 05/2023 it was uneventful but patient took lorazepam. She received her 3rd Prolia in clinic today with no side effects Will continue with Prolia for a total of 4 injections and repeat DEXA scan. 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 Patient has been using Celebrex 200 mg daily. Advised patient to use it only sparingly (4) High risk medication use: Code(s): Z79.899 - Other half-way (current) drug therapy Category: Medical Plan: Side effects of Simponi were discussed with the patient in detail including increased risk of infection, demyelinating disease, reactivation of latent TB, possible increased risk of solid and skin tumors. Patient fully aware. Advised patient to seek medical care [facility] if patient has an infection and advised patient to stop the medication until the infection is resolved. Plan I spent 27 minutes reviewing patient's chart, evaluating patient, ordering diagnostic workup, counseling patient and documenting in the chart Orders: Orders Erythrocyte Sedimentation Rate 3 Months M05.9 - Rheumatoid arthritis with rheumatoid factor, unspecified, Z79.899 - Other half-way (current) drug therapy Complete Blood Count Auto Diff 3 Months M05.9 - Rheumatoid arthritis with rheumatoid factor, unspecified, Z79.899 - Other half-way (current) drug therapy Comprehensive Met. 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
[2024-01-21 14:45] VITALS: BP 118/70; PULSE 82; O2SAT 97; BMI 23.8
== END 2024-01-21 15:14 | disposition home or self-care (01) ==
PROVIDERS: PCP Physician Assistant; Visit Provider Student in an Organized Health Care Education/Training Program
DX: M05.79 Rheumatoid arthritis with rheumatoid factor of multiple sites without organ or systems involvement (principal); M81.0 Age-related osteoporosis without current pathological fracture; Z79.1 Long term (current) use of non-steroidal anti-inflammatories (NSAID); Z79.899 Other long term (current) drug therapy
CPT/HCPCS: 99214; G2211

== ENCOUNTER 2024-03-15 14:33 | Outpatient (REF) | payer MEDICARE, SELFPAY ==
[2024-03-15 14:44] LABS: MANUAL DIFF FLAG NO
[2024-03-15 15:00] LABS: Basophils Absolute Auto 0.1 X10*3/uL (0.0-0.2); Basophils Percent Auto 0.9 % (0-2); Eosinophils Absolute Auto 0.1 X10*3/uL (0.0-0.4); Eosinophils Percent Auto 2.1 % (0-4); Hematocrit 39.9 % (37.0-47.0); Hemoglobin 13.2 g/dl (12.0-16.0); Imm Gran Abs Auto 0.02 X10*3/uL (0.00-0.03); Imm Gran Pct Auto 0.3 % (0.0-0.4); Lymphocytes Absolute Auto 2.3 X10*3/uL (1.2-4.9); Lymphocytes Percent Auto 38.5 % (20-40); Mean Corpuscular HGB Conc 33.1 g/dl (31.0-35.0); Mean Corpuscular Hemoglobin 30.3 pg (27.0-33.0); Mean Corpuscular Volume 91.7 fL (80.0-98.0); Mean Platelet Volume 9.5 fL (9.4-12.3); Monocytes Absolute Auto 0.6 X10*3/uL (0.1-1.2); Monocytes Percent Auto 9.8 % (2-11); Neutrophils Absolute Auto 2.8 x10*3/uL (2.0-8.3); Neutrophils Percent Auto 48.4 % (45-73); Platelet Count 279 X10*3/uL (160-400); Red Blood Count 4.35 X10*6/uL (4.20-5.50); Red Cell Distribution Width 12.7 % (11.0-16.0); White Blood Count 5.8 X10*3/uL (4.8-10.8)
[2024-03-15 15:38] LABS: Alanine Aminotransferase 46 U/L (0-31); Albumin Level 4.1 g/dL (3.5-5.0); Alkaline Phosphatase 77 U/L (39-117); Anion Gap 12 (12-20); Aspartate Amino Transferase 48 U/L (5-31); Bilirubin Total 0.3 mg/dL (0.0-1.0); Blood Urea Nitrogen 12 mg/dL (9-16); C Reactive Protein 0.65 mg/dL (< or = 0.50); Calcium 9.8 mg/dL (8.4-10.2); Carbon Dioxide 28 mmol/L (22-29); Chloride 105 mmol/L (96-108); Estimated Glomerular Filt Rate > 60; Glucose Random 101 mg/dL (60-115); Potassium 3.7 mmol/L (3.3-5.1); Sodium 141 mmol/L (135-145); Total Protein 7.1 g/dL (6.5-8.0)
[2024-03-15 15:41] LABS: Erythrocyte Sedimentation Rate 11 MM/HR (0-20)
== END 2024-03-15 14:34 | disposition home or self-care (01) ==
LOC: HO.LAB 14:33
PROVIDERS: Nurse Practitioner Family; PCP Family Medicine; Visit Provider Student in an Organized Health Care Education/Training Program
DX: M05.9 Rheumatoid arthritis with rheumatoid factor, unspecified (principal); R74.8 Abnormal levels of other serum enzymes; Z79.1 Long term (current) use of non-steroidal anti-inflammatories (NSAID); Z79.899 Other long term (current) drug therapy
CPT/HCPCS: 36415; 80053; 85025; 85652; 86140

== ENCOUNTER 2024-03-16 12:40 | Outpatient (AMB) | payer MEDICARE, SELFPAY ==
--- NOTE | 2024-03-16 12:47 | A.OFFVIS_ITS ---
Vital Signs 03/16/24 12:53 Height 5 ft 2.5 in Weight 136 lb 14.513 oz BMI 24.6 BP 130/80 Blood Pressure Location Rt brachial Position Sitting Pulse 93 Pulse Source Pulse Oximeter Pulse Oximetry (%) 96 Oxygen Delivery Method Room Air Intake Visit Reasons: RA/cm Intake Note: Patient presents for RA. Allergies alendronate sodium Allergy (Intermediate, Verified 03/16/24 12:51) bone pain Sulfa (Sulfonamide Antibiotics) Allergy (Intermediate, Verified 03/16/24 12:51) Nausea msg Allergy (Severe, Uncoded 09/28/23 09:14) migraines nitrates Allergy (Severe, Uncoded 09/28/23 09:14) migraine Medication List - Last Reconciled 03/16/24 by Polo Zamudio MD calcium carbonate-vitamin D3 600 mg-10 mcg (400 unit) (Calcium 600 + D(3)) 1 tab PO DAILY cetirizine (Zyrtec) 10 mg PO DAILY PRN denosumab (Prolia) 60 mg subcut [id number] fexofenadine (Sweta Allergy) 60 mg PO Q12H golimumab (Simponi ARIA) 100 mg IV Q8W ivermectin 1% (Soolantra) 1 appl topical DAILY PRN lidocaine 5% 1 appl topical DAILY PRN lorazepam 0.5 mg PO BID PRN oxycodone-acetaminophen 5-325 mg 1 tab PO DAILY PRN sertraline 50 mg PO DAILY tretinoin 0.025% 1 appl topical BEDTIME PRN zolmitriptan take 1 tab at onset of headache; if no relief may repeat 1 tab after at least 2 hrs; max = 4 tabs/24 hr orally PRN; HPI Comments Details: 68-year-old female with seropositive RA returns for follow-up. She received her 2nd dose of Simponi Aria about a month ago. She stated that after the 2nd dose she did not feel as well as she did with the 1st dose. She has been having achiness and pain in both her shoulders, right wrist, intermittent pain and swelling of her right 3rd PIP, intermittent pain of her ankles. Pains are not severe. They do not generally keep her from doing what she needs to do. She takes Tylenol about 2000 mg a day. Initial visit with me 04/2023: This is a 67-year-old female with bilateral hand pain and positive RF and anti CCP who presents for follow-up. Patient states that for about 10 years she has had intermittent swollen tendons She stated that she twisted her left ankle years ago and afterwards she well developed prolonged pain and swelling of the posterior tibial tendon she mentions that about 5 years ago while moving, she was doing a lot of twisting movements with her right hand and she developed pain of the ulnar aspect of her right wrist and she received 4-5 injections in that area over a few years by hand surgeon which helped. She developed similar left wrist pain that was treated in the same way. Last summer while patient was working in the garden, she believes she lifted something heavy. She had chronic pain in that right shoulder for at least 2 months. She did PT which did not help, eventually she had right shoulder MRI which showed a partial supraspinatus tear, slap injury and moderate glenohumeral joint synovitis and synovial thickening. She also states that she developed similar left shoulder condition last year. Last month she was having bilateral hand pain that lasted a few days. This was after taking 1 dose of ciprofloxacin. She mentions that with Prolia she felt sick for 1-2 days after the injection and a few weeks later she was tired and fatigued for 4 days she attributes that to Prolia Patient feels well today. She has no active complaints Most recent history by Dr. Guzmán 03/2023: The patient returns for evaluation of hand pain. She has been followed in the past for seropositive rheumatoid arthritis but recently she has been off methotrexate for about a year now with no joint swelling. It was not clear she had much in the way of joint swelling before that. Methotrexate was stopped because of LFT elevations. She also had been on hydroxychloroquine for a number of months that was not helpful so it was stopped. She saw her primary doctor last week after developing some hand pain on Wednesday. She was prescribed 500 mg nabumetone b.i.d. which she took once a day. The hands did improve. However she developed epigastric fullness and heartburn. She recalls that she was treated with Cipro for urinary symptoms a few days before the hands started to be painful. She also thinks there was some widespread but migratory itchiness in her skin. This seemed to also follow the Cipro but she was not quite sure exactly the time between the dose of the Cipro and this pruritus. No rash ever developed. When the hands were painful there was also some numbness that she felt. She only took 1 tablet of the Cipro and stopped it when she read that it could cause tendinitis. She has had intermittent problems with the left shoulder and that has been worse in the last 2 weeks or so. There was no injury involved. In the past she had had right shoulder pain and was thought to have a small rotator cuff tear. This was treated conservatively with physical therapy. She is back on sertraline 75 mg daily and has not been requiring the lorazepam. She takes propranolol as prevention for migraine headaches. She had received a dose of Prolia back in November for osteoporosis. She was very anxious before taking it and had been declining it for a year or so before that. Afterwards she felt like she had some side effects including some lightheadedness, nausea, abdominal fullness. This resulted in a visit to the ER where she had further workup that did not reveal any pathology. She would be due for another dose of the Prolia in May. Present she says she is not inclined to take it. [facility] Medical History Osteoporosis Seropositive rheumatoid arthritis GERD (gastroesophageal reflux disease) Allergic conjunctivitis and rhinitis Presbyopia Astigmatism Hypermetropia Carpal tunnel syndrome Migraines Depression Anxiety Hyperlipidemia Hypercholesteremia Surgical History [place] teeth extracted Family History Mother Dementia Emphysema lung Father Myocardial infarct Social History Household Members: None Alcohol intake: current Alcohol intake frequency: a few times a month Alcohol type: hard liquor Patient Tobacco Use Status: Former Tobacco user Current occupational status: 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 [facility] [place] arthralgias, Reports joint swelling and Reports limited range of motion Physical Exam Vital Signs: Last Vital Signs Pulse 93 03/16/24 12:53 BP 130/80 03/16/24 12:53 Pulse Ox 96 03/16/24 12:53 Oxygen Delivery Method Room Air 03/16/24 12:53 BMI result Body Mass Index 24.6 Const General: cooperative, healthy appearing and comfortable Nutritional Appearance: average body habitus Orientation/consciousness: patient oriented x3 Limitations: no limitations HEENT Head: Yes normocephalic and Yes atraumatic Mouth: moist mucous membranes Resp Effort & Inspection: normal respiratory effort and able to speak in complete sentences Cardio Rate: regular rate Rhythm: regular rhythm Skin General skin exam: no rashes or lesions noted Neuro General: patient oriented x3 Extrem Other: Osteoarthritic changes of both hands Very subtle swelling of the right wrists on the ulnar side Bilateral 1st MCP tenderness right 3rd PIP swelling, does not look acute today Right 2nd and 3rd flexor tendon tenderness Minimally Limited range of motion of left shoulder No knee swelling, warmth or pain with full flexion-extension bilaterally No ankle swelling or tenderness bilaterally today Assessment & Plan Assessment & Plan (1) Seropositive rheumatoid arthritis: Comment: ++RF +++CCP Plaquenil: approx 2014- 2015 not effective Methotrexate: approx 11/2021- February 2022 -discontinued due to increased LFTs. Also not effective 07/22/2022 not on any medication for RA, no active disease on exam. Flare 05/2023 HCQ started. DC 09/2023 ineffective, restarted 09/2023-DC 01/2024 ineffective Simponi infusions 01/2024 effective Code(s): M05.9 - Rheumatoid arthritis with rheumatoid factor, unspecified Category: Medical Plan: This is a 68-year-old female with seropositive RA who presents for follow-up. She received her 1st Simponi infusion 01/17. [place] great. She did not feel as well after her 2nd injection. Patient continues to have multiple joint pains. On exam I think patient is doing better overall. However she may have had some secondary nonresponse to golimumab. We discussed continuing Simponi Aria versus switching her to a TNF receptor blockers such as Enbrel. We opted to do another in Simponi infusion and monitor her response. Advised patient to call the office 2 weeks after her next Simponi infusion. If she does not feel any better, plan to switch her to Enbrel. In previous visits, she stated that she was not able to afford Enbrel. At this time she states that she should be able to afford it as her out of pocket cost should be limited at 2000 dollars /year Labs before next visit in 2 months (2) Osteoporosis: Comment: [facility] [place] 03/26/2022 t-score -3.9 AP spine, -3.2 fem neck, -2.0 hip. A few months of alendronate - stopped due to arthralgia(?2019) Advised Prolia treatment July 2022, patient undecided -eventually agreed to Prolia 11/25/2022 - followed by nausea, malaise, abdominal discomfort ? cause Code(s): M81.0 - Age-related osteoporosis without current pathological fracture Category: Medical Qualifiers: Osteoporosis type: age-related Presence of current pathological fracture: without current pathological fracture Qualified Code(s): M81.0 - Age- related osteoporosis without current pathological fracture Plan: Patient had some side effects with 1st Prolia injection She received her 2nd Prolia injection 05/2023 it was uneventful but patient took lorazepam. She received her 3rd Prolia in clinic 11/2023 with no side effects Will continue with Prolia for a total of 4 injections then repeat DEXA scan. I would do it a few months after the next Prolia injection Discussed calcium and vitamin-D supplementation as well as weight-bearing exercises (3) skilled nursing (current) use of non-steroidal anti-inflammatories (nsaid): Code(s): Z79.1 - joint terminal attack controller (current) use of non-steroidal anti-inflammatories (NSAID) Category: Medical Plan: Discussed long-term side effects of systemic NSAID use including cardiac, GI and nephrotoxicity. Patient uses Celebrex only sparingly, once a week at the most (4) High risk medication use: Code(s): Z79.899 - Other fdc (current) drug therapy Category: Medical Plan: Side effects of Simponi were discussed with the patient in detail including increased risk of infection, demyelinating disease, reactivation of latent TB, possible increased risk of solid and skin tumors. Patient fully aware. Advised patient to seek medical care [facility] if patient has an infection and advised patient to stop the medication until the infection is resolved. Plan I spent 27 minutes reviewing patient's chart, evaluating patient, ordering diagnostic workup, counseling patient and documenting in the chart Orders: Orders Comprehensive Met. Panel 03/15/24 R74.8 - Abnormal levels of other serum enzymes Complete Blood Count Auto Diff 2 Months M05.9 - Rheumatoid arthritis with rheumatoid factor, unspecified Comprehensive Met. Panel 2 Months M05.9 - Rheumatoid arthritis with rheumatoid factor, unspecified Vitamin D 25-OH Total 2 Months E55.9 - Vitamin D deficiency, unspecified C Reactive Protein 2 Months M05.9 - Rheumatoid arthritis with rheumatoid factor, unspecified Erythrocyte Sedimentation Rate 2 Months M05.9 - Rheumatoid arthritis with rheumatoid factor, unspecified Collagen Type I C-Telopeptide 2 Months M81.0 - Age-related osteoporosis without current pathological fracture Coding Level of Care Code Est Pt Level 4 (64064) Complex EM visit Add On G2211 Diagnoses Seropositive rheumatoid arthritis M05.9 Age-related osteoporosis without current pathological fracture M81.0 Osteoporosis type: age-related Presence of current pathological fracture: without current pathological fracture joint terminal attack controller (current) use of non-steroidal anti-inflammatories (nsaid) Z79.1 High risk medication use Z79.899
[2024-03-16 12:53] VITALS: BP 130/80; PULSE 93; O2SAT 96; BMI 24.6
== END 2024-03-16 13:54 | disposition home or self-care (01) ==
PROVIDERS: PCP Family Medicine; Visit Provider Student in an Organized Health Care Education/Training Program
DX: M05.79 Rheumatoid arthritis with rheumatoid factor of multiple sites without organ or systems involvement (principal); M81.0 Age-related osteoporosis without current pathological fracture; Z79.1 Long term (current) use of non-steroidal anti-inflammatories (NSAID); Z79.899 Other long term (current) drug therapy
CPT/HCPCS: 99213; G2211

== ENCOUNTER → 2024-03-16 12:40 | Outpatient (BNVA) | payer MEDICARE, SELFPAY | PROVIDERS: PCP Family Medicine; Visit Provider Student in an Organized Health Care Education/Training Program | DX: M05.9 Rheumatoid arthritis with rheumatoid factor, unspecified (principal); M81.0 Age-related osteoporosis without current pathological fracture; E55.9 Vitamin D deficiency, unspecified; R74.8 Abnormal levels of other serum enzymes; Z79.1 Long term (current) use of non-steroidal anti-inflammatories (NSAID); Z79.899 Other long term (current) drug therapy | CPT/HCPCS: 99212 ==

== ENCOUNTER 2024-04-24 14:16 | Outpatient (AMB) | payer MEDICARE, SELFPAY ==
[2024-04-24 14:24] VITALS: BP 110/70; PULSE 81; O2SAT 98; BMI 24.7
--- NOTE | 2024-04-24 14:24 | A.OFFVIS_ITS ---
Vital Signs 04/24/24 14:24 Height 5 ft 2.5 in Weight 137 lb BMI 24.7 BP 110/70 Blood Pressure Location Lt brachial Position Sitting Pulse 81 Pulse Source Pulse Oximeter Pulse Oximetry (%) 98 Oxygen Delivery Method Room Air Intake Visit Reasons: RA Intake Note: Patient last seen by Doctor Polo Zamudio on 03/16/24. Presents today for RA follow up and test results. Allergies alendronate sodium Allergy (Intermediate, Verified 04/24/24 14:25) bone pain Sulfa (Sulfonamide Antibiotics) Allergy (Intermediate, Verified 04/24/24 14:25) Nausea golimumab [From Simponi ARIA] Adverse Reaction (Intermediate, Verified 04/24/24 14:29) body pain msg Allergy (Severe, Uncoded 04/24/24 14:25) migraines nitrates Allergy (Severe, Uncoded 04/24/24 14:25) migraine Medication List - Last Reconciled 04/24/24 by Polo Zamudio MD calcium carbonate-vitamin D3 600 mg-10 mcg (400 unit) (Calcium 600 + D(3)) 1 tab PO DAILY cetirizine (Zyrtec) 10 mg PO DAILY PRN denosumab (Prolia) 60 mg subcut [id number] fexofenadine (Sweta Allergy) 60 mg PO Q12H golimumab (Simponi ARIA) 100 mg IV Q8W ivermectin 1% (Soolantra) 1 appl topical DAILY PRN lidocaine 5% 1 appl topical DAILY PRN lorazepam 0.5 mg PO BID PRN oxycodone-acetaminophen 5-325 mg 1 tab PO DAILY PRN prednisone orally; sertraline 50 mg PO DAILY tretinoin 0.025% 1 appl topical BEDTIME PRN zolmitriptan take 1 tab at onset of headache; if no relief may repeat 1 tab after at least 2 hrs; max = 4 tabs/24 hr orally PRN; HPI Comments Details: 68-year-old female with seropositive RA returns for follow-up. She received her 2nd dose of Simponi Aria in the beginning of February. She states that she did not feel well with her 2nd infusion. She she has been having intermittent joint pains since that infusion. She has been having pains involving different areas, she feels that it affects where the tendons insert into her bones, she states that she would have a joint pain that starts then becomes very intense in a few hours and resolves in 1-2 days, she has been having migratory joint pains like that. Has completed a prednisone taper about a week ago which did help significantly. Today she is feeling well without any joint pain or swelling Initial visit with me 04/2023: This is a 67-year-old female with bilateral hand pain and positive RF and anti CCP who presents for follow-up. Patient states that for about 10 years she has had intermittent swollen tendons She stated that she twisted her left ankle years ago and afterwards she well developed prolonged pain and swelling of the posterior tibial tendon she mentions that about 5 years ago while moving, she was doing a lot of twisting movements with her right hand and she developed pain of the ulnar aspect of her right wrist and she received 4-5 injections in that area over a few years by hand surgeon which helped. She developed similar left wrist pain that was treated in the same way. Last summer while patient was working in the garden, she believes she lifted something heavy. She had chronic pain in that right shoulder for at least 2 months. She did PT which did not help, eventually she had right shoulder MRI which showed a partial supraspinatus tear, slap injury and moderate glenohumeral joint synovitis and synovial thickening. She also states that she developed similar left shoulder condition last year. Last month she was having bilateral hand pain that lasted a few days. This was after taking 1 dose of ciprofloxacin. She mentions that with Prolia she felt s ick for 1-2 days after the injection and a few weeks later she was tired and fatigued for 4 days she attributes that to Prolia Patient feels well today. She has no active complaints Most recent history by Dr. Guzmán 03/2023: The patient returns for evaluation of hand pain. She has been followed in the past for seropositive rheumatoid arthritis but recently she has been off methotrexate for about a year now with no joint swelling. It was not clear she had much in the way of joint swelling before that. Methotrexate was stopped because of LFT elevations. She also had been on hydroxychloroquine for a number of months that was not helpful so it was stopped. She saw her primary doctor last week after developing some hand pain on Wednesday. She was prescribed 500 mg nabumetone b.i.d. which she took once a day. The hands did improve. However she developed epigastric fullness and heartburn. She recalls that she was treated with Cipro for urinary symptoms a few days before the hands started to be painful. She also thinks there was some widespread but migratory itchiness in her skin. This seemed to also follow the Cipro but she was not quite sure exactly the time between the dose of the Cipro and this pruritus. No rash ever developed. When the hands were painful there was also some numbness that she felt. She only took 1 tablet of the Cipro and stopped it when she read that it could cause tendinitis. She has had intermittent problems with the left shoulder and that has been worse in the last 2 weeks or so. There was no injury involved. In the past she had had right shoulder pain and was thought to have a small rotator cuff tear. This was treated conservatively with physical therapy. She is back on sertraline 75 mg daily and has not been requiring the lorazepam. She takes propranolol as prevention for migraine headaches. She had received a dose of Prolia back in November for osteoporosis. She was very anxious before taking it and had been declining it for a year or so before that. Afterwards she felt like she had some side effects including some lightheadedness, nausea, abdominal fullness. This resulted in a visit to the ER where she had further workup that did not reveal any pathology. She would be due for another dose of the Prolia in May. Present she says she is not inclined to take it. [facility] Medical History Osteoporosis Seropositive rheumatoid arthritis GERD (gastroesophageal reflux disease) Allergic conjunctivitis and rhinitis Presbyopia Astigmatism Hypermetropia Carpal tunnel syndrome Migraines Depression Anxiety Hyperlipidemia Hypercholesteremia Surgical History [place] teeth extracted Family History Mother Dementia Emphysema lung Father Myocardial infarct Social History Household Members: None Alcohol intake: current Alcohol intake frequency: a few times a month Alcohol type: hard liquor Patient Tobacco Use Status: Former Tobacco user Current occupational status: 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 [employer] Denies arthralgias, Denies joint swelling and Denies stiffness Physical Exam Vital Signs: Last Vital Signs Pulse 81 04/24/24 14:24 BP 110/70 04/24/24 14:24 Pulse Ox 98 04/24/24 14:24 Oxygen Delivery Method Room Air 04/24/24 14:24 BMI result Body Mass Index 24.7 Const General: cooperative, healthy appearing and comfortable Nutritional Appearance: average body habitus Orientation/consciousness: patient oriented x3 Limitations: no limitations HEENT Head: Yes normocephalic and Yes atraumatic Mouth: moist mucous membranes Resp Effort & Inspection: normal respiratory effort and able to speak in complete sentences Cardio Rate: regular rate Rhythm: regular rhythm Skin General skin exam: no rashes or lesions noted Neuro General: patient oriented x3 Extrem Other: Osteoarthritic changes of both hands Very subtle boggy swelling of the right 3rd PIP but no tenderness 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 Also not effective 07/22/2022 not on any medication for RA, no active disease on exam. Flare 05/2023 HCQ started. DC 09/2023 ineffective, restarted 09/2023-DC 01/2024 ineffective Simponi infusions 01/2024 effective after 1st dose then patient had secondary nonresponse after 2nd dose Code(s): M05.9 - Rheumatoid arthritis with rheumatoid factor, unspecified Category: Medical Plan: This is a 68-year-old female with seropositive RA who presents for follow-up. She received 2 doses of Simponi Aria infusions. Since her 2nd dose she has not been feeling well with ongoing migratory joint pains that resolved with prednisone. We will need to change DMARDs. Discussed risks and benefits of Enbrel. Patient agreed to proceed. Will start prior authorization for Enbrel Labs before next visit in 6 weeks (2) Osteoporosis: Comment: DEXA [facility] 03/26/2022 t-score -3.9 AP spine, -3.2 fem neck, -2.0 hip. A few months of alendronate - stopped due to arthralgia(?2019) Advised Prolia treatment July 2022, patient undecided -eventually agreed to Prolia 11/25/2022 - followed by nausea, malaise, abdominal discomfort ? cause Code(s): M81.0 - Age-related osteoporosis without current pathological fracture Category: Medical Qualifiers: Osteoporosis type: age-related Presence of current pathological fracture: without current pathological fracture Qualified Code(s): M81.0 - Age- related osteoporosis without current pathological fracture Plan: Patient had some side effects with 1st Prolia injection She received her 2nd Prolia injection 05/2023 it was uneventful but patient took lorazepam. She received her 3rd Prolia in clinic 11/2023 with no side effects. Next dose scheduled 06/2023 Will continue with Prolia for a total of 4 injections then repeat DEXA scan. I would do it a few months after the next Prolia injection Discussed calcium and vitamin-D supplementation as well as weight-bearing exercises (3) High risk medication use: Code(s): Z79.899 - Other oil heaterman (current) drug therapy Category: Medical (4) Fibromyalgia, primary: Code(s): M79.7 - Fibromyalgia Category: Medical Plan: Fibromyalgia likely is a factor in her symptoms Discussed management of fibromyalgia with patient. Is a noninflammatory, non- autoimmune central afferent processing disorder leading to a diffuse pain syndrome. Patient has history of anxiety/depression. She states that she used to follow-up with therapists in the past but she got tired of it. I suggested trying to find a new therapist. Try to follow sleep hygiene practices. Advised patient to consider a sleep study to rule out JEANNE. Patient would benefit from increased physical activity, either through formal physical therapy or by joining a gym. Advised patient that she should start activity slowly and increase as tolerated. Consider low-impact exercises such as walking, swimming, aqua therapy stretching, yoga. Plan I spent 45 minutes reviewing patient's chart, evaluating patient, ordering diagnostic workup, counseling patient and documenting in the chart Coding Level of Care Code Est Pt Level 5 (49968) Complex EM visit Add On G2211 Diagnoses Seropositive rheumatoid arthritis M05.9 Age-related osteoporosis without current pathological fracture M81.0 Osteoporosis type: age-related Presence of current pathological fracture: without current pathological fracture High risk medication use Z79.899 Fibromyalgia, primary M79.7
== END 2024-04-24 15:15 | disposition home or self-care (01) ==
PROVIDERS: PCP Family Medicine; Visit Provider Student in an Organized Health Care Education/Training Program
DX: M05.79 Rheumatoid arthritis with rheumatoid factor of multiple sites without organ or systems involvement (principal); M81.0 Age-related osteoporosis without current pathological fracture; Z79.899 Other long term (current) drug therapy; M79.7 Fibromyalgia
CPT/HCPCS: 99215; G2211

== ENCOUNTER → 2024-04-24 14:16 | Outpatient (BNVA) | payer MEDICARE, SELFPAY | PROVIDERS: PCP Family Medicine; Visit Provider Student in an Organized Health Care Education/Training Program | DX: M05.9 Rheumatoid arthritis with rheumatoid factor, unspecified (principal); M81.0 Age-related osteoporosis without current pathological fracture; M79.7 Fibromyalgia; Z79.899 Other long term (current) drug therapy | CPT/HCPCS: 99212 ==

== ENCOUNTER 2024-06-13 10:45 | Outpatient (REF) | payer MEDICARE, SELFPAY ==
--- OUTSIDE RECORDS SUMMARY | 2024-06-13 13:09 | XMS_ITS | Continuity of Care Document ---
Author Organization [facility] Address [address] [place] [id number]- Care Team Providers Care Naval Designer Name Role Phone Jeremiah (SIDRA) Jackelyn MAYA Primary Care Physician Encounter [facility] Date(s): 04/25/24 - 05/25/24 [facility] [address] [place] [id number] Encounter Type: Triage Allergies, Adverse Reactions, Alerts Substance Criticality Severity Reaction Reaction Severity Status Bactrim Itchy Active Medications adapalene 0.1% topical lotion 1 application, Topically, Daily, # 45 Gm, 0 Refills, Maintenance, 04/19/18 10:24:17 AM EST, Lotion Start Date: 04/19/18 Status: Ordered Quantity: 45.0 Unit: g Repeat number: 1 Advil By Mouth, PRN, Maintenance, as needed for pain, 06/23/12 11:18:48 AM EDT Start Date: 06/23/12 Status: Ordered Repeat number: 1 aspirin 81 mg oral tablet 1 tablet = 81 mg, By Mouth, Daily, 0 Refills, Maintenance, 06/23/12 11:18:02 AM EDT Start Date: 06/23/12 Status: Ordered Repeat number: 1 Clindamycin Maintenance, 04/19/18 10:23:41 AM EST Start Date: 04/19/18 Status: Ordered Repeat number: 1 Fluticasone Nasal Daily, 0 Refills, Maintenance, 06/23/12 11:17:47 AM EDT Start Date: 06/23/12 Status: Ordered Repeat number: 1 Gabapentin By Mouth, 0 Refills, Maintenance, 04/19/18 10:23:50 AM EST Start Date: 04/19/18 Status: Ordered Repeat number: 1 magic mouthwash magic mouthwash, See Instructions, # 200 mL, Refills 0, Tot. Refills 0, Maintenance, swish and spitevery 2 hours prn for pain., 04/19/18 10:43:44 AM EST, equal parts maalox, lidocaine and benadryl, Compound Start Date: 04/19/18 Status: Ordered Quantity: 200.0 Unit: mL Repeat number: 1 Naproxen By Mouth, 0 Refills, Maintenance, 04/19/18 10:23:59 AM EST Start Date: 04/19/18 Status: Ordered Repeat number: 1 NuLYTELY with Flavor Packs oral powder for reconstitution See Instructions, 1 glass every 15-30 minutes until finished, # 4,000 mL, 0 Refills, Maintenance, 02/08/19 12:07:48 PM EDT, [facility] 3, 1 glass every 15-30 minutes until finished Start Date: 02/08/19 Status: Ordered Quantity: 4000.0 Unit: mL Repeat number: 1 omeprazole 20 mg oral enteric coated capsule 1 capsule = 20 mg, By Mouth, 2 times a day, # 60 capsule, 1 Refills, Maintenance, 06/11/22 7:38:00 AMEST, EC Capsule, [facility] # 7, Partial fill upon patient request if the prescription is for aschedule II opioid drug., 160, cm, 05/14/22 8:33:00 EST, Height Start Date: 06/11/22 Status: Ordered Quantity: 60.0 Unit: capsule Repeat number: 2 omeprazole 20 mg oral enteric coated capsule 1 capsule = 20 mg, By Mouth, Daily, # 30 capsule, 6 Refills, Maintenance, 10/20/12 12:19:26 PM EDT, [facility] 3 Start Date: 10/20/12 Status: Ordered Quantity: 30.0 Unit: capsule Repeat number: 7 pantoprazole 20 mg oral delayed release tablet 1 tablet = 20 mg, By Mouth, 2 times a day, # 30 tablet, 3 Refills, Maintenance, 05/29/22 3:32:00 PM EST, 160, cm, 05/14/22 8:33:00 EST, Height Start Date: 05/29/22 Status: Ordered Quantity: 30.0 Unit: tablet Repeat number: 4 pantoprazole 40 mg oral delayed release tablet 1 tablet = 40 mg, By Mouth, 2 times a day, # 60 tablet, 3 Refills, Maintenance, 06/30/22 10:56:00 AMEDT, CR Tablet, 160, cm, 06/30/22 10:39:00 EDT, Height Start Date: 06/30/22 Status: Ordered Quantity: 60.0 Unit: tablet Repeat number: 4 Propranolol Maintenance, 06/23/12 11:16:35 AM EDT Start Date: 06/23/12 Status: Ordered Repeat number: 1 sulfacetamide sodium-sulfur 8%-4% topical suspension 1 application, Topically, Daily, # 473 mL, 0 Refills, Maintenance, 04/19/18 10:23:33 AM EST, Suspension Start Date: 04/19/18 Status: Ordered Quantity: 473.0 Unit: mL Repeat number: 1 Suprep Bowel Prep Kit oral liquid See Instructions, Bottle 1: the night before colonoscopy Bottle 2: the morning of colonoscopy, 6 hours before, # 1 kit, 0 Refills, Maintenance, 06/06/19 10:44:00 AM EST, [facility] 3, Bottle 1: the night before colonoscopy; Bottle 2: the morning of colonoscopy, 6 hours before, 160, cm, 12:32:00 EST, Height Start Date: 06/06/19 Status: Ordered Quantity: 1.0 Unit: kit Repeat number: 1 Tylenol (PRN) Tylenol (PRN), Refills 0, Maintenance, 06/23/12 11:18:23 AM EDT Start Date: 06/23/12 Status: Ordered Repeat number: 1 Zomig By Mouth, Daily, 0 Refills, Maintenance, 06/23/12 11:16:53 AM EDT Start Date: 06/23/12 Status: Ordered Repeat number: 1 Zyrtec Zyrtec, Refills 0, Maintenance, 06/23/12 11:17:27 AM EDT Start Date: 06/23/12 Status: Ordered Repeat number: 1 Problem List Condition Confirmation Course Effective Dates Status Health St atus Informant Epigastric discomfort Confirmed Active HTN - Hypertension Confirmed Active Screening colonoscopy Confirmed Active Tubular adenoma of colon 1 Confirmed Active Well female adult Confirmed Active 1repeat screening colonoscopy in 2026 Patient Care team information Care Team Personnel Name: Jackelyn Daniels MD ([place]) Position: Reference Physician Member Role: PCP Address: [address] [place] [id number] Telecom: Name: Pete Guzmán Position: [facility] Outreach Member Role: Lifetime Consulting Physician Care Team Related Persons Name: SERA AVERY Name: ELENI LI Insurance Providers Guarantor name: CLEMENTINE AVERY Health Plan Information #: 1 Payer: MEDICARE PART B OUTPT Member Number: NA Policy Number: NA Group Number: NA Health Plan Information #: 2 Payer: MEDEX Member Number: NA Policy Number: NA Group Number: NA
== END 2024-06-13 10:46 | disposition home or self-care (01) ==
LOC: HO.10HDL 10:45
PROVIDERS: Visit Provider Student in an Organized Health Care Education/Training Program
DX: M05.9 Rheumatoid arthritis with rheumatoid factor, unspecified (principal)
CPT/HCPCS: 36415; 99212

== ENCOUNTER 2024-06-19 11:27 | Outpatient (REF) | payer MEDICARE, SELFPAY ==
[2024-06-19 12:24] LABS: Basophils Absolute Auto 0.1 X10*3/uL (0.0-0.2); Basophils Percent Auto 0.9 % (0-2); Eosinophils Absolute Auto 0.1 X10*3/uL (0.0-0.4); Eosinophils Percent Auto 1.2 % (0-4); Hematocrit 36.8 % (37.0-47.0); Hemoglobin 12.5 g/dl (12.0-16.0); Imm Gran Abs Auto 0.03 X10*3/uL (0.00-0.03); Imm Gran Pct Auto 0.5 % (0.0-0.4); Lymphocytes Absolute Auto 1.8 X10*3/uL (1.2-4.9); Lymphocytes Percent Auto 27.9 % (20-40); MANUAL DIFF FLAG NO; Mean Corpuscular Hemoglobin 30.4 pg (27.0-33.0); Mean Corpuscular Volume 89.5 fL (80.0-98.0); Monocytes Absolute Auto 0.7 X10*3/uL (0.1-1.2); Monocytes Percent Auto 9.8 % (2-11); Neutrophils Absolute Auto 3.9 x10*3/uL (2.0-8.3); Neutrophils Percent Auto 59.7 % (45-73); Platelet Count 333 X10*3/uL (160-400); Red Blood Count 4.11 X10*6/uL (4.20-5.50); Red Cell Distribution Width 12.1 % (11.0-16.0); White Blood Count 6.6 X10*3/uL (4.8-10.8)
[2024-06-19 13:37] LABS: Erythrocyte Sedimentation Rate 26 MM/HR (0-20)
[2024-06-19 14:00] LABS: Alanine Aminotransferase 29 U/L (0-31); Alkaline Phosphatase 95 U/L (39-117); Anion Gap 12 (12-20); Aspartate Amino Transferase 30 U/L (5-31); Bilirubin Total 0.4 mg/dL (0.0-1.0); Blood Urea Nitrogen 18 mg/dL (9-16); C Reactive Protein 1.04 mg/dL (< or = 0.50); Calcium 9.6 mg/dL (8.4-10.2); Carbon Dioxide 26 mmol/L (22-29); Chloride 106 mmol/L (96-108); Estimated Glomerular Filt Rate > 60; Glucose Random 76 mg/dL (60-115); Sodium 140 mmol/L (135-145); Total Protein 7.7 g/dL (6.5-8.0)
[2024-06-19 14:12] LABS: HBc Num1 1.31 S/CO (0.00-0.79); HBsAGNum1 0.27 S/CO (0.00-0.99); Hepatitis A Antibody IgM 0.14 Index (0-0.79); Hepatitis B Surface Antigen Negative (Negative); ~HepC Num1 0.11 S/CO (0.00-0.79); ~Hepatitis A Antibody IgM Nonreactive (Nonreactive); ~Hepatitis B Surface Antibody NONREACTIVE (Nonreactive); ~Hepatitis C Antibody Nonreactive (Nonreactive)
[2024-06-20 08:53] LABS: HBc Num2 1.32 S/CO; Hepatitis B Core Antibody Reactive (Nonreactive)
[2024-06-21 07:13] LABS: Hepatitis B Core Antibody IgM REACTIVE (NON-REACTIVE)
[2024-06-22 14:08] LABS: TS Negative Control Passed; TS Panel A 0; TS Panel B 0; TS Positive Control Passed; TSpotTB Negative (Negative)
== END 2024-06-19 11:28 | disposition home or self-care (01) ==
LOC: HO.LAB 11:27
PROVIDERS: PCP Family Medicine; Visit Provider Student in an Organized Health Care Education/Training Program
DX: M05.9 Rheumatoid arthritis with rheumatoid factor, unspecified (principal)
CPT/HCPCS: 36415; 80053; 85025; 85652; 86140; 86481; 86704; 86705; 86706; 86709; 86803; 87340

== ENCOUNTER 2024-06-21 09:58 | Outpatient (REF) | payer MEDICARE, SELFPAY ==
[2024-06-21 12:34] LABS: Alanine Aminotransferase 42 U/L (0-31); Albumin Level 3.9 g/dL (3.5-5.0); Alkaline Phosphatase 93 U/L (39-117); Anion Gap 11 (12-20); Aspartate Amino Transferase 40 U/L (5-31); Bilirubin Total 0.3 mg/dL (0.0-1.0); Blood Urea Nitrogen 12 mg/dL (9-16); Calcium 9.7 mg/dL (8.4-10.2); Carbon Dioxide 26 mmol/L (22-29); Chloride 107 mmol/L (96-108); Estimated Glomerular Filt Rate > 60; Glucose Random 86 mg/dL (60-115); Potassium 3.9 mmol/L (3.3-5.1); Sodium 140 mmol/L (135-145); Total Protein 7.5 g/dL (6.5-8.0)
[2024-06-21 12:37] LABS: HBS Num1 1.57 mIU/mL (0-7.99); HBc Num1 1.39 S/CO (0.00-0.79); HBsAGNum1 0.27 S/CO (0.00-0.99); Hepatitis B Surface Antigen Negative (Negative)
[2024-06-21 14:35] LABS: Hepatitis B Core Antibody Reactive (Nonreactive); ~Hepatitis B Surface Antibody Nonreactive (Nonreactive)
[2024-06-22 06:48] LABS: Hepatitis B Core Antibody IgM REACTIVE (NON-REACTIVE)
[2024-06-22 15:19] LABS: Hepatitis B Viral DNA Qn - cp NOT DETECTED Log IU/mL (NOT DETECTED); Hepatitis B Viral DNA Qn-IU/mL NOT DETECTED (NOT DETECTED)
== END 2024-06-21 09:59 | disposition home or self-care (01) ==
LOC: HO.LAB 09:58
PROVIDERS: PCP Family Medicine; Visit Provider Student in an Organized Health Care Education/Training Program
DX: M81.0 Age-related osteoporosis without current pathological fracture (principal); B19.10 Unspecified viral hepatitis B without hepatic coma
CPT/HCPCS: 36415; 80053; 86704; 86705; 86706; 87340; 87517; 96372; J0897

== ENCOUNTER 2024-06-21 09:58 | Outpatient (AMB) | payer MEDICARE, SELFPAY ==
--- NOTE | 2024-06-21 10:25 | AM.OFFVISNUR ---
Intake Visit Reasons: prolia injection Allergies alendronate sodium Allergy (Intermediate, Verified 06/13/24 11:12) bone pain Sulfa (Sulfonamide Antibiotics) Allergy (Intermediate, Verified 06/13/24 11:12) Nausea golimumab [From Simponi ARIA] Adverse Reaction (Intermediate, Verified 06/13/24 11:12) body pain msg Allergy (Severe, Uncoded 04/24/24 14:25) migraines nitrates Allergy (Severe, Uncoded 04/24/24 14:25) migraine Office Meds Prolia 60 mg/mL subcutaneous syringe Performing Provider: Katerine Washington MD Performing Location: [facility] Administered by: Pretty Darden RN on 06/21/24 10:25 Dose Route Admin Location Dispensed Lot Number Expiration Date [facility] Canceling Machine Operator 60 mg subcut left upper arm 1 mL [id number] 11/09/26 83696-936-72 AMGEN Comments: Consent form signed by patient. Pt denies any adverse reactions to previous injections. Pt reporting mild stinging to injection site a few seconds after injection. No visible redness, warmth or swelling at injection site. Pt advised to monitor area for redness, warmth or swelling and to call the office if any of these were to develop. Assessment & Plan Assessment & Plan Orders: Orders AMB Denosumab Injection Practice Supplied Today M81.0 - Age-related osteoporosis without current pathological fracture Medications: New Prolia (denosumab) 60 mg subcut ONCE 1 mL 0RF NS M81.0 - Age-related osteoporosis without current pathological fracture Coding
== END 2024-06-21 10:24 | disposition home or self-care (01) ==
LOC: HO.RHE 09:58
PROVIDERS: PCP Family Medicine
DX: M81.0 Age-related osteoporosis without current pathological fracture (principal)

== ENCOUNTER 2024-06-28 14:00 | Outpatient (AMB) | payer MEDICARE, SELFPAY ==
--- NOTE | 2024-06-28 14:07 | MHC.OFFVIS ---
Vital Signs 06/28/24 14:09 Height 5 ft 2.2 in Weight 139 lb BMI 25.3 BP 120/70 Pulse 88 Pulse Oximetry (%) 99 Intake Visit Reasons: Rheumotology reff/ immunological findings Allergies alendronate sodium Allergy (Intermediate, Verified 06/13/24 11:12) bone pain Sulfa (Sulfonamide Antibiotics) Allergy (Intermediate, Verified 06/13/24 11:12) Nausea golimumab [From Simponi ARIA] Adverse Reaction (Intermediate, Verified 06/13/24 11:12) body pain msg Allergy (Severe, Uncoded 04/24/24 14:25) migraines nitrates Allergy (Severe, Uncoded 04/24/24 14:25) migraine HPI HPI Rheumotology reff/ immunological findings: Details: She presents with duplicated isolated Hepatitis B core antibody done as recommendation per Rheumatology for [facility] biologics, She has no h/o Hepatitis B and no symptoms of jaundice or exposure. [facility] Medical History (Updated 07/05/24 @ 16:48 by Jennifer Garza MD) Hepatitis B core antibody positive Osteoporosis Seropositive rheumatoid arthritis GERD (gastroesophageal reflux disease) Allergic conjunctivitis and rhinitis Presbyopia Astigmatism Hypermetropia Carpal tunnel syndrome Migraines Depression Anxiety Hyperlipidemia Hypercholesteremia Surgical History [place] teeth extracted Family History Mother Dementia Emphysema lung Father Myocardial infarct Social History Household Members: None Alcohol intake: current Alcohol intake frequency: a few times a month Alcohol type: hard liquor Patient Tobacco Use Status: Former Tobacco user Current occupational status: 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 Const All systems reviewed & are unremarkable except as noted in HPI and below Physical Exam Vital Signs: Last Vital Signs Pulse 88 06/28/24 14:09 BP 120/70 06/28/24 14:09 Pulse Ox 99 06/28/24 14:09 BMI result Body Mass Index 25.3 Const General: cooperative Orientation/consciousness: patient oriented x3 HEENT Head: Yes normal to inspection Mouth: Normal oral and palatal mucosa present Eyes General: appearance normal, both eyes and all related structures Pupils: Equal, round and reactive pupils present Resp Effort & Inspection: normal respiratory effort Cardio Rate: regular rate Rhythm: regular rhythm GI Palpation (GI): Soft to palpation and nontender General: Yes no CVA tenderness Back/Spine/Pelvis Back: no CVA tenderness Skin General skin exam: no rashes or lesions noted Neuro General: patient oriented x3 Cranial nerves: Yes CN's II-XII intact bilaterally and Yes Equal, round and reactive pupils present Extrem General: Yes normal to inspection Psych Appearance: grossly normal Assessment & Plan Assessment & Plan (1) Hepatitis B core antibody positive: Comment: She likely has false positive antibody with no other abnormal parameters Code(s): R76.8 - Other specified abnormal immunological findings in serum Category: Medical Plan: No further investigation at this time. Patient says not taking biologics at this time anyway Coding Level of Care Code New Pt Level 3 (39043) Diagnoses Hepatitis B core antibody positive R76.8
[2024-06-28 14:09] VITALS: BP 120/70; PULSE 88; O2SAT 99; BMI 25.3
== END 2024-06-28 14:57 | disposition home or self-care (01) ==
LOC: HO.HID 14:01
PROVIDERS: PCP Family Medicine; Visit Provider Internal Medicine
DX: R76.8 Other specified abnormal immunological findings in serum (principal)
CPT/HCPCS: 99203

== ENCOUNTER → 2024-06-28 14:00 | Outpatient (BNVA) | payer MEDICARE, SELFPAY | PROVIDERS: PCP Family Medicine; Visit Provider Internal Medicine | DX: R76.8 Other specified abnormal immunological findings in serum (principal) | CPT/HCPCS: 99202 ==

== ENCOUNTER 2024-07-07 13:28 | Outpatient (AMB) | payer MEDICARE, SELFPAY ==
[2024-07-07 13:37] VITALS: BP 112/78; PULSE 79; O2SAT 97; BMI 24.9
--- NOTE | 2024-07-07 13:37 | A.OFFVIS_ITS ---
Vital Signs 07/07/24 13:37 Height 5 ft 2.2 in Weight 137 lb BMI 24.9 BP 112/78 Blood Pressure Location Lt brachial Position Sitting Pulse 79 Pulse Source Pulse Oximeter Pulse Oximetry (%) 97 Oxygen Delivery Method Room Air Intake Visit Reasons: Follow Up Allergies alendronate sodium Allergy (Intermediate, Verified 07/07/24 13:38) bone pain Sulfa (Sulfonamide Antibiotics) Allergy (Intermediate, Verified 07/07/24 13:38) Nausea golimumab [From Reed CABALLEROA] Adverse Reaction (Intermediate, Verified 07/07/24 13:38) body pain msg Allergy (Severe, Uncoded 04/24/24 14:25) migraines nitrates Allergy (Severe, Uncoded 04/24/24 14:25) migraine Medication List - Last Reconciled 07/07/24 by KATE Alfaro atogepant (Qulipta) 30 mg PO DAILY 60 days celecoxib (Celebrex) 200 mg (2 x 100 mg) PO DAILY PRN cetirizine (Zyrtec) 10 mg PO DAILY PRN denosumab (Prolia) 60 mg subcut [id number] famotidine 40 mg PO DAILY ivermectin 1% (Soolantra) 1 appl topical DAILY PRN lidocaine 5% 1 appl topical DAILY PRN sulfasalazine 1 g (2 x 500 mg) PO BID 90 days tramadol 50 mg PO DAILY zolmitriptan take 1 tab at onset of headache; if no relief may repeat 1 tab after at least 2 hrs; max = 4 tabs/24 hr orally PRN; HPI Comments Details: History of Present Illness The patient is a 69-year-old female presenting with a follow-up for migraine with aura management. since the last visit, she has stopped propranolol as it was no longer effective as a migraine prevention therapy. Since, she has continued on riboflavin, and started Qulipta 30 mg daily in the morning. Since initiation of Qulipta, migraines decreased to once weekly and are less intense, indicating positive treatment response. She has continued zolmitriptan as needed with good effect. she states she is tolerating her current treatment regimen well. She reports stable decreased appetite, not correlated directly with current treatments. Baseline headache characteristics: Moderate to Severe frontal headache. Pressure, heaviness a/e photophobia, nausea, now rarely vomiting, activity tolerance, sinus congestion, runny nose, deep sighs Postdrome- may have an exhilaration sensation The patient's medical history includes rheumatoid arthritis and prior rheumatoid medications. Recent tests showed positive hepatitis B antibody and mildly elevated liver function tests, positive hepatitis-B antibody was reviewed by infectious diseases and confirmed the patient had not actually had a hepatitis- B infection previously. Medication History - Riboflavin 400 mg daily in the morning for migraine prevention. - Propranolol (discontinued due to lack of efficacy). - Qulipta 30 mg daily for migraine prevention; positive response noted. - Zolmitriptan as needed for acute migraine episodes; usually half a pill is effective. - Sulfasalazine for rheumatoid arthritis; initiated after previous therapies failed. Results As above [facility] Medical History (Updated 07/05/24 @ 16:48 by Jennifer Garza MD) Hepatitis B core antibody positive Osteoporosis Seropositive rheumatoid arthritis GERD (gastroesophageal reflux disease) Allergic conjunctivitis and rhinitis Presbyopia Astigmatism Hypermetropia Carpal tunnel syndrome Migraines Depression Anxiety Hyperlipidemia Hypercholesteremia Surgical History [place] teeth extracted Family History Mother Dementia Emphysema lung Father Myocardial infarct Social History Household Members: None Alcohol intake: current Alcohol intake frequency: a few times a month Alcohol type: hard liquor Patient Tobacco Use Status: Former Tobacco user Current occupational status: retired Physical Exam Vital Signs: Last Vital Signs Pulse 79 07/07/24 13:37 BP 112/78 07/07/24 13:37 Pulse Ox 97 07/07/24 13:37 Oxygen Delivery Method Room Air 07/07/24 13:37 BMI result Body Mass Index 24.9 Const General: cooperative and no acute distress Orientation/consciousness: patient oriented x3 Resp Effort & Inspection: normal respiratory effort and able to speak in complete sentences Neuro General: patient oriented x3 Cranial nerves: Yes CN's II-XII intact bilaterally Cognition (Neuro): normal cognition Psych Appearance: grossly normal Mental Status: mental status grossly normal Speech and movement: Normal speech and movement present Affect: normal affect Attitude: cooperative Assessment & Plan Assessment & Plan (1) Migraine without aura: Code(s): G43.009 - Migraine without aura, not intractable, without status migrainosus Category: Medical (2) Cervicalgia: Code(s): M54.2 - Cervicalgia Category: Medical Plan Discussion Notes I discussed with the patient her ongoing migraine management plan and current treatment with Qulipta, which has shown positive results. We reviewed her concerns regarding the hepatitis B antibody test result, assuring her of the infectious disease specialist's findings that the result is non-active and not a concern. Additionally, we addressed the elevated liver function tests, which will continue to be monitored, particularly concerning her rheumatoid arthritis treatments. I explained the benefits and risks of ongoing Qulipta therapy, focusing on its migraine-specific action targeted at CGRP neurochemicals. Recommendations for medication adjustments, if necessary due to pharmacy supply issues, were discussed. I advised checking existing Zomig medication supplies at home to ensure they are not , as these have not been refilled in some time. We arranged a follow-up in six months for further evaluation and to address the patient's ongoing treatment needs. Patient was informed and verbally consented to the use of an ambient scribe for clinic note documentation during this visit. Plan and Patient Instructions - Continue taking Qulipta as prescribed. - Use zolmitriptan as needed for migraine attacks. - Monitor medication supply and consider 60-day prescription refills. - Report any changes in symptoms or adverse effects. - Follow-up in six months for reassessment. - Seek care sooner if experiencing significant symptoms or medication shortages. For cervicalgia: Previous c-spine and t-spine XR- Cervical lordotic straightening, mild anterolisthesis C4 on C5, Multilevel disc space narrowings, most pronounced C7- T1. F/u w/ rheumatology. For hand discomfort: Towards end of visit, patient requests a refill of as needed lidocaine I% gel, as this is more effective than the OTC lidocaine 4% cream. Refill made until patient can follow-up with Rheumatology. For overall headache management: Continue to optimize good self-care, including but not limited to maintaining a healthy diet, adequate fluid intake, adequate sleep, and engaging in regular physical activity. Track headaches. ? For acute headache treatment: Continue Zolmitriptan 2.5mg prn at onset of migraine, MR in 2 hrs. Previous acute migraine medication trials: Sumatriptan- not tolerated. Cafargot- was ineffective. Ergotamine- not effective. Acute migraine medication contraindications: None at this time ? For headache prevention medication: Continue Riboflavin 400mg qam Hold Magnesium 400mg qhs Continue Qulipta 30 mg p.o. daily in the morning-as patient has had greater than 50% reduction in monthly migraine days and intensity. Previous preventative medication use: Feverfew- ineffective. Propranol Er- was not as effective. Migraine prevention medication contraindications: TCAs and AEDs as pt is > 65 years old ? Pt to follow-up in 6 months or sooner prn. Medications: Changed From atogepant (Qulipta) 30 mg PO DAILY 30 days 30 tabs 6RF To atogepant (Qulipta) 30 mg PO DAILY 60 tabs 6RF 60 days From lidocaine 5% 1 appl topical DAILY PRN To lidocaine 5% 1 appl topical DAILY PRN 35.44 grams 2RF skin irritation 30 days Scribe Plan - Not visible on output: Reviewed possible medication side effects, including but not limited to drowsiness, dizziness. Coding Level of Care Code Est Pt Level 4 (92218) Diagnoses Migraine without aura G43.009 Cervicalgia M54.2
== END 2024-07-07 14:43 | disposition home or self-care (01) ==
LOC: HO.HSMS 13:28
PROVIDERS: PCP Family Medicine; Visit Provider Nurse Practitioner Family
DX: G43.009 Migraine without aura, not intractable, without status migrainosus (principal); M54.2 Cervicalgia
CPT/HCPCS: 99214

== ENCOUNTER → 2024-07-07 13:28 | Outpatient (BNVA) | payer MEDICARE, SELFPAY | PROVIDERS: PCP Family Medicine; Visit Provider Nurse Practitioner Family | DX: G43.009 Migraine without aura, not intractable, without status migrainosus (principal); M54.2 Cervicalgia | CPT/HCPCS: 99212 ==

== ENCOUNTER 2024-07-11 09:11 | Outpatient (AMB) | payer MEDICARE, SELFPAY ==
--- NOTE | 2024-07-11 09:14 | A.OFFVIS_ITS ---
Vital Signs 07/11/24 09:21 Height 5 ft 1 in Weight 138 lb 3.677 oz BMI 26.1 BP 144/90 H Blood Pressure Location Lt brachial Pulse 84 Pulse Source Pulse Oximeter Pulse Oximetry (%) 98 Oxygen Delivery Method Room Air Intake Visit Reasons: hand pain Intake Note: Patient presents for hand pain. Allergies alendronate sodium Allergy (Intermediate, Verified 07/11/24 09:18) bone pain Sulfa (Sulfonamide Antibiotics) Allergy (Intermediate, Verified 07/11/24 09:18) Nausea golimumab [From Simponi ARIA] Adverse Reaction (Intermediate, Verified 07/11/24 09:18) body pain msg Allergy (Severe, Uncoded 04/24/24 14:25) migraines nitrates Allergy (Severe, Uncoded 04/24/24 14:25) migraine Medication List - Last Reconciled 07/11/24 by Katerine Washington MD atogepant (Qulipta) 30 mg PO DAILY 60 days celecoxib (Celebrex) 200 mg (2 x 100 mg) PO DAILY PRN cetirizine (Zyrtec) 10 mg PO DAILY PRN denosumab (Prolia) 60 mg subcut [id number] famotidine 40 mg PO DAILY ivermectin 1% (Soolantra) 1 appl topical DAILY PRN lidocaine 5% 1 appl topical DAILY PRN 30 days sulfasalazine 1 g (2 x 500 mg) PO BID 90 days tramadol 50 mg PO DAILY zolmitriptan take 1 tab at onset of headache; if no relief may repeat 1 tab after at least 2 hrs; max = 4 tabs/24 hr orally PRN; HPI Comments Details: Patient is a 68-year-old female with polyarticular osteoarthritis, osteoporosis and seropositive rheumatoid arthritis here today for an urgent visit for hand pain Interval History: Patient last seen 06/13/2024 with me. At that time she had stopped her Simponi Aria infusions and did not start her Enbrel because she was waiting for a follow up with a new physician. At that time her history and exam was consistent with palindromic rheumatoid arthritis and she was started on sulfasalazine. Her follow up blood work showed positive IgM for hepatitis but had appointment with infectious disease who said that hepatitis can be positive in patients with rheumatoid arthritis especially RF positive. Here today for an urgent visit for hand pain. States that she has been noticing worsening pain in her hands over the past 1-2 weeks associated with swelling Rheumatologic History: ++RF +++CCP Plaquenil: approx 2014- 2015 not effective Methotrexate: approx 11/2021- February 2022 -discontinued due to increased LFTs. Also not effective 07/22/2022 not on any medication for RA, no active disease on exam. Flare 05/2023 HCQ started. DC 09/2023 ineffective, restarted 09/2023-DC 01/2024 ineffective Simponi infusions 01/2024 effective after 1st dose then patient had secondary nonresponse after 2nd dose Initial history: 66 year old female presents for initial evaluation of Rheumatoid arthritis. She was recently following with Dr Carney. Patient states she was diagnosed with rheumatoid arthritis around 2013 and started on plaquenil. She is not sure but thinks her rheumatoid factor and CCP were borderline. She took Plaquenil for a few months and stopped as she did not feel the medication was helpful. She states her initial joint pain was in the balls of both feet and that her foot pain has gotten progressively better over time. Patient notes that she had not been on medication for RA for about 6 years, after trying plaquenil, and recently reestablished care with Rheumatology, Dr Carney. She denies history of symmetric joint swelling and pain. She states that she sprained tendons on the ular aspect of both wrists, approx 6 years ago on the left and 1 year ago on the right. Her pain as been in tendons and feet as above. She reports history of tendonitis in the left tibal area and right ankle. She was started on 10mg of methotrexate weekly in July 2021, then increased to 15mg 3 months ago. She reports she did not notice much improvement in pain on methotrexate. Her most recent LFTs this month were elevated so her methotrexate was discontinued approx 2 weeks ago. She states her LFTS were normal in February. She denies history of gout. She states that she had pain in the left index finger and had the finger injected March 04, 2022 at [facility] with good effect. She states that her pain improved in the the index finger then traveled to base of the left 5th digit the same day. She still has pain in the 5th finger, reports she is not able to bend the finger, she admits to some swelling, no erythema. She states her pain is 50% better and she called [facility] but was not able to get an appt for injection. 3 days ago she trailed topical capsacin and she felt better. She denies any other joint pain. She reports that she follows with Podiatry for tailor's bunionette on the left 5th metatarsal head. She is following with endocrine, she experienced bone pain on Fosamax was referred to endocrine by Rheumatology. Endocrine ordered Tymlos, at first this was not approved by her insurance company but is now approved. She states she has not yet started the Tymlos, she would like to address her rheumatoid arthritis first. Current Rheumatology Medication(s): Sulfasalazine 1000 mg twice a day [facility] Medical History (Updated 07/11/24 @ 10:24 by Katerine Washington MD) Hepatitis B core antibody positive Osteoporosis Seropositive rheumatoid arthritis GERD (gastroesophageal reflux disease) Allergic conjunctivitis and rhinitis Presbyopia Astigmatism Hypermetropia Carpal tunnel syndrome Migraines Depression Anxiety Hyperlipidemia Hypercholesteremia Surgical History (Updated 07/11/24 @ 09:19 by MARY Rivera) History of foot surgery [place] teeth extracted Family History Mother Dementia Emphysema lung Father Myocardial infarct Brother COPD (chronic obstructive pulmonary disease) Brother History of heart attack Social History Household Members: None Alcohol intake: current Alcohol intake frequency: a few times a month Alcohol type: hard liquor Patient Tobacco Use Status: Former Tobacco user Current occupational status: 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 Const Details: Review of Systems Constitutional: Denies fever, chills, weight loss ENT: Denies vision changes, eye pain or eye redness, dental caries, dry mouth GI: Denies nausea, vomiting, diarrhea, abdominal pain, change in BM Pulm: Denies SOB, GUTIERREZ, hemoptysis, wheezing Cards: Denies chest pain, palpitations Skin: Denies Raynaud's, rash, nail changes, photosensitivity, CIVIL PREPAREDNESS TRAINING OFFICER: Denies headaches, weakness, paresthesias, recurrent falls MSK: as per HPI All other systems reviewed and are unremarkable except noted above Physical Exam Vital Signs: Last Vital Signs Pulse 84 07/11/24 09:21 BP 144/90 H 07/11/24 09:21 Pulse Ox 98 07/11/24 09:21 Oxygen Delivery Method Room Air 07/11/24 09:21 BMI result Body Mass Index 26.1 Vital signs reviewed Physical Examination CONSTITUITIONAL Patient alert and cooperative. Well appearing and in no apparent painful distress HEENT Conjunctiva and sclera clear. ?Pupils equal round and reactive to light. ?No lymphadenopathy. ? CHEST/RESPIRATORY SYSTEM Normal respiratory effort and able to speak in complete sentences. ?Clear to auscultation bilaterally. ?No crackles, rales, rhonchi, wheezes heard. CARDIAC SYSTEM Regular rate and rhythm. ?S1 and S2 heard no murmurs. ?Radial pulses intact bilaterally MSK Hands: ?Good engineering associate strength bilaterally. No deformities noted. ?Swelling noted to the PIP of the 2nd digit tenderness to palpation. Of note there was a Carlos's node involving the 2nd PIP. Heberden's nodes noted throughout. Prominent 2nd MCP of the right hand tenderness to palpation Wrists: ?Full range of motion at the wrists without pain. ?No tenderness to palpation or synovitis noted to the wrists. Elbows: Full range of motion without pain. No tenderness, weakness, swelling, increased warmth or erythema. Shoulders: Full range of motion without pain. Mild tenderness to palpation of the left AC joint. Hips: Full range of motion without pain. Hip bursa: No tenderness to palpation Knees: ?Full range of motion. ?No tenderness, swelling, increased warmth or erythema.?No effusion or crepitations Ankles: Full range of motion. ?No tenderness, swelling, increased warmth or erythema.? Feet: ?Negative squeeze test. ?No tenderness to palpation or swelling of the MTPs. Tender points:?No tenderness to palpation of the bilateral trapezius, supraspinatus, greater trochanters, anterior costochondral junctions, bilateral gluteal areas, bilateral suboccipital muscle insertions SKIN Skin intact without rashes. Results Reviewed Results Reviewed: Laboratory Tests 06/19/24 06/21/24 11:30 10:40 WBC 6.6 RBC 4.11 L Hgb 12.5 Hct 36.8 L Plt Count 333 ESR 26 H Sodium 140 Potassium 3.9 Chloride 107 Carbon Dioxide 26 BUN 12 Creatinine 0.75 AST 40 H ALT 42 H Alkaline Phosphatase 93 C-Reactive Protein 1.04 H Immunology labs 04/16/22 15:02 Rheumatoid Factor 80.8 H Cycl Citrul Peptide IgG >250 H Infectious serologies 06/19/24 06/21/24 11:30 10:40 Hep Bs Antigen Negative Hep Bs Antibody Nonreactive Hep B Core Total Ab Reactive Hep B Core IgM Ab REACTIVE A Hep B DNA copies/mL NOT DETECTED Hep B DNA (IU/mL) NOT DETECTED Hepatitis C Ab (EIA) Nonreactive TB Test (T-Spot) Com Negative Assessment & Plan Assessment & Plan (1) Seropositive rheumatoid arthritis: Comment: ++RF +++CCP Plaquenil: approx 2014- 2015 not effective Methotrexate: approx 11/2021- February 2022 -discontinued due to increased LFTs. Also not effective 07/22/2022 not on any medication for RA, no active disease on exam. Flare 05/2023 HCQ started. DC 09/2023 ineffective, restarted 09/2023-DC 01/2024 ineffective Simponi infusions 01/2024 effective after 1st dose then patient had secondary nonresponse after 2nd dose Sulfsalazine 05/2024 Code(s): M05.9 - Rheumatoid arthritis with rheumatoid factor, unspecified Category: Medical Plan: #Palindromic RA Patient is a 68-year-old female with seropositive rheumatoid arthritis here today for an urgent visit for bilateral hand pain. Her exam is consistent with mild synovitis involving scattered MCPs and PIPs. She recently started the sulfasalazine at full dose and so I will give her a short Prednisone taper to see if this will help with her pain while we wait for the sulfasalazine to work. I let her know that if at the next visit in 3 months that her symptoms have not improved on the sulfasalazine we may need to escalate therapy. Plan - Sulfasalzaine 1000mg bid - Prednisone 10mg for 10 days then 5mg for 10 days then stop - RTC 3 months - Labs before visit: CBC, CMP, ESR, CRP (2) Osteoporosis: Comment: DEXA [facility] 03/26/2022 t-score -3.9 AP spine, -3.2 fem neck, -2.0 hip. A few months of alendronate - stopped due to arthralgia(?2019) Advised Prolia treatment July 2022, patient undecided -eventually agreed to Prolia 11/25/2022 - followed by nausea, malaise, abdominal discomfort ? cause Code(s): M81.0 - Age-related osteoporosis without current pathological fracture Category: Medical Qualifiers: Osteoporosis type: age-related Presence of current pathological fracture: without current pathological fracture Qualified Code(s): M81.0 - Age- related osteoporosis without current pathological fracture Plan: #Osteoporosis Patient with osteoporosis involving both the AP spine and femoral neck. Currently on Prolia. Patient is concerned about the long-term effects and would like to come off Prolia. I informed patient that unfortunately once on Prolia you can not stop we would need to switch to another medication such as alendronate or IV Reclast for at least 2 years and then stop after that. Patient had bone pain with alendronate and so the only other option would be IV Reclast for her. At this time she understands and we will proceed with Prolia. There was also concern today for loss of height Will check L spine and T spine XRs to eval for occult compression fractures Plan - Prolia 60mg SC every 6 months - Vitamin D supplementation - XR T/L spine (3) Osteoarthritis of hands, bilateral: Code(s): M19.041 - Primary osteoarthritis, right hand; M19.042 - Primary osteoarthritis, left hand Category: Medical Qualifiers: Osteoarthritis type: primary Qualified Code(s): M19.041 - Primary osteoarthritis, right hand; M19.042 - Primary osteoarthritis, left hand Plan: #Bilateral Hand OA Patient with polyarticular osteoarthritis particularly involving her bilateral hands. Recommended topical diclofenac 4 times a day and tramadol as needed for pain Plan - Topical diclofenac 1% qid - Tramadol 50mg bid prn (4) Encounter for monitoring sulfasalazine therapy: Code(s): Z51.81 - Encounter for therapeutic drug level monitoring; Z79.899 - Other residential (current) drug therapy Plan: #Long-term Use of Sulphasalazine Discussed with patient the risks and benefits of sulfasalazine in the management of the rheumatic condition Benefits include: - Reduced pain, reduce mortality, maintenance of remission then reduction of flares Risks include: - GI upset, hemolysis (especially if G6PD deficiency), eosinophilia, headache, dizziness, rash, elevated LFTs Plan I spent 35 minutes reviewing the record and labs, taking a history, examining the patient, discussing the treatment plan and documenting in the medical record Orders: Orders XR thoracic spine 2V Today M54.9 - Dorsalgia, unspecified, M81.0 - Age-related osteoporosis without current pathological fracture XR lumbar spine 2-3V Today M54.9 - Dorsalgia, unspecified, M81.0 - Age-related osteoporosis without current pathological fracture Medications: New prednisone Take 2 tablets for 10 days then 1 tablet for 10 days 5 mg PO DIRECTED 30 tabs 0RF M05.9 - Rheumatoid arthritis with rheumatoid factor, unspecified Coding Level of Care Code Est Pt Level 4 (01513) Complex EM visit Add On G2211 Diagnoses Seropositive rheumatoid arthritis M05.9 Age-related osteoporosis without current pathological fracture M81.0 Osteoporosis type: age-related Presence of current pathological fracture: without current pathological fracture Primary osteoarthritis of both hands M19.041; M19.042 Osteoarthritis type: primary Encounter for monitoring sulfasalazine therapy Z51.81; Z79.899
[2024-07-11 09:21] VITALS: BP 144/90; PULSE 84; O2SAT 98; BMI 26.1
== END 2024-07-11 09:52 | disposition home or self-care (01) ==
PROVIDERS: PCP Family Medicine; Visit Provider Student in an Organized Health Care Education/Training Program
DX: M05.79 Rheumatoid arthritis with rheumatoid factor of multiple sites without organ or systems involvement (principal); M81.0 Age-related osteoporosis without current pathological fracture; M19.041 Primary osteoarthritis, right hand; M19.042 Primary osteoarthritis, left hand; Z51.81 Encounter for therapeutic drug level monitoring; Z79.899 Other long term (current) drug therapy
CPT/HCPCS: 99214; G2211

== ENCOUNTER 2024-07-11 09:11 | Outpatient (REF) | payer MEDICARE, SELFPAY ==
--- NOTE | ~2024-07-11 | XR_ITS ---
CLINICAL HISTORY: M54.9 - Dorsalgia, unspecified 3 views lumbar spine Comparison: None Findings: Lumbar alignment is maintained. Vertebral body height is maintained. No acute fracture. L5-S1 degenerative disc disease and facet arthropathy. Moderate colonic stool. IMPRESSION: 1. No acute findings. 2 degenerative disc disease at L5-S1.. This document has been electronically signed by: Miranda Kapadia MD on 07/11/2024 18:10:26
--- NOTE | ~2024-07-11 | XR_ITS ---
CLINICAL HISTORY: M54.9 - Dorsalgia, unspecified 2 views thoracic spine Comparison: CR/SR - XR THORACIC SPINE 2V - 03/11/23 11:01 EST Findings: Normal vertebral body alignment. No acute fractures or dislocation. Multilevel disc space narrowing and endplate osteophyte formation, as well as facet hypertrophy. IMPRESSION: No acute findings. This document has been electronically signed by: Zaida Wright MD on 07/11/2024 15:56:37
== END 2024-07-11 09:12 | disposition home or self-care (01) ==
LOC: HO.XRAY 09:11
PROVIDERS: PCP Family Medicine; Visit Provider Student in an Organized Health Care Education/Training Program
DX: M54.9 Dorsalgia, unspecified (principal); M81.0 Age-related osteoporosis without current pathological fracture; M19.041 Primary osteoarthritis, right hand; M19.042 Primary osteoarthritis, left hand; Z51.81 Encounter for therapeutic drug level monitoring; Z79.899 Other long term (current) drug therapy
CPT/HCPCS: 72070; 72100; 99212

== ENCOUNTER → 2024-07-11 10:16 | Outpatient (BNV) | payer MEDICARE, SELFPAY | PROVIDERS: PCP Family Medicine; Visit Provider Radiology Diagnostic Radiology | DX: M51.369 Other intervertebral disc degeneration, lumbar region without mention of lumbar back pain or lower extremity pain (principal); M54.9 Dorsalgia, unspecified | CPT/HCPCS: 72070 ==

== ENCOUNTER 2024-08-04 08:02 | Outpatient (AMB) | payer MEDICARE, SELFPAY ==
--- NOTE | 2024-08-04 08:06 | MHC.OFFVIS ---
Vital Signs 08/04/24 08:14 Height 5 ft 1 in Weight 135 lb 12.876 oz BMI 25.7 BP 122/70 Blood Pressure Location Lt brachial Position Sitting Pulse 91 Pulse Source Pulse Oximeter Pulse Oximetry (%) 98 Oxygen Delivery Method Room Air Intake Visit Reasons: follow up/ MD reynaga appt due to portal msg Intake Note: Patient presents for RA follow up. C/O pain on both shoulders and left hip. Allergies alendronate sodium Allergy (Intermediate, Verified 08/04/24 08:14) bone pain Sulfa (Sulfonamide Antibiotics) Allergy (Intermediate, Verified 08/04/24 08:14) Nausea golimumab [From Simponi ARIA] Adverse Reaction (Intermediate, Verified 08/04/24 08:14) body pain msg Allergy (Severe, Uncoded 04/24/24 14:25) migraines nitrates Allergy (Severe, Uncoded 04/24/24 14:25) migraine Medication List - Last Reconciled 08/04/24 by Katerine Washington MD atogepant (Qulipta) 30 mg PO DAILY 60 days celecoxib (Celebrex) 200 mg (2 x 100 mg) PO DAILY PRN cetirizine (Zyrtec) 10 mg PO DAILY PRN denosumab (Prolia) 60 mg subcut [id number] famotidine 40 mg PO DAILY ivermectin 1% (Soolantra) 1 appl topical DAILY PRN lidocaine 5% 1 appl topical QID 30 days prednisone 5 mg PO DIRECTED sulfasalazine 1 g (2 x 500 mg) PO BID 90 days tramadol 50 mg PO DAILY zolmitriptan take 1 tab at onset of headache; if no relief may repeat 1 tab after at least 2 hrs; max = 4 tabs/24 hr orally PRN; HPI Comments Details: Patient is a 68-year-old female with polyarticular osteoarthritis, osteoporosis and seropositive rheumatoid arthritis here today for an urgent visit for hand pain Interval History: Patient last seen with me. At that time she was being seen for an urgent visit for hand pain. She was given a low dose course of prednisone but the pain has persisted. Today she notes she actually feels a little bit better. It took about the entire 10 day course of the 10 mg prednisone for her to feel improvement. Completed prednisone 07/30. Had an episode of central abdominal pain and saw primary. US abdomen unremarkable. Denies groin pain or back pain Rheumatologic History: ++RF +++CCP Plaquenil: approx 2014- 2015 not effective Methotrexate: approx 11/2021- February 2022 -discontinued due to increased LFTs. Also not effective 07/22/2022 not on any medication for RA, no active disease on exam. Flare 05/2023 HCQ started. DC 09/2023 ineffective, restarted 09/2023-DC 01/2024 ineffective Simponi infusions 01/2024 effective after 1st dose then patient had secondary nonresponse after 2nd dose Initial history: 66 year old female presents for initial evaluation of Rheumatoid arthritis. She was recently following with Dr Carney. Patient states she was diagnosed with rheumatoid arthritis around 2013 and started on plaquenil. She is not sure but thinks her rheumatoid factor and CCP were borderline. She took Plaquenil for a few months and stopped as she did not feel the medication was helpful. She states her initial joint pain was in the balls of both feet and that her foot pain has gotten progressively better over time. Patient notes that she had not been on medication for RA for about 6 years, after trying plaquenil, and recently reestablished care with Rheumatology, Dr Carney. She denies history of symmetric joint swelling and pain. She states that she sprained tendons on the ular aspect of both wrists, approx 6 years ago on the left and 1 year ago on the right. Her pain as been in tendons and feet as above. She reports history of tendonitis in the left tibal area and right ankle. She was started on 10mg of methotrexate weekly in July 2021, then increased to 15mg 3 months ago. She reports she did not notice much improvement in pain on methotrexate. Her most recent LFTs this month were elevated so her methotrexate was discontinued approx 2 weeks ago. She states her LFTS were normal in February. She denies history of gout. She states that she had pain in the left index finger and had the finger injected March 04, 2022 at [facility] with good effect. She states that her pain improved in the the index finger then traveled to base of the left 5th digit the same day. She still has pain in the 5th finger, reports she is not able to bend the finger, she admits to some swelling, no erythema. She states her pain is 50% better and she called [facility] but was not able to get an appt for injection. 3 days ago she trailed topical capsacin and she felt better. She denies any other joint pain. She reports that she follows with Podiatry for tailor's bunionette on the left 5th metatarsal head. She is following with endocrine, she experienced bone pain on Fosamax was referred to endocrine by Rheumatology. Endocrine ordered Tymlos, at first this was not approved by her insurance company but is now approved. She states she has not yet started the Tymlos, she would like to address her rheumatoid arthritis first. Current Rheumatology Medication(s): Sulfasalazine 1000 mg twice a day [facility] Medical History (Updated 07/11/24 @ 10:24 by Katerine Washington MD) Hepatitis B core antibody positive Osteoporosis Seropositive rheumatoid arthritis GERD (gastroesophageal reflux disease) Allergic conjunctivitis and rhinitis Presbyopia Astigmatism Hypermetropia Carpal tunnel syndrome Migraines Depression Anxiety Hyperlipidemia Hypercholesteremia Surgical History History of foot surgery [place] teeth extracted Family History Mother Dementia Emphysema lung Father Myocardial infarct Brother COPD (chronic obstructive pulmonary disease) Brother History of heart attack Social History Household Members: None Alcohol intake: current Alcohol intake frequency: a few times a month Alcohol type: hard liquor Patient Tobacco Use Status: Former Tobacco user Current occupational status: 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 Const Details: Review of Systems Constitutional: Denies fever, chills, weight loss ENT: Denies vision changes, eye pain or eye redness, dental caries, dry mouth GI: Denies nausea, vomiting, diarrhea, abdominal pain, change in BM Pulm: Denies SOB, GUTIERREZ, hemoptysis, wheezing Cards: Denies chest pain, palpitations Skin: Denies Raynaud's, rash, nail changes, photosensitivity, DESIGNATED BROKER: Denies headaches, weakness, paresthesias, recurrent falls MSK: as per HPI All other systems reviewed and are unremarkable except noted above Physical Exam Vital Signs: Last Vital Signs Pulse 91 08/04/24 08:14 BP 122/70 08/04/24 08:14 Pulse Ox 98 04/25/25 08:14 Oxygen Delivery Method Room Air 08/04/24 08:14 BMI result Body Mass Index 25.7 Vital signs reviewed Physical Examination CONSTITUITIONAL Patient alert and cooperative. Well appearing and in no apparent painful distress HEENT Conjunctiva and sclera clear. ?Pupils equal round and reactive to light. ?No lymphadenopathy. ? CHEST/RESPIRATORY SYSTEM Normal respiratory effort and able to speak in complete sentences. ?Clear to auscultation bilaterally. ?No crackles, rales, rhonchi, wheezes heard. CARDIAC SYSTEM Regular rate and rhythm. ?S1 and S2 heard no murmurs. ?Radial pulses intact bilaterally ABD Soft non tender No masses MSK Hands: ?Good ambulatory care nurse strength bilaterally. Bouchards nodes and herbedens nodes noted. No TTP of MCPs, PIPs or DIPs Wrists: ?Full range of motion at the wrists without pain. ?No tenderness to palpation or synovitis noted to the wrists. Elbows: Full range of motion without pain. No tenderness, weakness, swelling, increased warmth or erythema. Shoulders: Full range of motion without pain. Mild tenderness to palpation of the left AC joint. Hips: Full range of motion without pain. Hip bursa: No tenderness to palpation Knees: ?Full range of motion. ?No tenderness, swelling, increased warmth or erythema.?No effusion or crepitations Ankles: Full range of motion. ?No tenderness, swelling, increased warmth or erythema.? Feet: ?Negative squeeze test. ?No tenderness to palpation or swelling of the MTPs. Tender points:?No tenderness to palpation of the bilateral trapezius, supraspinatus, greater trochanters, anterior costochondral junctions, bilateral gluteal areas, bilateral suboccipital muscle insertions SKIN Skin intact without rashes. Results Reviewed Results Reviewed: Laboratory Tests 06/19/24 06/21/24 11:30 10:40 WBC 6.6 RBC 4.11 L Hgb 12.5 Hct 36.8 L Plt Count 333 ESR 26 H Sodium 140 Potassium 3.9 Chloride 107 Carbon Dioxide 26 BUN 12 Creatinine 0.75 AST 40 H ALT 42 H Alkaline Phosphatase 93 C-Reactive Protein 1.04 H Immunology labs 04/16/22 15:02 Rheumatoid Factor 80.8 H Cycl Citrul Peptide IgG >250 H Infectious serologies 06/19/24 06/21/24 11:30 10:40 Hep Bs Antigen Negative Hep Bs Antibody Nonreactive Hep B Core Total Ab Reactive Hep B Core IgM Ab REACTIVE A Hep B DNA copies/mL NOT DETECTED Hep B DNA (IU/mL) NOT DETECTED Hepatitis C Ab (EIA) Nonreactive TB Test (T-Spot) Com Negative Assessment & Plan Assessment & Plan (1) Seropositive rheumatoid arthritis: Comment: ++RF +++CCP Plaquenil: approx 2014- 2015 not effective Methotrexate: approx 11/2021- February 2022 -discontinued due to increased LFTs. Also not effective 07/22/2022 not on any medication for RA, no active disease on exam. Flare 05/2023 HCQ started. DC 09/2023 ineffective, restarted 09/2023-DC 01/2024 ineffective Simponi infusions 01/2024 effective after 1st dose then patient had secondary nonresponse after 2nd dose Sulfsalazine 05/2024 Code(s): M05.9 - Rheumatoid arthritis with rheumatoid factor, unspecified Category: Medical Plan: #Palindromic RA Patient is a 68-year-old female with seropositive rheumatoid arthritis here today for an urgent visit for slowly resolved bilateral hand pain. Her exam is overall improved. Her pains have improved. We will continue to monitor of the sulfasalazine and re evaluate after 3 months of therapy Plan - Sulfasalzaine 1000mg bid - RTC 2 months - Labs before visit: CBC, CMP, ESR, CRP (2) Osteoporosis: Comment: DEXA [facility] 03/26/2022 t-score -3.9 AP spine, -3.2 fem neck, -2.0 hip. A few months of alendronate - stopped due to arthralgia(?2019) Advised Prolia treatment July 2022, patient undecided -eventually agreed to Prolia 11/25/2022 - followed by nausea, malaise, abdominal discomfort ? cause Code(s): M81.0 - Age-related osteoporosis without current pathological fracture Category: Medical Qualifiers: Osteoporosis type: age-related Presence of current pathological fracture: without current pathological fracture Qualified Code(s): M81.0 - Age-related osteoporosis without current pathological fracture Plan: #Osteoporosis Patient with osteoporosis involving both the AP spine and femoral neck. Currently on Prolia Plan - Prolia 60mg SC every 6 months - Vitamin D supplementation (3) Osteoarthritis of hands, bilateral: Code(s): M19.041 - Primary osteoarthritis, right hand; M19.042 - Primary osteoarthritis, left hand Category: Medical Qualifiers: Osteoarthritis type: primary Qualified Code(s): M19.041 - Primary osteoarthritis, right hand; M19.042 - Primary osteoarthritis, left hand Plan: #Bilateral Hand OA Patient with polyarticular osteoarthritis particularly involving her bilateral hands. Plan - Topical diclofenac 1% qid - Tramadol 50mg bid prn (4) Encounter for monitoring sulfasalazine therapy: Code(s): Z51.81 - Encounter for therapeutic drug level monitoring; Z79.899 - Other shelter (current) drug therapy Plan: #Long-term Use of Sulphasalazine Discussed with patient the risks and benefits of sulfasalazine in the management of the rheumatic condition Benefits include: - Reduced pain, reduce mortality, maintenance of remission then reduction of flares Risks include: - GI upset, hemolysis (especially if G6PD deficiency), eosinophilia, headache, dizziness, rash, elevated LFTs Plan I spent 35 minutes reviewing the record and labs, taking a history, examining the patient, discussing the treatment plan and documenting in the medical record Coding Level of Care Code Est Pt Level 3 (89188) Complex EM visit Add On G2211 Diagnoses Seropositive rheumatoid arthritis M05.9 Age-related osteoporosis without current pathological fracture M81.0 Osteoporosis type: age-related Presence of current pathological fracture: without current pathological fracture Primary osteoarthritis of both hands M19.041; M19.042 Osteoarthritis type: primary Encounter for monitoring sulfasalazine therapy Z51.81; Z79.899
[2024-08-04 08:14] VITALS: BP 122/70; PULSE 91; O2SAT 98; BMI 25.7
== END 2024-08-04 08:38 | disposition home or self-care (01) ==
PROVIDERS: PCP Family Medicine; Visit Provider Student in an Organized Health Care Education/Training Program
DX: M05.79 Rheumatoid arthritis with rheumatoid factor of multiple sites without organ or systems involvement (principal); M81.0 Age-related osteoporosis without current pathological fracture; M19.041 Primary osteoarthritis, right hand; M19.042 Primary osteoarthritis, left hand; Z51.81 Encounter for therapeutic drug level monitoring; Z79.899 Other long term (current) drug therapy
CPT/HCPCS: 99214; G2211

== ENCOUNTER → 2024-08-04 08:02 | Outpatient (BNVA) | payer MEDICARE, SELFPAY | PROVIDERS: PCP Family Medicine; Visit Provider Student in an Organized Health Care Education/Training Program | DX: M81.0 Age-related osteoporosis without current pathological fracture (principal); M05.9 Rheumatoid arthritis with rheumatoid factor, unspecified; M19.041 Primary osteoarthritis, right hand; M19.042 Primary osteoarthritis, left hand; Z51.81 Encounter for therapeutic drug level monitoring; Z79.899 Other long term (current) drug therapy | CPT/HCPCS: 99212 ==

== ENCOUNTER 2024-08-18 10:53 | Outpatient (AMB) | payer MEDICARE, SELFPAY ==
--- NOTE | 2024-08-18 11:04 | A.OFFVIS_ITS ---
Vital Signs 08/18/24 11:14 Height 5 ft 1 in Weight 132 lb 4.438 oz BMI 25.0 BP 130/82 Blood Pressure Location Rt brachial Position Sitting Pulse 69 Pulse Source Pulse Oximeter Pulse Oximetry (%) 98 Oxygen Delivery Method Room Air Intake Visit Reasons: RA follow up Intake Note: Patient presents for RA follow up. Allergies alendronate sodium Allergy (Intermediate, Verified 08/18/24 11:11) bone pain Sulfa (Sulfonamide Antibiotics) Allergy (Intermediate, Verified 08/18/24 11:11) Nausea golimumab [From Reed JACOB] Adverse Reaction (Intermediate, Verified 08/18/24 11:11) body pain msg Allergy (Severe, Uncoded 04/24/24 14:25) migraines nitrates Allergy (Severe, Uncoded 04/24/24 14:25) migraine Medication List - Last Reconciled 08/18/24 by Katerine Washington MD atogepant (Qulipta) 30 mg PO DAILY 60 days celecoxib (Celebrex) 200 mg (2 x 100 mg) PO DAILY PRN cetirizine (Zyrtec) 10 mg PO DAILY PRN denosumab (Prolia) 60 mg subcut [id number] etanercept (Enbrel SureClick) 50 mg subcut QWEEK famotidine 40 mg PO DAILY hydrocodone-homatropine 5-1.5 mg 1 tab PO BID PRN ivermectin 1% (Soolantra) 1 appl topical DAILY PRN lidocaine 5% 1 appl topical QID 30 days prednisone 5 mg PO DIRECTED sulfasalazine 1 g (2 x 500 mg) PO BID 90 days tramadol 50 mg PO DAILY zolmitriptan take 1 tab at onset of headache; if no relief may repeat 1 tab after at least 2 hrs; max = 4 tabs/24 hr orally PRN; HPI Comments Details: Patient is a 68-year-old female with polyarticular osteoarthritis, osteoporosis and seropositive rheumatoid arthritis here today for an urgent visit for hand pain Interval History: Patient last seen 08/04/24 with me. At that time she was following up for an urgent visit for hand pain. At the time of the evaluation her pains improved and the plan was to continue sulfasalazine and evaluate after 3 months of therapy. Today she came for another urgent visit for hand pain. Pictures she brought showed swelling of her PIPs of the 2nd, 3rd and 4th digits of bilateral hands. Also complained of bilateral wrists and shoulder pain. Today the pain has improved Rheumatologic History: ++RF +++CCP Plaquenil: approx 2014- 2015 not effective Methotrexate: approx 11/2021- February 2022 -discontinued due to increased LFTs. Also not effective 07/22/2022 not on any medication for RA, no active disease on exam. Flare 05/2023 HCQ started. DC 09/2023 ineffective, restarted 09/2023-DC 01/2024 ineffective Simponi infusions 01/2024 effective after 1st dose then patient had secondary nonresponse after 2nd dose Initial history: 66 year old female presents for initial evaluation of Rheumatoid arthritis. She was recently following with Dr Carney. Patient states she was diagnosed with rheumatoid arthritis around 2013 and started on plaquenil. She is not sure but thinks her rheumatoid factor and CCP were borderline. She took Plaquenil for a few months and stopped as she did not feel the medication was helpful. She states her initial joint pain was in the balls of both feet and that her foot pain has gotten progressively better over time. Patient notes that she had not been on medication for RA for about 6 years, after trying plaquenil, and recently reestablished care with Rheumatology, Dr Carney. She denies history of symmetric joint swelling and pain. She states that she sprained tendons on the ular aspect of both wrists, approx 6 years ago on the left and 1 year ago on the right. Her pain as been in tendons and feet as above. She reports history of tendonitis in the left tibal area and right ankle. She was started on 10mg of methotrexate weekly in July 2021, then increased to 15mg 3 months ago. She reports she did not notice much improvement in pain on methotrexate. Her most recent LFTs this month were elevated so her methotrexate was discontinued approx 2 weeks ago. She states her LFTS were normal in . She denies history of gout. She states that she had pain in the left index finger and had the finger injected March 04, 2022 at [facility] with good effect. She states that her pain improved in the the index finger then traveled to base of the left 5th digit the same day. She still has pain in the 5th finger, reports she is not able to bend the finger, she admits to some swelling, no erythema. She states her pain is 50% better and she called [facility] but was not able to get an appt for injection. 3 days ago she trailed topical capsacin and she felt better. She denies any other joint pain. She reports that she follows with Podiatry for tailor's bunionette on the left 5th metatarsal head. She is following with endocrine, she experienced bone pain on Fosamax was referred to endocrine by Rheumatology. Endocrine ordered Tymlos, at first this was not approved by her insurance company but is now approved. She states she has not yet started the Tymlos, she would like to address her rheumatoid arthritis first. Current Rheumatology Medication(s): Sulfasalazine 1000 mg twice a day [facility] Medical History (Updated 07/11/24 @ 10:24 by Katerine Washington MD) Hepatitis B core antibody positive Osteoporosis Seropositive rheumatoid arthritis GERD (gastroesophageal reflux disease) Allergic conjunctivitis and rhinitis Presbyopia Astigmatism Hypermetropia Carpal tunnel syndrome Migraines Depression Anxiety Hyperlipidemia Hypercholesteremia Surgical History History of foot surgery [place] teeth extracted Family History Mother Dementia Emphysema lung Father Myocardial infarct Brother COPD (chronic obstructive pulmonary disease) Brother History of heart attack Social History Household Members: None Alcohol intake: current Alcohol intake frequency: a few times a month Alcohol type: hard liquor Patient Tobacco Use Status: Former Tobacco user Current occupational status: 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 Const Details: Review of Systems Constitutional: Denies fever, chills, weight loss ENT: Denies vision changes, eye pain or eye redness, dental caries, dry mouth GI: Denies nausea, vomiting, diarrhea, abdominal pain, change in BM Pulm: Denies SOB, GUTIERREZ, hemoptysis, wheezing Cards: Denies chest pain, palpitations Skin: Denies Raynaud's, rash, nail changes, photosensitivity, DIET CLERK: Denies headaches, weakness, paresthesias, recurrent falls MSK: as per HPI All other systems reviewed and are unremarkable except noted above Physical Exam Vital Signs: Last Vital Signs Pulse 69 08/18/24 11:14 BP 130/82 08/18/24 11:14 Pulse Ox 98 08/18/24 11:14 Oxygen Delivery Method Room Air 08/18/24 11:14 BMI result Body Mass Index 25.0 Vital signs reviewed Physical Examination CONSTITUITIONAL Patient alert and cooperative. Well appearing and in no apparent painful distress HEENT Conjunctiva and sclera clear. ?Pupils equal round and reactive to light. ?No lymphadenopathy. ? CHEST/RESPIRATORY SYSTEM Normal respiratory effort and able to speak in complete sentences. ?Clear to auscultation bilaterally. ?No crackles, rales, rhonchi, wheezes heard. CARDIAC SYSTEM Regular rate and rhythm. ?S1 and S2 heard no murmurs. ?Radial pulses intact bilaterally MSK Hands: ?Able to make a fist. No synovitis noted to the MCPs, PIPs or DIPs. ?No tenderness to palpation of these joints. No deformities noted. ? Wrists: ?Full range of motion at the wrists without pain. ?No tenderness to palpation or synovitis noted to the wrists. Elbows: Full range of motion without pain. No tenderness, weakness, swelling, increased warmth or erythema. Shoulders: Full range of active range of motion without pain. No tenderness, weakness, swelling, increased warmth or erythema. Knees: ?Full range of motion. ?No tenderness, swelling, increased warmth or erythema.?No effusion or crepitations Ankles: Full range of motion. ?No tenderness, swelling, increased warmth or erythema.? Feet: ?Positive squeeze test bilaterally. Tender points:?No tenderness to palpation of the bilateral trapezius, supraspinatus, greater trochanters, anterior costochondral junctions, bilateral gluteal areas, bilateral suboccipital muscle insertions SKIN Skin intact without rashes. Results Reviewed Results Reviewed: Laboratory Tests 06/19/24 06/21/24 11:30 10:40 WBC 6.6 RBC 4.11 L Hgb 12.5 Hct 36.8 L Plt Count 333 ESR 26 H Sodium 140 Potassium 3.9 Chloride 107 Carbon Dioxide 26 BUN 12 Creatinine 0.75 AST 40 H ALT 42 H Alkaline Phosphatase 93 C-Reactive Protein 1.04 H Immunology labs 04/16/22 15:02 Rheumatoid Factor 80.8 H Cycl Citrul Peptide IgG >250 H Infectious serologies 06/19/24 06/21/24 11:30 10:40 Hep Bs Antigen Negative Hep Bs Antibody Nonreactive Hep B Core Total Ab Reactive Hep B Core IgM Ab REACTIVE A Hep B DNA copies/mL NOT DETECTED Hep B DNA (IU/mL) NOT DETECTED Hepatitis C Ab (EIA) Nonreactive TB Test (T-Spot) Com Negative Assessment & Plan Assessment & Plan (1) Seropositive rheumatoid arthritis: Comment: ++RF +++CCP Plaquenil: approx 2014- 2015 not effective Methotrexate: approx 11/2021- February 2022 -discontinued due to increased LFTs. Also not effective 07/22/2022 not on any medication for RA, no active disease on exam. Flare 05/2023 HCQ started. 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 Currently on sulfasalazine for the past 2 months but there has not been much improvement. And she continues to have breakthrough flares with swelling and tenderness to palpation but self resolves over a few days. I think we need to escalate care. She did not tolerate methotrexate, Simponi infusions were not effective. Plaquenil not effective. We will start Enbrel. Also to hopefully put her disease into some sort of remission we will start prednisone taper Plan - Prednisone 5mmg x 2 weeks then 15 mg x 2 weeks then 10mg x 2 weeks then 5mg x 2weeks then stop - Enbrel 50mg SC weekly - Sulfasalazine 1000mg bid until the next appointment - RTC 3 months - Labs before visit: CBC, CMP, ESR, CRP (2) Encounter for monitoring sulfasalazine therapy: Code(s): Z51.81 - Encounter for therapeutic drug level monitoring; Z79.899 - Other fpc (current) drug therapy Plan: #Long-term Use of Sulphasalazine Discussed with patient the risks and benefits of sulfasalazine in the management of the rheumatic condition Benefits include: - Reduced pain, reduce mortality, maintenance of remission then reduction of flares Risks include: - GI upset, hemolysis (especially if G6PD deficiency), eosinophilia, headache, dizziness, rash, elevated LFTs (3) Encounter for monitoring of etanercept therapy: Code(s): Z51.81 - Encounter for therapeutic drug level monitoring; Z79.620 - commercial relationship manager (current) use of immunosuppressive biologic Plan: #Long-term Use of TNF Inhibitors: Etanercept Discussed with the patient the benefits and risks of TNF inhibitors for the management of the rheumatic condition Benefits include reduce pain, maintenance of remission and reduction of flares as well as ?progression of the disease Risks include injection sites/infusion reactions, serious infections (such as bacterial infections, opportunistic infections), malignancy, delaminating syndromes, autoimmune phenomena, CHF exacerbations, palmar plantar psoriasis and cytopenias Recommended rotating injection sites, and holding medication during and for up to 1 week after resolution of a febrile illness or open skin wound Plan I spent 33 minutes reviewing the record and labs, taking a history, examining the patient, discussing the treatment plan, ordering diagnostic work up and documenting in the medical record Medications: New etanercept (Enbrel SureClick) 50 mg subcut QWEEK 4 mL 4RF M05.9 - Rheumatoid arthritis with rheumatoid factor, unspecified Changed From prednisone Take 2 tablets for 10 days then 1 tablet for 10 days 5 mg PO DIRECTED 30 tabs 0RF M05.9 - Rheumatoid arthritis with rheumatoid factor, unspecified To prednisone Take 3 tablets for 14 days then 2 tablets for 14 days then 1 tablet for 14 days 5 mg PO DIRECTED 90 tabs 0RF M05.9 - Rheumatoid arthritis with rheumatoid factor, unspecified Coding Level of Care Code Est Pt Level 4 (95811) Complex EM visit Add On G2211 Diagnoses Seropositive rheumatoid arthritis M05.9 Encounter for monitoring sulfasalazine therapy Z51.81; Z79.899 Encounter for monitoring of etanercept therapy Z51.81; Z79.620
[2024-08-18 11:14] VITALS: BP 130/82; PULSE 69; O2SAT 98; BMI 25.0
== END 2024-08-18 11:41 | disposition home or self-care (01) ==
LOC: HO.RHE 10:53
PROVIDERS: PCP Family Medicine; Visit Provider Student in an Organized Health Care Education/Training Program
DX: M05.79 Rheumatoid arthritis with rheumatoid factor of multiple sites without organ or systems involvement (principal); Z51.81 Encounter for therapeutic drug level monitoring; Z79.899 Other long term (current) drug therapy; Z79.620 Long term (current) use of immunosuppressive biologic
CPT/HCPCS: 99214; G2211

== ENCOUNTER → 2024-08-18 10:53 | Outpatient (BNVA) | payer MEDICARE, SELFPAY | PROVIDERS: PCP Family Medicine; Visit Provider Student in an Organized Health Care Education/Training Program | DX: M05.9 Rheumatoid arthritis with rheumatoid factor, unspecified (principal); M81.0 Age-related osteoporosis without current pathological fracture; M19.90 Unspecified osteoarthritis, unspecified site; Z51.81 Encounter for therapeutic drug level monitoring; Z79.620 Long term (current) use of immunosuppressive biologic; Z79.899 Other long term (current) drug therapy | CPT/HCPCS: 99212 ==

== ENCOUNTER → 2024-08-23 10:28 | Outpatient (BNVA) | payer MEDICARE, SELFPAY | PROVIDERS: PCP Family Medicine; Visit Provider Student in an Organized Health Care Education/Training Program | DX: Z13.89 Encounter for screening for other disorder (principal) ==

== ENCOUNTER 2024-09-14 09:51 | Outpatient (AMB) | payer MEDICARE, SELFPAY ==
--- NOTE | 2024-09-14 09:53 | A.OFFVIS_ITS ---
Vital Signs 09/14/24 10:01 Height 5 ft 1 in Weight 127 lb 6.835 oz BMI 24.1 BP 134/72 Blood Pressure Location Lt brachial Position Sitting Pulse 78 Pulse Source Pulse Oximeter Pulse Oximetry (%) 98 Oxygen Delivery Method Room Air Intake Visit Reasons: follow up Intake Note: Patient presents for RA follow up. Allergies alendronate sodium Allergy (Intermediate, Verified 09/14/24 09:58) bone pain Sulfa (Sulfonamide Antibiotics) Allergy (Intermediate, Verified 09/14/24 09:58) Nausea golimumab [From Simponi ARIA] Adverse Reaction (Intermediate, Verified 09/14/24 09:58) body pain msg Allergy (Severe, Uncoded 04/24/24 14:25) migraines nitrates Allergy (Severe, Uncoded 04/24/24 14:25) migraine HPI Comments Details: Patient is a 68-year-old female with polyarticular osteoarthritis, osteoporosis and seropositive rheumatoid arthritis here today for an urgent visit for rash Interval History: Patient last seen 08/18/24 with me. At that time stopped the sulfasalazine and started Enbrel on a background of ineffectiveness of the sulfasalazine. Patient has been doing the Enbrel injections for the past 3 weeks but has noticed red macules overlying the previous injection sites. She was advised to hold the Enbrel until these macules resolved. Today she notes macules resolved and she is doing well overall No other rashes noted to her body Rheumatologic History: ++RF +++CCP Plaquenil: approx 2014- 2015 not effective Methotrexate: approx 11/2021- February 2022 -discontinued due to increased LFTs. Also not effective 07/22/2022 not on any medication for RA, no active disease on exam. Flare 05/2023 HCQ started. DC 09/2023 ineffective, restarted 09/2023-DC 01/2024 ineffective Simponi infusions 01/2024 effective after 1st dose then patient had secondary nonresponse after 2nd dose Initial history: 66 year old female presents for initial evaluation of Rheumatoid arthritis. She was recently following with Dr Carney. Patient states she was diagnosed with rheumatoid arthritis around 2013 and started on plaquenil. She is not sure but thinks her rheumatoid factor and CCP were borderline. She took Plaquenil for a few months and stopped as she did not feel the medication was helpful. She states her initial joint pain was in the balls of both feet and that her foot pain has gotten progressively better over time. Patient notes that she had not been on medication for RA for about 6 years, after trying plaquenil, and recently reestablished care with Rheumatology, Dr Carney. She denies history of symmetric joint swelling and pain. She states that she sprained tendons on the ular aspect of both wrists, approx 6 years ago on the left and 1 year ago on the right. Her pain as been in tendons and feet as above. She reports history of tendonitis in the left tibal area and right ankle. She was started on 10mg of methotrexate weekly in July 2021, then increased to 15mg 3 months ago. She reports she did not notice much improvement in pain on methotrexate. Her most recent LFTs this month were elevated so her methotrexate was discontinued approx 2 weeks ago. She states her LFTS were normal in February. She denies history of gout. She states that she had pain in the left index finger and had the finger injected March 04, 2022 at [facility] with good effect. She states that her pain improved in the the index finger then traveled to base of the left 5th digit the same day. She still has pain in the 5th finger, reports she is not able to bend the finger, she admits to some swelling, no erythema. She states her pain is 50% better and she called [facility] but was not able to get an appt for injection. 3 days ago she trailed topical capsacin and she felt better. She denies any other joint pain. She reports that she follows with Podiatry for tailor's bunionette on the left 5th metatarsal head. She is following with endocrine, she experienced bone pain on Fosamax was referred to endocrine by Rheumatology. Endocrine ordered Tymlos, at first this was not approved by her insurance company but is now approved. She states she has not yet started the Tymlos, she would like to address her rheumatoid arthritis first. Current Rheumatology Medication(s): Enbrel 50mg SC weekly [facility] Medical History (Updated 07/11/24 @ 10:24 by Katerine Washington MD) Hepatitis B core antibody positive Osteoporosis Seropositive rheumatoid arthritis GERD (gastroesophageal reflux disease) Allergic conjunctivitis and rhinitis Presbyopia Astigmatism Hypermetropia Carpal tunnel syndrome Migraines Depression Anxiety Hyperlipidemia Hypercholesteremia Surgical History History of foot surgery [place] teeth extracted Family History Mother Dementia Emphysema lung Father Myocardial infarct Brother COPD (chronic obstructive pulmonary disease) Brother History of heart attack Social History Household Members: None Alcohol intake: current Alcohol intake frequency: a few times a month Alcohol type: hard liquor Patient Tobacco Use Status: Former Tobacco user Current occupational status: 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 Const Details: as per HPI Physical Exam Vital Signs: Last Vital Signs Pulse 78 09/14/24 10:01 BP 134/72 09/14/24 10:01 Pulse Ox 98 09/14/24 10:01 Oxygen Delivery Method Room Air 09/14/24 10:01 BMI result Body Mass Index 24.1 Skin: Fading erythematous patches over her bilateral thighs. No other rashes noted to her body Results Reviewed Results Reviewed: Laboratory Tests 06/19/24 06/21/24 11:30 10:40 WBC 6.6 RBC 4.11 L Hgb 12.5 Hct 36.8 L Plt Count 333 ESR 26 H Sodium 140 Potassium 3.9 Chloride 107 Carbon Dioxide 26 BUN 12 Creatinine 0.75 AST 40 H ALT 42 H Alkaline Phosphatase 93 C-Reactive Protein 1.04 H Immunology labs 04/16/22 15:02 Rheumatoid Factor 80.8 H Cycl Citrul Peptide IgG >250 H Infectious serologies 06/19/24 06/21/24 11:30 10:40 Hep Bs Antigen Negative Hep Bs Antibody Nonreactive Hep B Core Total Ab Reactive Hep B Core IgM Ab REACTIVE A Hep B DNA copies/mL NOT DETECTED Hep B DNA (IU/mL) NOT DETECTED Hepatitis C Ab (EIA) Nonreactive TB Test (T-Spot) Com Negative Assessment & Plan Assessment & Plan (1) Rash: Code(s): R21 - Rash and other nonspecific skin eruption Plan: #Rash Patient is a 68-year-old female with palindromic rheumatoid arthritis here today for urgent visit for rash. Rash has resolved after holding medication. There were no ulcerations. Discussed with the patient about continuing versus changing the medication and shared decision-making we decided to continue the Enbrel. We will monitor for any further reactions Patient had Enbrel injection today in office and 30 minutes later she noted no change and no rash or allergic reaction. Plan - Continue Enbrel - Monitor for rash Plan I spent 20 minutes reviewing the record and labs, taking a history, examining the patient, discussing the treatment plan and documenting in the medical record Coding Level of Care Code Est Pt Level 3 (22444) Diagnoses Rash R21
[2024-09-14 10:01] VITALS: BP 134/72; PULSE 78; O2SAT 98; BMI 24.1
== END 2024-09-14 10:42 | disposition home or self-care (01) ==
PROVIDERS: PCP Family Medicine; Visit Provider Student in an Organized Health Care Education/Training Program
DX: R21 Rash and other nonspecific skin eruption (principal)
CPT/HCPCS: 99213

== ENCOUNTER → 2024-09-14 09:51 | Outpatient (BNVA) | payer MEDICARE, SELFPAY | PROVIDERS: PCP Family Medicine; Visit Provider Student in an Organized Health Care Education/Training Program | DX: R21 Rash and other nonspecific skin eruption (principal); M15.9 Polyosteoarthritis, unspecified; M81.0 Age-related osteoporosis without current pathological fracture; M05.9 Rheumatoid arthritis with rheumatoid factor, unspecified | CPT/HCPCS: 99212 ==

== ENCOUNTER 2024-09-21 08:23 | Outpatient (REF) | payer MEDICARE, SELFPAY | END 2024-09-21 08:24 | disposition home or self-care (01) | LOC: HO.SH 08:23 | PROVIDERS: Visit Provider Family Medicine | DX: Z01.118 Encounter for examination of ears and hearing with other abnormal findings (principal); H90.3 Sensorineural hearing loss, bilateral; M05.9 Rheumatoid arthritis with rheumatoid factor, unspecified; Z79.899 Other long term (current) drug therapy | CPT/HCPCS: 36415; 80053; 85007; 85027; 85652; 86140; 92557; 92567 ==

== ENCOUNTER 2024-09-21 10:07 | Outpatient (REF) | payer MEDICARE, SELFPAY ==
[2024-09-21 10:54] LABS: Baso%MD 0.8 %; Eos%MD 0.5 %; Hematocrit 38.7 % (37.0-47.0); IG%MD 0.5 %; Lymph%MD 16.3 %; Mean Corpuscular HGB Conc 33.6 g/dl (31.0-35.0); Mean Corpuscular Hemoglobin 30.4 pg (27.0-33.0); Mean Corpuscular Volume 90.6 fL (80.0-98.0); Mean Platelet Volume 9.4 fL (9.4-12.3); Mono%MD 4.4 %; Neut%MD 77.5 %; Platelet Count 275 X10*3/uL (160-400); Red Blood Count 4.27 X10*6/uL (4.20-5.50); Red Cell Distribution Width 14.5 % (11.0-16.0); White Blood Count 7.6 X10*3/uL (4.8-10.8)
[2024-09-21 11:44] LABS: Alanine Aminotransferase 23 U/L (0-31); Albumin Level 4.4 g/dL (3.5-5.0); Alkaline Phosphatase 52 U/L (39-117); Anion Gap 7 (12-20); Aspartate Amino Transferase 30 U/L (5-31); Bilirubin Total 0.2 mg/dL (0.0-1.0); Blood Urea Nitrogen 17 mg/dL (9-16); C Reactive Protein 0.25 mg/dL (< or = 0.50); Carbon Dioxide 28 mmol/L (22-29); Chloride 106 mmol/L (96-108); Estimated Glomerular Filt Rate > 60; Glucose Random 92 mg/dL (60-115); Potassium 3.9 mmol/L (3.3-5.1); Sodium 137 mmol/L (135-145); Total Protein 6.9 g/dL (6.5-8.0)
[2024-09-21 11:57] LABS: Erythrocyte Sedimentation Rate 3 MM/HR (0-20)
[2024-09-21 12:26] LABS: Lymphocytes Absolute Manual 1.2 X10*3/uL (1.2-4.9); Lymphocytes Percent Manual 16 % (20-40); Monocytes Absolute Manual 0.1 X10*3/uL (0.1-1.2); Monocytes Percent Manual 1 % (2-11); Neutrophils Percent Manual 83 % (45-73)
[2024-09-21 12:27] LABS: Platelet Estimate NORMAL (NORMAL); Platelet Morphology Comment NORMAL; RBC Morphology NORMAL
[2024-09-22 00:58] LABS: Neutrophils Absolute Manual 6.3 X10*3/uL (2.0-8.3)
== END 2024-09-21 10:08 | disposition home or self-care (01) ==
LOC: HO.LAB 10:07
PROVIDERS: PCP Family Medicine; Visit Provider Student in an Organized Health Care Education/Training Program
DX: Z13.89 Encounter for screening for other disorder (principal)
CPT/HCPCS: 36415; 80053; 85007; 85025; 85027; 85652; 86140

== ENCOUNTER 2024-10-30 14:07 | Outpatient (AMB) | payer MEDICARE, SELFPAY ==
--- NOTE | 2024-10-30 14:09 | MHC.OFFVIS ---
Vital Signs 10/30/24 14:24 Height 5 ft 1 in Weight 130 lb BMI 24.6 BP 122/76 Blood Pressure Location Rt brachial Position Sitting Pulse 82 Pulse Source Pulse Oximeter Pulse Oximetry (%) 97 Oxygen Delivery Method Room Air Intake Visit Reasons: gerd Intake Note: New pt for initial eval of GERD. CC; C.O. unintentional weight loss and needing repeat colonoscopy. Pt states she has lost about 10 lbs over the last 2 mos. Pt states that her GERD has not bothered her for the last few months and she has stopped all of her meds at this time. Sports Physician Required: No Accompanied by: Self / Same As Patient Allergies alendronate sodium Allergy (Intermediate, Verified 10/30/24 14:09) bone pain Sulfa (Sulfonamide Antibiotics) Allergy (Intermediate, Verified 10/30/24 14:09) Nausea golimumab (From Simponi ARIA) Adverse Reaction (Intermediate, Verified 10/30/24 14:09) body pain msg Allergy (Severe, Uncoded 10/30/24 14:09) migraines nitrates Allergy (Severe, Uncoded 10/30/24 14:09) migraine HPI HPI gerd: Details: 69-year-old female with past medical history of osteoarthritis of bilateral hands, migraines, seropositive rheumatoid arthritis, GERD is here today for pre colonoscopy screening.? Patient last several lb unintentionally back in July. Last colonoscopy was done in 2019 and it showed tubular adenoma. The specimen was fragmented so technically patient is overdue to go for procedure. Patient saw [facility] till 2021, her last colonoscopy was done with them. In 2022 patient was seen in GI at [facility] where she was again evaluated and had a upper endoscopy. Patient reports that she was told that they did not find anything. Unaware if she was told if she has eosinophilic esophagitis. History of allergies. Was sent to [facility] where she was supposed to receive injections due to multiple different allergies that include environmental allergies as well as allergy to some pets. Patient reports that during July when she lost so much weight she was experiencing severe cough which she usually does with acid reflux. Patient admits that she was not eating much as she not have any appetite. Anything she a provoked her cough was getting worse. Patient denies melena, hematochezia, ribbon likes stools. Patient reports that she has not experienced the symptoms since then. Tries to change her diet. In April patient had Constantino capsule and was told that it was inconclusive. Unable to get reports from [facility]. Will send a request form from all the procedures and notes. Previously patient was treated with omeprazole 1st then was switched to pantoprazole. Currently she is not taking any PPI or H2 blockers. Patient would like to switch to [facility] as she has several consulting physician within this practice. Currently patient is not having upper GI symptoms, however she reports that she will have days where she will have loose stools postprandially and then be constipated for long time. She has been dealing with these symptoms for some time. ? Denies history of difficulty with sedation or anesthesia in the past.? Negative for history of sleep apnea.? Denies any history of cardiac, renal, pulmonary, or hepatic disease.?? No history of infectious? diseases like hepatitis A, B, C, HIV or tuberculosis.? Patient had positive hepatitis-B core antibody, was evaluated by Infectious Disease provider and most likely falsely positive given no other abnormal parameters. Patient is not on any anticoagulation. ON LICENSE OF [facility] Medical History (Updated 10/30/24 @ 19:17 by Onelia Berger, [facility]) Chronic idiopathic constipation Tubular adenoma of colon Hepatitis B core antibody positive Osteoporosis Seropositive rheumatoid arthritis GERD (gastroesophageal reflux disease) Allergic conjunctivitis and rhinitis Presbyopia Astigmatism Hypermetropia Carpal tunnel syndrome Migraines Depression Anxiety Hyperlipidemia Hypercholesteremia Surgical History History of foot surgery [place] teeth extracted Family History Mother Dementia Emphysema lung Father Myocardial infarct Brother COPD (chronic obstructive pulmonary disease) Brother History of heart attack Social History Household Members: None Alcohol intake: current Alcohol intake frequency: a few times a month Alcohol type: hard liquor Patient Tobacco Use Status: Former Tobacco user Current occupational status: 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 Const Denies weight gain and Denies weight loss ENT Reports no additional complaints, Denies dysphagia and Denies odynophagia Card Reports no additional complaints Resp Reports no additional complaints GI Denies abdominal pain, Denies belching, Denies melena, Denies bloating, Denies change in bowel habits, Reports constipation, Denies dysphagia, Denies excessive flatus, Denies dyspepsia, Denies heartburn, Denies diarrhea, Reports loose stools, Denies nausea, Denies odynophagia and Denies vomiting Reports no additional complaints Musc Reports no additional complaints Neuro Reports no additional complaints Psych Reports no additional complaints Endo Reports no additional complaints Physical Exam Vital Signs: Last Vital Signs Pulse 82 10/30/24 14:24 BP 122/76 10/30/24 14:24 Pulse Ox 97 10/30/24 14:24 Oxygen Delivery Method Room Air 10/30/24 14:24 BMI result Body Mass Index 24.6 Const General: healthy appearing, no acute distress and well developed Nutritional Appearance: well nourished Orientation/consciousness: patient oriented x3 Resp Effort & Inspection: normal respiratory effort, able to speak in complete sentences, no tracheal deviation and symmetric chest movement Auscultation: clear to auscultation bilaterally Cardio Rate: regular rate GI Inspection: Yes normal to inspection and No distended Palpation (GI): Soft to palpation, not firm, nontender and No hepatosplenomegaly present Auscultation: normal bowel sounds General: Yes no CVA tenderness Back/Spine/Pelvis Back: no CVA tenderness Skin General skin exam: elasticity normal, turgor normal and dry skin Neuro General: patient oriented x3 Psych Appearance: grossly normal Mental Status: mental status grossly normal Assessment & Plan Assessment & Plan (1) Chronic idiopathic constipation: Code(s): K59.04 - Chronic idiopathic constipation Category: Medical (2) Screen for colon cancer: Code(s): Z12.11 - Encounter for screening for malignant neoplasm of colon (3) Postprandial diarrhea: Code(s): K52.9 - Noninfective gastroenteritis and colitis, unspecified (4) GERD (gastroesophageal reflux disease): Code(s): K21.9 - Gastro-esophageal reflux disease without esophagitis Category: Medical Qualifiers: Esophagitis presence: esophagitis presence not specified Qualified Code(s): K21.9 - Gastro-esophageal reflux disease without esophagitis Plan Patient denies any cardiac or respiratory symptoms. Patient reports ports irregularity in her bowels from loose stools postprandially to occasional constipation. Discussed with patient low FODMAP diet. List of food recommended list of food to avoid given to patient. Will check vitamin-D, B12, folate, transglutaminase. Patient will be sent for colonoscopy. Fax sent to [facility] requesting records of her visits and procedures.? Denies any issues with anesthesia in the past.? Denies any history of sleep apnea.? No history infectious diseases in the past or present.? Not on any anticoagulation therapy.? No family of colon cancer.? Patient denies melena, hematochezia or ribbon like stools.? Discussed at length the pre-procedure,? prep, diet & medications as well as what to expect prior, during and after the procedure.?? Stressed the importance of good bowel prep.? Recommended the use of Vaseline or Calmoseptine OTC & baby wipes with bowel movements to promote comfort.? ?Patient verbalizes understanding and agrees to plan of care.? She was given the opportunity to ask questions and all questions answered.? We will see her after the procedure.? Orders: Orders Vitamin D 25-OH (D2 and D3) Today E55.9 - Vitamin D deficiency, unspecified Transglutaminase IgA Today R10.9 - Unspecified abdominal pain Vitamin B12 and Folate Today R19.7 - Diarrhea, unspecified Medications: New bisacodyl (Dulcolax (bisacodyl)) take 4 tabs at noon the day before your colonoscopy 20 mg (4 x 5 mg) PO ONCE 4 tabs 0RF constipation 1 day Z12.11 - Encounter for screening for malignant neoplasm of colon polyethylene glycol 3350 (Miralax) As directed by gastroenterology department at [facility] 238 grams PO ONCE 238 grams 0RF Z12.11 - Encounter for screening for malignant neoplasm of colon Coding Level of Care Code New Pt Level 4 (68600) Diagnoses Chronic idiopathic constipation K59.04 Screen for colon cancer Z12.11 Postprandial diarrhea K52.9 Gastroesophageal reflux disease, unspecified whether esophagitis present K21.9 Esophagitis presence: esophagitis presence not specified Time Spent (min) 50 Comment 35 minutes spent with patient and additional 15 minutes spent reviewing her records
[2024-10-30 14:24] VITALS: BP 122/76; PULSE 82; O2SAT 97; BMI 24.6
--- OUTSIDE RECORDS SUMMARY | 2024-10-30 14:59 | XMS_ITS | Encounter Summary ---
Author Organization [facility] Address [facility] [address] [address] Phone Care Team Providers Care Land Survey Technician Name Role Phone Huy Zhu MD Unavailable [phone] Nuvia Woodward NP Unavailable [phone] Shyann Sandoval Primary Care Provider [phone] Jackelyn Daniels MD Primary Care Provider + Jackelyn Daniels MD Primary Care Provider + Encounter Details Date Type Department Care Team (Late st Contact Info) Description 09/16/2022 Procedure Pass OR Admitting Dept - Virtual Department [address] [place] [id number] Social History Tobacco Use Types Packs/Day Years Used Date Smoking Tobacco: Former Cigarettes Smokeless Tobacco: Never Comments:Quit smokin04/12 Alcohol Use Standard Drinks/Week Comments Yes 5 (1 standard drink = 0.6 oz pur e alcohol) Socially Education Answer Date Recorded Are you interested in more education? Not on tiera e 08/06/2022 Are you concerned about learning? Not on file 08/06/2022 No 08/06/2022 No 08/06/2022 Digital Access Answer Date Recorded No 09/02/2022 No 09/02/2022 Reliable internet access at home? Not on file 09/02/2022 Device with a working camera? Not on file Comments No Sex and Gender Information Value Date Recorded Sex Assigned at Female 01/17/2019 1:19 AM EDT Legal Sex Female 12:45 AM EST Gender Identity Female 01/17/2019 1:19 AM EDT Sexual Orientation Straight 01/17/2019 1: 19 AM EDT documented as of this encounter Plan of Treatment Upcoming Encounters Date Type Department Care Team (Late st Contact Info) Description 11/22/2024 Procedure Pass [facility] Endoscopy Admitting Dept Virtual Department [address] [place] [phone] 11/22/2024 12:30 PM EDT Hospital Encounter [facility] Endoscopy Admitting Dept Virtual Department [address] [place] [id number] Lucas Ibarra MD [address] [place] [phone] 11/22/2024 12:30 PM EDT - 11/22/2024 1:00 PM EDT Surgery [facility] Endoscopy Admitting Dept Virtual Department [address] [place] [phone] Lucas Ibarra MD [address] [place] [phone] COLONOSCOPY 02/13/2025 9:30 AM EST Office Visit [facility] All[facility] Medicine [address] [place] [phone] Lucas Galvan MD [address] [place] [id number] Scheduled Procedures Name Priority Associated Diagnoses Date/Ti me COLONOSCOPY colon 11/22/2024 12:30 PM EDT documented as of this encounter Visit Diagnoses Not on filedocumented in this encounter Care Teams Land Survey Technician Relationship Specialty Start Date End Date Shyann Sandoval PA [address] [place] [phone] [email or web address] - General Unknown Provider Specialty 06/13/20 12/29/23 Jackelyn Daniels MD [address] [place] [address] [email or web address] - General Family Medicine 12/30/23 05/03/24 Jackelyn Daniels MD [address] [place] [address] [email or web address] - General Family Medicine 05/04/24 Huy Zhu MD [email or web address] LMR Provider 01/31/17 Nuvia Woodward NP [address] [place] [id number] [email or web address] Historical LMR Provider 01/31/17 documented as of this encounter Additional Source Comments The information contained in this document represents components of the legal health record. It is not the complete legal health record.[facility]
== END 2024-10-30 15:14 | disposition home or self-care (01) ==
LOC: HO.HGI 14:08
PROVIDERS: PCP Family Medicine; Visit Provider Nurse Practitioner Family
DX: K59.04 Chronic idiopathic constipation (principal); R63.4 Abnormal weight loss; K52.9 Noninfective gastroenteritis and colitis, unspecified; K21.9 Gastro-esophageal reflux disease without esophagitis
CPT/HCPCS: 99204

== ENCOUNTER 2024-10-30 14:07 | Outpatient (REF) | payer MEDICARE, SELFPAY ==
[2024-10-30 17:13] LABS: Folate 9.3 ng/mL (> or = 4.0); Vitamin B12 437 pg/mL (200-900)
[2024-11-03 16:28] LABS: Vitamin D 25-OH, D2 <4 ng/mL; Vitamin D 25-OH, D3 47 ng/mL; Vitamin D 25-OH, Total 47 ng/mL (30-100)
== END 2024-10-30 14:08 | disposition home or self-care (01) ==
LOC: HO.LAB 14:07
PROVIDERS: PCP Family Medicine; Visit Provider Nurse Practitioner Family
DX: Z01.818 Encounter for other preprocedural examination (principal); K59.04 Chronic idiopathic constipation; K21.9 Gastro-esophageal reflux disease without esophagitis; K52.9 Noninfective gastroenteritis and colitis, unspecified; Z86.0101 Personal history of adenomatous and serrated colon polyps; E55.9 Vitamin D deficiency, unspecified; R10.9 Unspecified abdominal pain
CPT/HCPCS: 36415; 82306; 82607; 82746; 86364; 99202

== ENCOUNTER 2024-12-13 08:24 | Day surgery (SDC) | payer MEDICARE, SELFPAY ==
[2024-12-08 13:44] VITALS: BMI 24.6
--- NOTE | 2024-12-12 09:41 | HO.ANESPROP2 ---
Documented by User: Yue Simpson NP 12/12/24 09:43 HPI - Anesthesia Eval Consult details Narrative: 69 yr old female for colonoscopy Rheumatoid arthritis: on Enbrel PMFSH Active Problems Active Problems: All Active Problems (Updated 10/30/24 @ 19:17 by Onelia Berger, [facility]) GERD (gastroesophageal reflux disease) (Acute) Chronic idiopathic constipation (Acute) Hepatitis B core antibody positive (Acute) High risk medication use (Acute) long-term (current) use of non-steroidal anti-inflammatories (nsaid) (Acute) Elevated liver enzymes (Acute) Shoulder pain, left (Acute) Osteoarthritis of hands, bilateral (Acute) Elevated transaminase measurement (Acute) Cervicalgia (Acute) Back pain (Acute) Nausea (Acute) Malaise and fatigue (Acute) Migraine without aura (Acute) Migraines (Acute) Chronic cough (Acute) Osteoporosis (Acute) Seropositive rheumatoid arthritis (Acute) Past Medical History Medical History Chronic idiopathic constipation Tubular adenoma of colon Hepatitis B core antibody positive Osteoporosis Seropositive rheumatoid arthritis GERD (gastroesophageal reflux disease) Allergic conjunctivitis and rhinitis Presbyopia Astigmatism Hypermetropia Carpal tunnel syndrome Migraines Depression Anxiety Hyperlipidemia Hypercholesteremia Family History Family History Mother Dementia Emphysema lung Father Myocardial infarct Brother COPD (chronic obstructive pulmonary disease) Brother History of heart attack Surgical History Surgical History History of foot surgery [place] teeth extracted Social History Social History Household Members: None Are you a primary residential caregiver to a significant other at home: No Do you presently have visiting nurse or other home services: No Alcohol intake: current Alcohol intake frequency: a few times a week Alcohol type: hard liquor Patient Tobacco Use Status: Former Tobacco user Use of substances other than those prescribed or required for medical reasons: No Have you been hit, kicked, punched, or otherwise hurt by someone within the past year? If so, by whom?: No Are you DNR?: No Advance Directives: No Advance Directives Information Provided: Yes Patient : No Poor oral hygiene: Yes Current occupational status: retired Meds Allergies Allergy/AdvReac Type Severity Reaction Status Date / Time monosodium glutamate (MSG) Allergy Severe Migraine Verified 12/13/24 08:47 Nitrate Analogues Allergy Severe Migraine Verified 12/13/24 08:47 alendronate sodium Allergy Intermediate bone pain Verified 12/13/24 08:47 Sulfa (Sulfonamide Allergy Intermediate Nausea Verified 12/13/24 08:47 Antibiotics) golimumab (From Simponi ARIA) AdvReac Intermediate body pain Verified 12/13/24 08:47 Home Medications ?Medication ?Instructions ?Recorded ?Confirmed ?Last Taken ?Type ivermectin 1 % topical cream 1 appl topical DAILY PRN 03/30/22 08/18/24 Unknown History (Soolantra) zolmitriptan 2.5 mg tablet See Rx Instructions PO .COMPLEX 03/30/22 12/13/24 12/13/24 History PRN Migraine Headache cetirizine 10 mg tablet (Zyrtec) 10 mg PO DAILY PRN 07/22/22 08/18/24 Unknown History denosumab 60 mg/mL subcutaneous 60 mg subcut [id number] 12/25/22 08/18/24 Unknown History syringe (Prolia) hydrocodone-homatropine 5 mg-1.5 1 tab PO BID PRN 08/18/24 08/18/24 Unknown History mg tablet Exam Height,Weight and Vital Signs: Height 5 ft 1 in Weight 58.967 kg Pertinent Lab Results Pertinent Lab Results: Laboratory Tests 09/21/24 10:21 WBC 7.6 RBC 4.27 Hgb 13.0 Hct 38.7 Plt Count 275 Sodium 137 Potassium 3.9 BUN 17 H Creatinine 0.69 Documented by User: Cora Valentine MD 12/13/24 09:12 PMFSH Past Medical History Medical History Chronic idiopathic constipation Tubular adenoma of colon Hepatitis B core antibody positive Osteoporosis Seropositive rheumatoid arthritis GERD (gastroesophageal reflux disease) Allergic conjunctivitis and rhinitis Presbyopia Astigmatism Hypermetropia Carpal tunnel syndrome Migraines Depression Anxiety Hyperlipidemia Hypercholesteremia Family History Family History Mother Dementia Emphysema lung Father Myocardial infarct Brother COPD (chronic obstructive pulmonary disease) Brother History of heart attack Family history of problems with anesthesia: No Surgical History Surgical History History of foot surgery [place] teeth extracted History of Problems with Anesthesia: No Social History Social History Household Members: None Are you a primary residential caregiver to a significant other at home: No Do you presently have visiting nurse or other home services: No Alcohol intake: current Alcohol intake frequency: a few times a week Alcohol type: hard liquor Patient Tobacco Use Status: Former Tobacco user Use of substances other than those prescribed or required for medical reasons: No Have you been hit, kicked, punched, or otherwise hurt by someone within the past year? If so, by whom?: No Are you DNR?: No Advance Directives: No Advance Directives Information Provided: Yes Patient : No Poor oral hygiene: Yes Current occupational status: retired Meds Allergies Allergy/AdvReac Type Severity Reaction Status Date / Time monosodium glutamate (MSG) Allergy Severe Migraine Verified 12/13/24 08:47 Nitrate Analogues Allergy Severe Migraine Verified 12/13/24 08:47 alendronate sodium Allergy Intermediate bone pain Verified 12/13/24 08:47 Sulfa (Sulfonamide Allergy Intermediate Nausea Verified 12/13/24 08:47 Antibiotics) golimumab (From Simponi ARIA) AdvReac Intermediate body pain Verified 12/13/24 08:47 Home Medications ?Medication ?Instructions ?Recorded ?Confirmed ?Last Taken ?Type ivermectin 1 % topical cream 1 appl topical DAILY PRN 03/30/22 08/18/24 Unknown History (Soolantra) zolmitriptan 2.5 mg tablet See Rx Instructions PO .COMPLEX 03/30/22 12/13/24 12/13/24 History PRN Migraine Headache cetirizine 10 mg tablet (Zyrtec) 10 mg PO DAILY PRN 07/22/22 08/18/24 Unknown History denosumab 60 mg/mL subcutaneous 60 mg subcut [id number] 12/25/22 08/18/24 Unknown History syringe (Prolia) hydrocodone-homatropine 5 mg-1.5 1 tab PO BID PRN 08/18/24 08/18/24 Unknown History mg tablet Exam Airway Mallampati Class: III TM Dist: >3cm Neck ROM: Limited Heart: rrr Lungs: cta Assessment and Plan Assessment Anesthesia Assessment: Anesthesia Plan Discussed and Chart Reviewed Final Anesthetic Review Family History of Problems with Anesthesia: No History of Problems with Anesthesia: No NPO: Yes ASA Class: III Final Preanesthetic Review: No Changes in Pt Med Stat, Meds/Allgs Chart Reviewed, Consent Obtained/Reviewed and Anes Risks/Benef Reviewed Patient Risk: Intermediate Procedure Risk: Low Anesthetic Plan Anesthetic Plan: MAC: Disposition: Standard PACU
[2024-12-13 08:49] VITALS: BP 152/70; PULSE 98; RESP 12; TEMP 37.2; O2SAT 96; BMI 24.2
[2024-12-13] MEDS: Lactated Ringers 1,000 ML 100 ML IVCONT (08:59)
--- NOTE | 2024-12-13 09:57 | P.HPSUR_ITS ---
Pre-Procedural Eval Section A - 24 Hr Update-Section A only Date of Service: 12/13/24 Section B - Complete if H&P > 30 days Chief Complaint: screening Relevant Family History (Specify if Yes): No Relevant Social History: None Present Medications: see Short Stay Collaborative assessment Medical History: Significant History (Chronic idiopathic constipation Tubular adenoma of colon Hepatitis B core antibody positive Osteoporosis Seropositive rheumatoid arthritis GERD (gastroesophageal reflux disease) Allergic conjunctivitis and rhinitis Presbyopia Astigmatism Hypermetropia Carpal tunnel syndrome Migraines Depression Anxi) History of Previous Operations: Relevant previous surgery/procedure and date(s) ( History of foot surgery [place] teeth extracted) Allergies: Allergies Allergy/AdvReac Type Severity Reaction Status Date / Time monosodium glutamate (MSG) Allergy Severe Migraine Verified 12/13/24 08:47 Nitrate Analogues Allergy Severe Migraine Verified 12/13/24 08:47 alendronate sodium Allergy Intermediate bone pain Verified 12/13/24 08:47 Sulfa (Sulfonamide Allergy Intermediate Nausea Verified 12/13/24 08:47 Antibiotics) golimumab (From Simponi ARIA) AdvReac Intermediate body pain Verified 12/13/24 08:47 Review of Systems Sugical H&P ROS: Negative: Constitution, Cardiovascular, Respiratory, Neurological, Psychiatric, Hem-Onc, Allergic/Immunologic, Gastrointestinal, Genitourinary, Musculoskeletal, Integumentary, Endocrine and Ey es/Ears/Nose/Throat Exam Surgical H&P Exam: Normal: HEENT, Normal: Heart, Normal: Lungs, Normal: Extremities, Normal: Abdomen, Normal: Skin and Normal: Neurological Plan Diagnosis/Plan: Unchanged I have reviewed the history and physical and performed a pertinent physical examination on my patient. No changes have occurred unless specified. Time Spent With Patient Time: Total time managing care of this patient today ____ minutes.
--- NOTE | 2024-12-13 10:22 | P.OPN-COLO_ITS ---
Colonoscopy Operative Note Operative Note Date of Service: 12/13/24 Narrative: Operative Information Procedure Description: Colonoscopy Indication: hx of colon polyps Anesthesia: MAC COLONOSCOPY Instrument: Olympus variable stiffness pediatric scope 190L Colonoscopy Monitoring: Vital signs and clinical assessment, continuous EKG monitoring, Pulse oximetry, Carbon Dioxide monitoring and blood pressure monitoring were done throughout the procedure. Colon withdrawal time was 8 minutes. Procedure: The patient was placed in the left lateral decubitis position and pre-procedure medications were administered. After a digital rectal examination of the ano-rectum, the video colonoscope was inserted into the rectum and advanced through the colon to the cecum/TI. The colonoscope was slowly withdrawn in a retrograde panoramic fashion and the colon mucosa was carefully examined including a retroflexed view of the rectum. Findings and interventions are described below. Procedure Difficulty: moderate - slightly tortuous colon Findings: Terminal Ileum-normal Cecum:normal Right sided retroflexion- normal Ascending Colon: normal Transverse Colon -normal Descending Colon:normal Sigmoid Colon: normal Rectum: Retroflexion with small internal hemorrhoids seen, grade I Anorectum - normal Intervention: none Colon preparation: [place] Bowel Preparation Scale Right colon; 2 Transverse colon: 3 Left colon; 2 (0 = Unprepared colon segment with mucosa not seen due to solid stool that cannot be cleared. 1 = Portion of mucosa of the colon segment seen, but other areas of the colon segment not well seen due to staining, residual stool and/or opaque liquid. 2 = Minor amount of residual staining, small fragments of stool and/or opaque liquid, but mucosa of colon segment seen well. 3 = Entire mucosa of colon segment seen well with no residual staining, small fragments of stool or opaque liquid) Impression and Post Procedure Diagnosis: internal hemorrhoids Plan: High fiber diet leaflet Avoid straining at stool, epsom salts and sitz bath, anusol supps or cream Repeat Colonoscopy in 10 years or earlier if clinically indicated Above findings were reviewed with the patient and relevant handouts were provided if indicated.
[2024-12-13 10:28] VITALS: BP 104/59; PULSE 73; RESP 20; TEMP 36.4; O2SAT 98
[2024-12-13 10:42] VITALS: BP 121/60; PULSE 72; RESP 16; TEMP 36.1; O2SAT 98
== END 2024-12-13 11:15 | disposition home or self-care (01) ==
PROVIDERS: PCP Family Medicine; Visit Provider Internal Medicine Gastroenterology
PROC: 0DJD8ZZ Inspection of Lower Intestinal Tract, Via Natural or Artificial Opening Endoscopic (ICD-10-PCS; CPT 45378; principal; 2024-12-13 10:20)
DX: Z12.11 Encounter for screening for malignant neoplasm of colon (principal); K64.0 First degree hemorrhoids; K56.2 Volvulus; Z86.0101 Personal history of adenomatous and serrated colon polyps; E78.00 Pure hypercholesterolemia, unspecified; M05.9 Rheumatoid arthritis with rheumatoid factor, unspecified; R05.3 Chronic cough; K59.04 Chronic idiopathic constipation; K21.9 Gastro-esophageal reflux disease without esophagitis; Z79.899 Other long term (current) drug therapy; Z79.1 Long term (current) use of non-steroidal anti-inflammatories (NSAID)
CPT/HCPCS: G0105; J2003; J2704

== ENCOUNTER → 2024-12-13 08:24 | Outpatient (BNV) | payer MEDICARE, SELFPAY | PROVIDERS: PCP Family Medicine; Visit Provider Internal Medicine Gastroenterology | DX: Z12.11 Encounter for screening for malignant neoplasm of colon (principal); Z86.0100 Personal history of colon polyps, unspecified; K64.0 First degree hemorrhoids | CPT/HCPCS: G0105 ==

== ENCOUNTER 2024-12-29 11:31 | Outpatient (AMB) | payer MEDICARE, SELFPAY ==
--- NOTE | 2024-12-29 12:29 | A.OFFVIS_ITS ---
Vital Signs 12/29/24 12:35 Height 5 ft 1 in Weight 131 lb 13.383 oz BMI 24.9 BP 124/72 Blood Pressure Location Lt brachial Position Sitting Pulse 74 Pulse Source Pulse Oximeter Pulse Oximetry (%) 99 Oxygen Delivery Method Room Air Intake Visit Reasons: follow up/ prolia inj Intake Note: Patient presents for RA and Prolia injection follow up. Allergies monosodium glutamate (MSG) Allergy (Severe, Verified 12/29/24 12:35) Migraine Nitrate Analogues Allergy (Severe, Verified 12/29/24 12:35) Migraine alendronate sodium Allergy (Intermediate, Verified 12/29/24 12:35) bone pain Sulfa (Sulfonamide Antibiotics) Allergy (Intermediate, Verified 12/29/24 12:35) Nausea golimumab (From Simponi ARIA) Adverse Reaction (Intermediate, Verified 12/29/24 12:35) body pain HPI Comments Details: Patient is a 69-year-old female with polyarticular osteoarthritis, osteoporosis and seropositive rheumatoid arthritis here today for follow up Interval History: Patient last seen 09/14/24 with me - On Enbrel 50mg SC every week and Prolia 60mg SC every 6 months - Patient has been doing the Enbrel injections for the past 3 weeks but has noticed red macules overlying the previous injection sites. - She was advised to hold the Enbrel until these macules resolved. - Today she notes macules resolved and she is doing well overall - No other rashes noted to her body - No changes made to medications Rheumatologic History: ++RF +++CCP Plaquenil: approx 2014- 2015 not effective Methotrexate: approx 11/2021- February 2022 -discontinued due to increased LFTs. Also not effective 07/22/2022 not on any medication for RA, no active disease on exam. Flare 05/2023 HCQ started. DC 09/2023 ineffective, restarted 09/2023-DC 01/2024 ineffective Simponi infusions 01/2024 effective after 1st dose then patient had secondary nonresponse after 2nd dose Initial history: 66 year old female presents for initial evaluation of Rheumatoid arthritis. She was recently following with Dr Carney. Patient states she was diagnosed with rheumatoid arthritis around 2013 and started on plaquenil. She is not sure but thinks her rheumatoid factor and CCP were borderline. She took Plaquenil for a few months and stopped as she did not feel the medication was helpful. She states her initial joint pain was in the balls of both feet and that her foot pain has gotten progressively better over time. Patient notes that she had not been on medication for RA for about 6 years, after trying plaquenil, and recently reestablished care with Rheumatology, Dr Carney. She denies history of symmetric joint swelling and pain. She states that she sprained tendons on the ular aspect of both wrists, approx 6 years ago on the left and 1 year ago on the right. Her pain as been in tendons and feet as above. She reports history of tendonitis in the left tibal area and right ankle. She was started on 10mg of methotrexate weekly in July 2021, then increased to 15mg 3 months ago. She reports she did not notice much improvement in pain on methotrexate. Her most recent LFTs this month were elevated so her methotrexate was discontinued approx 2 weeks ago. She states her LFTS were normal in February. She denies history of gout. She states that she had pain in the left index finger and had the finger injected March 04, 2022 at [facility] with good effect. She states that her pain improved in the the index finger then traveled to base of the left 5th digit the same day. She still has pain in the 5th finger, reports she is not able to bend the finger, she admits to some swelling, no erythema. She states her pain is 50% better and she called [facility] but was not able to get an appt for injection. 3 days ago she trailed topical capsacin and she felt better. She denies any other joint pain. She reports that she follows with Podiatry for tailor's bunionette on the left 5th metatarsal head. She is following with endocrine, she experienced bone pain on Fosamax was referred to endocrine by Rheumatology. Endocrine ordered Tymlos, at first this was not approved by her insurance company but is now approved. She states she has not yet started the Tymlos, she would like to address her rheumatoid arthritis first. Current Rheumatology Medication(s): Enbrel 50mg SC weekly [facility] Medical History Chronic idiopathic constipation Tubular adenoma of colon Hepatitis B core antibody positive Osteoporosis Seropositive rheumatoid arthritis GERD (gastroesophageal reflux disease) Allergic conjunctivitis and rhinitis Presbyopia Astigmatism Hypermetropia Carpal tunnel syndrome Migraines Depression Anxiety Hyperlipidemia Hypercholesteremia Surgical History History of foot surgery [place] teeth extracted Family History Mother Dementia Emphysema lung Father Myocardial infarct Brother COPD (chronic obstructive pulmonary disease) Brother History of heart attack Social History Household Members: None Are you a primary career specialist to a significant other at home: No Do you presently have visiting nurse or other home services: No Alcohol intake: current Alcohol intake frequency: a few times a week Alcohol type: hard liquor Patient Tobacco Use Status: Former Tobacco user Current occupational status: retired Physical Exam Vital Signs: Last Vital Signs Pulse 74 12/29/24 12:35 BP 124/72 12/29/24 12:35 Pulse Ox 99 12/29/24 12:35 Oxygen Delivery Method Room Air 12/29/24 12:35 BMI result Body Mass Index 24.9 Office Meds Prolia 60 mg/mL subcutaneous syringe Performing Provider: Katerine Washington MD [place] Location[place] [facility] [place] Administered by: Inés Garcia RN on 12/29/24 13:20 Dose Route Admin Location Dispensed Lot Number Expiration Date [facility] Retail Sales Manager 60 mg subcut posterior left forearm 1 mL [id number] 06/10/27 45336-21 0-21 [employer] Total Dispensed Waste 1 mL 0 % Comments: Chanel Pardo today for Prolia (Denosumab) 60 mg/mL injection for the treatment of osteoporosis. The patient has not had any recent fever or illness. The injection site to be used is without erythema, edema, and is clean, dry and intact. Post-injection precautions reviewed. The patient tolerated the procedure well. She was departed from the practice. Assessment & Plan Assessment & Plan (1) Seropositive rheumatoid arthritis: Comment: ++RF +++CCP Plaquenil: approx 2014- 2015 not effective Methotrexate: approx 11/2021- February 2022 -discontinued due to increased LFTs. Also not effective 07/22/2022 not on any medication for RA, no active disease on exam. Flare 05/2023 HCQ started. 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 Currently on sulfasalazine for the past 2 months but there has not been much improvement. And she continues to have breakthrough flares with swelling and tenderness to palpation but self resolves over a few days. I think we need to escalate care. She did not tolerate methotrexate, Simponi infusions were not effective. Plaquenil not effective. We will start Enbrel. Also to hopefully put her disease into some sort of remission we will start prednisone taper Plan - Prednisone 5mmg x 2 weeks then 15 mg x 2 weeks then 10mg x 2 weeks then 5mg x 2weeks then stop - Enbrel 50mg SC weekly - Sulfasalazine 1000mg bid until the next appointment - RTC 3 months - Labs before visit: CBC, CMP, ESR, CRP (2) Encounter for monitoring sulfasalazine therapy: Code(s): Z51.81 - Encounter for therapeutic drug level monitoring; Z79.899 - Other shelter (current) drug therapy Plan: #Long-term Use of Sulphasalazine Discussed with patient the risks and benefits of sulfasalazine in the management of the rheumatic condition Benefits include: - Reduced pain, reduce mortality, maintenance of remission then reduction of flares Risks include: - GI upset, hemolysis (especially if G6PD deficiency), eosinophilia, headache, dizziness, rash, elevated LFTs (3) Encounter for monitoring of etanercept therapy: Code(s): Z51.81 - Encounter for therapeutic drug level monitoring; Z79.620 - buttermaker (current) use of immunosuppressive biologic Plan: #Long-term Use of TNF Inhibitors: Etanercept Discussed with the patient the benefits and risks of TNF inhibitors for the management of the rheumatic condition Benefits include reduce pain, maintenance of remission and reduction of flares as well as ?progression of the disease Risks include injection sites/infusion reactions, serious infections (such as bacterial infections, opportunistic infections), malignancy, delaminating syndromes, autoimmune phenomena, CHF exacerbations, palmar plantar psoriasis and cytopenias Recommended rotating injection sites, and holding medication during and for up to 1 week after resolution of a febrile illness or open skin wound (4) Osteoporosis: Comment: DEXA [facility] 03/26/2022 t-score -3.9 AP spine, -3.2 fem neck, -2.0 hip. A few months of alendronate - stopped due to arthralgia(?2019) Advised Prolia treatment July 2022, patient undecided -eventually agreed to Prolia 11/25/2022 - followed by nausea, malaise, abdominal discomfort ? cause Code(s): M81.0 - Age-related osteoporosis without current pathological fracture Category: Medical Qualifiers: Osteoporosis type: age-related Presence of current pathological fracture: without current pathological fracture Qualified Code(s): M81.0 - Age- related osteoporosis without current pathological fracture Plan I spent 33 minutes reviewing the record and labs, taking a history, examining the patient, discussing the treatment plan, ordering diagnostic work up and documenting in the medical record Orders: Orders AMB Denosumab Injection Practice Supplied Today M81.0 - Age-related osteoporosis without current pathological fracture Coding Diagnoses Seropositive rheumatoid arthritis M05.9 Encounter for monitoring sulfasalazine therapy Z51.81; Z79.899 Encounter for monitoring of etanercept therapy Z51.81; Z79.620 Age-related osteoporosis without current pathological fracture M81.0 Osteoporosis type: age-related Presence of current pathological fracture: without current pathological fracture
--- NOTE | 2024-12-29 12:29 | MHC.OFFVIS ---
Vital Signs 12/29/24 12:35 Height 5 ft 1 in Weight 131 lb 13.383 oz BMI 24.9 BP 124/72 Blood Pressure Location Lt brachial Position Sitting Pulse 74 Pulse Source Pulse Oximeter Pulse Oximetry (%) 99 Oxygen Delivery Method Room Air Intake Visit Reasons: follow up/ prolia inj Intake Note: Patient presents for RA and Prolia injection follow up. Allergies monosodium glutamate (MSG) Allergy (Severe, Verified 12/29/24 14:51) Migraine Nitrate Analogues Allergy (Severe, Verified 12/29/24 14:51) Migraine alendronate sodium Allergy (Intermediate, Verified 12/29/24 14:51) bone pain Sulfa (Sulfonamide Antibiotics) Allergy (Intermediate, Verified 12/29/24 14:51) Nausea golimumab (From Simponi ARIA) Adverse Reaction (Intermediate, Verified 12/29/24 14:51) body pain HPI Comments Details: Patient is a 69-year-old female with polyarticular osteoarthritis, osteoporosis and seropositive rheumatoid arthritis here today for follow up Interval History: Patient last seen 09/14/24 with me - On Enbrel 50mg SC every week and Prolia 60mg SC every 6 months - Patient has been doing the Enbrel injections for the past 3 weeks but has noticed red macules overlying the previous injection sites. - She was advised to hold the Enbrel until these macules resolved. - Today she notes macules resolved and she is doing well overall - No other rashes noted to her body - No changes made to medications Today - On Enbrel 50mg weekly - Doing well, noting decreased frequency and duration of her flares Rheumatologic History: ++RF +++CCP Plaquenil: approx 2014- 2015 not effective Methotrexate: approx 11/2021- February 2022 -discontinued due to increased LFTs. Also not effective 07/22/2022 not on any medication for RA, no active disease on exam. Flare 05/2023 HCQ started. DC 09/2023 ineffective, restarted 09/2023-DC 01/2024 ineffective Simponi infusions 01/2024 effective after 1st dose then patient had secondary nonresponse after 2nd dose Initial history: 66 year old female presents for initial evaluation of Rheumatoid arthritis. She was recently following with Dr Carney. Patient states she was diagnosed with rheumatoid arthritis around 2013 and started on plaquenil. She is not sure but thinks her rheumatoid factor and CCP were borderline. She took Plaquenil for a few months and stopped as she did not feel the medication was helpful. She states her initial joint pain was in the balls of both feet and that her foot pain has gotten progressively better over time. Patient notes that she had not been on medication for RA for about 6 years, after trying plaquenil, and recently reestablished care with Rheumatology, Dr Carney. She denies history of symmetric joint swelling and pain. She states that she sprained tendons on the ular aspect of both wrists, approx 6 years ago on the left and 1 year ago on the right. Her pain as been in tendons and feet as above. She reports history of tendonitis in the left tibal area and right ankle. She was started on 10mg of methotrexate weekly in July 2021, then increased to 15mg 3 months ago. She reports she did not notice much improvement in pain on methotrexate. Her most recent LFTs this month were elevated so her methotrexate was discontinued approx 2 weeks ago. She states her LFTS were normal in February. She denies history of gout. She states that she had pain in the left index finger and had the finger injected March 04, 2022 at [facility] with good effect. She states that her pain improved in the the index finger then traveled to base of the left 5th digit the same day. She still has pain in the 5th finger, reports she is not able to bend the finger, she admits to some swelling, no erythema. She states her pain is 50% better and she called [facility] but was not able to get an appt for injection. 3 days ago she trailed topical capsacin and she felt better. She denies any other joint pain. She reports that she follows with Podiatry for tailor's bunionette on the left 5th metatarsal head. She is following with endocrine, she experienced bone pain on Fosamax was referred to endocrine by Rheumatology. Endocrine ordered Tymlos, at first this was not approved by her insurance company but is now approved. She states she has not yet started the Tymlos, she would like to address her rheumatoid arthritis first. Current Rheumatology Medication(s): Enbrel 50mg SC weekly [facility] Medical History Chronic idiopathic constipation Tubular adenoma of colon Hepatitis B core antibody positive Osteoporosis Seropositive rheumatoid arthritis GERD (gastroesophageal reflux disease) Allergic conjunctivitis and rhinitis Presbyopia Astigmatism Hypermetropia Carpal tunnel syndrome Migraines Depression Anxiety Hyperlipidemia Hypercholesteremia Surgical History History of foot surgery [place] teeth extracted Family History Mother Dementia Emphysema lung Father Myocardial infarct Brother COPD (chronic obstructive pulmonary disease) Brother History of heart attack Social History Household Members: None Are you a primary childcare administrator to a significant other at home: No Do you presently have visiting nurse or other home services: No Alcohol intake: current Alcohol intake frequency: a few times a week Alcohol type: hard liquor Patient Tobacco Use Status: Former Tobacco user Current occupational status: 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 Const Details: Review of Systems Constitutional: Denies fever, chills, weight loss ENT: Denies vision changes, eye pain or eye redness, dental caries, dry mouth GI: Denies nausea, vomiting, diarrhea, abdominal pain, change in BM Pulm: Denies SOB, GUTIERREZ, hemoptysis, wheezing Cards: Denies chest pain, palpitations Skin: Denies Raynaud's, rash, nail changes, photosensitivity, CERTIFIED BENCH JEWELER TECHNICIAN: Denies headaches, weakness, paresthesias, recurrent falls MSK: as per HPI All other systems reviewed and are unremarkable except noted above Physical Exam Exam Exam: Vital signs reviewed Physical Examination CONSTITUITIONAL Patient alert and cooperative. Well appearing and in no apparent painful distress MSK Hands Right Hand: Able to make a fist. No swelling or tenderness to palpation of the MCPs, PIPs or DIPs. Left Hand: Able to make a fist. No swelling or tenderness to palpation of the MCPs, PIPs or DIPs. Herbedens nodes noted bilaterally Wrists Right Wrist: Full ROM to flexion and extension. No swelling or TTP Left Wrist: Full ROM to flexion and extension. No swelling or TTP Elbows Right Elbow: Full ROM. No swelling or TTP. No TTP of the medial epicondyle. No TTP of the lateral epicondyle Left Elbow: Full ROM. No swelling or TTP. No TTP of the medial epicondyle. No TTP of the lateral epicondyle Shoulders Right shoulder: Full ROM. No swelling noted. No TTP of the AC joint. No TTP of the subacromial bursa. No TTP of the posterior shoulder Left shoulder: Full ROM. No swelling noted. No TTP of the AC joint. No TTP of the subacromial bursa. No TTP of the posterior shoulder Knees Right knee: Full ROM. No swelling noted. No TTP of the knee joint line. No TTP of pes anserine bursa Left knee: Full ROM. No swelling noted. No TTP of the knee joint line. No TTP of pes anserine bursa. Crepitations felt bilaterally Ankles Right ankle: Good ankle dorsiflexion and plantar flexion. No swelling. No TTP of the ankle joint Left ankle: Good ankle dorsiflexion and plantar flexion. No swelling. No TTP of the ankle joint Feet Right foot: Negative squeeze test Left foot: Negative squeeze test Tender points? No tenderness to palpation of the bilateral trapezius, supraspinatus, anterior costochondral junctions, bilateral suboccipital muscle insertions SKIN No rashes Vital Signs: Last Vital Signs Pulse 74 12/29/24 12:35 BP 124/72 12/29/24 12:35 Pulse Ox 99 12/29/24 12:35 Oxygen Delivery Method Room Air 12/29/24 12:35 BMI result Body Mass Index 24.9 Office Meds Prolia 60 mg/mL subcutaneous syringe Performing Provider: Katerine Washington MD Performing Location[place] [facility] [place] Administered by: Inés Garcia RN on 12/29/24 13:20 Dose Route Admin Location Dispensed Lot Number Expiration Date [facility] Handwriting Expert 60 mg subcut posterior left forearm 1 mL [id number] 06/10/27 95404-261-28 [employer] Total Dispensed Waste 1 mL 0 % Comments: Chanel Pardo today for Prolia (Denosumab) 60 mg/mL injection for the treatment of osteoporosis. The patient has not had any recent fever or illness. The injection site to be used is without erythema, edema, and is clean, dry and intact. Post-injection precautions reviewed. The patient tolerated the procedure well. She was departed from the practice. Results Reviewed Results Reviewed: Laboratory Tests 12/29/24 11:36 ESR 8 Sodium 139 Potassium 4.7 D Chloride 105 Carbon Dioxide 27 BUN 17 H Creatinine 0.75 AST 31 ALT 17 C-Reactive Protein 0.12 25-OH Vitamin D Total 92.5 Laboratory Tests 04/16/22 15:02 Rheumatoid Factor 80.8 H Cycl Citrul Peptide IgG >250 H Laboratory Tests 06/19/24 06/21/24 11:30 10:40 Hep Bs Antigen Negative Hep Bs Antibody Nonreactive Hep B Core Total Ab Reactive Hep B Core IgM Ab REACTIVE A Hep B DNA copies/mL NOT DETECTED Hep B DNA (IU/mL) NOT DETECTED TB Test (T-Spot) Com Negative Assessment & Plan Assessment & Plan (1) Seropositive rheumatoid arthritis: Comment: ++RF +++CCP Plaquenil: approx 2014- 2015 not effective Methotrexate: approx 11/2021- February 2022 -discontinued due to increased LFTs. Also not effective 07/22/2022 not on any medication for RA, no active disease on exam. Flare 05/2023 HCQ started. 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 Doing well with Enbrel 50mg SC weekly Plan - Enbrel 50mg SC weekly - RTC 6 months - Labs before visit: CBC, CMP, ESR, CRP (2) Osteoporosis: Comment: DEXA [facility] 03/26/2022 t-score -3.9 AP spine, -3.2 fem neck, -2.0 hip. A few months of alendronate - stopped due to arthralgia(?2019) Advised Prolia treatment July 2022, patient undecided -eventually agreed to Prolia 11/25/2022 - followed by nausea, malaise, abdominal discomfort ? cause Code(s): M81.0 - Age-related osteoporosis without current pathological fracture Category: Medical Qualifiers: Osteoporosis type: age-related Presence of current pathological fracture: without current pathological fracture Qualified Code(s): M81.0 - Age-related osteoporosis without current pathological fracture Plan: #Osteoporosis Doing well on Prolia Plan - Prolia 60mg SC every 6 months - Vit D supplementation (3) Encounter for monitoring of etanercept therapy: Code(s): Z51.81 - Encounter for therapeutic drug level monitoring; Z79.620 - termite exterminator (current) use of immunosuppressive biologic Plan: #Long-term Use of TNF Inhibitors: Etanercept Discussed with the patient the benefits and risks of TNF inhibitors for the management of the rheumatic condition Benefits include reduce pain, maintenance of remission and reduction of flares as well as ?progression of the disease Risks include injection sites/infusion reactions, serious infections (such as bacterial infections, opportunistic infections), malignancy, delaminating syndromes, autoimmune phenomena, CHF exacerbations, palmar plantar psoriasis and cytopenias Recommended rotating injection sites, and holding medication during and for up to 1 week after resolution of a febrile illness or open skin wound (4) Encounter for monitoring denosumab therapy: Code(s): Z51.81 - Encounter for therapeutic drug level monitoring; Z79.620 - termite exterminator (current) use of immunosuppressive biologic Plan: #Long-term use of Denosumab Discussed with patient the risks and benefits of denosumab (Prolia) for the management of their osteoporosis Benefits include improved bone density, decreased fracture risk Risks include rapid bone loss if denosumab stopped, osteonecrosis of the jaw especially in patients with poor oral hygiene/diabetes/use of glucocorticoids/age greater than 65 years, atypical femoral fractures, injection site reactions. Mild increased risk of infections due to RANKL on T helper cells, increased risk of hypocalcemia especially in CKD patients Keep vitamin-D at least 35 ng/mL Advised to delay non emergent dental procedures to toward the end of the 6 month cycle and if they plan to stop denosumab would need to continue antiresorptive to maintain the effects of denosumab Plan I spent 30 minutes reviewing the record and labs, taking a history, examining the patient, discussing the treatment plan, ordering diagnostic work up and documenting in the medical record Orders: Orders AMB Denosumab Injection Practice Supplied 12/29/24 M81.0 - Age-related osteoporosis without current pathological fracture Coding Level of Care Code Est Pt Level 4 (19326) Complex EM visit Add On G2211 Diagnoses Seropositive rheumatoid arthritis M05.9 Age-related osteoporosis without current pathological fracture M81.0 Osteoporosis type: age-related Presence of current pathological fracture: without current pathological fracture Encounter for monitoring of etanercept therapy Z51.81; Z79.620 Encounter for monitoring denosumab therapy Z51.81; Z79.620
[2024-12-29 12:35] VITALS: BP 124/72; PULSE 74; O2SAT 99; BMI 24.9
== END 2024-12-29 13:10 | disposition home or self-care (01) ==
LOC: HO.RHES 11:31
PROVIDERS: PCP Family Medicine; Visit Provider Student in an Organized Health Care Education/Training Program
DX: M81.0 Age-related osteoporosis without current pathological fracture (principal)

== ENCOUNTER 2024-12-29 11:31 | Outpatient (REF) | payer MEDICARE, SELFPAY ==
[2024-12-29 18:27] LABS: Alanine Aminotransferase 17 U/L (0-31); Albumin Level 4.3 g/dL (3.5-5.0); Alkaline Phosphatase 63 U/L (39-117); Anion Gap 12 (12-20); Aspartate Amino Transferase 31 U/L (5-31); Blood Urea Nitrogen 17 mg/dL (9-16); Calcium 9.4 mg/dL (8.4-10.2); Carbon Dioxide 27 mmol/L (22-29); Chloride 105 mmol/L (96-108); Estimated Glomerular Filt Rate > 60; Potassium 4.7 mmol/L (3.3-5.1); Sodium 139 mmol/L (135-145); Total Protein 7.2 g/dL (6.5-8.0)
== END 2024-12-29 11:32 | disposition home or self-care (01) ==
LOC: HO.HKASLDS 11:31
PROVIDERS: Student in an Organized Health Care Education/Training Program; PCP Family Medicine; Visit Provider Nurse Practitioner Family
DX: G43.019 Migraine without aura, intractable, without status migrainosus (principal); K59.03 Drug induced constipation; M54.2 Cervicalgia; G47.19 Other hypersomnia; Z86.69 Personal history of other diseases of the nervous system and sense organs; G47.9 Sleep disorder, unspecified; R11.2 Nausea with vomiting, unspecified; M05.9 Rheumatoid arthritis with rheumatoid factor, unspecified; M81.0 Age-related osteoporosis without current pathological fracture; Z51.81 Encounter for therapeutic drug level monitoring; Z79.620 Long term (current) use of immunosuppressive biologic
CPT/HCPCS: 36415; 80053; 82306; 85652; 86140; 96372; 99212; J0897

== ENCOUNTER 2024-12-29 14:39 | Outpatient (AMB) | payer MEDICARE, SELFPAY ==
--- NOTE | 2024-12-29 14:50 | A.OFFVIS_ITS ---
Vital Signs 12/29/24 14:52 Height 5 ft 1 in Weight 131 lb BMI 24.7 BP 124/72 Blood Pressure Location Lt brachial Position Sitting Pulse 75 Pulse Source Pulse Oximeter Pulse Oximetry (%) 98 Oxygen Delivery Method Room Air Intake Visit Reasons: follow up Intake Note: Follow up care Integration Specialist Required: No Accompanied by: Self / Same As Patient Allergies monosodium glutamate (MSG) Allergy (Severe, Verified 12/29/24 14:51) Migraine Nitrate Analogues Allergy (Severe, Verified 12/29/24 14:51) Migraine alendronate sodium Allergy (Intermediate, Verified 12/29/24 14:51) bone pain Sulfa (Sulfonamide Antibiotics) Allergy (Intermediate, Verified 12/29/24 14:51) Nausea golimumab (From Simponi ARIA) Adverse Reaction (Intermediate, Verified 12/29/24 14:51) body pain HPI Comments Details: 69 year old female presents for a f/u of chronic migraines and constipation with Qulipta. She wakes up daily around 3am- 5am with a headache, she states the headache wakes her up she takes her Zolmitriptan 1/2 tablet at that time. Later after breakfast around 7-9am she takes her Qulipta 30mg qhs. Though she has been on Quilipta since Apr 2024, she recently started noticing symptoms of constipation and she denies dietary changes. She is uncertain if she snores or gasps for air as she has no partner. She denies bruxism, parasomnias, and or RLS symptoms. October she had 4 headaches, November she had 7 headaches, December she had 4 headaches. She averages about 4 headaches a month and would like to discuss medication changes at next visit if not improved. PMH The patient is a 69-year-old female presenting with a follow-up for migraine with aura management. since the last visit, she has stopped propranolol as it was no longer effective as a migraine prevention therapy. Since, she has continued on riboflavin, and started Qulipta 30 mg daily in the morning. Since initiation of Qulipta, migraines decreased to once weekly and are less intense, indicating positive treatment response. She has continued zolmitriptan as nee ded with good effect. she states she is tolerating her current treatment regimen well. She reports stable decreased appetite, not correlated directly with current treatments. Baseline headache characteristics: Moderate to Severe frontal headache. Pressure, heaviness a/e photophobia, nausea, now rarely vomiting, activity tolerance, sinus congestion, runny nose, deep sighs and yawning. Postdrome- may have an exhilaration sensation. The patient's medical history includes rheumatoid arthritis and prior rheumatoid medications. Recent tests showed positive hepatitis B antibody and mildly elevated liver function tests, positive hepatitis-B antibody was reviewed by infectious diseases and confirmed the patient had not actually had a hepatitis- B infection previously. Medication History - Riboflavin 400 mg daily in the morning for migraine prevention. - Propranolol (discontinued due to lack of efficacy). used 12 years as migraine prophylaxis - Qulipta 30 mg daily for migraine prevention; positive response noted. 8months - Zolmitriptan as needed for acute migraine episodes; usually half a pill is effective. - Sulfasalazine for rheumatoid arthritis; initiated after previous therapies f lukasz. -Colonoscopy, no polyps PFSH Medical History Chronic idiopathic constipation Tubular adenoma of colon Hepatitis B core antibody positive Osteoporosis Seropositive rheumatoid arthritis GERD (gastroesophageal reflux disease) Allergic conjunctivitis and rhinitis Presbyopia Astigmatism Hypermetropia Carpal tunnel syndrome Migraines Depression Anxiety Hyperlipidemia Hypercholesteremia Surgical History History of foot surgery [place] teeth extracted Family History Mother Dementia Emphysema lung Father Myocardial infarct Brother COPD (chronic obstructive pulmonary disease) Brother History of heart attack Social History Household Members: None Are you a primary home day care provider to a significant other at home: No Do you presently have visiting nurse or other home services: No Alcohol intake: current Alcohol intake frequency: a few times a week Alcohol type: hard liquor Patient Tobacco Use Status: Former Tobacco user Current occupational status: retired Physical Exam Vital Signs: Last Vital Signs Pulse 75 12/29/24 14:52 BP 124/72 12/29/24 14:52 Pulse Ox 98 12/29/24 14:52 Oxygen Delivery Method Room Air 12/29/24 14:52 BMI result Body Mass Index 24.7 Const General: cooperative and no acute distress Orientation/consciousness: patient oriented x3 HEENT Face and sinus: Yes face symmetric Teeth and gingiva: other (mallampti score is 3) Eyes Pupils: Equal, round and reactive pupils present Neck Neck: Yes full ROM Resp Effort & Inspection: normal respiratory effort and able to speak in complete sentences Neuro General: patient oriented x3 and moves all extremities Cranial nerves: Yes CN's II-XII intact bilaterally, Yes Equal, round and reactive pupils present, Yes Normal accommodation reflex present, Yes Ability to bilaterally rotate head present and Yes Ability to bilaterally elevate shoulders present Cognition (Neuro): normal cognition Gait exam (Neuro): Normal gait present Motor exam (neuro): 5/5 motor strength present throughout and Normal motor muscle tone present throughout Psych Appearance: grossly normal Mental Status: mental status grossly normal Speech and movement: Normal speech and movement present Affect: normal affect Attitude: cooperative Thought process: Normal thought process present Assessment & Plan Assessment & Plan (1) Sleep disturbances: Code(s): G47.9 - Sleep disorder, unspecified Category: Medical (2) Constipation: Code(s): K59.00 - Constipation, unspecified Category: Medical Qualifiers: Constipation type: drug induced constipation Qualified Code(s): K59.03 - Drug induced constipation (3) Migraine without aura: Code(s): G43.009 - Migraine without aura, not intractable, without status migrainosus Category: Medical Qualifiers: Status migrainosus presence: without status migrainosus Intractability: intractable Qualified Code(s): G43.019 - Migraine without aura, intractable, without status migrainosus (4) Cervicalgia: Code(s): M54.2 - Cervicalgia Category: Medical (5) Excessive daytime sleepiness: Code(s): G47.19 - Other hypersomnia Category: Medical (6) Hx of migraines: Code(s): Z86.69 - Personal history of other diseases of the nervous system and sense organs Category: Medical (7) Vomiting: Code(s): R11.10 - Vomiting, unspecified Category: Medical Qualifiers: Vomiting type: unspecified Nausea presence: with nausea Qualified Code(s): R11.2 - Nausea with vomiting, unspecified Plan HST to r/o JEANNE. Migraines / chronic with aura Discussed with patient her ongoing migraine management plan and current treatment with Qulipta, which has shown positive results, though now she is feels constipated and thinks it is due to Qulipta, she will discuss this with Eve Castro NP headache specialist. MRI imaging due to timing of chronic headaches with vomitting (rarely) and nausea, the need to r/o other pathologies causing her unusual 3-5am arousal, her headaches waker her up at 3am - 5am daily. Plan and Patient Instructions - Continue taking Qulipta 30mg po daily for chronic migraines. - Use zolmitriptan as needed for migraine attacks, 1/2 tablet. - Report any changes in symptoms or adverse effects, such as constipation. - Follow-up in 3 months. For cervicalgia: Previous c-spine and t-spine XR- Cervical lordotic straightening, mild anterolisthesis C4 on C5, Multilevel disc space narrowings, most pronounced C7- T1. F/u w/ rheumatology. For hand discomfort: Towards end of visit, patient requests a refill of as needed lidocaine I% gel, as this is more effective than the OTC lidocaine 4% cream. Refill made until patient can follow-up with Rheumatology. For overall headache management: Continue to optimize good self-care, including but not limited to maintaining a healthy diet, adequate fluid intake, adequate sleep, and engaging in regular physical activity. Track headaches. ? For acute headache treatment: Continue Zolmitriptan 2.5mg prn at onset of migraine, MR in 2 hrs. Previous acute migraine medication trials: Sumatriptan- not tolerated. Cafargot- was ineffective. Ergotamine- not effective. Acute migraine medication contraindications: None at this time ? For headache prevention medication: Continue Riboflavin 400mg qam Hold Magnesium 400mg qhs Continue Qulipta 30 mg p.o. daily in the morning-as patient has had greater than 50% reduction in monthly migraine days and intensity. Previous preventative medication use: Feverfew- ineffective. Propranol Er- was n ot as effective. Migraine prevention medication contraindications: TCAs and AEDs as pt is > 65 years old ? Pt to follow-up in 3 months or sooner prn. Orders: Orders RT home sleep study 12/29/24 G47.19 - Other hypersomnia MR head/brain wo/w con Today R11.10 - Vomiting, unspecified, Z86.69 - Personal history of other diseases of the nervous system and sense organs Patient Instructions: Sleep Hygiene provided: set a scheduled bedtime and wake time to help regulate the circadian rhythm and balance the release of pituitary hormones. Sleep in a dark room, temperatures below 68 degrees, and no devices n bed. Limit caffeinated products 6 hours prior to bed, and limit fluids 2-4 hours prior to bed. Gentle night yoga, diffusing essential oils, and playing soft music can be relaxing. Scribe Plan - Not visible on output: Reviewed possible medication side effects, including but not limited to drowsiness, dizziness. Coding Level of Care Code Est Pt Level 4 (27931) Diagnoses Sleep disturbances G47.9 Drug-induced constipation K59.03 Constipation type: drug induced constipation Intractable migraine without aura and without status migrainosus G43.019 Status migrainosus presence: without status migrainosus Intractability: intractable Cervicalgia M54.2 Excessive daytime sleepiness G47.19 Hx of migraines Z86.69 Nausea and vomiting, unspecified vomiting type R11.2 Vomiting type: unspecified Nausea presence: with nausea
[2024-12-29 14:52] VITALS: BP 124/72; PULSE 75; O2SAT 98; BMI 24.7
== END 2024-12-29 15:53 | disposition home or self-care (01) ==
LOC: HO.HSMS 14:40
PROVIDERS: PCP Family Medicine; Visit Provider Physician Assistant Medical
DX: G47.9 Sleep disorder, unspecified (principal); K59.03 Drug induced constipation; G43.019 Migraine without aura, intractable, without status migrainosus; M54.2 Cervicalgia; G47.19 Other hypersomnia; Z86.69 Personal history of other diseases of the nervous system and sense organs; R11.2 Nausea with vomiting, unspecified
CPT/HCPCS: 99214

== ENCOUNTER 2025-01-25 11:30 | Outpatient (REF) | payer MEDICARE, SELFPAY ==
--- OUTSIDE RECORDS SUMMARY | 2025-01-25 14:51 | XMS_ITS | Encounter Summary ---
Author Organization [facility] Address [facility] [employer] [address] [address] Phone Care Team Providers Care Ad Clerk Name Role Phone Huy Zhu MD Unavailable [phone] Nuvia Woodward EXPERIENCE DESIGNER Unavailable [phone] Zohra Zaman EXPERIENCE DESIGNER Unavailable [phone] Asia Marquez RDCS Unavailable [email or web address] Huy Zhu MD Primary Care Provider Huy Zhu MD Primary Care Provider [phone] Shyann Sandoval Primary Care Provider Jackelyn Daniels MD Primary Care Provider + Jackelyn Daniels MD Primary Care Provider + Encounter Details Date Type Department Care Team (Late st Contact Info) Description 02/27/2019 Procedure Pass [facility] Endoscopy Admitting Dept Virtual Department [address] [place] [address] Social History Tobacco Use Types Packs/Day Years Used Date Smoking Tobacco: Former Cigarettes Smokeless Tobacco: Never Comments:Quit smokin04/12 Alcohol Use Standard Drinks/Week Comments Yes 0 (1 standard drink = 0.6 oz pur e alcohol) Socially Comments No Sex and Gender Information Value Date Recorded Sex Assigned at Female 01/17/2019 1:19 AM EDT Legal Sex Female 12:45 AM EST Gender Identity Female 01/17/2019 1:19 AM EDT Sexual Orientation Straight 01/17/2019 1: 19 AM EDT documented as of this encounter Plan of Treatment Upcoming Encounters Date Type Department Care Team (Late st Contact Info) Description 02/13/2025 9:30 AM EST Office Visit [facility] Pulmonary, Allergy and Critical Care Medicine [address] [place] [address] [place] [address] Lucas Galvan MD [address] [address] [email or web address] 02/19/2025 11:20 AM EST Office Visit [facility] [address] [place] [address] Gary Edwards MD [address] [address] [email or web address] documented as of this encounter Visit Diagnoses Not on filedocumented in this encounter Care Teams Ad Clerk Relationship Specialty Start Date End Date Huy Zhu MD [email or web address] PCP - General 04/15/17 04/25/19 Huy Zhu MD [email or web address] PCP - General Family Medicine 04/26/19 06/12/20 Shyann Sandoval PA [address] [place] [address] [email or web address] PCP - General Unknown Provider Specialty 06/13/20 12/29/23 Jackelyn Daniels MD [address] [place] [address] [email or web address] PCP - General Family Medicine 12/30/23 05/03/24 Jackelyn Daniels MD [address] [place] [address] [email or web address] PCP - General Family Medicine 05/04/24 Huy Zhu MD Historical LMR Provider 01/31/17 Nuvia Woodward NP [address] [place] [address] [email or web address] Historical LMR Provider 01/31/17 Zohra Zaman NP [address] [place] [address] Historical LMR Provider 01/31/17 2 Asia Marquez, RDCS Historical LMR Provider 01/31/17 04/19/21 documented as of this encounter Additional Source Comments The information contained in this document represents components of the legal health record. It is not the complete legal health record.[facility]
--- OUTSIDE RECORDS SUMMARY | 2025-01-25 14:51 | XMS_ITS | Encounter Summary ---
Author Organization [facility] Address [facility] [employer] [address] [address] Phone Care Team Providers Care Accounts Payable Accountant Name Role Phone Huy Zhu MD Unavailable Nuvia Woodward GEOLOGICAL ENGINEER Unavailable [phone] Zohra Zaman GEOLOGICAL ENGINEER Unavailable [phone] Asia Marquez RDCS Unavailable [email or web address] Huy Zhu MD Primary Care Provider [phone] Huy Zhu MD Primary Care Provider Shyann Sandoval Primary Care Provider Jackelyn Daniels MD Primary Care Provider + Jackelyn Daniels MD Primary Care Provider + Encounter Details Date Type Department Care Team (Late st Contact Info) Description 03/23/2019 Procedure Pass [facility] Endoscopy Admitting Dept Virtual Department [address] [place] [address] Social History Tobacco Use Types Packs/Day Years [...] Critical Care Medicine [address] [place] [address] [place] [address] Lucas Galvan MD [address] [address] [email or web address] 02/19/2025 11:20 AM EST Office Visit [facility] [address] [place] [address] Gary Edwards MD [address] [address] [email or web address] documented as of this encounter Visit Diagnoses Not on filedocumented in this encounter Care Teams Accounts Payable Accountant Relationship Specialty Start Date End Date Huy Zhu MD [email or web address] PCP - General 04/15/17 04/25/19 Huy Zhu MD PCP - General Family Medicine 04/26/19 06/12/20 Shyann Sandoval PA [address] [place] [address] [email or web address] PCP - General Unknown Provider Specialty 06/13/20 12/29/23 Jackelyn Daniels MD [address] [place] [address] [email or web address] PCP - General Family Medicine 12/30/23 05/03/24 Jackelyn Daniels MD [address] [place] [address] [email or web address] PCP - General Family Medicine 05/04/24 Huy Zhu MD Historical LMR Provider 01/31/17 Nuvia Woodward NP [address] [place] [address] [email or web address] Historical LMR Provider 01/31/17 Zohra Zaman NP [address] [place] [address] Historical LMR Provider 01/31/17 2 Asia Marquez, RDCS Historical LMR Provider 01/31/17 04/19/21 documented as of this encounter Additional Source Comments The information contained in this document represents components of the legal health record. It is not the complete legal health record.[facility]
--- OUTSIDE RECORDS SUMMARY | 2025-01-25 14:51 | XMS_ITS | Encounter Summary ---
Author Organization [facility] Address [address] [place] [address] Phone Care Team Providers Care Film Booker Name Role Phone Huy Zhu MD Unavailable Nuvia Woodward TALENT ACQUISITION PARTNER Unavailable [phone] Zohra Zaman TALENT ACQUISITION PARTNER Unavailable [phone] Asia Marquez RDCS Unavailable [email or web address] Huy Zhu MD Primary Care Provider Huy Zhu MD Primary Care Provider [phone] Shyann Sandoval Primary Care Provider Jackelyn Daniels MD Primary Care Provider + Jackelyn Daniels MD Primary Care Provider + Encounter Details Date Type Department Care Team (Latest Contact Info) Description 02/15/2019 Transcribe Orders Virtual Department [address] [place] [address] Elizabeth Dougherty PA [address] [place] [address] Nausea (Primary Dx); Weight loss Social History Tobacco Use Types Packs/Day Years [...] Pulmonary, Allergy and Critical Care Medicine 10 [place] [address] Lucas Galvan MD [address] [address] [email or web address] 02/19/2025 11:20 AM EST Office Visit [facility] [address] [place] [address] Gary Edwards MD [address] [facility], [address] [place] [address] [email or web address] documented as of this encounter Visit Diagnoses Diagnosis Nausea- Primary Nausea alone Weight loss Loss of weight documented in this encounter Care Teams Film Booker Relationship Specialty Start Date End Date Huy Zhu MD PCP - General 04/15/17 04/25/19 Huy Zhu MD PCP - General Family Medicine 04/26/19 06/12/20 Shyann Sandoval PA [address] [place] [address] [email or web address] - General Unknown Provider Specialty 06/13/20 12/29/23 Jackelyn Daniels MD [address] [place] [address] [email or web address] PCP - General Family Medicine 12/30/23 05/03/24 Jackelyn Daniels MD [address] [place] [address] [email or web address] - General Family Medicine 05/04/24 Huy Zhu MD [email or web address] Historical LMR Provider 01/31/17 Nuvia Woodward NP [address] [place] [address] Historical LMR Provider 01/31/17 Zohra Zaman NP [address] [place] [address] Historical LMR Provider 01/31/17 2 Asia Marquez RDCS Historical LMR Provider 01/31/17 04/19/21 documented as of this encounter Additional Source Comments The information contained in this document represents components of the legal health record. It is not the complete legal health record.[facility]
--- OUTSIDE RECORDS SUMMARY | 2025-01-25 14:51 | XMS_ITS | Clinical Summary ---
Author Organization [facility] Address [address] [employer] [address] [address] Phone Care Team Providers Care Log Snaker Name Role Phone Huy Zhu MD Unavailable [phone] Nuvia Woodward NP Unavailable [phone] Jackelyn Daniels MD Primary Care Provider + Allergies Active Allergy Reactions Criticality Noted Date Comments Acetaminophen-Codeine Headaches 09/24/2022 Alendronate Sodium Other (See Comments) 023 Other 07/02/2021 MSG, nitrates, nitrites cause migraines Sulfa (Sulfonamide Antibiotics) Nausea and/or Vomiting 01/17/2019 Medications ZOLMitriptan (ZOMIG) 2.5 MG tablet Take 2.5 mg by mouth as needed for migraine. Active CALCIUM ORAL Take 1 tablet by mouth daily. Active cetirizine (ZYRTEC) 10 MG tablet Take 10 mg by mouth daily. Active therapeutic multivitamin tablet Take 1 tablet by mouth daily. Active cholecalciferol (VITAMIN D3) 5,000 unit tablet Take 1,000 Units by mouth daily. Active celecoxib (CELEBREX) 100 MG capsule Take 1 capsule by mouth 2 (two) times a day as needed. Active denosumab (PROLIA) 60 mg/mL Syrg subcutaneous syringe Inject 60 mg under the skin every 6 (six) months. Active fluticasone furoate (FLONASE SENSIMIST) 27.5 mcg/actuation nasal spray 2 sprays by Nasal route daily as needed for rhinitis. Active atogepant (QULIPTA) 30 mg tablet Take 30 mg by mouth daily. Active diclofenac sodium (VOLTAREN) 1 % Gel Apply 1 Application topically as needed for other (free text field). Active etanercept (ENBREL) 50 mg/mL (1 mL) PnIj 50 mg once. Pt stated they take 50 mg injection once a week 09/14/24 Active predniSONE (DELTASONE) 10 MG tablet Take 10 mg by mouth daily with breakfast. Tapering dose Active traMADoL (ULTRAM) 50 mg tablet Take 50 mg by mouth every 6 (six) hours as needed for pain (specific location in comments). Active HYDROcodone-katherin tropine (TUSSIGON) 5-1.5 mg TabIndications:P ersistent cough Take 0.5-1 tablets by mouth every 6 (six) hours as needed (cough). Partial fill ok 60 tablet Active Active Problems Problem Noted Date Diagnosed Date Gastroesophageal reflux disease 04/26/2024 Assessment & Plan (04/26/2024 12:14 PM EST): Longstanding severe GERD, likely major cough contributor. Currently on low potency PPI therapy but scheduled for Perry capsule study in 1 to 2 weeks. Await further results of her testing, and if abnormal, could actually consider addition of baclofen to her acid suppressant therapy. Chronic cough 09/28/2022 Assessment & Plan (09/14/2024 3:07 PM EDT): Chronic waxing and waning cough. Association between GI studies, evidence of esophageal dysmotility, and revealed temporary relief with Tums all points towards upper GI source. Does not exclude a secondary cough element such as irritable larynx which may additionally perpetuate the cough. This may have been why she just does better with the course of Hycodan. Given her notable improvement currently, have deferred further evaluation in the office today. She anticipates things will get worse in the fall as it has been prior years and thus we will plan on the following: Plan to return January/February, sooner if severe cough recurs Consider trial of apple cider vinegar given lack of benefit from PPI therapy If severe cough, will have her come in on afternoon for NPL. Otherwise we will try to schedule for formal ENT evaluation Either with or without laryngoscopy, consider trial of baclofen for her esophageal dysfunction. Assessment & Plan (06/09/2024 3:50 PM EST): Longstanding chronic cough that has waxed and waned but persistent over the last several months. No evidence of asthma or airway disease. Chest CT without clear findings to suggest lower airway contribution. Intermittently response to acid suppressant therapy with recent PERRY study suggesting correlation with reflux though not definitive. I suspect that her current cough is multifactorial, which I believe is related somewhat to reflux but may also be related to laryngeal hypersensitivity. Recommend the following: Resume PPI therapy, with once daily Nexium or Prilosec in the morning START sodium alginate therapy. 2 available products to purchase online include reflux Gourmet or Gaviscon advance. Either can be taken after each meal and prior to bedtime. Will continue for several months to determine if no clear benefit. If continued questionable GERD, could consider trial of low-dose baclofen therapy and/or adding nightly famotidine. If cough fails to improve despite above intervention, will plan for office rhinolaryngoscopy. Assessment & Plan (04/26/2024 12:15 PM EST): Severe chronic cough, suspect multifactorial with possible contributions of upper airway cough syndrome, GERD, and cannot rule out lower airway contribution though seems somewhat less likely. Previously seem to respond to aggressive acid suppressant, and she continues to take large doses of calcium carbonate. Somewhat concerned about milk-alkali syndrome, though hopefully she remains well-hydrated. Will give prescription for cough suppressant therapy with hydrocodone tablets to at least aid in sleep. Will check chemistry panel to ensure renal function stable and pursue further workup. If GI evaluation negative, would consider prednisone burst (40 mg daily for 10 days with taper). If ineffective, would consider rhinolaryngoscopy and/or trial of pregabalin. Assessment & Plan (09/28/2022 2:02 PM EDT): Approximately 2 years of chronic cough now markedly improved with recent dietary changes. Likely represents dietary intolerance versus true allergy versus GERD reaction given response to PPI therapy and Tums. Avoidance primary mortality, though serologic testing for food allergies reasonable and thus several have been sent. Nonetheless, even if negative, would certainly avoid those triggering foods. Given that these foods may induce GERD, can continue to use Tums and if persistent and severe, resume PPI therapy if needed. If however cough recurs without clear association with dietary changes or GERD treatment, could see him back for further work-up. Multiple pulmonary nodules d etermined by computed tomography of lung 09/28/2022 Overview (09/28/2022): Chest CT 08/27/2022 [facility]: No ILD, tree-in-bud nodularity, scattered 3 mm nodules Assessment & Plan (04/26/2024 12:13 PM EST): Plan repeat chest CT to rule out any progression or potential contribution of chronic cough. Assessment & Plan (09/28/2022 2:01 PM EDT): Likely inflammatory changes in setting of known rheumatoid arthritis. Given tobacco exposure history, 1 year follow-up study recommended. 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 Recommend trial of Azelastine nasal spray. Continue sinus rinse, antihistamines and SCIT per KINA. Encounters Date Type Department Care Team Description 11/22/2024 Procedure Pass [facility] Endoscopy Admitting Dept Virtual Department [address] [place] [address] 11/22/2024 Hospital Encounter [facility] Endoscopy Admitting Dept Virtual Department 30 [place] [address] Lucas Ibarra MD from Last 3 Months Immunizations Immunization Administration Dates Next Due COVID-19 (Pre-02/01) Pfizer Vaccine, mRNA, PF 12/29/2021 [id number] 02/05/2012 Influenza High-Dose Quadriva lent Preservative Free IM 02/08/2023,02/16/2022,02/11/2021,01/04 Influenza High-Dose Trivalen t Preservative Free IM 12/29/2023 Influenza Quadrivalent MDCK Preservative Free IM 01/19/2018 Influenza Quadrivalent w/ Pr eservative IM 01/27/2017 Influenza trivalent preserva tive free intradermal 01/26/2014 Influenza, Unspecified Formulation 01/26,02/04/2016,01/22/2010,03/31,03/12/2005 Pneumococcal conjugate PCV13 03/16/2019 Pneumococcal polysaccharide PPSV23 07/25/2020 Tdap 09/09/2018,08/22/2018,12/10/2009 Zoster live 02/06/2015 Zoster recombinant 11/11/2023 Family History Medical History Relation Comments COPD Brother CV disease Father Coronary artery disease Father Arthritis Mother Dementia Mother Emphysema Mother Hypertension Mother Arthritis Unspecified Cardiovascular disease Unspecified Dementia Unspecified Emphysema Unspecified Glaucoma Unspecified Hypertension Unspecified Osteopenia Unspecified Relation Status Comments Brother Alive Father Mother Unspecified Alive Social History Tobacco Use Types Packs/Day Years Used Date Smoking Tobacco: Former Cigarettes 1.5 20 1 979 - 1998 Smokeless Tobacco: Never Tobacco Cessation:Counseling Given: Not Answered Comments:Quit smokin04/12/1998 Alcohol Use Standard Drinks/Week Comments Yes 0 (1 standard drink = 0.6 oz pur e alcohol) 1 monthly Education Answer Date Recorded Are you interested in more education? Not on tiera e 08/06/2022 Are you concerned about learning? Not on file 08/06/2022 No 08/06/2022 No 08/06/2022 Digital Access Answer Date Recorded No 09/02/2022 No 09/02/2022 Reliable internet access at home? Not on file 09/02/2022 Device with a working camera? Not on file 05 / Intimate Partner Violence Answer Date R ecorded Denied Basic Needs Not on file 05/02/2024 In the past 12 months have y ou been in a relationship with a person who hurts, threatens, or tries to control you? No 05/02/2024 Worried food would run out Not on file 05/02 In the past 12 months have y ou been in a relationship with a person who hurts, threatens, or tries to control you? No 05/02/2024 Comments No Sex and Gender Information Value Date Recorded Sex Assigned at Female 01/17/2019 1:19 AM EDT Legal Sex Female 12:45 AM EST Gender Identity Female 01/17/2019 1:19 AM EDT Sexual Orientation Straight 01/17/2019 1: 19 AM EDT Last Filed Vital Signs Vital Sign Reading Time Taken Comments Blood Pressure 110/82 09/14/2024 2:30 PM EDT Pulse 84 09/14/2024 2:30 PM EDT Temperature 36.6 C (97.9 F) 09/14/2024 2:30 PM EDT Respiratory Rate 17 05/08/2024 10:3 0 AM EST Oxygen Saturation 97% 09/14/2024 2:30 PM EDT Inhaled Oxygen Concentration - - Weight 57.5 kg (126 lb 12.8 oz) 09/14/2024 2:30 PM EDT Height 157.5 cm (5' 2 ) 04/26/2024 9:16 AM EST Body Mass Index 23.19 04/26/2024 9:16 AM EST Plan of Treatment Upcoming Encounters Date Type Department Care Team (Late st Contact Info) Description 02/13/2025 9:30 AM EST Office Visit [facility] Pulmonary, Allergy and Critical Care Medicine 10 [facility] [place] [address] Lucas Galvan MD [address] [address] 02/19/2025 11:20 AM EST Office Visit [facility] [address] [place] [address] [place] [address] Gary Edwards MD [address] [place] [address], [address] [place] [address] [email or web address] Health Maintenance Due Date Last Done Comments DEPRESSION SCREENING 1965 COLOGUARD 1998 COLONOSCOPY 1998 COLORECTAL CANCER SCREENING 1998 FIT TEST 1998 FOBT 1998 SIGMOIDOSCOPY 1998 VIRTUAL COLONOSCOPY 1998 RSV VACCINE (1 - Risk 50-74 years 1-dose series) 06/15/2003 OSTEOPOROSIS SCREENING INITIAL (ONE-TIME) 2018 MAMMOGRAM 03/06/2022 03/06/2020, 12/10/2014 INFLUENZA VACCINE (#1) 2024 , 02/08/2023, 02/16/2022, Additional history exists COVID-19 VACCINE ( season) 2024 01/10/2024, 04/09/2023, 12/29/2021, Additional history exists BLOOD PRESSURE 03/16/2025 09/14/2024 PAP SMEAR 03/25/2027 03/25/2022, 04/12, 04/15/2016 LIPID PANEL 09/06/2027 09/05/2022, 04/24/2020 Adult Td,Tdap Booster 09/09/2028 09/09/2018 , 08/22/2018, 12/10/2009 PNEUMOCOCCAL VACCINES (50+ years) Completed 07/25/2020, 03/16/2019 HEPATITIS C SCREENING Completed 06/19/2023 ZOSTER VACCINES Completed 05/31/2024, 08/0 04/2023, 02/06/2015 SMOKING STATUS SCREENING (Once After 26 Yrs) Completed 08/10/2024 HEPATITIS A VACCINES Aged Out No long er eligible based on patient's age to complete this topic HIB VACCINES Aged Out No longer eligi ble based on patient's age to complete this topic MENINGOCOCCAL VACCINES (ACWY) Aged Out No longer eligible based on patient's age to complete this topic MENINGOCOCCAL VACCINES (B) Aged Out N o longer eligible based on patient's age to complete this topic Medical Devices Not on file Procedures Procedure Name Priority Date/Time Associated Diagnosis Comments HEPATITIS C ANTIBODY, QUALITATIVE Routine 06/19/2023 8:43 AM EST Need for hepatitis C screening test LIPID PANEL Routine 09/05/2022 8:12 AM EDT Hyperlipidemia, unspecified hyperlipidemia type PAP TEST Routine 03/25/2022 12:00 AM EST HM MAMMOGRAPHY Routine 03/06/2020 from Last 3 Months or Most Recently Relevant to Health Maintenance Results * Hepatitis C antibody, qualitative (06/19/2023 8:43 AM EST) HCV NON-REACTIV E NON-REACTI VE [facility] Blood 06/19/2023 8:43 AM EST 06/19/2023 10:03 AM EST us Lucas Ibarra MD LAB BLOOD ORDERABLES Final Result Performing Organization Address City/State/[facility] Co de Phone Number [address] [address] * (ABNORMAL) Lipid panel (09/05/2022 8:12 AM EDT) HDL 88 mg/dL [facility] Comment: Interpretation <40 mg/dL: Low HDL cholesterol (major risk factor for CHD) Greater than or equal to 60 mg/dL: High HDL cholesterol ( negative risk factor for CHD) HDL - cholesterol is affected by a number of factors, e.g. smoking, excerise, hormones, sex and age. CHOLESTEROL 249(H) 0 - 240 mg/dL [facility] TRIGLYCERIDES 102 30 - 160 mg/dL [facility] LDL 141(H) 50 - 129 mg/dL [facility] Comment: LDL levels in terms of risk for coronary heart disease: <100 mg/dL: Optimal 100-129 mg/dL: Near or above optimal 130-159 mg/dL: Borderline high 160-189 mg/dL: High >190 mg/dL: Very High CARDIAC RISK RATIO 2.8(L) 3.3 - 4.[address] [facility] Blood 09/05/2022 8:12 AM EDT 09/05/2022 8:15 AM EDT Shyann LAN LAB BLOOD ORDERABLES Final R esult Performing Organization Address City/[facility]/ZIP Co de Phone Number [address] [address] * Pap Smear (03/25/2022 12:00 AM EST) 03/25/2022 03/26/2022 10: 17 AM EST Narrative SEE NARRATIVE - 04/02/2022 3:21 PM EST [address] [address] Payroll And Benefits Manager: Kay De La Cruz MD LOGISTICS MANAGER Cytology Report FINAL DIAGNOSIS A. PAP SMEAR (SUREPATH) CE: SPECIMEN ADEQUACY: Satisfactory for evaluation; transformation zone present. INTERPRETATION: NEGATIVE FOR INTRAEPITHELIAL LESION OR MALIGNANCY. Electronically Signed Out By: MARIA ANTONIA Doshi(ASCP) MARIA ANTONIA Morton(ASCP) The Pap test is a screening test primarily for squamous cancers and precursors and has associated false-negative and false-positive results. New technologies such as liquid-based preparations may decrease but will not eliminate all false-negative results. Regular sampling and follow-up of unexplained clinical signs and symptoms are recommended to minimize false negative results. CLINICAL HISTORY Date of Last Menstrual Period: Not Provided Menstrual History: Post Menopausal Bleeding, PM: BROWN DISCHARGE Treatment History: LEEP Other Clinical Conditions: Screening Pap SPECIMEN SOURCE A: PAP SMEAR (SUREPATH) CE Patient Name: CLEMENTINE AVERY : 1955 (Age: 66) Sex: F Institution: [facility] Location: [facility] Date of Collection: 03/25/2022 Date of Reported: 04/02/2022 15:21 Results to: Jamie Han MD Jamie Han MD CYTOLOGY ORDERABLES Final Result Performing Organization Address City/[facility]/ZIP Co de Phone Number SEE NARRATIVE * HM MAMMOGRAPHY FOR RESULT ENTRY ONLY (03/06/2020) Shyann LAN HEALTH MAINTENANCE Final Res ult from Last 3 Months or Most Recently Relevant to Health Maintenance Insurance MEDICARE PART A & B [employer] MED[employer] SUPPLEMENT MEDICARE PART A & B [employer] MEDEX SUPPLEMENT MEDICARE PART A & B [facility] MEDEX SUPPLEMENT MEDICARE PART A & B [employer] MEDEX SUPPLEMENT MEDICARE PART A & B [employer] MEDEX SUPPLEMENT MEDICARE PART A & B [employer] MEDEX SUPPLEMENT MEDICARE PART A & B [employer] MEDEX SUPPLEMENT MEDICARE PART A & B [place] [id number] MEDEX SUPPLEMENT MEDICARE PART A & B [employer] MEDEX SUPPLEMENT Care Teams Log Snaker Relationship Specialty Start Date End Date Jackelyn Daniels MD [address] [place] [address] [email or web address] PCP - General Family Medicine 05/04/24 Huy Zhu MD Historical LMR Provider 01/31/17 Nuvia Woodward NP [address] [place] [address] Historical LMR Provider 01/31/17 Additional Source Comments The information contained in this document represents components of the legal health record. It is not the complete legal health record.[facility]
--- OUTSIDE RECORDS SUMMARY | 2025-01-25 14:51 | XMS_ITS | Encounter Summary ---
Author Organization [facility] Address [address] [place] [address] Phone Care Team Providers Care Filling Technician Name Role Phone Huy Zhu MD Unavailable [phone] Nuvia Woodward DEMOLITION ENGINEER Unavailable [phone] Zohra Zaman DEMOLITION ENGINEER Unavailable [phone] Asia Marquez RDCS Unavailable [email or web address] Huy Zhu MD Primary Care Provider Huy Zhu MD Primary Care Provider [phone] Shyann Sandoval Primary Care Provider Jackelyn Daniels MD Primary Care Provider + Jackelyn Daniels MD Primary Care Provider + Encounter Details Date Type Department Care Team (Latest Contact Info) Description 02/14/2019 Transcribe Orders [facility] [address] [address] Elizabeth Dougherty PA [address] [place] [address] Nausea (Primary Dx) Social History Tobacco Use Types Packs/Day Years [...] Pulmonary, Allergy and Critical Care Medicine 10 [facility] [place] [address] Lucas Galvan MD 10 [facility] 2nd [place] [address] 02/19/2025 11:20 AM EST Office Visit [facility] [address] [place] [address] Gary Edwards MD 22 [facility], [address] [place] [address] [email or web address] documented as of this encounter Results * Creatinine/eGFR (02/14/2019 10:15 AM EST) CREATININE 0.70 0.5 - 1.5 mg/dL [facility] EGFR 91 >59 mL/min/1.7 3m2 [facility] Comment:If patient is black, multiply result by 1.159. Estimated glomerular filtration rate calculated using the CKD-EPI equation. Blood 02/14/2019 10:1 5 AM EST 02/14/2019 10:18 AM EST us Elizabeth LAN LAB BLOOD ORDERABLES Final Result [facility] [address] [place] [address] * BUN (02/14/2019 10:15 AM EST) BUN 11 6 - 19 mg/dL [facility] Blood 02/14/2019 10:1 5 AM EST 02/14/2019 10:18 AM EST us Elizabeth LAN LAB BLOOD ORDERABLES Final Result [facility] [address] [place] [address] documented in this encounter Visit Diagnoses Diagnosis Nausea- Primary Nausea alone documented in this encounter Care Teams Filling Technician Relationship Specialty Start Date End Date Huy Zhu MD [email or web address] PCP - General 04/15/17 04/25/19 Huy Zhu MD [email or web address] PCP - General Family Medicine 04/26/19 06/12/20 Shyann Sandoval PA [address] [place] [address] [email or web address] PCP - General Unknown Provider Specialty 06/13/20 12/29/23 Jackelyn Daniels MD [address] [place] [address] [email or web address] PCP - General Family Medicine 12/30/23 05/03/24 Jackelyn Daniels MD [address] [place] [address] [email or web address] PCP - General Family Medicine 05/04/24 Huy Zhu MD [email or web address] Historical LMR Provider 01/31/17 Nuvia Woodward, HANH [address] [place] [address] Historical LMR Provider 01/31/17 Zohra Zaman NP [address] [place] [address] Historical LMR Provider 01/31/17 2 Asia Marquez, DANIEL [email or web address] Historical LMR Provider 01/31/17 04/19/21 documented as of this encounter Additional Source Comments The information contained in this document represents components of the legal health record. It is not the complete legal health record.[facility]
--- OUTSIDE RECORDS SUMMARY | 2025-01-25 14:51 | XMS_ITS | Encounter Summary ---
Author Organization [facility] Address Replaced by [facility] [email or web address] [address] [address] Phone Care Team Providers Care Net Lead Developer Name Role Phone Huy Zhu MD Unavailable [phone] Nuvia Woodward NP Unavailable [phone] Shyann Sandoval Primary Care Provider [phone] Jackelyn Daniels MD Primary Care Provider + Jackelyn Daniels MD Primary Care Provider + Encounter Details Date Type Department Care Team (Late st Contact Info) Description 09/16/2022 Procedure Pass [place] Admitting Dept - Virtual Department [address] [place] [address] Social History Tobacco Use Types Packs/Day Years [...] Pulmonary, Allergy and Critical Care Medicine 10 [facility] [place] [address] Lucas Galvan MD [address] [address] 02/19/2025 11:20 AM EST Office Visit [facility] [address] [place] [address] Gary Edwards MD [address] [place] [address], [address] [place] [address] [email or web address] documented as of this encounter Visit Diagnoses Not on filedocumented in this encounter Care Teams Net Lead Developer Relationship Specialty Start Date End Date Shyann Sandoval PA [address] [place] [address] [email or web address] PCP - General Unknown Provider Specialty 06/13/20 12/29/23 Jackelyn Daniels MD [address] [place] [address] [email or web address] PCP - General Family Medicine 12/30/23 05/03/24 Jackelyn Daniels MD [address] [place] [address] [email or web address] [email or web address] - General Family Medicine 05/04/24 Huy Zhu MD [email or web address] Historical LMR Provider 01/31/17 Nuvia Woodward NP [address] [place] [address] [email or web address] Historical LMR Provider 01/31/17 documented as of this encounter Additional Source Comments The information contained in this document represents components of the legal health record. It is not the complete legal health record.[facility]
--- OUTSIDE RECORDS SUMMARY | 2025-01-25 14:51 | XMS_ITS | Encounter Summary ---
Author Organization [facility] Address [address] [place] [address] Phone Care Team Providers Care Transplant Surgeon Name Role Phone Huy Zhu MD Unavailable [phone] Nuvia Woodward NP Unavailable [phone] Shyann Sandoval Primary Care Provider [phone] Jackelyn Daniels MD Primary Care Provider + Jackelyn Dnaiels MD Primary Care Provider + Encounter Details Date Type Department Care Team (Late Contact Info) Description 07/03/2021 Procedure Pass [facility] Endoscopy Admitting Dept Virtual Department [address] [place] [address] Social History Tobacco Use Types Packs/Day Years [...] Upcoming Encounters Date Type Department Care Team ([facility] Contact Info) Description 02/13/2025 9:30 AM EST Office Visit [facility] Pulmonary, Allergy and Critical Care Medicine 10 [place], [place] [id number] Lucas Galvan MD [address] [address] [email or web address] 02/19/2025 11:20 AM EST Office Visit [facility] [address] [place] [address] Gary Edwards MD 22 [facility], [address] [place] [address] [email or web address] documented as of this encounter Visit Diagnoses Not on filedocumented in this encounter Care Teams Transplant Surgeon Relationship Specialty Start Date End Date Shyann Sandoval PA 70 [place] [address] [email or web address] PCP - General Unknown Provider Specialty 06/13/20 12/29/23 Jackelyn Daniels MD 70 [place] [address] [email or web address] PCP - General Family Medicine 12/30/23 05/03/24 Jackelyn Daniels MD [address] [place] [address] [email or web address] PCP - General Family Medicine 05/04/24 Huy Zhu MD [email or web address] Historical LMR Provider 01/31/17 Nuvia Woodward SECOND HELPER [address] [place] [address] Historical LMR Provider 01/31/17 documented as of this encounter Additional Source Comments The information contained in this document represents components of the legal health record. It is not the complete legal health record.[facility]
--- OUTSIDE RECORDS SUMMARY | 2025-01-25 14:51 | XMS_ITS | Encounter Summary ---
Author Organization [facility] Address [address] [place] [address] Phone Care Team Providers Care Call Center Support Consultant Name Role Phone Huy Zhu MD Unavailable Nuvia Woodward CELLAR SUPERVISOR Unavailable [phone] Zohra Zaman CELLAR SUPERVISOR Unavailable [phone] Asia Marquez RDCS Unavailable [email or web address] Huy Zhu MD Primary Care Provider [phone] Shyann Sandoval Primary Care Provider Jackelyn Daniels MD Primary Care Provider + Jackelyn Daniels MD Primary Care Provider + Encounter Details Date Type Department Care Team (Latest Contact Info) Description 04/26/2019 Transcribe Orders Virtual Department 30 [place] [address] Shyann Sandoval PA 70 [place] [address] [email or web address] No family history of cardiac disease (Primary Dx) Social History Tobacco Use Types [...] Pulmonary, Allergy and Critical Care Medicine 10 [facility] [place] [address] Lucas Galvan MD [address] [address] [email or web address] 02/19/2025 11:20 AM EST Office Visit [facility] 22 [place] [address] Gary Edwards MD 22 [facility], [address] [place] [address] [email or web address] documented as of this encounter Visit Diagnoses Diagnosis No family history of cardiac disease- Primary documented in this encounter Care Teams Call Center Support Consultant Relationship Specialty Start Date End Date Huy Zhu MD PCP - General Family Medicine 04/26/19 06/12/20 Shyann Sandoval PA 70 [place] [address] [email or web address] PCP - General Unknown Provider Specialty 06/13/20 12/29/23 Jackelyn Daniels MD 70 [place] [address] [email or web address] PCP - General Family Medicine 12/30/23 05/03/24 Jackelyn Daniels MD [address] [place] [address] [email or web address] PCP - General Family Medicine 05/04/24 Huy Zhu MD Historical LMR Provider 01/31/17 Nuvia Woodward NP [address] [place] [address] Historical LMR Provider 01/31/17 Zohra Zaman NP [address] [place] [address] Historical LMR Provider 01/31/17 2 Asia Marquez, DANIEL Historical LMR Provider 01/31/17 04/19/21 documented as of this encounter Additional Source Comments The information contained in this document represents components of the legal health record. It is not the complete legal health record.[facility]
--- OUTSIDE RECORDS SUMMARY | 2025-01-25 14:52 | XMS_ITS | Encounter Summary ---
Author Organization [facility] Address [address] [facility] [address] [place] [address] Phone Care Team Providers Care Cylinder Machine Operator Name Role Phone Huy Zhu MD Unavailable [phone] Nuvia Woodward NP Unavailable [phone] Jackelyn Daniels MD Primary Care Provider + Reason for Visit * Auth/Cert (Routine) Specialty Diagnoses / Procedures Referred By Contac t Referred To Contact Diagnoses colon Procedures VT COLONOSCOPY FLX DX W/COLLJ SPEC WHEN PFRMD VT COLONOSCOPY W/BIOPSY SINGLE/MULTIPLE VT COLSC FLX W/RMVL OF TUMOR POLYP LESION SNARE TQ COLONOSCOPY Referral ID Status Reason Start Date Expiration Date Visits Re quested Visits Authorized [id number] 1 1 Encounter Details Date Type Department Care Team (Late st Contact Info) Description 11/22/2024 Hospital Encounter [facility] Endoscopy Admitting Dept Virtual Department 30 [place] [address] Lucas Ibarra MD [address] [place] [address] [email or web address] Social History Tobacco Use Types Packs/Day Years Used Date Smoking Tobacco: Former Cigarettes 1.5 20 1 979 - 1998 Smokeless Tobacco: Never Comments:Quit smokin04/12 Alcohol Use [...] with a working camera? Not on file Intimate Partner Violence Answer Date R ecorded [...] Description 02/13/2025 9:30 AM EST Office Visit [facility] Pulmonary, Allergy and Critical Care Medicine 10 [place] [address] Lucas Galvan MD [address] [address] 02/19/2025 11:20 AM EST Office Visit [facility] [address] [place] [address] [place] [address] Gary Edwards MD [address] [place] [address], [address] [place] [address] documented as of this encounter Visit Diagnoses Not on filedocumented in this encounter Care Teams Cylinder Machine Operator Relationship Specialty Start Date End Date Jackelyn Daniels MD [address] [place] [address] [email or web address] PCP - General Family Medicine 05/04/24 Huy Zhu MD [email or web address] Historical LMR Provider 01/31/17 Nuvia Woodward NP [address] [place] [address] [email or web address] Historical LMR Provider 01/31/17 documented as of this encounter Additional Source Comments The information contained in this document represents components of the legal health record. It is not the complete legal health record.[facility]
--- OUTSIDE RECORDS SUMMARY | 2025-01-25 14:52 | XMS_ITS | Encounter Summary ---
Author Organization [facility] Address [address] [facility] [address] [place] [address] Phone Care Team Providers Care Law Enforcement Instructor Name Role Phone Huy Zhu MD Unavailable [phone] Nuvia Woodward NP Unavailable [phone] Shyann Sandoval Primary Care Provider [phone] Jackelyn Daniels MD Primary Care Provider + Jackelyn Daniels MD Primary Care Provider + Encounter Details Date Type Department Care Team (Latest Contact Info) Description 06/29/2023 Transcribe Orders [facility] [address] [address] Naveen Billy MD [address] [place] [address] Bilateral shoulder pain, unspecified chronicity (Primary Dx) Social History Tobacco Use Types [...] Intimate Partner Violence Answer Date R ecorded Are you denied basic needs s uch as food, clothing, or medical care? No 01/13/2023 In the past 12 months have y ou been in a relationship with a person who hurts, threatens, or tries to control you? No 01/13/2023 Are you denied basic needs s uch as food, clothing, or medical care? No 01/13/2023 In the past 12 months have y ou been in a relationship with a person who hurts, threatens, or tries to control you? No 01/13/2023 Comments No Sex and Gender Information Value [...] CD Pulmonary, Allergy and Critical Care Medicine [address] [place] [address] [place] [address] Lucas Galvan MD [address] [place] [address] [email or web address] 02/19/2025 11:20 AM EST Office Visit [facility] [address] [place] [address] [place] [address] Gary Edwards MD [address] [place] [address], [address] [place] [address] documented as of this encounter Results * Lyme Screen with Reflex to Immunoblot, Blood (06/29/2023 10:41 AM EDT) Lyme AB IgG Negative Negative [facility] Lyme AB IgM Negative Negative [facility] Blood 06/29/2023 10:4 1 AM EDT 06/29/2023 10:46 AM EDT us Naveen Billy MD LAB BLOOD ORDERABLES Júnior krystal Result - Final [address] [address] documented in this encounter Visit Diagnoses Diagnosis Bilateral shoulder pain, unspecified chronicity- Primary documented in this encounter Care Teams Law Enforcement Instructor Relationship Specialty Start Date End Date Shyann Sandoval PA [address] [place] [address] [email or web address] PCP - General Unknown Provider Specialty 06/13/20 12/29/23 Jackelyn Daniels MD [address] [place] [address] [email or web address] PCP - General Family Medicine 12/30/23 05/03/24 Jackelyn Daniels MD [address] [place] [address] [email or web address] PCP - General Family Medicine 05/04/24 Huy Zhu MD [email or web address] Historical LMR Provider 01/31/17 Nuvia Woodward NP 30 [place] [address] Historical LMR Provider 01/31/17 documented as of this encounter Additional Source Comments The information contained in this document represents components of the legal health record. It is not the complete legal health record.[facility]
--- OUTSIDE RECORDS SUMMARY | 2025-01-25 14:52 | XMS_ITS | Encounter Summary ---
Author Organization [facility] Address [address] [email or web address] [facility] [address] [place] [address] Phone Care Team Providers Care Editor Name Role Phone Huy Zhu MD Unavailable [phone] Nuvia Woodward NP Unavailable [phone] Jackelyn Daniels MD Primary Care Provider + Jackelyn Daniels MD Primary Care Provider + Encounter Details Date Type Department Care Team (Late st Contact Info) Description 04/26/2024 Procedure Pass [facility], Ct Scan - [address] [address] Social History Tobacco Use Types Packs/Day Years [...] Pulmonary, Allergy and Critical Care Medicine 10 [place] [address] Lucas Galvan MD [address] [address] 02/19/2025 11:20 AM EST Office Visit [facility] [address] [place] [address] Gary Edwards MD [address] [address] documented as of this encounter Visit Diagnoses Not on filedocumented in this encounter Care Teams Editor Relationship Specialty Start Date End Date Jackelyn Daniels MD 30 [place] [address] [email or web address] PCP - General Family Medicine 12/30/23 05/03/24 Jackelyn Daniels MD 70 [place] [address] [email or web address] PCP - General Family Medicine 05/04/24 Huy Zhu MD [email or web address] Historical LMR Provider 01/31/17 Nuvia Woodward NP [address] [place] [address] [email or web address] Historical LMR Provider 01/31/17 documented as of this encounter Additional Source Comments The information contained in this document represents components of the legal health record. It is not the complete legal health record.[facility]
--- OUTSIDE RECORDS SUMMARY | 2025-01-25 14:52 | XMS_ITS | Encounter Summary ---
Author Organization [facility] Address [address] [place] [address] Phone Care Team Providers Care Restaurant Shift Leader Name Role Phone Huy Zhu MD Unavailable [phone] Nuvia Woodward NP Unavailable [phone] Jackelyn Daniels MD Primary Care Provider + Encounter Details Date Type Department Care Team (Late st Contact Info) Description 11/22/2024 Procedure Pass [facility] Endoscopy Admitting Dept Virtual Department 30 [place] [address] Social History Tobacco Use Types Packs/Day Years [...] Pulmonary, Allergy and Critical Care Medicine 10 [place] [address] Lucas Galvan MD [address] [address] [email or web address] 02/19/2025 11:20 AM EST Office Visit [facility] [address] [place] [address] Gary Edwards MD [address] [place] [address] [email or web address] documented as of this encounter Visit Diagnoses Not on filedocumented in this encounter Care Teams Restaurant Shift Leader Relationship Specialty Start Date End Date Jackelyn Daniels MD [address] [place] [address] [email or web address] PCP - General Family Medicine 05/04/24 Huy Zhu MD Historical LMR Provider 01/31/17 Nuvia Woodward NP [address] [place] [address] [email or web address] Historical LMR Provider 01/31/17 documented as of this encounter Additional Source Comments The information contained in this document represents components of the legal health record. It is not the complete legal health record.[facility]
--- OUTSIDE RECORDS SUMMARY | 2025-01-25 14:52 | XMS_ITS | Encounter Summary ---
Author Organization [facility] Address [address] [place] [address] Phone Care Team Providers Care Health Director Name Role Phone Huy Zhu MD Unavailable [phone] Nuvia Woodward NP Unavailable Jackelyn Daniels MD Primary Care Provider + Encounter Details Date Type Department Care Team (Late st Contact Info) Description 05/09/2024 Procedure Pass [facility], Ct Scan - [facility] 30 [place] [address] Social History Tobacco Use Types Packs/Day Years [...] Pulmonary, Allergy and Critical Care Medicine 10 [place] [address] Lucas Galvan MD [address] [address] [email or web address] 02/19/2025 11:20 AM EST Office Visit [facility] [address] [place] [address] Gary Edwards MD [address] [place] [address] [email or web address] documented as of this encounter Visit Diagnoses Not on filedocumented in this encounter Care Teams Health Director Relationship Specialty Start Date End Date Jackelyn Daniels MD [address] [place] [address] [email or web address] PCP - General Family Medicine 05/04/24 Huy Zhu MD Historical LMR Provider 01/31/17 Nuvia Woodward NP [address] [place] [address] [email or web address] Historical LMR Provider 01/31/17 documented as of this encounter Additional Source Comments The information contained in this document represents components of the legal health record. It is not the complete legal health record.[facility]
--- OUTSIDE RECORDS SUMMARY | 2025-01-25 14:52 | XMS_ITS | Encounter Summary ---
Author Organization [facility] Address [address] [place] [address] Phone Care Team Providers Care Furrier Designer Name Role Phone Huy Zhu MD Unavailable [phone] Nuvia Woodward NP Unavailable [phone] Shyann Sandoval Primary Care Provider [phone] Jackelyn Daniels MD Primary Care Provider + Jackelyn Daniels MD Primary Care Provider + Encounter Details Date Type Department Care Team (Late st Contact Info) Description 03/18/2022 Transcribe Orders [facility] Specimen Processing 30 [place] [address] Shyann Sandoval PA 70 [place], [place] [id number] [email or web address] Social History Tobacco Use Types Packs/Day Years [...] Pulmonary, Allergy and Critical Care Medicine 10 [facility] [place] [address] Lucas Galvan MD 10 [facility] 2nd [place] [address] [email or web address] 02/19/2025 11:20 AM EST Office Visit [facility] 22 [place] [address] Gary Edwards MD 22 [facility], [address] [place] [address] [email or web address] documented as of this encounter Visit Diagnoses Not on filedocumented in this encounter Care Teams Furrier Designer Relationship Specialty Start Date End Date Shyann Sandoval PA [address] [place] [address] [email or web address] PCP - General Unknown Provider Specialty 06/13/20 12/29/23 Jackelyn Daniels MD [address] [place] [address] [email or web address] PCP - General Family Medicine 12/30/23 05/03/24 Jackelyn Daniels MD [address] [place] [address] [email or web address] PCP - General Family Medicine 05/04/24 Huy Zhu MD Historical LMR Provider 01/31/17 Nuvia Woodward NP [address] [place] [address] [email or web address] Historical LMR Provider 01/31/17 documented as of this encounter Additional Source Comments The information contained in this document represents components of the legal health record. It is not the complete legal health record.[facility]
--- OUTSIDE RECORDS SUMMARY | 2025-01-25 14:52 | XMS_ITS | Encounter Summary ---
Author Organization [facility] Address [address] [employer] [facility] [address] [place] [address] Phone Care Team Providers Care Inserting Press Operator Name Role Phone Huy Zhu MD Unavailable [phone] Nuvia Woodward NP Unavailable [phone] Shyann Sandoval Primary Care Provider [phone] Jackelyn Daniels MD Primary Care Provider + Jackelyn Daniels MD Primary Care Provider + Encounter Details Date Type Department Care Team (Late st Contact Info) Description 01/13/2023 Procedure Pass [facility], Ct Scan - [address] [address] Social History Tobacco Use Types Packs/Day Years [...] AM EDT documented as of this encounter Functional Status * Calculated C-SSRS Risk Score (Lifetime/Recent) Answer Date of Assessment Author No Risk Indicated 01/13/2023 4:37 PM EDT Yesenia Grigsby RN * [place] Suicide Severity Rating Scale (Screener/Recent Self-Report) Question Answer Date of Assessment Author 1. Wish to be (Past 1 Month) No 023 4:37 PM EDT Yesenia Grigsby, KATHRYN 2. Non-Specific Active Suici bonny Thoughts (Past 1 Month) No 01/13/2023 4:37 PM EDT Yesenia Grigsby RN 6. Suicidal Behavior (Lifetime) No 3 4:37 PM EDT Yesenia Grigsby, RN documented as of this encounter Plan of Treatment Upcoming Encounters Date Type Department Care Team (Late st Contact Info) Description 02/13/2025 9:30 AM EST Office Visit [facility] Pulmonary, Allergy and Critical Care Medicine [address] [place] [address] [place] [address] Lucas Galvan MD 10 [facility] 2nd [place] [address] 02/19/2025 11:20 AM EST Office Visit [facility] [address] [place] [address] [place] [address] Gary Edwards MD [address] [place], [place] [address], [place] [address] documented as of this encounter Visit Diagnoses Not on filedocumented in this encounter Care Teams Inserting Press Operator Relationship Specialty Start Date End Date Shyann Sandoval PA 70 [place] [address] [email or web address] PCP - General Unknown Provider Specialty 06/13/20 12/29/23 Jackelyn Daniels MD 70 [place] [address] [email or web address] PCP - General Family Medicine 12/30/23 05/03/24 Jackelyn Daniels MD [address] [place] [address] [email or web address] PCP - General Family Medicine 05/04/24 Huy Zhu MD [email or web address] Historical LMR Provider 01/31/17 Nuvia Woodward NP [address] [place] [address] [email or web address] Historical LMR Provider 01/31/17 documented as of this encounter Additional Source Comments The information contained in this document represents components of the legal health record. It is not the complete legal health record.[facility]
--- OUTSIDE RECORDS SUMMARY | 2025-01-25 14:52 | XMS_ITS | Encounter Summary ---
Author Organization [facility] Address [address] [place] [address] Phone Care Team Providers Care Remote Encoding Operations Supervisor Name Role Phone Huy Zhu MD Unavailable Nuvia Woodward BLOCK PILER Unavailable [phone] Zohra Zaman BLOCK PILER Unavailable [phone] Asia Marquez RDCS Unavailable [email or web address] Huy Zhu MD Primary Care Provider [phone] Shyann Sandoval Primary Care Provider Jackelyn Daniels MD Primary Care Provider + Jackelyn Daniels MD Primary Care Provider + Encounter Details Date Type Department Care Team (Latest Contact Info) Description 04/27/2019 Transcribe Orders Virtual Department 30 [place] [address] Shyann Sandoval PA 70 [place] [address] [email or web address] Family history of cardiovascular disease (Primary Dx) Social History Tobacco Use [...] and Critical Care Medicine 10 [facility] [address] Lucas Galvan MD [address] [address] [email or web address] 02/19/2025 11:20 AM EST Office Visit [facility] 22 [place] [address] Gary Edwards MD 22 [facility], [address] [place] [address] [email or web address] documented as of this encounter Visit Diagnoses Diagnosis Family history of cardiovascular disease- Primary Family history of other cardiovascular diseases documented in this encounter Care Teams Remote Encoding Operations Supervisor Relationship Specialty Start Date End Date Huy Zhu MD [email or web address] PCP - General Family Medicine 04/26/19 06/12/20 Shyann Sadnoval PA 70 [place] [address] [email or web address] PCP - General Unknown Provider Specialty 06/13/20 12/29/23 Jackelyn Daniels MD 70 [place] [address] [email or web address] PCP - General Family Medicine 12/30/23 05/03/24 Jackelyn Daniels MD [address] [place] [address] [email or web address] PCP - General Family Medicine 05/04/24 Huy Zhu MD Historical LMR Provider 01/31/17 Nuvia Woodward NP [address] [place] [address] Historical LMR Provider 01/31/17 Zohra Zaman NP [address] [place] [address] Historical LMR Provider 01/31/17 2 Asia Marquez, DANIEL Historical LMR Provider 01/31/17 04/19/21 documented as of this encounter Additional Source Comments The information contained in this document represents components of the legal health record. It is not the complete legal health record.[facility]
--- OUTSIDE RECORDS SUMMARY | 2025-01-25 14:52 | XMS_ITS | Encounter Summary ---
Author Organization [facility] Address [address] [facility] [address] [place] [address] Phone Care Team Providers Care Manager Crisis Name Role Phone Huy Zhu MD Unavailable [phone] Nuvia Woodward NP Unavailable [phone] Shyann Sandoval Primary Care Provider [phone] Jackelyn Daniels MD Primary Care Provider + Jackelyn Daniels MD Primary Care Provider + Encounter Details Date Type Department Care Team (Latest Contact Info) Description 09/28/[address] [facility] Laboratory [address] 2nd Floor [place], [place] [id number] Lucas Ibarra MD [address] [address] [email or web address] Abnormal results of liver function studies (Primary Dx) Social History Tobacco Use Types [...] Description 02/13/2025 9:30 AM EST Office Visit [facility]monary, Allergy and Critical Care Medicine [address] [place] [address] Lucas Galvan MD [address] [place] [address] [email or web address] 02/19/2025 11:20 AM EST Office Visit [facility] OBGYN & Midwifery [address] [place] [address] [place] [address] Gary Edwards MD [address] [place] [address], [address] [place] [address] documented as of this encounter Results * (ABNORMAL) Comprehensive metabolic panel (09/28/2023 10:44 AM EDT) SODIUM 134 133 - 146 mmol/L [facility] POTASSIUM 4.3 3.3 - 5.1 mmol/L [facility] CHLORIDE 96 96 - 108 mmol/L [facility] CO2 26 21 - 35 mmol/L [facility] BUN 20(H) 6 - 19 mg/dL [facility] CREATININE 0.70 0.5 - 1.5 mg/dL [facility] GLUCOSE 103(H) 70 - 99 mg/dL [facility] ALBUMIN 4.1 3.9 - 4.8 g/dL [facility] TOTAL PROTEIN 7.0 6.5 - 8.0 g/dL [facility] CALCIUM 9.4 8.4 - 10.3 mg/dL [facility] ALKALINE PHOSPHATASE 80 39 - 117 U/L [facility] TOTAL BILIRUBIN <0.2 0.0 - 1.2 mg/dL [facility] AST 23 0 - 37 U/L [facility] ALT 30 0 - 40 U/L [facility] GLOBULIN 2.9 1 - 4.8 g/dL [facility] EGFR 93 >59 mL/min/1.7 3m2 [facility] Comment:Estimated glomerular filtration rate calculated using the CKD-EPI refit equation. ANION GAP 16 10 - 20 mmol/L [facility] Blood 09/28/2023 10:4 4 AM EDT 09/28/2023 10:49 AM EDT Lucas Ibarra MD LAB BLOOD ORDERABLES Final Result Performing Organization Address City/State/[facility] Co de Phone Number [facility] [address] [place] [address] documented in this encounter Visit Diagnoses Diagnosis Abnormal results of liver function studies- Primary Nonspecific abnormal results of liver function study documented in this encounter Care Teams Manager Crisis Relationship Specialty Start Date End Date Shyann Sandoval PA [address] [place] [address] [email or web address] PCP - General Unknown Provider Specialty 06/13/20 12/29/23 Jackelyn Daniels MD [address] [place] [address] [email or web address] PCP - General Family Medicine 12/30/23 05/03/24 Jackelyn Daniels MD [address] [place] [address] [email or web address] PCP - General Family Medicine 05/04/24 Huy Zhu MD [email or web address] Historical LMR Provider 01/31/17 Nuvia Woodward NP [address] [place] [address] [email or web address] Historical LMR Provider 01/31/17 documented as of this encounter Additional Source Comments The information contained in this document represents components of the legal health record. It is not the complete legal health record.[facility]
--- OUTSIDE RECORDS SUMMARY | 2025-01-25 14:52 | XMS_ITS | Encounter Summary ---
Author Organization [facility] Address [facility] [address] [address] Phone Care Team Providers Care Adjunct Spanish Instructor Name Role Phone Huy Zhu MD Unavailable [phone] Nuvia Woodward [employer] Unavailable [phone] Zohra Zaman [employer] Unavailable [phone] Asia Marquez RDCS Unavailable [email or web address] Shyann Sandoval Primary Care Provider Jackelyn Daniels MD Primary Care Provider + Jackelyn Daniels MD Primary Care Provider + Encounter Details Date Type Department Care Team (Late st Contact Info) Description 02/04/2021 Procedure Pass [facility], [address] [address] Social History Tobacco Use Types Packs/Day Years [...] Pulmonary, Allergy and Critical Care Medicine 10 [facility] [address] Lucas Galvan MD [address] [address] 02/19/2025 11:20 AM EST Office Visit [facility] [address] [place] [address] Gary Edwards MD 22 [facility], [address] [place] [address] [email or web address] documented as of this encounter Visit Diagnoses Not on filedocumented in this encounter Care Teams Adjunct Spanish Instructor Relationship Specialty Start Date End Date Shyann Sandoval PA [address] [place] [address] [email or web address] PCP - General Unknown Provider Specialty 06/13/20 12/29/23 Jackelyn Daniels MD [address] [place] [address] [email or web address] PCP - General Family Medicine 12/30/23 05/03/24 Jackelyn Daniels MD [address] [place] [address] [email or web address] PCP - General Family Medicine 05/04/24 Huy Zhu MD [email or web address] Historical LMR Provider 01/31/17 Nuvia Woodward NP [address] [place] [address] [email or web address] Historical LMR Provider 01/31/17 Zohra Zaman NP [address] [place] [address] Historical LMR Provider 01/31/17 2 Asia Marquez RDCS [email or web address] Historical LMR Provider 01/31/17 04/19/21 documented as of this encounter Additional Source Comments The information contained in this document represents components of the legal health record. It is not the complete legal health record.[facility]
--- OUTSIDE RECORDS SUMMARY | 2025-01-25 14:52 | XMS_ITS | Encounter Summary ---
Author Organization [facility] Address [address] [place] [address] Phone Care Team Providers Care Program Director [employer] Name Role Phone Huy Zhu MD Unavailable Nuvia Woodward SOCIAL SCIENTIST Unavailable [phone] Zohra Zaman SOCIAL SCIENTIST Unavailable [phone] Asia Marquez RDCS Unavailable [email or web address] Shyann Sandoval Primary Care Provider [phone] Jackelyn Daniels MD Primary Care Provider + Jackelyn Daniels MD Primary Care Provider + Reason for Referral * MRI/CAT Scan - Closed Specialty Diagnoses / Procedures Referred By Contac t Referred To Contact Radiology Diagnoses Arthralgia, unspecified joint Procedures MRI Foot (Left) Gabriela Carney MD Phone: tel: fax: Referral ID Status Reason Start Date Expiration Date Visits Re quested Visits Authorized [id number] Closed 02/04/2021 02/04/2022 1 1 Encounter Details Date Type Department Care Team (Latest Contact Info) Description 02/04/[address] [facility] Department [address] [place] [address] Gabriela Carney MD [address] [place] [address] Arthralgia, unspecified joint (Primary Dx) Social History Tobacco Use Types [...] Description 02/13/2025 9:30 AM EST Office Visit [facility] Pulmonary, Allergy and Critical Care Medicine [address] [place] [address] Lucas Galvan MD [address] [place] [address] [email or web address] 02/19/2025 11:20 AM EST Office Visit [facility] [address] [place] [address] Gary Edwards MD [address] [address] documented as of this encounter Results * MRI FOOT WITHOUT CONTRAST (LEFT) (02/19/2021 5:13 PM EST) Anatomical Region Laterality Modality Foot Left Magnetic Resonan ce 02/19/2021 5:25 PM EST Addenda Addendum by Kevin Rivera MD on 05/02/2021 8:31 AM EST ADDENDUM: Outside MRI of the left ankle dated 05/27/2017 has now been submitted with report. The previously described splenic tear of the tibialis posterior tendon has healed although mild thickening of the tendon and fluid adjacent to the tendon may be due to acute strain or chronic tendinosis. Impressions 02/19/2021 5:40 PM EST 1. No evidence of tendon tears. Small amount of fluid adjacent to the tibialis posterior tendon which can be correlated with signs/symptoms of tenosynovitis. 2. No other explanation for foot pain. 3. Small amount of fluid in the retrocalcaneal bursa may could be due to bursitis. Narrative 02/19/2021 5:40 PM EST HISTORY: . Arthralgia, possible tenosynovitis. COMPARISON: None. TECHNIQUE: Exam performed on a 1.5 Idalmis high-field MRI scanner. Axial T1, T2 and STIR, coronal T1, T2 and STIR, sagittal T1 and STIR sequences were obtained. FINDINGS: Bones and joints: No evidence of fractures or AVN. No other suspicious marrow signal abnormalities. No evidence of joint effusions. No evidence of subluxations or dislocations. Tendons: The exam is not tailored for evaluation of the ankle tendons. No evidence of tendon tears. There is evidence of a small amount of fluid surrounding the tibialis posterior tendon. Ligaments: Spurring ligament grossly intact. No other definite signs of ligament tears. Plantar fascia: Intact. Other soft tissues: No evidence of soft tissue masses or focal fluid collections. Small amount of fluid in the retrocalcaneal bursa. Procedure Note Kevin Rivera MD - 02/19/2021 HISTORY: . Arthralgia, possible tenosynovitis. COMPARISON: None. TECHNIQUE: Exam performed on a 1.5 Idalmis high-field MRI scanner. AxialT1, T2 and STIR, coronal T1, T2 and STIR, sagittal T1 and STIR sequenceswere obtained. FINDINGS: Bones and joints: No evidence of fractures or AVN. No other suspiciousmarrow signal abnormalities. No evidence of joint effusions. No evidenceof subluxations or dislocations. Tendons: The exam is not tailored for evaluation of the ankle tendons. Noevidence of tendon tears. There is evidence of a small amount of fluidsurrounding the tibialis posterior tendon. Ligaments: Spurring ligament grossly intact. No other definite signs ofligament tears. Plantar fascia: Intact. Other soft tissues: No evidence of soft tissue masses or focal fluidcollections. Small amount of fluid in the retrocalcaneal bursa. IMPRESSION: 1. No evidence of tendon tears. Small amount of fluid adjacent to thetibialis posterior tendon which can be correlated with signs/symptoms oftenosynovitis. 2. No other explanation for foot pain. 3. Small amount of fluid in the retrocalcaneal bursa may could be due tobursitis. Gabriela Carney MD IMG MR EXTREMITY Edited Result - Final * Antinuclear antibody (COLBY) (02/05/2021 3:49 PM EDT) COLBY SCREEN ON HEP 2 Negative Negative [facility] Blood 02/05/2021 3:49 PM EDT 02/05/2021 3:55 PM EDT Gabriela Carney MD LAB BLOOD ORDERAB LES Final Result Performing Organization Address City/State/[facility] Co de Phone Number [facility] [address] [place] [address] documented in this encounter Visit Diagnoses Diagnosis Arthralgia, unspecified joint- Primary Arthralgia, unspecified joint documented in this encounter Care Teams Program Director Cable Television Relationship Specialty Start Date End Date Shyann Sandoval PA [address] [place] [address] [email or web address] PCP - General Unknown Provider Specialty 06/13/20 12/29/23 Jackelyn Daniels MD [address] [place] [address] [email or web address] PCP - General Family Medicine 12/30/23 05/03/24 Jackelyn Daniels MD [address] [place] [address] [email or web address] PCP - General Family Medicine 05/04/24 Huy Zhu MD Historical LMR Provider 01/31/17 Nuvia Woodward NP [address] [place] [address] Historical LMR Provider 01/31/17 Zohra Zaman NP [address] [place] [address] Historical LMR Provider 01/31/17 2 Asia Marquez, [employer] Historical LMR Provider 01/31/17 04/19/21 documented as of this encounter Additional Source Comments The information contained in this document represents components of the legal health record. It is not the complete legal health record.[facility]
--- OUTSIDE RECORDS SUMMARY | 2025-01-25 14:52 | XMS_ITS | Encounter Summary ---
Author Organization [facility] Address [facility] [employer] [address] [place] [address] Phone Care Team Providers Care Auction Clerk Name Role Phone Huy Zhu MD Unavailable [phone] Nuvia Woodward NP Unavailable [phone] Shyann Sandoval Primary Care Provider [phone] Jackelyn Daniels MD Primary Care Provider + Jackelyn Daniels MD Primary Care Provider + Encounter Details Date Type Department Care Team (Latest Contact Info) Description 09/04/2022 Transcribe Orders [facility] Laboratory [address] [phone] Shyann Sandoval PA [address] [place], [place] [phone] [email or web address] Hyperlipidemia, unspecified hyperlipidemia type (Primary Dx) Social History Tobacco Use Types [...] Allergy and Critical Care Medicine 10 [facility] [place] [address] Lucas Galvan MD [address] [address] [email or web address] 02/19/2025 11:20 AM EST Office Visit [facility] OBGYN & Midwifery [address] [place] [address] Gary Edwards MD 22 [facility], [address] [place] [address] [email or web address] documented as of this encounter Results * (ABNORMAL) Lipid panel (09/05/2022 8:12 AM EDT) HDL 88 mg/dL [facility] Comment: Interpretation <40 mg/dL: Low HDL cholesterol (major risk factor for CHD) Greater than or equal to 60 mg/dL: High HDL cholesterol ( negative risk factor for CHD) HDL - cholesterol is affected by a number of factors, e.g. smoking, excerise, hormones, sex and age. CHOLESTEROL 249(H) 0 - 240 mg/dL [facility] TRIGLYCERIDES 102 30 - 160 mg/dL [facility] LDL 141(H) 50 - 129 mg/dL [facility] Comment: LDL levels in terms of risk for coronary heart disease: <100 mg/dL: Optimal 100-129 mg/dL: Near or above optimal 130-159 mg/dL: Borderline high 160-189 mg/dL: High >190 mg/dL: Very High CARDIAC RISK RATIO 2.8(L) 3.3 - 4.4 C [facility] Blood 09/05/2022 8:12 AM EDT 09/05/2022 8:15 AM EDT Shyann LAN LAB BLOOD ORDERABLES Final R esult [address] [address] * (ABNORMAL) Comprehensive metabolic panel (09/04/2022 12:14 PM EDT) SODIUM 137 133 - 146 mmol/L [facility] POTASSIUM 3.9 3.3 - 5.1 mmol/L [facility] CHLORIDE 100 96 - 108 mmol/L [facility] CO2 27 21 - 35 mmol/L [facility] BUN 11 6 - 19 mg/dL [facility] CREATININE 0.60 0.5 - 1.5 mg/dL [facility] GLUCOSE 79 70 - 99 mg/dL [facility] ALBUMIN 4.4 3.9 - 4.8 g/dL [facility] TOTAL PROTEIN 7.8 6.5 - 8.0 g/dL [facility] CALCIUM 9.7 8.4 - 10.3 mg/dL [facility] ALKALINE PHOSPHATASE 122(H) 39 - 117 U/L [facility] TOTAL BILIRUBIN 0.3 0.0 - 1.2 mg/dL [facility] AST 70(H) 0 - 37 U/L [facility] ALT 65(H) 0 - 40 U/L [facility] GLOBULIN 3.4 1 - 4.8 g/dL [facility] EGFR 97 >59 mL/min/1.7 3m2 [facility] Comment:Estimated glomerular filtration rate calculated using the CKD-EPI refit equation. ANION GAP 14 10 - 20 mmol/L [facility] Blood 09/04/2022 12:1 4 PM EDT 09/04/2022 12:17 PM EDT Shyann LAN LAB BLOOD ORDERABLES Final R esult [address] [address] * (ABNORMAL) C-Reactive Protein (09/04/2022 12:14 PM EDT) C REACTIVE PROTEIN 6.8(H) 0.0 - 4.0 mg/L [facility] Blood 09/04/2022 12:1 4 PM EDT 09/04/2022 12:17 PM EDT Shyann LAN LAB BLOOD ORDERABLES Final R esult [address] [address] * CBC and differential (09/04/2022 12:14 PM EDT) Pathologist [facility] WBC 7.18 4.00 - 11.00 K/uL [facility] RBC 4.31 3.72 - 5.30 M/uL [facility] HGB 13.5 11.4 - 15.9 g/dL [facility] HCT 40.9 34.2 - 46.8 % [facility] PLT 340 140 - 430 K/uL [facility] MCV 94.9 78.0 - 97.0 [facility] MCH 31.3 25.0 - 33.0 pg [facility] MCHC 33.0 32.0 - 36.0 g/dL [facility] RDW 12.7 11.0 - 16.0 % [facility] MPV 10.9 8.4 - 12.8 [facility] DIFF METHOD Auto [facility] NEUTS 65.8 43.0 - 75.0 % [facility] LYMPHS 23.3 18.2 - 47.4 % [facility] MONOS 9.1 4.00 - 11.00 % [facility] EOS 0.8 0.0 - 8.0 % [facility] BASOS 0.7 0.0 - 2.0 % [facility] Granulocytes, immature (%) 0.3 0.0 - 0.9 % [facility] ABSOLUTE NEUTS 4.73 1.80 - 7.70 K/uL [facility] ABSOLUTE LYMPHS 1.67 1.00 - 3.10 K/uL [facility] ABSOLUTE MONOS 0.65 0.20 - 0.80 K/uL [facility] ABSOLUTE EOS 0.06 0.00 - 0.80 K/uL [facility] ABSOLUTE BASOS 0.05 0.00 - 0.09 K/uL [facility] Granulocytes, immature 0.02 0.00 - 0.05 K/uL [facility] Blood 09/04/2022 12:1 4 PM EDT 09/04/2022 12:17 PM EDT us Shyann LAN LAB BLOOD ORDERABLES Final R esult Performing Organization Address City/State/[facility] Co de Phone Number [facility] [address] [place] [address] documented in this encounter Visit Diagnoses Diagnosis Hyperlipidemia, unspecified hyperlipidemia type- Primary documented in this encounter Care Teams Auction Clerk Relationship Specialty Start Date End Date Shyann Sandoval PA [address] [place] [address] [email or web address] PCP - General Unknown Provider Specialty 06/13/20 12/29/23 Jackelyn Daniels MD [address] [place] [address] [email or web address] PCP - General Family Medicine 12/30/23 05/03/24 Jackelyn Daniels MD [address] [place] [address] [email or web address] [email or web address] - General Family Medicine 05/04/24 Huy Zhu MD Historical LMR Provider 01/31/17 Nuvia Woodward NP [address] [place] [address] [email or web address] Historical LMR Provider 01/31/17 documented as of this encounter Additional Source Comments The information contained in this document represents components of the legal health record. It is not the complete legal health record.[facility]
--- OUTSIDE RECORDS SUMMARY | 2025-01-25 14:52 | XMS_ITS | Encounter Summary ---
Author Organization [facility] Address [facility] [address] [address] Phone Care Team Providers Care Rn Discharge Name Role Phone Huy Zhu MD Unavailable [phone] Nuvia Woodward NP Unavailable [phone] Shyann Sandoval Primary Care Provider [phone] Jackelyn Daniels MD Primary Care Provider + Jackelyn Daniels MD Primary Care Provider + Encounter Details Date Type Department Care Team (Latest Contact Info) Description 07/15/2022 Transcribe Orders Virtual Department [address] [place] [address] Lucas Ibarra MD [address] [place] [address] [email or web address] Chronic cough (Primary Dx) Social History Tobacco Use Types [...] Pulmonary, Allergy and Critical Care Medicine 10 [facility] [place] [address] Lucas Galvan MD 10 [facility] 2nd [place] [address] 02/19/2025 11:20 AM EST Office Visit [facility] [address] [place] [address] Gary Edwards MD 22 [facility], [address] [place] [address] [email or web address] documented as of this encounter Results * XR CHEST PA AND LATERAL 2 VIEWS (07/15/2022 4:12 PM EDT) Anatomical Region Laterality Modality Chest Computed Radiogr aphy 07/15/2022 8:54 PM EDT Impressions 07/15/2022 8:55 PM EDT No acute findings. Narrative 07/15/2022 8:55 PM EDT XR CHEST PA AND LATERAL 2 VIEWS COMPARISON: None FINDINGS: Lungs: Clear lungs. Pleura: No pleural effusion. No pneumothorax Heart/Mediastinum: Heart size normal. Atherosclerotic calcifications in aorta. Bones/Soft Tissues: No acute finding Procedure Note Jean Mejia MD, SAQIB - 07/15/2022 XR CHEST PA AND LATERAL 2 VIEWS COMPARISON: None FINDINGS: Lungs: Clear lungs. Pleura: No pleural effusion. No pneumothorax Heart/Mediastinum: Heart size normal. Atherosclerotic calcifications inaorta. Bones/Soft Tissues: No acute finding IMPRESSION: No acute findings. Lucas Ibarra MD IMG XR CHEST Final Resu lt documented in this encounter Visit Diagnoses Diagnosis Chronic cough- Primary Cough Chronic cough Cough documented in this encounter Care Teams Rn Discharge Relationship Specialty Start Date End Date Shyann Sandoval PA [address] [place] [address] [email or web address] PCP - General Unknown Provider Specialty 06/13/20 12/29/23 Jackelyn Daniels MD [address] [place] [address] [email or web address] - General Family Medicine 12/30/23 05/03/24 Jackelyn Daniels MD [address] [place] [address] [email or web address] - General Family Medicine 05/04/24 Huy Zhu MD Historical LMR Provider 01/31/17 Nuvia Woodward NP [address] [place] [address] Historical LMR Provider 01/31/17 documented as of this encounter Additional Source Comments The information contained in this document represents components of the legal health record. It is not the complete legal health record.[facility]
--- OUTSIDE RECORDS SUMMARY | 2025-01-25 14:52 | XMS_ITS | Encounter Summary ---
Author Organization [facility] Address [facility] [employer] [address] [address] Phone Care Team Providers Care Casting Machine Operator Name Role Phone Huy Zhu MD Unavailable [phone] Nuvia Woodward CARBON PASTE MIXER OPERATOR Unavailable [phone] Zohra Zaman CARBON PASTE MIXER OPERATOR Unavailable [phone] Asia Marquez RDCS Unavailable [email or web address] Shyann Sandoval Primary Care Provider [phone] Jackelyn Daniels MD Primary Care Provider + Jackelyn Daniels MD Primary Care Provider + Encounter Details Date Type Department Care Team (Late st Contact Info) Description 02/14/2021 Ancillary Orders [facility],Outside Imaging [address] [place], [place] [id number] System, Provider Not In, PhD Partners [address] [address] Social History Tobacco Use Types Packs/Day Years [...] Pulmonary, Allergy and Critical Care Medicine 10 [facility] [place] [address] [place] [address] Lucas Galvan MD 10 [facility] 2nd [place] [address] [email or web address] 02/19/2025 11:20 AM EST Office Visit [facility] 22 [place] [address] Gary Edwards MD 22 [facility], [address] [place] [address] [email or web address] documented as of this encounter Results * MRI Lower Extremity Outside (No Interpretation) (05/27/2017 12:00 AM EST) Narrative SYSTEMGENERATED, DOCUMENTATION - 02/14/2021 7:20 AM EDT This study is for PACS storage only and not for interpretation. us Provider Not In System PhD IMG OUTSIDE IMAGING W /OUT INTERPRETATION Final Result documented in this encounter Visit Diagnoses Not on filedocumented in this encounter Care Teams Casting Machine Operator Relationship Specialty Start Date End Date Shyann Sandoval PA [address] [place] [address] [email or web address] PCP - General Unknown Provider Specialty 06/13/20 12/29/23 Jackelyn Daniels MD [address] [place] [address] [email or web address] PCP - General Family Medicine 12/30/23 05/03/24 Jackelyn Daniels MD 70 [place] [address] [email or web address] - General Family Medicine 05/04/24 Huy Zhu MD [email or web address] Historical LMR Provider 01/31/17 Nuvia Woodward NP [address] [place] [address] [email or web address] Historical LMR Provider 01/31/17 Zohra Zaman NP [address] [place] [address] Historical LMR Provider 01/31/17 2 Asia Marquez, RDCS [email or web address] Historical LMR Provider 01/31/17 04/19/21 documented as of this encounter Additional Source Comments The information contained in this document represents components of the legal health record. It is not the complete legal health record.[facility]
--- OUTSIDE RECORDS SUMMARY | 2025-01-25 14:52 | XMS_ITS | Encounter Summary ---
Author Organization [facility] Address [facility] [address] [address] Phone Care Team Providers Care Pattern Grader Name Role Phone Huy Zhu MD Unavailable [phone] Nuvia Woodward NP Unavailable [phone] Shyann Sandoval Primary Care Provider [phone] Jackelyn Daniels MD Primary Care Provider + Jackelyn Daniels MD Primary Care Provider + Encounter Details Date Type Department Care Team (Latest Contact Info) Description 11/11/2021 Transcribe Orders [facility] Laboratory [address] [address] Gabriela Carney MD [address] [place] [address] Rheumatoid arthritis, involving unspecified site, unspecified whether rheumatoid factor present (Primary Dx) Social History Tobacco Use Types [...] Critical Care Medicine [address] [place] [address] Lucas Galvan MD 10 [facility] 2nd [place] [address] [email or web address] 02/19/2025 11:20 AM EST Office Visit [facility] Midw[facility]ery 22 [place] [address] Gary Edwards MD 22 [facility], [address] [place] [address] [email or web address] documented as of this encounter Results * Sedimentation rate (ESR) (11/11/2021 2:11 PM EDT) ESR 26 0 - 30 mm/h [facility] Blood 11/11/2021 2:11 PM EDT 11/11/2021 2:15 PM EDT us Gabriela Carney MD LAB BLOOD ORDERAB LES Final Result Performing Organization Address City/[facility]/ZIP Co de Phone Number [address] [address] * (ABNORMAL) C-Reactive Protein (11/11/2021 2:11 PM EDT) C REACTIVE PROTEIN 9.2(H) 0.0 - 4.0 mg/L [facility] Blood 11/11/2021 2:11 PM EDT 11/11/2021 2:15 PM EDT us Gabriela Carney MD LAB BLOOD ORDERAB LES Final Result [address] [address] * (ABNORMAL) Comprehensive metabolic panel (11/11/2021 2:11 PM EDT) SODIUM 138 133 - 146 mmol/L [facility] POTASSIUM 4.0 3.3 - 5.1 mmol/L [facility] CHLORIDE 101 96 - 108 mmol/L [facility] CO2 26 21 - 35 mmol/L [facility] BUN 11 6 - 19 mg/dL [facility] CREATININE 0.80 0.5 - 1.5 mg/dL [facility] GLUCOSE 103(H) 70 - 99 mg/dL [facility] ALBUMIN 4.6 3.9 - 4.8 g/dL [facility] TOTAL PROTEIN 7.5 6.5 - 8.0 g/dL [facility] CALCIUM 10.0 8.4 - 10.3 mg/dL [facility] ALKALINE PHOSPHATASE 102 39 - 117 U/L [facility] TOTAL BILIRUBIN 0.3 0.0 - 1.2 mg/dL [facility] AST 31 0 - 37 U/L [facility] ALT 19 0 - 40 U/L [facility] GLOBULIN 2.9 1 - 4.8 g/dL [facility] EGFR 80 >59 mL/min/1.7 3m2 [facility] Comment:Estimated glomerular filtration rate calculated using the CKD-EPI refit equation. ANION GAP 15 10 - 20 mmol/L [facility] Blood 11/11/2021 2:11 PM EDT 11/11/2021 2:15 PM EDT us Gabriela Carney MD LAB BLOOD ORDERAB LES Final Result [facility] [address] [place] [address] * CBC and differential (11/11/2021 2:11 PM EDT) WBC 8.42 4.00 - 11.00 K/uL [facility] RBC 4.19 3.72 - 5.30 M/uL [facility] HGB 13.4 11.4 - 15.9 g/dL [facility] HCT 40.1 34.2 - 46.8 % [facility] PLT 314 140 - 430 K/uL [facility] MCV 95.7 78.0 - 97.0 fL [facility] MCH 32.0 25.0 - 33.0 pg [facility] MCHC 33.4 32.0 - 36.0 g/dL [facility] RDW 12.6 11.0 - 16.0 % [facility] MPV 11.2 8.4 - 12.8 fl [facility] NRBC 0.00 0 /100 WBCs [facility] ABSOLUTE NRBC 0.00 0 K/uL [facility] DIFF METHOD Auto [facility] NEUTS 69.2 43.0 - 75.0 % [facility] LYMPHS 20.8 18.2 - 47.4 % [facility] MONOS 8.4 4.00 - 11.00 % [facility] EOS 0.8 0.0 - 8.0 % [facility] BASOS 0.6 0.0 - 2.0 % [facility] Granulocytes, immature (%) 0.2 0.0 - 0.9 % [facility] ABSOLUTE NEUTS 5.82 1.80 - 7.70 K/uL [facility] ABSOLUTE LYMPHS 1.75 1.00 - 3.10 K/uL [facility] ABSOLUTE MONOS 0.71 0.20 - 0.80 K/uL [facility] ABSOLUTE EOS 0.07 0.00 - 0.80 K/uL [facility] ABSOLUTE BASOS 0.05 0.00 - 0.09 K/uL [facility] Granulocytes, immature 0.02 0.00 - 0.05 K/uL [facility] Blood 11/11/2021 2:11 PM EDT 11/11/2021 2:15 PM EDT us Gabriela Carney MD LAB BLOOD ORDERAB LES Final Result [facility] [address] [place] [address] documented in this encounter Visit Diagnoses Diagnosis Rheumatoid arthritis, involving unspecified site, unspecified whether rheumatoid factor present- Primary documented in this encounter Care Teams Pattern Grader Relationship Specialty Start Date End Date Shyann Sandoval PA [address] [place] [address] [email or web address] PCP - General Unknown Provider Specialty 06/13/20 12/29/23 Jackelyn Daniels MD [address] [place] [address] [email or web address] PCP - General Family Medicine 12/30/23 05/03/24 Jackelyn Daniels MD [address] [place] [address] [email or web address] PCP - General Family Medicine 05/04/24 Huy Zhu MD [email or web address] Historical LMR Provider 01/31/17 Nuvia Woodward NP [address] [place] [address] [email or web address] Historical LMR Provider 01/31/17 documented as of this encounter Additional Source Comments The information contained in this document represents components of the legal health record. It is not the complete legal health record.[facility]
--- OUTSIDE RECORDS SUMMARY | 2025-01-25 14:52 | XMS_ITS | Encounter Summary ---
Author Organization [facility] Address [address] [employer] [address] [address] Phone Care Team Providers Care Flight Operations Engineer Name Role Phone Huy Zhu MD Unavailable [phone] Nuvia Woodward NP Unavailable [phone] Shyann Sandoval Primary Care Provider [phone] Jackelyn Daniels MD Primary Care Provider + Jackelyn Daniels MD Primary Care Provider + Encounter Details Date Type Department Care Team (Late st Contact Info) Description 12/11/2022 Procedure Pass [facility]oscopy Admitting Dept Virtual Department [address] [place] [address] Social History Tobacco Use Types Packs/Day Years [...] Pulmonary, Allergy and Critical Care Medicine 10 [facility] [place] [address] Lucas Galvan MD [address] [address] 02/19/2025 11:20 AM EST Office Visit [facility] 22 [place] [address] Gary Edwards MD 22 [facility], [address] [place] [address] [email or web address] documented as of this encounter Visit Diagnoses Not on filedocumented in this encounter Care Teams Flight Operations Engineer Relationship Specialty Start Date End Date Shyann Sandoval PA [address] [place] [address] [email or web address] PCP - General Unknown Provider Specialty 06/13/20 12/29/23 Jackelyn Daniels MD 70 [place] [address] [email or web address] PCP - General Family Medicine 12/30/23 05/03/24 Jackelyn Daniels MD 70 [place] [address] [email or web address] PCP - General Family Medicine 05/04/24 Huy Zhu MD [email or web address] Historical LMR Provider 01/31/17 Nuvia Woodward NP [address] [place] [address] [email or web address] Historical LMR Provider 01/31/17 documented as of this encounter Additional Source Comments The information contained in this document represents components of the legal health record. It is not the complete legal health record.[facility]
--- OUTSIDE RECORDS SUMMARY | 2025-01-25 14:52 | XMS_ITS | Encounter Summary ---
Author Organization [facility] Address [address] [place] [address] Phone Care Team Providers Care Transportation Planning Technician Name Role Phone Huy Zhu MD Unavailable [phone] Nuvia Woodward NP Unavailable [phone] Jackelyn Daniels MD Primary Care Provider + Encounter Details Date Type Department Care Team (Late st Contact Info) Description 05/12/2024 Procedure Pass [facility] Endoscopy Admitting Dept Virtual Department 30 [place] [address] Social History Tobacco Use Types Packs/Day Years [...] Pulmonary, Allergy and Critical Care Medicine 10 [place] [address] Lucas Galvan MD [address] [address] [email or web address] 02/19/2025 11:20 AM EST Office Visit [facility] [address] [place] [address] Gary Edwards MD [address] [place] [address] [email or web address] documented as of this encounter Visit Diagnoses Not on filedocumented in this encounter Care Teams Transportation Planning Technician Relationship Specialty Start Date End Date Jackelyn Daniels MD [address] [place] [address] [email or web address] PCP - General Family Medicine 05/04/24 Huy Zhu MD Historical LMR Provider 01/31/17 Nuvia Woodward NP [address] [place] [address] [email or web address] Historical LMR Provider 01/31/17 documented as of this encounter Additional Source Comments The information contained in this document represents components of the legal health record. It is not the complete legal health record.[facility]
--- OUTSIDE RECORDS SUMMARY | 2025-01-25 14:52 | XMS_ITS | Encounter Summary ---
Author Organization [facility] Address [address] [place] [address] Phone Care Team Providers Care Health Care Assistant Name Role Phone Huy Zhu MD Unavailable [phone] Nuvia Woodward NP Unavailable [phone] Jackelyn Daniels MD Primary Care Provider + Encounter Details Date Type Department Care Team (Late st Contact Info) Description 05/08/2024 Procedure Pass [facility] Endoscopy Admitting Dept Virtual Department 30 [place] [address] Social History Tobacco Use Types Packs/Day Years [...] Pulmonary, Allergy and Critical Care Medicine 10 [place] [address] Lucas Galvan MD [address] [address] [email or web address] 02/19/2025 11:20 AM EST Office Visit [facility] [address] [place] [address] Gary Edwards MD [address] [place] [address] [email or web address] documented as of this encounter Visit Diagnoses Not on filedocumented in this encounter Care Teams Health Care Assistant Relationship Specialty Start Date End Date Jackelyn Daniels MD [address] [place] [address] [email or web address] PCP - General Family Medicine 05/04/24 Huy Zhu MD Historical LMR Provider 01/31/17 Nuvia Woodward NP [address] [place] [address] [email or web address] Historical LMR Provider 01/31/17 documented as of this encounter Additional Source Comments The information contained in this document represents components of the legal health record. It is not the complete legal health record.[facility]
--- OUTSIDE RECORDS SUMMARY | 2025-01-25 14:52 | XMS_ITS | Encounter Summary ---
Author Organization [facility] Address [address] [place] [address] Phone Care Team Providers Care Ocularist Name Role Phone Huy Zhu MD Unavailable [phone] Nuvia Woodward INSURANCE ACCOUNT SPECIALIST Unavailable [phone] Zohra Zaman INSURANCE ACCOUNT SPECIALIST Unavailable [phone] Asia Marquez RDCS Unavailable [email or web address] Huy Zhu MD Primary Care Provider Shyann Sandoval Primary Care Provider [phone] Jackelyn Daniels MD Primary Care Provider + Jackelyn Daniels MD Primary Care Provider + Reason for Referral * Hospital - Outpatient - Closed Specialty Diagnoses / Procedures Referred By Contac t Referred To Contact Diagnoses Family history of cardiovascular disease Procedures Stress Test Exercise Stress Test Exercise Shyann Sandoval PA [address] [place] [address] Phone: tel: fax: [email or web address] Referral ID Status Reason Start Date Expiration Date Visits Re quested Visits Authorized [id number] Closed 04/26/2019 04/25/2020 1 1 Encounter Details Date Type Department Care Team (Latest Contact Info) Description 04/26/2019 Ancillary Orders [facility] Department [address] [place] [address] Shyann Sandoval PA [address] [place] [address] [email or web address] Family history of cardiovascular disease Social History Tobacco Use Types Packs/Day Years [...] Description 02/13/2025 9:30 AM EST Office Visit [facility] Pulmonary, Allergy and Critical Care Medicine 10 [place] [address] Lucas Galvan MD 10 [facility] 2nd [place] [address] 02/19/2025 11:20 AM EST Office Visit [facility] OBGYN & Midwifery [address] [place] [address] Gary Edwards MD [address] [place] [address], [address] [place] [address] documented as of this encounter Results * Stress Test Exercise (05/02/2019 11:24 AM EST) Max BP Systolic 150 mmHg [facility] Max BP Diastolic 80 mmHg [facility] Max HR 134 BPM [facility] Resting HR 70 BPM [facility] Resting BP Systolic 100 mmHg [facility] Resting BP Diastolic 70 mmHg [facility] Peak METS 13.8 METS [facility] Peak HR 133 BPM [facility] Anatomical Region Laterality Modality Heart Other 05/02/2019 9:05 AM EST 05/02/2019 9:51 AM EST Narrative 05/05/2019 11:00 AM EST Response to Stress The patient exercised for minutes seconds, achieving 13.8 METS at peak exercise. Baseline blood pressure was 100/70 mmHg, and baseline heart rate was 70 bpm. The patient achieved a peak heart rate of 133 bpm, which is% of their maximum predicted heart rate. REPORT - Pt exercised for 6:38 min on a ROXANNA protocol achieving 13.8 METS. Test terminated due to fatigue. Baseline resting HR was 68. Max heart rate achieved was 134 (86% MPHR). 1. EKG - Baseline EKG showed normal sinus rhythm. No ischemic EKG changes with exercise. 2. SYMPTOMS - no chest pain 3. EXERCISE PHYSIOLOGY - normal BP response to exercise. Excellent functional capacity for age. 4. ARRHYTHMIAS - one PAC Conclusion - normal stress test. Estelle Persaud INSURANCE ACCOUNT SPECIALIST with Dr Churchill . us Shyann LAN CV STRESS ORDERABLES Final R esult documented in this encounter Visit Diagnoses Diagnosis Family history of cardiovascular disease Family history of other cardiovascular diseases Family history of cardiovascular disease Family history of other cardiovascular diseases documented in this encounter Care Teams Ocularist Relationship Specialty Start Date End Date Huy Zhu MD PCP - General Family Medicine 04/26/19 06/12/20 Shyann Sandoval PA [address] [place] [address] [email or web address] - General Unknown Provider Specialty 06/13/20 12/29/23 Jackelyn Daniels MD [address] [place] [address] [email or web address] PCP - General Family Medicine 12/30/23 05/03/24 Jackelyn Daniels MD 70 [place] [address] [email or web address] PCP - General Family Medicine 05/04/24 Huy Zhu MD Historical LMR Provider 01/31/17 Nuvia Woodward NP [address] [place] [address] Historical LMR Provider 01/31/17 Zohra Zaman NP [address] [place] [address] Historical LMR Provider 01/31/17 2 Asia Marquez, [employer] Historical LMR Provider 01/31/17 04/19/21 documented as of this encounter Additional Source Comments The information contained in this document represents components of the legal health record. It is not the complete legal health record.[facility]
--- OUTSIDE RECORDS SUMMARY | 2025-01-25 14:52 | XMS_ITS | Encounter Summary ---
Author Organization [facility] Address [address] [employer] [address] [address] Phone Care Team Providers Care Flea Market Seller Name Role Phone Huy Zhu MD Unavailable [phone] Nuvia Woodward NP Unavailable [phone] Shyann Sandoval Primary Care Provider [phone] Jackelyn Daniels MD Primary Care Provider + Jackelyn Daniels MD Primary Care Provider + Encounter Details Date Type Department Care Team (Late st Contact Info) Description 12/15/2022 Procedure Pass [facility] Endoscopy Admitting Dept Virtual Department [address] [place] [address] Social History Tobacco Use Types Packs/Day Years [...] Pulmonary, Allergy and Critical Care Medicine 10 [facility] [place] [address] Lucas Galvan MD [address] [address] 02/19/2025 11:20 AM EST Office Visit [facility] 22 [place] [address] Gary Edwards MD 22 [facility] [place], [address] [place] [address] [email or web address] documented as of this encounter Visit Diagnoses Not on filedocumented in this encounter Care Teams Flea Market Seller Relationship Specialty Start Date End Date Shyann Sandoval PA [address] [place] [address] [email or web address] PCP - General Unknown Provider Specialty 06/13/20 12/29/23 Jackelyn Daniels MD 70 [place] [address] [email or web address] PCP - General Family Medicine 12/30/23 05/03/24 Jackelyn Daniels MD 70 [place] [address] [email or web address] PCP - General Family Medicine 05/04/24 Huy Zhu MD [email or web address] Historical LMR Provider 01/31/17 Nuvia Woodward NP [address] [place] [address] [email or web address] Historical LMR Provider 01/31/17 documented as of this encounter Additional Source Comments The information contained in this document represents components of the legal health record. It is not the complete legal health record.[facility]
== END 2025-01-25 11:31 | disposition home or self-care (01) ==
LOC: HO.MRI 11:30
PROVIDERS: PCP Family Medicine; Visit Provider Physician Assistant Medical
DX: Z13.89 Encounter for screening for other disorder (principal)

== ENCOUNTER → 2025-02-14 13:34 | Outpatient (BNV) | payer MEDICARE, SELFPAY | PROVIDERS: PCP Family Medicine; Visit Provider Specialist | DX: Z86.69 Personal history of other diseases of the nervous system and sense organs (principal) | CPT/HCPCS: 70553 ==

== ENCOUNTER 2025-02-14 13:50 | Outpatient (REF) | payer MEDICARE, SELFPAY ==
--- OUTSIDE RECORDS SUMMARY | 2025-02-13 09:30 | XMS_ITS | Encounter Summary ---
Author Organization [facility] Address [address] [address] Phone Care Team Providers Care Tibco Developer Name Role Phone Huy Zhu MD Unavailable [phone] Nuvia Woodward NP Unavailable [phone] Jackelyn Daniels MD Primary Care Provider + Reason for Visit * Reason Comments Follow-up Cough Encounter Details Date Type Department Care Team ([facility] st Contact Info) Description 02/13/2025 9:30 AM EST Office Visit [facility] Pulmonary, Allergy and Critical Care Medicine [address] [place] [phone] Lucas Galvan MD [address] [place] [address] [email or web address] Chronic cough (Primary Dx); Seasonal allergies; Gastroesophageal [...] dysmotility referred by Dr. Lucas Ibarra of [facility] here for pulmonary consultation for chronic cough. [...] is now being followed by GI at [facility]. Cough - continues to be mainly absent. [...] - ordered brain MRI and HST at [place]. COUGH HISTORY REVIEW: Waxing and waning severe [...] antihistamines or sinus rinse. Starting SCIT at [facility]. LABS with normal CBC, no [...] but is not allergic. Chest CT 08/27/2022 [facility]: No evidence of interstitial lung disease. Right [...] mammogram 02/2019 Normal per pt done at [facility] Headache History of bladder infections History of chicken pox Hyperlipidemia IBS (irritable colon syndrome) hx Joint pain shoulder Migraines Osteoporosis Rheumatoid arthritis Tenosynovitis of fingers Wears eyeglasses Past Surgical History: Procedure Laterality Date CAPSULE RECORDER RETURN N/A 05/12/2024 Performed by Lucas Ibarra MD at [facility] ENDOSCOPY CERVICAL BIOPSY W/ LOOP ELECTRODE EXCISION COLONOSCOPY ESOPHAGOGASTRODUODENOSCOPY N/A 07/03/2021 Performed by Lucas Ibarra MD at [facility] ENDOSCOPY ESOPHAGOGASTRODUODENOSCOPY WITH PH CAPSULE N/A 05/08/2024 Performed by Lucas Ibarra MD at [facility] ENDOSCOPY OSTEOTOMY METATARSAL Left 09/16/2022 Performed by Greg Leos MD at [facility] OR S/p LPI UPPER GASTROINTESTINAL ENDOSCOPY [...] and corroborated by radiologists report. XR Chest [[id number]] 07/15/2022 (Final) Narrative XR CHEST PA AND [...] Visit [facility] [address] [place] [address] Gary Edwards MD 22 [facility], [address] [place] [address] [email or web address] 08/09/2025 9:30 AM EDT Office Visit [facility] Pulmonary, Allergy and Critical Care Medicine [address] [facility] [place] [address] Lucas Galvan MD 10 [facility] 2nd [place] [address] [email or web address] documented as of this encounter Visit Diagnoses Diagnosis Chronic cough- Primary Cough Seasonal allergies Allergic rhinitis, cause unspecified Gastroesophageal reflux disease, unspecified whether esophagitis present documented in this encounter Care Teams Tibco Developer Relationship Specialty Start Date End Date Jackelyn Daniels MD [address] [place] [phone] [email or web address] PCP - General Family Medicine 05/04/24 Huy Zhu MD Historical LMR Provider 01/31/17 Nuvia Woodward NP [address] [place] [address] Historical LMR Provider 01/31/17 documented as of this encounter Additional Source Comments The information contained in this document represents components of the legal health record. It is not the complete legal health record.[facility]
--- NOTE | ~2025-02-14 | MR_ITS ---
CLINICAL HISTORY: Z86.69 - Personal history of other diseases of the nervous system and se... --- Additional Notes or Special Instructions: family h o of closure of CSF leak, transtemporal, transmastoid . MR Brain with and without gadolinium Comparison: None provided Findings: No restricted diffusion. No intra-axial mass or hemorrhage. No midline shift. No hydrocephalus. Vascular flow voids are intact. There are no areas of abnormal enhancement. Orbital contents are unremarkable. The sinuses and mastoid air cells are clear. No focal bone lesion. IMPRESSION: Unremarkable brain MRI. This document has been electronically signed by: Lucas Fulton MD on 02/16/2025 08:59:53
--- OUTSIDE RECORDS SUMMARY | 2025-02-14 17:03 | XMS_ITS | Encounter Summary ---
Author Organization [facility] Address [address] [place] [address] Phone Care Team Providers Care Sueding And Buffing Machine Operator Name Role Phone Huy Zhu MD Unavailable [phone] Nuvia Woodward NP Unavailable [phone] Jackelyn Daniels MD Primary Care Provider + Encounter Details Date Type Department Care Team (Late st Contact Info) Description 05/09/2024 Procedure Pass [facility], Ct Scan - [facility] [address] [place] [address] Social History Tobacco Use Types Packs/Day Years [...] Office Visit [facility] [address] [place] [address] Gary Edwards MD [address] [address] [email or web address] 08/09/2025 9:30 AM EDT Office Visit [facility] Pulmonary, Allergy and Critical Care Medicine [address] [place] [address] Lucas Galvan MD [address] [address] [email or web address] documented as of this encounter Visit Diagnoses Not on filedocumented in this encounter Care Teams Sueding And Buffing Machine Operator Relationship Specialty Start Date End Date Jackelyn Daniels MD [address] [place] [phone] [email or web address] PCP - General Family Medicine 05/04/24 Huy Zhu MD Historical LMR Provider 01/31/17 Nuvia Woodward NP [address] [place] [address] [email or web address] Historical LMR Provider 01/31/17 documented as of this encounter Additional Source Comments The information contained in this document represents components of the legal health record. It is not the complete legal health record.[facility]
--- OUTSIDE RECORDS SUMMARY | 2025-02-14 17:03 | XMS_ITS | Clinical Summary ---
Author Organization [facility] Address [address] [address] Phone Care Team Providers Care Bobcat Driver/Labor Name Role Phone Huy Zhu MD Unavailable [phone] Nuvia Woodward NP Unavailable [phone] Jackelyn Daniels MD Primary Care Provider [...] Take 10 mg by mouth daily. Active cholecalciferol (VITAMIN D3) 5,000 unit tablet Take 1,000 Units by mouth daily. Active celecoxib (CELEBREX) 100 MG capsule Take 1 capsule by mouth 2 (two) times a day as needed. 12/27/19 24 Active denosumab (PROLIA) 60 mg/mL Syrg subcutaneous syringe Inject 60 mg under the skin every 6 (six) months. Active atogepant (QULIPTA) 30 mg tablet Take 30 mg by mouth daily. Active diclofenac sodium (VOLTAREN) 1 % Gel Apply 1 Application topically as needed for other (free text field). Active etanercept (ENBREL) 50 mg/mL (1 mL) PnIj 50 mg once. Pt stated they take 50 mg injection once a week 09/14/24 Active traMADoL (ULTRAM) 50 mg tablet Take 50 mg by mouth every 6 (six) hours as needed for pain (specific location in comments). Active HYDROcodone-katherin tropine (TUSSIGON) 5-1.5 mg TabIndications:P ersistent cough Take 0.5-1 tablets by mouth every 6 (six) hours as needed (cough). Partial fill ok 60 tablet 09/15/19 Active bisacodyl (DULCOLAX) 5 mg EC tablet take 2 tablets (10 mg) by mouth at bedtime 12/27/19 Active lidocaine 5 % ointment APPLY OINTMENT EXTERNALLY TO AFFECTED AREA 4 TIMES DAILY FOR 30 DAYS 01/20/20 Active magnesium oxide (MAG-OX) 400 mg (241.3 mg elemental) tablet Take 1 tablet by mouth nightly at bedtime. at bedtime. 11/22/19 Active triamcinolone acetonide 0.1 % cream APPLY CREAM EXTERNALLY TO ITCHY AREAS TWICE DAILY NEEDED 01/20/20 Active therapeutic multivitamin tablet Take 1 tablet by mouth daily. Discontin ued(No longer taking) fluticasone furoate (FLONASE SENSIMIST) 27.5 mcg/actuation nasal spray 2 sprays by Nasal route daily as needed for rhinitis. Discontin ued(Error ) predniSONE (DELTASONE) 10 MG tablet Take 10 mg by mouth daily with breakfast. Tapering dose Discontin ued(No longer taking) Active Problems Problem Noted Date Diagnosed Date Gastroesophageal reflux disease 04/26/2024 Assessment & Plan (02/13/2025 7:16 PM EST): And passive therapy recommendations in the gastroenterology service. Interestingly, her cough is always improved tolerance. Assessment & Plan (04/26/2024 12:14 PM EST): Longstanding severe GERD, likely major cough contributor. Currently on low potency PPI therapy but scheduled for Perry capsule study in 1 to 2 weeks. Await further results of her testing, and if abnormal, could actually consider addition of baclofen to her acid suppressant therapy. Chronic cough 09/28/2022 Assessment & Plan (02/13/2025 7:15 PM EST): Chronic cough much improved. Unclear if due [...] she will keep depending on the findings. Assessment & Plan (09/14/2024 3:07 PM EDT): [...] lung 09/28/2022 Overview (09/28/2022): Chest CT 08/27/2022 [facility]: No ILD, tree-in-bud nodularity, scattered [...] (06/01/2017): seasonal;PHS Allergy Remediation Assessment & Plan (02/13/2025 7:15 PM EST): Continue antihistamines. Can always resume nasal steroids if tolerated with findings of sinusitis as above. Assessment & Plan (04/26/2024 12:11 PM EST): Clear active rhinitis on exam, potentially contributing to chronic cough. Recommend trial of Azelastine nasal spray. Continue sinus rinse, antihistamines and SCIT per KINA. Encounters Date Type Department Care Team Description 02/13/2025 9:30 AM EST Office Visit [facility] Pul[facility], Allergy and Critical Care Medicine [address] [place] [address] Lucas Galvan MD Chronic cough (Primary Dx); Seasonal allergies; Gastroesophageal reflux disease, unspecified whether esophagitis present 11/22/2024 Procedure Pass [facility] Endoscopy Admitting Dept Virtual Department [address] [place] [address] 11/22/2024 Hospital Encounter [facility] Endoscopy Admitting Dept Virtual Department [address] [place] [address] Lucas Ibarra MD from Last 3 Months Immunizations Immunization Administration Dates Next Due COVID-19 (Pre-02/01) Pfizer Vaccine, mRNA, PF 12/29/2021 [id number] 02/05/2012 Influenza High-Dose Quadriva lent Preservative Free IM 02/08/2023,02/16/2022,02/11/2021,01/04 Influenza High-Dose Trivalen t Preservative Free IM 01/10/2025,12/29/2023 Influenza Quadrivalent MDCK Preservative Free IM 01/19/2018 Influenza Quadrivalent w/ Pr eservative IM 01/27/2017 Influenza trivalent preserva tive free intradermal 01/26/2014 Influenza, Unspecified Formulation 01/26,02/04/2016,01/22/2010,03/31,03/12/2005 Pneumococcal conjugate PCV13 03/16/2019 Pneumococcal polysaccharide PPSV23 07/25/2020 Tdap 09/09/2018,08/22/2018,12/10/2009 Zoster live 02/06/2015 Zoster recombinant 05/31/2024,11/11/2023 Family History Medical History Relation Comments COPD Brother CV disease Father Coronary artery disease Father Arthritis Mother Dementia Mother Emphysema Mother Hypertension Mother Arthritis Unspecified Cardiovascular disease Unspecified Dementia Unspecified Emphysema Unspecified Glaucoma Unspecified Hypertension Unspecified Osteopenia Unspecified Relation Status Comments Brother Alive Father Mother Unspecified Alive Social History Tobacco Use Types Packs/Day Years Used Date Smoking Tobacco: Former Cigarettes 1.5 20 1 9 - 1998 Smokeless Tobacco: Never Tobacco Cessation:Counseling [...] F) 02/13/2025 9:19 AM EST Respiratory Rate 17 05/08/2024 10:3 0 AM EST Oxygen Saturation 95% 02/13/2025 9:19 AM EST Inhaled Oxygen Concentration - - Weight 61.1 kg (134 lb 12.8 oz) 02/13/2025 9:19 AM EST Height 157.5 cm (5' 2 ) 02/13/2025 9:19 AM EST Body Mass Index 24.66 02/13/2025 9:19 AM EST Plan of Treatment Upcoming Encounters Date Type Department Care Team (Late st Contact Info) Description 02/19/2025 11:20 AM EST Office Visit [facility] [address] [place] [address] [place] [address] Gary Edwards MD [address] [place] [address], [address] [place] [address] 08/09/2025 9:30 AM EDT Office Visit [facility] Pulmonary, Allergy and Critical Care Medicine [address] [place] [address] [place] [address] Lucas Galvan MD [address] [place] [address] 2[address] [place] [address] Health Maintenance Due Date Last Done Comments DEPRESSION SCREENING 1965 COLOGUARD 1998 COLONOSCOPY 1998 COLORECTAL CANCER SCREENING 1998 FIT TEST 1998 FOBT 1998 SIGMOIDOSCOPY 1998 VIRTUAL COLONOSCOPY 1998 RSV VACCINE (1 - Risk 50-74 years 1-dose series) 06/15/2003 OSTEOPOROSIS SCREENING INITIAL (ONE-TIME) 2018 MAMMOGRAM 03/06/2022 03/06/2020, 12/10/2014 COVID-19 VACCINE ( season) 2024 01/10/2024, 04/09/2023, 12/29/2021, Additional history exists BLOOD PRESSURE 08/13/2025 02/13/2025 PAP SMEAR 03/25/2027 03/25/2022, 04/12, 04/15/2016 LIPID PANEL 09/06/2027 09/05/2022, 04/24/2020 Adult Td,Tdap Booster 09/09/2028 09/09/2018 , 08/22/2018, 12/10/2009 PNEUMOCOCCAL VACCINES (50+ years) Completed 07/25/2020, 03/16/2019 HEPATITIS C SCREENING Completed 06/19/2023, 024 ZOSTER VACCINES Completed 05/31/2024, 04/2023, 02/06/2015 INFLUENZA VACCINE Completed 01/10/2025, , 02/08/2023, Additional history exists SMOKING STATUS SCREENING (Once After 26 Yrs) Completed 02/13/2025 HEPATITIS A VACCINES Aged Out No long [...] AM EST) HCV NON-REACTIV E NON-REACTI VE [facility] Blood 06/19/2023 8:43 AM EST 06/19/2023 10:03 AM EST us Lucas Ibarra MD LAB BLOOD BKR ORDERABLES F inal Result Performing Organization Address [facility] Co de Phone Number [address] [address] * (ABNORMAL) Lipid panel (09/05/2022 8:12 AM EDT) HDL 88 mg/dL [facility] Comment: Interpretation <40 mg/dL: Low HDL cholesterol (major risk factor for CHD) Greater than or equal to 60 mg/dL: High HDL cholesterol ( negative risk factor for CHD) HDL - cholesterol is affected by a number of factors, e.g. smoking, excerise, hormones, sex and age. CHOLESTEROL 249(H) 0 - 240 mg/dL [facility] TRIGLYCERIDES 102 30 - 160 mg/dL [facility] LDL 141(H) 50 - 129 mg/dL [facility] Comment: LDL levels in terms of risk for coronary heart disease: <100 mg/dL: Optimal 100-129 mg/dL: Near or above optimal 130-159 mg/dL: Borderline high 160-189 mg/dL: High >190 mg/dL: Very High CARDIAC RISK RATIO 2.8(L) 3.3 - 4.4 [facility] Blood 09/05/2022 8:12 AM EDT 09/05/2022 8:15 AM EDT us Shyann LAN LAB BLOOD BKR ORDERABLES Fin al Result Performing Organization Address City/[facility]/ZIP Co de Phone Number [address] [address] * Pap Smear (03/25/2022 12:00 AM EST) 03/25/2022 03/26/2022 10: 17 AM EST Narrative SEE NARRATIVE - 04/02/2022 3:21 PM EST [address] [address] Telephonic Case Manager: Kay De La Cruz MD APPRAISER TIMBER Cytology Report FINAL DIAGNOSIS A. PAP SMEAR [...] : 1955 (Age: 66) Sex: F Institution: [facility] Location: [facility] Date of Collection: 03/25/2022 Date of Reported: 04/02/2022 15:21 Results to: Jamie Han MD us Jamie Han MD CYTOLOGY ORDERABLES Final Result Performing Organization Address City/[facility] Co de Phone Number SEE NARRATIVE * HM MAMMOGRAPHY FOR RESULT ENTRY ONLY (03/06/2020) us Shyann LAN HEALTH MAINTENANCE Final Res ult from Last 3 Months or Most Recently Relevant to Health Maintenance Insurance MEDICARE PART A & B [employer] MEDEX SUPPLEMENT MEDICARE PART A & B [employer] MEDEX SUPPLEMENT MEDICARE PART A & B [employer] MEDEX SUPPLEMENT MEDICARE PART A & B [employer] MEDEX SUPPLEMENT MEDICARE PART A & B [employer] MEDEX SUPPLEMENT MEDICARE PART A & B [employer] MEDEX SUPPLEMENT MEDICARE PART A & B [employer] MEDEX SUPPLEMENT MEDICARE PART A & B [employer] MEDEX SUPPLEMENT MEDICARE PART A & B [employer] MEDEX SUPPLEMENT Care Teams Bobcat Driver/Labor Relationship Specialty Start Date End Date Jackelyn Daniels MD [address] [place] [address] [email or web address] PCP - General Family Medicine 05/04/24 Huy Zhu MD Historical LMR Provider 01/31/17 Nuvia Wodoward NP [address] [place] [address] Historical LMR Provider 01/31/17 Additional Source Comments The information contained in this document represents components of the legal health record. It is not the complete legal health record.[facility]
--- OUTSIDE RECORDS SUMMARY | 2025-02-14 17:03 | XMS_ITS | Encounter Summary ---
Author Organization [facility] Address [address] [place] [address] Phone Care Team Providers Care Heel Cementer Machine Name Role Phone Huy Zhu MD Unavailable [phone] Nuvia Woodward DREDGE OPERATOR SUPERVISOR Unavailable [phone] Zohra Zaman DREDGE OPERATOR SUPERVISOR Unavailable [phone] Asia Marquez RDCS Unavailable [email or web address] Huy Zhu MD Primary Care Provider Shyann Sandoval Primary Care Provider Jackelyn Daniels MD Primary Care Provider + Jackelyn Daniels MD Primary Care Provider + Encounter Details Date Type Department Care Team (Latest Contact Info) Description 04/27/2019 Transcribe Orders Virtual Department [address] [place] [address] Shyann Sandoval PA [address] [place] [address] [email or web address] Family history of cardiovascular disease (Primary Dx) [...] Visit [facility] [address] [place] [address] Gary Edwards MD 22 [facility], [address] [place] [address] [email or web address] 08/09/2025 9:30 AM EDT Office Visit [facility] Pulmonary, Allergy and Critical Care Medicine 10 [facility] [place] [address] Lucas Galvan MD [address] [address] [email or web address] documented as of this encounter Visit Diagnoses Diagnosis Family history of cardiovascular disease- Primary Family history of other cardiovascular diseases documented in this encounter Care Teams Heel Cementer Machine Relationship Specialty Start Date End Date Huy Zhu MD PCP - General Family Medicine 04/26/19 06/12/20 Shyann Sandoval PA [address] [place] [address] [email or web address] PCP - General Unknown Provider Specialty 06/13/20 12/29/23 Jackelyn Daniels MD [address] [place] [address] [email or web address] PCP - General Family Medicine 12/30/23 05/03/24 Jackelyn Daniels MD [address] [place] [address] [email or web address] PCP - General Family Medicine 05/04/24 Huy Zhu MD Historical LMR Provider 01/31/17 Nuvia Woodward NP [address] [place] [address] Historical LMR Provider 01/31/17 Zohra Zaman NP [address] [place] [address] Historical LMR Provider 01/31/17 2 Asia Marquez, DANIEL Historical LMR Provider 01/31/17 04/19/21 documented as of this encounter Additional Source Comments The information contained in this document represents components of the legal health record. It is not the complete legal health record.[facility]
--- OUTSIDE RECORDS SUMMARY | 2025-02-14 17:03 | XMS_ITS | Encounter Summary ---
Author Organization [facility] Address [address] [place] [address] Phone Care Team Providers Care Stone Gluer Name Role Phone Huy Zhu MD Unavailable [phone] [address] ROADWAY TECHNICIAN Unavailable [phone] [address] Zaman ROADWAY TECHNICIAN Unavailable [phone] Asia Marquez RDCS Unavailable [email or web address] Huy Zhu MD Primary Care Provider [phone] Huy Zhu MD Primary Care Provider Shyann Sandoval Primary Care Provider [phone] Jackelyn Daniels MD Primary Care Provider + Jackelyn Daniels MD Primary Care Provider + Encounter Details Date Type Department Care Team (Latest Contact Info) Description 02/14/2019 Transcribe Orders [facility]leb Crissy [address] [address] Elizabeth Dougherty PA 10 [place] [address] Nausea (Primary Dx) Social History Tobacco Use [...] Description 02/19/2025 11:20 AM EST Office Visit [facility] OBGYN & Midwifery 22 [place] [address] Gary Edwards MD 22 [facility], [address] [address] [email or web address] 08/09/2025 9:30 AM EDT Office Visit [facility] Pul[facility], Allergy and Critical Care Medicine 10 [place] [address] Lucas Galvan MD [address] [place] [address] [address] [place] [address] [email or web address] documented as of this encounter Results * Creatinine/eGFR (02/14/2019 10:15 AM EST) CREATININE 0.70 0.5 - 1.5 mg/dL [facility] EGFR 91 >59 mL/min/1.7 3m2 [facility] Comment:If patient is black, multiply result by 1.159. Estimated glomerular filtration rate calculated using the CKD-EPI equation. Blood 02/14/2019 10:1 5 AM EST 02/14/2019 10:18 AM EST us Elizabeth LAN LAB BLOOD BKR ORDERABLES Fi nal Result [facility] 30 [place] [address] * BUN (02/14/2019 10:15 AM EST) BUN 11 6 - 19 mg/dL [facility] Blood 02/14/2019 10:1 5 AM EST 02/14/2019 10:18 AM EST us Elizabeth LAN LAB BLOOD BKR ORDERABLES Fi nal Result [address] [address] documented in this encounter Visit Diagnoses Diagnosis Nausea- Primary Nausea alone documented in this encounter Care Teams Stone Gluer Relationship Specialty Start Date End Date Huy Zhu MD [email or web address] PCP - General 04/15/17 04/25/19 Huy Zhu MD [email or web address] PCP - General Family Medicine 04/26/19 06/12/20 Shyann Sandoval PA [address] [place] [address] [email or web address] PCP - General Unknown Provider Specialty 06/13/20 12/29/23 Jackelyn Daniels MD 70 [place] [address] [email or web address] PCP - General Family Medicine 12/30/23 05/03/24 Jackelyn Daniels MD 70 [place] [address] [email or web address] PCP - General Family Medicine 05/04/24 Huy Zhu MD Historical LMR Provider 01/31/17 Nuvia Woodward, ROADWAY TECHNICIAN 30 [place] [address] Historical LMR Provider 01/31/17 Zohra Zaman NP [address] [place] [address] Historical LMR Provider 01/31/17 2 Asia Marquez, DANIEL [email or web address] Historical LMR Provider 01/31/17 04/19/21 documented as of this encounter Additional Source Comments The information contained in this document represents components of the legal health record. It is not the complete legal health record.[facility]
--- OUTSIDE RECORDS SUMMARY | 2025-02-14 17:03 | XMS_ITS | Encounter Summary ---
Author Organization [facility] Address [facility] [employer] [address] [address] Phone Care Team Providers Care Fire Support Specialist Name Role Phone Huy Zhu MD Unavailable [phone] Nuvia Woodward NP Unavailable [phone] Shyann Sandoval Primary Care Provider [phone] Jackelyn Daniels MD Primary Care Provider + Jackelyn Daniels MD Primary Care Provider + Encounter Details Date Type Department Care Team (Late st Contact Info) Description 07/03/2021 Procedure Pass [facility] Endoscopy Admitting Dept Virtual Department [address] [place] [address] Social History Tobacco Use Types Packs/Day Years [...] Encounters Date Type Department Care Team (Late Contact Info) Description 02/19/2025 11:20 AM EST Office Visit [facility] [address] [place] [address] Gary Edwards MD 22 [facility], [address] [place] [address] .[employer] 08/09/2025 9:30 AM EDT Office Visit [facility] Pulmonary, Allergy and Critical Care Medicine [address] [place] [address] [place] [address] Lucas Galvan MD [address] [place] [address] [place] [address] [email or web address] documented as of this encounter Visit Diagnoses Not on filedocumented in this encounter Care Teams Fire Support Specialist Relationship Specialty Start Date End Date Shyann Sandoval PA [address] [place] [address] [email or web address] PCP - General Unknown Provider Specialty 06/13/20 12/29/23 Jackelyn Daniels MD [address] [place] [address] [email or web address] PCP - General Family Medicine 12/30/23 05/03/24 Jackelyn Daniels MD [address] [place] [address] [email or web address] PCP - General Family Medicine 05/04/24 Huy Zhu MD Historical LMR Provider 01/31/17 Nuvia Woodward MAMMOGRAPHER [address] [place] [address] Historical LMR Provider 01/31/17 documented as of this encounter Additional Source Comments The information contained in this document represents components of the legal health record. It is not the complete legal health record.[facility]
--- OUTSIDE RECORDS SUMMARY | 2025-02-14 17:03 | XMS_ITS | Encounter Summary ---
Author Organization [facility] Address [address] [place] [address] Phone Care Team Providers Care Installer Helper Name Role Phone Huy Zhu MD Unavailable Nuvia Woodward REFRIGERATING OILER Unavailable [phone] Zohra Zaman REFRIGERATING OILER Unavailable [phone] Asia Marquez RDCS Unavailable [email or web address] Huy Zhu MD Primary Care Provider [phone] Shyann Sandoval Primary Care Provider [phone] Jackelyn Daniels MD Primary Care Provider + Jackelyn Daniels MD Primary Care Provider + Reason for Referral * Hospital - Outpatient - Closed Specialty Diagnoses / Procedures Referred By Contac t Referred To Contact Diagnoses Family history of cardiovascular disease Procedures Stress Test Exercise Stress Test Exercise Shyann Sandoval PA [address] [place] [address] Phone: tel: fax: [email or web address] Referral ID Status Reason Start Date Expiration Date Visits Re quested Visits Authorized [id number] Closed 04/26/2019 04/25/2020 1 1 Encounter Details Date Type Department Care Team (Latest Contact Info) Description 04/26/2019 Ancillary Orders [facility] Department [address] [place] [address] Shyann Sandoval PA [address] [place] [address] [email or web address] Family history of cardiovascular disease Social [...] Description 02/19/2025 11:20 AM EST Office Visit [facility] Midw[facility]ery [address] [place] [address] Gary Edwards MD [address] [place] [address], [address] [place] [address] [email or web address] 08/09/2025 9:30 AM EDT Office Visit [facility] Pulmonary, Allergy and Critical Care Medicine 10 [facility] [place] [address] Lucas Galvan MD [address] [address] [email or web address] documented as of this encounter Results * Stress Test Exercise (05/02/2019 11:24 AM EST) Max BP Systolic 150 mmHg [facility] Max BP Diastolic 80 mmHg [facility] Max HR 134 BPM [facility] Resting HR 70 BPM [facility] Resting BP Systolic 100 mmHg [facility] Resting BP Diastolic 70 mmHg [facility] Peak METS 13.8 METS [facility] Peak HR 133 BPM [facility] Anatomical Region Laterality Modality Heart Other 05/02/2019 [...] Conclusion - normal stress test. Estelle Persaud REFRIGERATING OILER with Dr Churchill . us Shyann LAN CV STRESS ORDERABLES Final R esult documented in this encounter Visit Diagnoses Diagnosis Family history of cardiovascular disease Family history of other cardiovascular diseases Family history of cardiovascular disease Family history of other cardiovascular diseases documented in this encounter Care Teams Installer Helper Relationship Specialty Start Date End Date uHy Zhu MD [email or web address] PCP - General Family Medicine 04/26/19 06/12/20 Shyann Sandoval PA [address] [place] [address] [email or web address] PCP - General Unknown Provider Specialty 06/13/20 12/29/23 Jackelyn Daniels MD [address] [place] [address] [email or web address] PCP - General Family Medicine 12/30/23 05/03/24 Jackelyn Daniels MD [address] [place] [address] [email or web address] PCP - General Family Medicine 05/04/24 Huy Zhu MD Historical LMR Provider 01/31/17 Nuvia Woodward NP [address] [place] [address] Historical LMR Provider 01/31/17 Zohra Zaman NP [address] [place] [address] Historical LMR Provider 01/31/17 2 Asia Marquez, RDCS Historical LMR Provider 01/31/17 04/19/21 documented as of this encounter Additional Source Comments The information contained in this document represents components of the legal health record. It is not the complete legal health record.[facility]
--- OUTSIDE RECORDS SUMMARY | 2025-02-14 17:03 | XMS_ITS | Encounter Summary ---
Author Organization [facility] Address [address] [employer] [facility] [address] [place] [address] Phone Care Team Providers Care Surgical Forceps Fabricator Name Role Phone Huy Zhu MD Unavailable [phone] Nuvia Woodward NP Unavailable [phone] Shyann Sandoval Primary Care Provider [phone] Jackelyn Daniels MD Primary Care Provider + Jackelyn Daniels MD Primary Care Provider + Encounter Details Date Type Department Care Team (Latest Contact Info) Description 06/29/2023 Transcribe Orders [address] [address] Naveen Billy MD [address] [place] [address] Bilateral shoulder pain, unspecified chronicity (Primary Dx) [...] Description 02/19/2025 11:20 AM EST Office Visit [facility] [address] [place] [address] Gary Edwards MD [address] [place] [address], [address] [address] 08/09/2025 9:30 AM EDT Office Visit [facility] [address] [place] [address] [place] [address] Lucas Galvan MD 10 [facility] 2nd [place] [address] documented as of this encounter Results * Lyme Screen with Reflex to Immunoblot, Blood (06/29/2023 10:41 AM EDT) Lyme AB IgG Negative Negative [facility] Lyme AB IgM Negative Negative [facility] Blood 06/29/2023 10:4 1 AM EDT 06/29/2023 10:46 AM EDT us Naveen Billy MD LAB BLOOD BKR ORDERABLES Edited Result - Final [address] [address] documented in this encounter Visit Diagnoses Diagnosis Bilateral shoulder pain, unspecified chronicity- Primary documented in this encounter Care Teams Surgical Forceps Fabricator Relationship Specialty Start Date End Date Shyann Sandoval PA [address] [place] [address] [email or web address] PCP - General Unknown Provider Specialty 06/13/20 12/29/23 Jackelyn Daniels MD [address] [place] [address] [email or web address] PCP - General Family Medicine 12/30/23 05/03/24 Jackelyn Daniels MD 70 [place] [address] [email or web address] PCP - General Family Medicine 05/04/24 Huy Zhu MD [email or web address] Historical LMR Provider 01/31/17 Nuvia Woodward NP 30 [place] [address] [email or web address] Historical LMR Provider 01/31/17 documented as of this encounter Additional Source Comments The information contained in this document represents components of the legal health record. It is not the complete legal health record.[facility]
--- OUTSIDE RECORDS SUMMARY | 2025-02-14 17:03 | XMS_ITS | Encounter Summary ---
Author Organization [facility] Address [facility] [employer] [address] [address] Phone Care Team Providers Care Network Technical Analyst Name Role Phone Huy Zhu MD Unavailable Nuvia Woodward GIRLS SWIMMING COACH Unavailable [phone] Zohra Zaman GIRLS SWIMMING COACH Unavailable [phone] Asia Marquez RDCS Unavailable [email or web address] Huy Zhu MD Primary Care Provider [phone] Huy Zhu MD Primary Care Provider Shyann Sandoval Primary Care Provider [phone] Jackelyn Daniels MD Primary Care Provider + Jackelyn Daniels MD Primary Care Provider + Encounter Details Date Type Department Care Team (Latest Contact Info) Description 02/15/2019 Transcribe Orders Virtual Department 30 [place] [address] Elizabeth Dougherty PA 10 [place] [address] Nausea (Primary Dx); Weight loss Social History [...] Upcoming Encounters Date Type Department Care Team ([facility] st Contact Info) Description 02/19/2025 11:20 AM EST Office Visit [facility] 22 [place] [address] Gary Edwards MD 22 [facility], [address] [address] 08/09/2025 9:30 AM EDT Office Visit [facility] 10 [place] [address] Lucas Galvan MD [address] [address] documented as of this encounter Visit Diagnoses Diagnosis Nausea- Primary Nausea alone Weight loss Loss of weight documented in this encounter Care Teams Network Technical Analyst Relationship Specialty Start Date End Date Huy Zhu MD PCP - General 04/15/17 04/25/19 Huy Zhu MD PCP - General Family Medicine 04/26/19 06/12/20 Shyann Sandoval PA 70 [place] [address] [email or web address] PCP - General Unknown Provider Specialty 06/13/20 12/29/23 Jackelyn Daniels MD 70 [place] [address] [email or web address] PCP - General Family Medicine 12/30/23 05/03/24 Jackelyn Daniels MD 70 [place] [address] [email or web address] PCP - General Family Medicine 05/04/24 Huy Zhu MD [email or web address] Historical LMR Provider 01/31/17 Nuvia Woodward NP [address] [place] [address] Historical LMR Provider 01/31/17 Zohra Zaman NP [address] [place] [address] Historical LMR Provider 01/31/17 2 Asia Marquez RDCS Historical LMR Provider 01/31/17 04/19/21 documented as of this encounter Additional Source Comments The information contained in this document represents components of the legal health record. It is not the complete legal health record.[facility]
--- OUTSIDE RECORDS SUMMARY | 2025-02-14 17:03 | XMS_ITS | Encounter Summary ---
Author Organization [facility] Address [facility] [employer] [address] [address] Phone Care Team Providers Care Dairy Bacteriologist Name Role Phone Huy Zhu MD Unavailable Nuvia Woodward OLIVE PICKER Unavailable [phone] Zohra Zaman OLIVE PICKER Unavailable [phone] Asia Marquez RDCS Unavailable [email or web address] Huy Zhu MD Primary Care Provider Huy Zhu MD Primary Care Provider Shyann Sandoval Primary Care Provider [phone] Jackelyn Daniels MD Primary Care Provider + Jackelyn Daniels MD Primary Care Provider + Encounter Details Date Type Department Care Team (Late st Contact Info) Description 02/27/2019 Procedure Pass [facility] Endoscopy Admitting Dept Virtual Department 30 [place] [address] Social History Tobacco Use Types Packs/Day Years [...] Visit [facility] 22 [place] [address] Gary Edwards MD 22 [facility], [address] [place] [address] [email or web address] 08/09/2025 9:30 AM EDT Office Visit [facility] 10 [place], [place] [id number] Lucas Galvan MD [address] [address] [email or web address] documented as of this encounter Visit Diagnoses Not on filedocumented in this encounter Care Teams Dairy Bacteriologist Relationship Specialty Start Date End Date Huy Zhu MD [email or web address] PCP - General 04/15/17 04/25/19 Huy Zhu MD PCP - General Family Medicine 04/26/19 06/12/20 Shyann Sandoval PA [address] [place] [address] [email or web address] PCP - General Unknown Provider Specialty 06/13/20 12/29/23 Jackelyn Daniels MD 70 [place] [address] [email or web address] PCP - General Family Medicine 12/30/23 05/03/24 Jackelyn Daniels MD [address] [place] [address] [email or web address] PCP - General Family Medicine 05/04/24 Huy Zhu MD Historical LMR Provider 01/31/17 Nuvia Woodward NP [address] [place] [address] [email or web address] Historical LMR Provider 01/31/17 Zohra Zaman NP [address] [place] [address] Historical LMR Provider 01/31/17 2 Asia Marquez, RD Historical LMR Provider 01/31/17 04/19/21 documented as of this encounter Additional Source Comments The information contained in this document represents components of the legal health record. It is not the complete legal health record.[facility]
--- OUTSIDE RECORDS SUMMARY | 2025-02-14 17:03 | XMS_ITS | Encounter Summary ---
Author Organization [facility] Address [address] [employer] [facility] [address] [place] [address] Phone Care Team Providers Care Sports Anchor Name Role Phone Huy Zhu MD Unavailable [phone] Nuvia Woodward NP Unavailable [phone] Jackelyn Daniels MD Primary Care Provider + Jackelyn Daniels MD Primary Care Provider + Encounter Details Date Type Department Care Team (Late st Contact Info) Description 04/26/2024 Procedure Pass [facility], Ct Scan - [address] [address] Social History Tobacco Use Types Packs/Day Years [...] Visit [facility] 22 [place] [address] Gary Edwards MD [address] [address] 08/09/2025 9:30 AM EDT Office Visit [facility] 10 [place] [address] Lucas Galvan MD [address] [address] documented as of this encounter Visit Diagnoses Not on filedocumented in this encounter Care Teams Sports Anchor Relationship Specialty Start Date End Date Jackelyn Daniels MD 30 [place] [address] [email or web address] PCP - General Family Medicine 12/30/23 05/03/24 Jackelyn Daniels MD 70 [place] [address] [email or web address] PCP - General Family Medicine 05/04/24 Huy Zhu MD [email or web address] Historical LMR Provider 01/31/17 Nuvia Woodward NP [address] [place] [address] [email or web address] Historical LMR Provider 01/31/17 documented as of this encounter Additional Source Comments The information contained in this document represents components of the legal health record. It is not the complete legal health record.[facility]
--- OUTSIDE RECORDS SUMMARY | 2025-02-14 17:03 | XMS_ITS | Encounter Summary ---
Author Organization [facility] Address [facility] [address] [address] Phone Care Team Providers Care Cnc Maintenance Mechanic Name Role Phone Huy Zhu MD Unavailable Nuvia Woodward VAULT WORKER Unavailable [phone] Zohra Zaman VAULT WORKER Unavailable [phone] Asia Marquez RDCS Unavailable [email or web address] Shyann Sandoval Primary Care Provider Jackelyn Daniels MD Primary Care Provider + Jackelyn Daniels MD Primary Care Provider + Encounter Details Date Type Department Care Team (Late st Contact Info) Description 02/04/2021 Procedure Pass [facility], [address] [address] Social History Tobacco Use Types Packs/Day Years [...] Visit [facility] 22 [place] [address] Gary Edwards MD [address] [facility], [address] [address] [email or web address] 08/09/2025 9:30 AM EDT Office Visit [facility] 10 [place] [address] Lucas Galvan MD 10 [facility] 2nd [place] [address] [email or web address] documented as of this encounter Visit Diagnoses Not on filedocumented in this encounter Care Teams Cnc Maintenance Mechanic Relationship Specialty Start Date End Date Shyann Sandoval PA [address] [place] [address] [email or web address] PCP - General Unknown Provider Specialty 06/13/20 12/29/23 Jackelyn Daniels MD [address] [place] [address] [email or web address] PCP - General Family Medicine 12/30/23 05/03/24 Jackelyn Daniels MD [address] [place] [address] [email or web address] PCP - General Family Medicine 05/04/24 Huy Zhu MD [email or web address] Historical LMR Provider 01/31/17 Nuvia Woodward NP [address] [place] [address] [email or web address] Historical LMR Provider 01/31/17 Zohra Zaman NP [address] [place] [address] Historical LMR Provider 01/31/17 2 Asia Marquez RDCS [email or web address] Historical LMR Provider 01/31/17 04/19/21 documented as of this encounter Additional Source Comments The information contained in this document represents components of the legal health record. It is not the complete legal health record.[facility]
--- OUTSIDE RECORDS SUMMARY | 2025-02-14 17:03 | XMS_ITS | Encounter Summary ---
Author Organization [facility] Address [address] [employer] [address] [address] Phone Care Team Providers Care Craps Dealer Name Role Phone Huy Zhu MD Unavailable [phone] Nuvia Woodward NP Unavailable [phone] Shyann Sandoval Primary Care Provider [phone] Jackelyn Daniels MD Primary Care Provider + Jackelyn Daniels MD Primary Care Provider + Encounter Details Date Type Department Care Team (Late st Contact Info) Description 12/15/2022 Procedure Pass [facility] Endoscopy Admitting Dept Virtual Department [address] [place] [address] Social History Tobacco Use Types Packs/Day Years [...] Visit [facility] [address] [place] [address] Gary Edwards MD 22 [facility], [address] [place] [address] 08/09/2025 9:30 AM EDT Office Visit [facility] 10 [facility] [place] [address] Lucas Galvan MD [address] [address] [email or web address] documented as of this encounter Visit Diagnoses Not on filedocumented in this encounter Care Teams Craps Dealer Relationship Specialty Start Date End Date Shyann Sandoval PA 70 [place] [address] [email or web address] PCP - General Unknown Provider Specialty 06/13/20 12/29/23 Jackelyn Daniels MD 70 [place] [address] [email or web address] PCP - General Family Medicine 12/30/23 05/03/24 Jackelyn Daniels MD 70 [place] [address] [email or web address] PCP - General Family Medicine 05/04/24 Huy Zhu MD [email or web address] Historical LMR Provider 01/31/17 Nuvia Woodward NP [address] [place] [address] [email or web address] Historical LMR Provider 01/31/17 documented as of this encounter Additional Source Comments The information contained in this document represents components of the legal health record. It is not the complete legal health record.[facility]
--- OUTSIDE RECORDS SUMMARY | 2025-02-14 17:03 | XMS_ITS | Encounter Summary ---
Author Organization [facility] Address [facility] [address] [address] Phone Care Team Providers Care Statement Services Representative Name Role Phone Huy Zhu MD Unavailable [phone] Nuvia Woodward EMT B Unavailable [phone] Zohra Zaman EMT B Unavailable [phone] Asia Marquez RDCS Unavailable [email or web address] Shyann Sandoval Primary Care Provider Jackelyn Daniels MD Primary Care Provider + Jackelyn Daniels MD Primary Care Provider + Encounter Details Date Type Department Care Team (Late st Contact Info) Description 02/14/2021 Ancillary Orders [facility] 30 [place], [place] [phone] System, Provider Not In, [facility] [address] [address] Social History Tobacco Use Types Packs/Day Years [...] Visit [facility] [address] [place] [address] Gary Edwards MD 22 [facility], [address] [place] [address] [email or web address] 08/09/2025 9:30 AM EDT Office Visit [facility] 10 [facility] [place] [address] Lucas Galvan MD 10 [facility] 2nd [place] [address] [email or web address] documented as of this encounter Results * [...] on filedocumented in this encounter Care Teams Statement Services Representative Relationship Specialty Start Date End Date Shyann Sandoval PA 70 [place] [address] [email or web address] PCP - General Unknown Provider Specialty 06/13/20 12/29/23 Jackelyn Daniels MD 70 [place] [address] [email or web address] PCP - General Family Medicine 12/30/23 05/03/24 Jackelyn Daniels MD 70 [place] [address] [email or web address] PCP - General Family Medicine 05/04/24 Huy Zhu MD [email or web address] Historical LMR Provider 01/31/17 Nuvia Woodward NP [address] [place] [address] [email or web address] Historical LMR Provider 01/31/17 Zohra Zaman NP [address] [place] [address] Historical LMR Provider 01/31/17 2 Asia Marquez, RDCS [email or web address] Historical LMR Provider 01/31/17 04/19/21 documented as of this encounter Additional Source Comments The information contained in this document represents components of the legal health record. It is not the complete legal health record.[facility]
--- OUTSIDE RECORDS SUMMARY | 2025-02-14 17:03 | XMS_ITS | Encounter Summary ---
Author Organization [facility] Address [address] [place] [address] Phone Care Team Providers Care Bakery And Deli Sales Manager Name Role Phone Huy Zhu MD Unavailable Nuvia Woodward SENIOR IT AUDITOR Unavailable [phone] Zohra Zaman SENIOR IT AUDITOR Unavailable [phone] Asia Marquez RDCS Unavailable [email or web address] Huy Zhu MD Primary Care Provider Shyann Sandoval Primary Care Provider Jackelyn Daniels MD Primary Care Provider + Jackelyn Daniels MD Primary Care Provider + Encounter Details Date Type Department Care Team (Latest Contact Info) Description 04/26/2019 Transcribe Orders Virtual Department 30 [place] [address] Shyann Sandoval PA 70 [place] [address] [email or web address] No family history of cardiac [...] Visit [facility] 22 [place] [address] Gary Edwards MD 22 [facility], [address] [place] [address] [email or web address] 08/09/2025 9:30 AM EDT Office Visit [facility] 10 [facility][1] [place] [address] Lucas Galvan MD [address] [address] [email or web address] documented as of this encounter Visit Diagnoses Diagnosis No family history of cardiac disease- Primary documented in this encounter Care Teams Bakery And Deli Sales Manager Relationship Specialty Start Date End Date Huy Zhu MD [email or web address] PCP - General Family Medicine 04/26/19 06/12/20 Shyann Sandoval PA 70 [place] [address] [email or web address] PCP - General Unknown Provider Specialty 06/13/20 12/29/23 Jackelyn Daniels MD 70 [place] [address] [email or web address] PCP - General Family Medicine 12/30/23 05/03/24 Jackelyn Daniels MD [address] [place] [address] [email or web address] PCP - General Family Medicine 05/04/24 Huy Zhu MD Historical LMR Provider 01/31/17 uNvia Woodward NP [address] [place] [address] Historical LMR Provider 01/31/17 Zohra Zaman NP [address] [place] [address] Historical LMR Provider 01/31/17 2 Asia Marquez, DANIEL Historical LMR Provider 01/31/17 04/19/21 documented as of this encounter Additional Source Comments The information contained in this document represents components of the legal health record. It is not the complete legal health record.[facility]
--- OUTSIDE RECORDS SUMMARY | 2025-02-14 17:03 | XMS_ITS | Encounter Summary ---
Author Organization [facility] Address [address] [facility] [address] [place] [address] Phone Care Team Providers Care Sr. Payroll Processor Name Role Phone Huy Zhu MD Unavailable [phone] Nuvia Woodward NP Unavailable [phone] Shyann Sandoval Primary Care Provider [phone] Jackelyn Daniels MD Primary Care Provider + Jackelyn Daniels MD Primary Care Provider + Encounter Details Date Type Department Care Team (Latest Contact Info) Description 09/04/2022 Transcribe Orders [facility] Phleb Crissy [address] [id number] Shyann Sandoval PA 70 [place], [place] [id number] [email or web address] Hyperlipidemia, unspecified hyperlipidemia type (Primary Dx) Social [...] Description 02/19/2025 11:20 AM EST Office Visit [facility]ery 22 [place] [address] Gary Edwards MD 22 [facility], [address] [address] 08/09/2025 9:30 AM EDT Office Visit [facility] Pulmonary, Allergy and Critical Care Medicine [address] [place] [address] Lucas Galvan MD [address] [place] [address] [email or web address] documented as of this encounter Results * (ABNORMAL) Lipid panel (09/05/2022 8:12 AM EDT) HDL 88 mg/dL [facility] Comment: Interpretation <40 mg/dL: Low HDL cholesterol (major risk factor for CHD) Greater than or equal to 60 mg/dL: High HDL cholesterol ( negative risk factor for CHD) HDL - cholesterol is affected by a number of factors, e.g. smoking, excerise, hormones, sex and age. CHOLESTEROL 249(H) 0 - 240 mg/dL [facility] TRIGLYCERIDES 102 30 - 160 mg/dL [facility] LDL 141(H) 50 - 129 mg/dL [facility] Comment: LDL levels in terms of risk for coronary heart disease: <100 mg/dL: Optimal 100-129 mg/dL: Near or above optimal 130-159 mg/dL: Borderline high 160-189 mg/dL: High >190 mg/dL: Very High CARDIAC RISK RATIO 2.8(L) 3.3 - 4.4 C [facility] Blood 09/05/2022 8:12 AM EDT 09/05/2022 8:15 AM EDT Shyann LAN LAB BLOOD BKR ORDERABLES Fin al Result [address] [address] * (ABNORMAL) Comprehensive metabolic panel (09/04/2022 12:14 PM EDT) SODIUM 137 133 - 146 mmol/L [facility] POTASSIUM 3.9 3.3 - 5.1 mmol/L [facility] CHLORIDE 100 96 - 108 mmol/L [facility] CO2 27 21 - 35 mmol/L [facility] BUN 11 6 - 19 mg/dL [facility] CREATININE 0.60 0.5 - 1.5 mg/dL [facility] GLUCOSE 79 70 - 99 mg/dL [facility] ALBUMIN 4.4 3.9 - 4.8 g/dL [facility] TOTAL PROTEIN 7.8 6.5 - 8.0 g/dL [facility] CALCIUM 9.7 8.4 - 10.3 mg/dL [facility] ALKALINE PHOSPHATASE 122(H) 39 - 117 U/L [facility] TOTAL BILIRUBIN 0.3 0.0 - 1.2 mg/dL [facility] AST 70(H) 0 - 37 U/L [facility] ALT 65(H) 0 - 40 U/L [facility] GLOBULIN 3.4 1 - 4.8 g/dL [facility] EGFR 97 >59 mL/min/1.7 3m2 [facility] Comment:Estimated glomerular filtration rate calculated using the CKD-EPI refit equation. ANION GAP 14 10 - 20 mmol/L [facility] Blood 09/04/2022 12:1 4 PM EDT 09/04/2022 12:17 PM EDT Shyann LAN LAB BLOOD BKR ORDERABLES Fin al Result [address] [address] * (ABNORMAL) C-Reactive Protein (09/04/2022 12:14 PM EDT) Pathologist [facility] C REACTIVE PROTEIN 6.8(H) 0.0 - 4.0 mg/L [facility] Blood 09/04/2022 12:1 4 PM EDT 09/04/2022 12:17 PM EDT Shyann LAN LAB BLOOD BKR ORDERABLES Fin al Result Performing Organization Address [facility]/ZIP Co de Phone Number [address] [address] * CBC and differential (09/04/2022 12:14 PM EDT) Pathologist [facility] WBC 7.18 4.00 - 11.00 K/uL [facility] RBC 4.31 3.72 - 5.30 M/uL [facility] HGB 13.5 11.4 - 15.9 g/dL [facility] HCT 40.9 34.2 - 46.8 % [facility] PLT 340 140 - 430 K/uL [facility] MCV 94.9 78.0 - 97.0 [facility] MCH 31.3 25.0 - 33.0 pg [facility] MCHC 33.0 32.0 - 36.0 g/dL [facility] RDW 12.7 11.0 - 16.0 % [facility] MPV 10.9 8.4 - 12.8 [facility] DIFF METHOD Auto [facility] NEUTS 65.8 43.0 - 75.0 % [facility] LYMPHS 23.3 18.2 - 47.4 % [facility] MONOS 9.1 4.00 - 11.00 % [facility] EOS 0.8 0.0 - 8.0 % [facility] BASOS 0.7 0.0 - 2.0 % [facility] Granulocytes, immature (%) 0.3 0.0 - 0.9 % [facility] ABSOLUTE NEUTS 4.73 1.80 - 7.70 K/uL [facility] ABSOLUTE LYMPHS 1.67 1.00 - 3.10 K/uL [facility] ABSOLUTE MONOS 0.65 0.20 - 0.80 K/uL [facility] ABSOLUTE EOS 0.06 0.00 - 0.80 K/uL [facility] ABSOLUTE BASOS 0.05 0.00 - 0.09 K/uL [facility] Granulocytes, immature 0.02 0.00 - 0.05 K/uL [facility] Blood 09/04/2022 12:1 4 PM EDT 09/04/2022 12:17 PM EDT us Shyann LAN LAB BLOOD BKR ORDERABLES Fin al Result Performing Organization Address City/State/[facility] Co de Phone Number [facility] [address] [place] [address] documented in this encounter Visit Diagnoses Diagnosis Hyperlipidemia, unspecified hyperlipidemia type- Primary documented in this encounter Care Teams Sr. Payroll Processor Relationship Specialty Start Date End Date Shyann Sandoval PA [address] [place] [address] [email or web address] - General Unknown Provider Specialty 06/13/20 12/29/23 Jackelyn Daniels MD [address] [place] [address] [email or web address] - General [email or web address] Medicine 12/30/23 05/03/24 Jackelyn Daniels MD [address] [place] [address] [email or web address] - General [email or web address] 05/04/24 Huy Zhu MD [email or web address] Historical LMR Provider 01/31/17 Nuvia Woodward NP [address] [place] [address] [email or web address] Historical LMR Provider 01/31/17 documented as of this encounter Additional Source Comments The information contained in this document represents components of the legal health record. It is not the complete legal health record.[facility]
--- OUTSIDE RECORDS SUMMARY | 2025-02-14 17:03 | XMS_ITS | Encounter Summary ---
Author Organization [facility] Address [facility]ly [facility] [address] [address] Phone Care Team Providers Care Pneumatic Tester Name Role Phone Huy Zhu MD Unavailable [phone] Nuvia Woodward NP Unavailable [phone] Shyann Sandoval Primary Care Provider [phone] Jackelyn Daniels MD Primary Care Provider + Jackelyn Daniels MD Primary Care Provider + Encounter Details Date Type Department Care Team (Latest Contact Info) Description 07/15/2022 Transcribe Orders Virtual Department 30 [place] [address] Lucas Ibarra MD [address] [place] [address] [email or web address] Chronic cough (Primary Dx) Social History Tobacco [...] Visit [facility] [address] [place] [address] Gary Edwards MD 22 [facility], [address] [place] [address] [email or web address] 08/09/2025 9:30 AM EDT Office Visit [facility] Pulmonary, Allergy and Critical Care Medicine 10 [facility] [place] [address] Lucas Galavn MD [address] [place] [address] 2nd [place] [address] [email or web address] documented [...] No acute finding IMPRESSION: No acute findings. us Lucas Ibarra MD IMG XR CHEST Final Resu lt documented in this encounter Visit Diagnoses Diagnosis Chronic cough- Primary Cough Chronic cough Cough documented in this encounter Care Teams Pneumatic Tester Relationship Specialty Start Date End Date Shyann Sandoval PA [address] [place] [address] [email or web address] PCP - General Unknown Provider Specialty 06/13/20 12/29/23 Jackelyn Daniels MD [address] [place] [address] [email or web address] [email or web address] - General Family Medicine 12/30/23 05/03/24 Jackelyn Daniels MD [address] [place] [address] [email or web address] - General Family Medicine 05/04/24 Huy Zhu MD Historical LMR Provider 01/31/17 Nuvia Woodward NP [address] [place] [address] Historical LMR Provider 01/31/17 documented as of this encounter Additional Source Comments The information contained in this document represents components of the legal health record. It is not the complete legal health record.[facility]
--- OUTSIDE RECORDS SUMMARY | 2025-02-14 17:03 | XMS_ITS | Encounter Summary ---
Author Organization [facility] Address [address] [address] Phone Care Team Providers Care Application Release Manager Name Role Phone Huy Zhu MD Unavailable [phone] Nuvia Woodward NP Unavailable [phone] Shyann Sandoval Primary Care Provider [phone] Jackelyn Daniels MD Primary Care Provider + Jackelyn Daniels MD Primary Care Provider + Encounter Details Date Type Department Care Team (Late st Contact Info) Description 09/16/2022 Procedure Pass OR Admitting Dept - Virtual Department [address] [place] [address] Social History Tobacco Use Types Packs/Day Years [...] Visit [facility] 22 [place] [address] Gary Edwards MD 22 [facility], [address] [place] [address] 08/09/2025 9:30 AM EDT Office Visit [facility] Pulmonary, Allergy and Critical Care Medicine 10 [place] [address] Lucas Galvan MD [address] [address] [email or web address] documented as of this encounter Visit Diagnoses Not on filedocumented in this encounter Care Teams Application Release Manager Relationship Specialty Start Date End Date Shyann Sandoval PA [address] [place] [address] [email or web address] - General Unknown Provider Specialty 06/13/20 12/29/23 Jackelyn Daniels MD [address] [place] [address] [email or web address] - General Family Medicine 12/30/23 05/03/24 Jackelyn Daniels MD 70 [place] [address] [email or web address] - General Family Medicine 05/04/24 Huy Zhu MD [email or web address] Historical LMR Provider 01/31/17 Nuvia Woodward NP [address] [place] [address] [email or web address] Historical LMR Provider 01/31/17 documented as of this encounter Additional Source Comments The information contained in this document represents components of the legal health record. It is not the complete legal health record.[facility]
--- OUTSIDE RECORDS SUMMARY | 2025-02-14 17:03 | XMS_ITS | Encounter Summary ---
Author Organization [facility] Address [address] [facility] [address] [place] [address] Phone Care Team Providers Care Optometric Aide Name Role Phone Huy Zhu MD Unavailable [phone] Nuvia Woodward NP Unavailable [phone] Shyann Sandoval Primary Care Provider [phone] Jackelyn Daniels MD Primary Care Provider + Jackelyn Daniels MD Primary Care Provider + Encounter Details Date Type Department Care Team (Latest Contact Info) Description 09/28/2023 Transcribe Orders [facility] Phleb Crissy [address] 2nd Floor [place], [place] [phone] Lucas Ibarra MD [address] [address] [email or web address] Abnormal results of liver function studies (Primary [...] Description 02/19/2025 11:20 AM EST Office Visit [facility] O[facility]YN & Midw[facility]ery [address] [place] [address] Gary Edwards MD [address] [place] [address] 08/09/2025 9:30 AM EDT Office Visit [facility] Pulmonary, Allergy and Critical Care Medicine [address] [place] [address] Lucas Galvan MD [address] [address] documented as of this encounter Results * (ABNORMAL) Comprehensive metabolic panel (09/28/2023 10:44 AM EDT) SODIUM 134 133 - 146 mmol/L [facility] POTASSIUM 4.3 3.3 - 5.1 mmol/L [facility] CHLORIDE 96 96 - 108 mmol/L [facility] CO2 26 21 - 35 mmol/L [facility] BUN 20(H) 6 - 19 mg/dL [facility] CREATININE 0.70 0.5 - 1.5 mg/dL [facility] GLUCOSE 103(H) 70 - 99 mg/dL [facility] ALBUMIN 4.1 3.9 - 4.8 g/dL [facility] TOTAL PROTEIN 7.0 6.5 - 8.0 g/dL [facility] CALCIUM 9.4 8.4 - 10.3 mg/dL [facility] ALKALINE PHOSPHATASE 80 39 - 117 U/L [facility] TOTAL BILIRUBIN <0.2 0.0 - 1.2 mg/dL [facility] AST 23 0 - 37 U/L [facility] ALT 30 0 - 40 U/L [facility] GLOBULIN 2.9 1 - 4.8 g/dL [facility] EGFR 93 >59 mL/min/1.7 3m2 [facility] Comment:Estimated glomerular filtration rate calculated using the CKD-EPI refit equation. ANION GAP 16 10 - 20 mmol/L [facility] Blood 09/28/2023 10:4 4 AM EDT 09/28/2023 10:49 AM EDT Lucas Ibarra MD LAB BLOOD BKR ORDERABLES F inal Result Performing Organization Address City/State/[facility] Co de Phone Number [facility] [address] [place] [address] documented in this encounter Visit Diagnoses Diagnosis Abnormal results of liver function studies- Primary Nonspecific abnormal results of liver function study documented in this encounter Care Teams Optometric Aide Relationship Specialty Start Date End Date Shyann Sandoval PA [address] [place] [address] [email or web address] [email or web address] - General Unknown Provider Specialty 06/13/20 12/29/23 Jackelyn Daniels MD [address] [place] [address] [email or web address] [email or web address] - General Family Medicine 12/30/23 05/03/24 Jackelyn Daniels MD [address] [place] [address] [email or web address] - General Family Medicine 05/04/24 Huy Zhu MD [email or web address] Historical LMR Provider 01/31/17 Nuvia Woodward NP [address] [place] [address] [email or web address] Historical LMR Provider 01/31/17 documented as of this encounter Additional Source Comments The information contained in this document represents components of the legal health record. It is not the complete legal health record.[facility]
--- OUTSIDE RECORDS SUMMARY | 2025-02-14 17:03 | XMS_ITS | Encounter Summary ---
Author Organization [facility] Address [address] [place] [address] Phone Care Team Providers Care Driver Manager Name Role Phone Huy Zhu MD Unavailable [phone] Nuvia Woodward ASSISTED LIVING NURSING DIRECTOR Unavailable [phone] Zohra Zaman ASSISTED LIVING NURSING DIRECTOR Unavailable [phone] Asia Marquez RDCS Unavailable [email or web address] Shyann Sandoval Primary Care Provider [phone] Jackelyn Daniels MD Primary Care Provider + Jackelyn Daniels MD Primary Care Provider + Reason for Referral * MRI/CAT Scan - Closed Specialty Diagnoses / Procedures Referred By Contac t Referred To Contact Radiology Diagnoses Arthralgia, unspecified joint Procedures MRI Foot (Left) Gabriela Carney MD Phone: tel: fax: Referral ID Status Reason Start Date Expiration Date Visits Re quested Visits Authorized [id number] Closed 02/04/2021 02/04/2022 1 1 Encounter Details Date Type Department Care Team (Latest Contact Info) Description 02/04/2021 Transcribe Orders [facility] Department 30 [place] [address] Gabriela Carney MD [address] [place] [address] Arthralgia, unspecified joint (Primary Dx) Social History [...] Office Visit [facility] [address] [place] [address] Gary Edwards MD [address] [place] [address] 08/09/2025 9:30 AM EDT Office Visit [facility] Pulmonary, Allergy and Critical Care Medicine [address] [place] [address] Lucas Galvan MD [address] [address] documented as of this encounter Results * [...] COLBY SCREEN ON HEP 2 Negative Negative [facility] Blood 02/05/2021 3:49 PM EDT 02/05/2021 3:55 PM EDT Gabriela Carney MD LAB BLOOD BKR ORD ERABLES Final Result [facility] [address] [place] [address] documented in this encounter Visit Diagnoses Diagnosis Arthralgia, unspecified joint- Primary Arthralgia, unspecified joint documented in this encounter Care Teams Driver Manager Relationship Specialty Start Date End Date Shyann Sandoval PA 70 [place] [address] [email or web address] PCP - General Unknown Provider Specialty 06/13/20 12/29/23 Jackelyn Daniels MD 70 [place] [address] [email or web address] PCP - General Family Medicine 12/30/23 05/03/24 Jackelyn Daniels MD 70 [place] [address] [email or web address] PCP - General Family Medicine 05/04/24 Huy Zhu MD Historical LMR Provider 01/31/17 Nuvia Woodward NP [address] [place] [address] Historical LMR Provider 01/31/17 Zohra Zaman NP [address] [place] [address] Historical LMR Provider 01/31/17 2 Asia Marquez, DANIEL Historical LMR Provider 01/31/17 04/19/21 documented as of this encounter Additional Source Comments The information contained in this document represents components of the legal health record. It is not the complete legal health record.[facility]
--- OUTSIDE RECORDS SUMMARY | 2025-02-14 17:03 | XMS_ITS | Encounter Summary ---
Author Organization [facility] Address [address] [address] Phone Care Team Providers Care Walking Dragline Oiler Name Role Phone Huy Zhu MD Unavailable [phone] Nuvia Woodward NP Unavailable [phone] Shyann Sandoval Primary Care Provider [phone] Jackelyn Daniels MD Primary Care Provider + Jackelyn Daniels MD Primary Care Provider + Encounter Details Date Type Department Care Team (Late st Contact Info) Description 12/11/2022 Procedure Pass [facility] Endoscopy Admitting Dept Virtual Department [address] [place] [address] Social History Tobacco Use Types Packs/Day Years [...] Visit [facility] [address] [place] [address] Gary Edwards MD 22 [facility], [address] [place] [address] 08/09/2025 9:30 AM EDT Office Visit [facility] Pulmonary, Allergy and Critical Care Medicine 10 [facility] [place] [address] Lucas Galvan MD [address] [address] [email or web address] documented as of this encounter Visit Diagnoses Not on filedocumented in this encounter Care Teams Walking Dragline Oiler Relationship Specialty Start Date End Date Shyann Sandoval PA 70 [place] [address] [email or web address] PCP - General Unknown Provider Specialty 06/13/20 12/29/23 Jackelyn Daniels MD 70 [place] [address] [email or web address] PCP - General Family Medicine 12/30/23 05/03/24 Jackelyn Daniels MD 70 [place] [address] [email or web address] PCP - General Family Medicine 05/04/24 Huy Zhu MD [email or web address] Historical LMR Provider 01/31/17 Nuvia Woodward NP [address] [place] [address] [email or web address] Historical LMR Provider 01/31/17 documented as of this encounter Additional Source Comments The information contained in this document represents components of the legal health record. It is not the complete legal health record.[facility]
--- OUTSIDE RECORDS SUMMARY | 2025-02-14 17:04 | XMS_ITS | Encounter Summary ---
Author Organization [facility] Address [address] [place] [address] Phone Care Team Providers Care Flower Maker Name Role Phone Huy Zhu MD Unavailable [phone] Nuvia Woodward NP Unavailable [phone] Jackelyn Daniels MD Primary Care Provider + Encounter Details Date Type Department Care Team (Late st Contact Info) Description 11/22/2024 Procedure Pass [facility] Endoscopy Admitting Dept Virtual Department 30 [place] [address] Social History Tobacco Use Types Packs/Day Years [...] Office Visit [facility] [address] [place] [address] Gary Edwards MD [address] [address] [email or web address] 08/09/2025 9:30 AM EDT Office Visit [facility] Pulmonary, Allergy and Critical Care Medicine 10 [place] [address] Lucas Galvan MD [address] [address] [email or web address] documented as of this encounter Visit Diagnoses Not on filedocumented in this encounter Care Teams Flower Maker Relationship Specialty Start Date End Date Jackelyn Daniels MD [address] [place] [address] [email or web address] - General Family Medicine 05/04/24 Huy Zhu MD [email or web address] Historical LMR Provider 01/31/17 Nuvia Woodward NP [address] [place] [address] [email or web address] Historical LMR Provider 01/31/17 documented as of this encounter Additional Source Comments The information contained in this document represents components of the legal health record. It is not the complete legal health record.[facility]
--- OUTSIDE RECORDS SUMMARY | 2025-02-14 17:04 | XMS_ITS | Encounter Summary ---
Author Organization [facility] Address [address] [place] [address] Phone Care Team Providers Care Head Greenskeeper Name Role Phone Huy Zhu MD Unavailable [phone] Nuvia Woodward NP Unavailable [phone] Shyann Sandoval Primary Care Provider [phone] Jackelyn Daniels MD Primary Care Provider + Jackelyn Daniels MD Primary Care Provider + Encounter Details Date Type Department Care Team (Late st Contact Info) Description 03/18/2022 Transcribe Orders [facility] Specimen Processing 30 [place] [address] Shyann Sandoval PA 70 [place], [place] [id number] [email or web address] Social History Tobacco Use Types Packs/Day Years [...] Visit [facility] 22 [place] [address] Gary Edwards MD 22 [facility], [address] [address] [email or web address] 08/09/2025 9:30 AM EDT Office Visit [facility], All[facility] Critical Care Medicine 10 [place] [address] Lucas Galvan MD [address] [address] [email or web address] documented as of this encounter Visit Diagnoses Not on filedocumented in this encounter Care Teams Head Greenskeeper Relationship Specialty Start Date End Date Shyann Sandoval PA [address] [place] [address] [email or web address] PCP - General Unknown Provider Specialty 06/13/20 12/29/23 Jackelyn Daniels MD [address] [place] [address] [email or web address] PCP - General Family Medicine 12/30/23 05/03/24 Jackelyn Daniels MD [address] [place] [address] [email or web address] PCP - General Family Medicine 05/04/24 Huy Zhu MD [email or web address] Historical LMR Provider 01/31/17 Nuvia Woodward NP [address] [place] [address] [email or web address] Historical LMR Provider 01/31/17 documented as of this encounter Additional Source Comments The information contained in this document represents components of the legal health record. It is not the complete legal health record.[facility]
--- OUTSIDE RECORDS SUMMARY | 2025-02-14 17:04 | XMS_ITS | Encounter Summary ---
Author Organization [facility] Address [address] [place] [address] Phone Care Team Providers Care Calciner Operator Name Role Phone Huy Zhu MD Unavailable [phone] Nuvia Woodward NP Unavailable [phone] Jackelyn Daniels MD Primary Care Provider + Encounter Details Date Type Department Care Team (Late st Contact Info) Description 05/12/2024 Procedure Pass [facility] Endoscopy Admitting Dept Virtual Department 30 [place] [address] Social History Tobacco Use Types Packs/Day Years [...] Visit [facility] [address] [place] [address] Gary Edwards MD [address] [address] [email or web address] 08/09/2025 9:30 AM EDT Office Visit [facility] Critical [facility] 10 [place] [address] Lucas Galvan MD [address] [address] [email or web address] documented as of this encounter Visit Diagnoses Not on filedocumented in this encounter Care Teams Calciner Operator Relationship Specialty Start Date End Date Jackelyn Daniels MD [address] [place] [address] [email or web address] PCP - General Family Medicine 05/04/24 Huy Zhu MD [email or web address] Historical LMR Provider 01/31/17 Nuvia Woodward NP [address] [place] [address] [email or web address] Historical LMR Provider 01/31/17 documented as of this encounter Additional Source Comments The information contained in this document represents components of the legal health record. It is not the complete legal health record.[facility]
--- OUTSIDE RECORDS SUMMARY | 2025-02-14 17:04 | XMS_ITS | Encounter Summary ---
Author Organization [facility] Address [address] [place] [address] Phone Care Team Providers Care Industrial Education Instructor Name Role Phone Huy Zhu MD Unavailable [phone] Nuvia Woodward NP Unavailable [phone] Jackelyn Daniels MD Primary Care Provider + Encounter Details Date Type Department Care Team (Late st Contact Info) Description 05/08/2024 Procedure Pass [facility] Endoscopy Admitting Dept Virtual Department 30 [place] [address] Social History Tobacco Use Types Packs/Day Years [...] Office Visit [facility] [address] [place] [address] Gary Edwards MD [address] [address] [email or web address] 08/09/2025 9:30 AM EDT Office Visit [facility] Critical [facility] 10 [place] [address] Lucas Galvan MD [address] [address] [email or web address] documented as of this encounter Visit Diagnoses Not on filedocumented in this encounter Care Teams Industrial Education Instructor Relationship Specialty Start Date End Date Jackelyn Daniels MD [address] [place] [address] [email or web address] PCP - General Family Medicine 05/04/24 Huy Zhu MD [email or web address] Historical LMR Provider 01/31/17 Nuvia Woodward NP [address] [place] [address] [email or web address] Historical LMR Provider 01/31/17 documented as of this encounter Additional Source Comments The information contained in this document represents components of the legal health record. It is not the complete legal health record.[facility]
--- OUTSIDE RECORDS SUMMARY | 2025-02-14 17:04 | XMS_ITS | Encounter Summary ---
Author Organization [facility] Address [address] [facility] [address] [place] [address] Phone Care Team Providers Care Director Pediatric Name Role Phone Huy Zhu MD Unavailable [phone] Nuvia Woodward NP Unavailable [phone] Shyann Sandoval Primary Care Provider [phone] Jackelyn Daniels MD Primary Care Provider + Jackelyn Daniels MD Primary Care Provider + Encounter Details Date Type Department Care Team (Late st Contact Info) Description 01/13/2023 Procedure Pass [facility], Ct Scan - [address] [address] Social History Tobacco Use Types Packs/Day Years [...] 4:37 PM EDT Yesenia Grigsby RN * [place] Suicide Severity Rating Scale (Screener/Recent Self-Report) Question Answer Date of Assessment Author 1. Wish to be (Past 1 Month) No 023 4:37 PM EDT Yesenia Grigsby, KATHRYN 2. Non-Specific Active Suici bonny Thoughts (Past 1 Month) No 01/13/2023 4:37 PM EDT Yesenia Grigsby RN 6. Suicidal Behavior (Lifetime) No 3 4:37 PM EDT Yesenia Grigsby RN documented as of this encounter Plan of Treatment Upcoming Encounters Date Type Department Care Team (Late st Contact Info) Description 02/19/2025 11:20 AM EST Office Visit [facility] [address] [place] [address] [place] [address] Gary Edwards MD 22 [facility], [address] [place] [address] 08/09/2025 9:30 AM EDT Office Visit [facility] [address] [place] [address] Lucas Galvan MD [address] [place] [address] [email or web address] documented as of this encounter Visit Diagnoses Not on filedocumented in this encounter Care Teams Director Pediatric Relationship Specialty Start Date End Date Shyann Sandoval PA [address] [place] [address] [email or web address] PCP - General Unknown Provider Specialty 06/13/20 12/29/23 Jackelyn Daniels MD [address] [place] [address] [email or web address] PCP - General Family Medicine 12/30/23 05/03/24 Jackelyn Daniels MD [address] [place] [address] [email or web address] PCP - General Family Medicine 05/04/24 Hyu Zhu MD Historical LMR Provider 01/31/17 Nuvia Woodward NP [address] [place] [address] [email or web address] Historical LMR Provider 01/31/17 documented as of this encounter Additional Source Comments The information contained in this document represents components of the legal health record. It is not the complete legal health record.[facility]
--- OUTSIDE RECORDS SUMMARY | 2025-02-14 17:04 | XMS_ITS | Encounter Summary ---
Author Organization [facility] Address [address] [facility] [address] [place] [address] Phone Care Team Providers Care Extension Educator Name Role Phone Huy Zhu MD Unavailable [phone] Nuvia Woodward NP Unavailable [phone] Jackelyn Daniels MD Primary Care Provider + Reason for Visit * Auth/Cert (Routine) Specialty Diagnoses / Procedures Referred By Contac t Referred To Contact Diagnoses colon Procedures NV COLONOSCOPY FLX DX W/COLLJ SPEC WHEN PFRMD NV COLONOSCOPY W/BIOPSY SINGLE/MULTIPLE NV COLSC FLX W/RMVL OF TUMOR POLYP LESION SNARE TQ COLONOSCOPY Referral ID Status Reason Start Date Expiration Date Visits Re quested Visits Authorized [id number] 1 1 Encounter Details Date Type Department Care Team (Late st Contact Info) Description 11/22/2024 Hospital Encounter [facility] Endoscopy Admitting Dept Virtual Department 30 [place] [address] Lucas Ibarra MD [address] [place] [address] [email or web address] Social History Tobacco Use Types Packs/Day Years [...] Office Visit [facility] [address] [place] [address] Gary Edwards MD [address] [address] 08/09/2025 9:30 AM EDT Office Visit [facility] Allergy [facility] Critical [facility] Medicine 10 [facility] [place] [address] Lucas Galvan MD 10 [facility] [address]nd [place] [address] documented as of this encounter Visit Diagnoses Not on filedocumented in this encounter Care Teams Extension Educator Relationship Specialty Start Date End Date Jackelyn Daniels MD [address] [place] [address] [email or web address] PCP - General Family Medicine 05/04/24 Huy Zhu MD [email or web address] Historical LMR Provider 01/31/17 Nuvia Woodward NP [address] [place] [address] [email or web address] Historical LMR Provider 01/31/17 documented as of this encounter Additional Source Comments The information contained in this document represents components of the legal health record. It is not the complete legal health record.[facility]
== END 2025-02-14 13:51 | disposition home or self-care (01) ==
LOC: HO.MRI 13:50
PROVIDERS: PCP Family Medicine; Visit Provider Physician Assistant Medical
DX: R11.10 Vomiting, unspecified (principal); Z86.69 Personal history of other diseases of the nervous system and sense organs
CPT/HCPCS: 70553; A9585

== ENCOUNTER 2025-02-16 09:27 | Outpatient (AMB) | payer MEDICARE, SELFPAY ==
--- OUTSIDE RECORDS SUMMARY | 2025-02-13 09:30 | XMS_ITS | Encounter Summary ---
Author Organization [facility] Address [address] [address] Phone Care Team Providers Care Claim Clerk Name Role Phone Huy Zhu MD Unavailable [phone] Nuvia Woodward NP Unavailable [phone] Jackelyn Daniels MD Primary Care Provider + Reason for Visit * Reason Comments Follow-up Cough Encounter Details Date Type Department Care Team ([facility] st Contact Info) Description 02/13/2025 9:30 AM EST Office Visit [facility] Pulmonary, Allergy and Critical Care Medicine [address] [place] [phone] Lucas Galvan MD [address] [place] [address] [email or web address] Chronic cough (Primary Dx); Seasonal allergies; Gastroesophageal reflux disease, unspecified whether esophagitis present Social History Tobacco Use Types Packs/Day Years [...] AM EDT documented as of this encounter Last Filed Vital Signs Vital Sign Reading Time Taken Comments Blood Pressure 122/80 02/13/2025 9:19 AM EST Pulse 74 02/13/2025 9:19 AM EST Temperature 36.4 C (97.5 F) 02/13/2025 9:19 AM EST Respiratory Rate - - Oxygen Saturation 95% 02/13/2025 9:19 AM EST Inhaled Oxygen Concentration - - Weight 61.1 kg (134 lb 12.8 oz) 02/13/2025 9:19 AM EST Height 157.5 cm (5' 2 ) 02/13/2025 9:19 AM EST Body Mass Index 24.66 02/13/2025 9:19 AM EST documented in this encounter Progress Notes * Lucas Galvan MD - 02/13/2025 9:30 AM EST Patient: Chanel Ruelas : 1955 Date: 02/13/2025 Time: 7:16 PM HPI: Chanel Ruelas is a 69 y.o.female with a history of rheumatoid arthritis esophageal dysmotility referred by Dr. Lucas Ibarra of [facility] here for pulmonary consultation for chronic cough. INTERVAL HISTORY: Chanel returns for follow-up, last seen 5 months ago. At that time, had tried Azelastine which caused her to sneeze. Used Zyrtec daily. Off acid suppressant therapy with no worsening of cough. Sodium alginate not helpful. Cough however had improved particularly while taking Tums or warm lemon water with honey. Hycodan resolved cough while taking. Cough at that time had significantly improved. Suggested trial of apple cider vinegar or even consider baclofen. Referred to ENT for second opinion. Today, Chanel reports she is now being followed by GI at [facility]. Cough - continues to be mainly absent. No worsening this fall. Still scheduled for ENT consultation in May. Stopped SCIT due to severe worsening of cough and increased nasal congestion for 3 weeks. Never returned. Change from Zyrtec to Claritin (10-20/day). No benefit. Also reports chronic headaches. Has been attributed to chronic migraines over the years. However, yesterday started use of Navage device for presumed chronic sinus headaches. Minimal drainage. Will try to continue nightly. Seen by Neurology - ordered brain MRI and HST at [place]. COUGH HISTORY REVIEW: Waxing and waning severe cough for 2 months without abatement including nocturnal awakenings. Oftenrelated to eating; becomes spasmodic or choking cough. Intermittently responsive to acid suppressant therapy. Off her PPI for planned PERRY test. Reportedtaking 10-15 Tums per day plus Mylanta. Had received prednisone for drug reaction for her rheumatoid arthritis with no notable improvement in cough. Breo worsened cough and no change with antihistamines or sinus rinse. Starting SCIT at [facility]. LABS with normal CBC, no eosinophilia, rheumatoid factor of 95, normal ESR and CRP, normal chemistry panel, normal IgE of 121. CHEST CT 05/04/2024 with scattered bilateral lung nodules likely inflammatory / infectious. 2 nodular opacities approximately 14 mm seen recommending short-term follow-up in 3 months PFT 05/22/2024 with normal spirometry. Started Azelastine with Zyrtec for allergies. Resumed PPI therapy and recommended trial of sodium alginate. If no improvement, to consider low-dose baclofen. INITIAL ENCOUNTER 09/28/2022: Followed by Dr. Ibarra for presumed GERD related cough for the past year. Has been treated with different acid suppressant regimens including once or twice daily omeprazole and pantoprazole. Her cough initially responded to antacid treatment but recurred with tapering. EGD 07/03/2021 unremarkable. Today, reports was to start esomeprazole following her last visit 2 months ago but never began. Instead, decided to elimination diet, stopping her almond milk, and several foods such as at a mommy, sunflower its and walnuts. As such, her cough is essentially resolved and 90 to 95% of the time. No further nocturnal awakenings. No longer getting hacking, debilitating cough. When does occur, typically mild in response to Tums. Historically, recalls the cough associated with a eating 9 out of 10 times. When occurred at night,she thinks maybe with due to residual effects of eating late. Cough is always responded to Tums and certainly initially to PPI therapy. Cough is always dry, never productive. No associated wheezing. No other associated foods, tolerates acidic foods like citrus and tomato sauce without trouble. Given her recent change in diet, her rhinitis symptoms including postnasal drip. Essentially resolved. Was using Zyrtec and Flonase but stopped as the latter seem to trigger migraines. She has 2 cats at home but is not allergic. Chest CT 08/27/2022 [facility]: No evidence of interstitial lung disease. Right upper lobe tree-in-bud peribronchial nodules with several 3 mm associated nodules. CHRONIC COUGH HISTORY DURATION / ONSET: >2 years PRODUCTIVITY: Nonproductive NOCTURNAL AWAKENINGS: Occasional TRIGGERS: eating, Foods: almond milk, sunflower seeds, edemome ASSOCIATED SYMPTOMS: None THERAPIES TRIED: -PPI -Tums - Elimination diet GERD Sx: Response to PPI therapy ASTHMA: Negative ALLERGIC RHINITIS: Positive ADDITIONAL HISTORY: TESTING COMPLETED: EGD 07/03/2021: Unremarkable Chest x-ray 07/15/2022: Negative Past Medical History: Diagnosis Date Acne Allergic rhinitis Anxiety hx Astigmatism Back problem /disc Chronic cough Colon adenoma Colon polyp Depression hx Gastritis 2019 Gastroesophageal reflux disease H/O mammogram 02/2019 Normal per pt done at [facility] Headache History of bladder infections History of chicken pox Hyperlipidemia IBS (irritable colon syndrome) hx Joint pain shoulder Migraines Osteoporosis Rheumatoid arthritis Tenosynovitis of fingers Wears eyeglasses Past Surgical History: Procedure Laterality Date CAPSULE RECORDER RETURN N/A 05/12/2024 Performed by Lucas Ibarra MD at [facility] ENDOSCOPY CERVICAL BIOPSY W/ LOOP ELECTRODE EXCISION COLONOSCOPY ESOPHAGOGASTRODUODENOSCOPY N/A 07/03/2021 Performed by Lucas Ibarra MD at [facility] ENDOSCOPY ESOPHAGOGASTRODUODENOSCOPY WITH PH CAPSULE N/A 05/08/2024 Performed by Lucas Ibarra MD at [facility] ENDOSCOPY OSTEOTOMY METATARSAL Left 09/16/2022 Performed by Greg Leos MD at [facility] OR S/p LPI UPPER GASTROINTESTINAL ENDOSCOPY WISDOM TOOTH EXTRACTION Medications: Current Outpatient Medications Medication Sig Dispense Refill Last Dispense atogepant (QULIPTA) 30 mg tablet Take 30 mg by mouth daily. Unknown (patient-reported) bisacodyl (DULCOLAX) 5 mg EC tablet take 2 tablets (10 mg) by mouth at bedtime Unknown (patient-reported) CALCIUM ORAL Take 1 tablet by mouth daily. (Patient taking differently: Take 1 tablet by mouth daily. prn) Unknown (patient-reported) celecoxib (CELEBREX) 100 MG capsule Take 1 capsule by mouth 2 (two) times a day as needed. Unknown (patient-reported) cetirizine (ZYRTEC) 10 MG tablet Take 10 mg by mouth daily. (Patient taking differently: Take 10 mgby mouth daily. prn) Unknown (patient-reported) cholecalciferol (VITAMIN D3) 5,000 unit tablet Take 1,000 Units by mouth daily. Unknown (patient-reported) denosumab (PROLIA) 60 mg/mL Syrg subcutaneous syringe Inject 60 mg under the skin every 6 (six) months. Unknown (patient-reported) diclofenac sodium (VOLTAREN) 1 % Gel Apply 1 Application topically as needed for other (free text field). Unknown (patient-reported) etanercept (ENBREL) 50 mg/mL (1 mL) PnIj 50 mg once. Pt stated they take 50 mg injection once a week 09/14/24 Unknown (patient-reported) HYDROcodone-homatropine (TUSSIGON) 5-1.5 mg Tab Take 0.5-1 tablets by mouth every 6 (six) hours as needed (cough). Partial fill ok 60 tablet 0 Unknown (outside pharmacy) lidocaine 5 % ointment APPLY OINTMENT EXTERNALLY TO AFFECTED AREA 4 TIMES DAILY FOR 30 DAYS Unknown(patient-reported) magnesium oxide (MAG-OX) 400 mg (241.3 mg elemental) tablet Take 1 tablet by mouth nightly at bedtime. at bedtime. Unknown (patient-reported) traMADoL (ULTRAM) 50 mg tablet Take 50 mg by mouth every 6 (six) hours as needed for pain (specificlocation in comments). Unknown (patient-reported) triamcinolone acetonide 0.1 % cream APPLY CREAM EXTERNALLY TO ITCHY AREAS TWICE DAILY NEEDED Unknown (patient-reported) ZOLMitriptan (ZOMIG) 2.5 MG tablet Take 2.5 mg by mouth as needed for migraine. Unknown (patient-reported) No current facility-administered medications for this visit. Allergies: Allergies Allergen Reactions Acetaminophen-Codeine Headaches Alendronate Sodium Other (See Comments) Other MSG, nitrates, nitrites cause migraines Sulfa (Sulfonamide Antibiotics) Nausea and/or Vomiting Social History: reports that she quit smoking about 26 years ago. Her smoking use included cigarettes. She started smoking about 46 years ago. She has a 30 pack-year smoking history. She has never used smokeless tobacco. She reports current alcohol use. She reports that she does not use drugs. 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 ROS: All systems negative except mentioned in HPI or listed below: As above Vitals: BP 122/80 (BP Location: Right arm, Patient Position: Sitting, Cuff Size: Medium) Pulse 74 Temp 36.4 ??C (97.5 ??F) Ht 157.5 cm (5' 2 ) Wt 61.1 kg (134 lb 12.8 oz) SpO2 95% BMI 24.66 kg/m?? Physical Exam: Gen: Well-appearing 69 y.o.female in no distress HEENT: Sclera anicteric Neuro: Alert and oriented x 3, grossly nonfocal Remainder Labs: Lab Results Component Value Date WBC 5.08 05/04/2024 RBC 4.22 05/04/2024 HGB 12.8 05/04/2024 HCT 38.7 05/04/2024 PLT 337 05/04/2024 MCV 91.7 05/04/2024 MCH 30.3 05/04/2024 MCHC 33.1 05/04/2024 RDW 12.3 05/04/2024 MVP 10.4 05/04/2024 NRBCA 0.00 05/04/2024 DIFMET Auto 05/04/2024 NEUT 44.9 (L) 05/04/2024 LYMP 40.7 05/04/2024 MON 11.8 (H) 05/04/2024 EOSP 1.8 05/04/2024 ANEU 2.28 05/04/2024 ALYMP 2.07 05/04/2024 AMONS 0.60 05/04/2024 AEOSN 0.09 05/04/2024 ABASOP 0.03 05/04/2024 Imaging: Radiographs reviewed myself and corroborated by radiologists report. XR Chest [[id number]] 07/15/2022 (Final) Narrative XR CHEST PA AND LATERAL 2 VIEWS COMPARISON: None FINDINGS: Lungs: Clear lungs. Pleura: No pleural effusion. No pneumothorax Heart/Mediastinum: Heart size normal. Atherosclerotic calcifications in aorta. Bones/Soft Tissues: No acute finding Impression No acute findings. FEV1 Date Value Ref Range Status 05/22/2024 2.33 liters Final FVC Date Value Ref Range Status 05/22/2024 2.96 liters Final FEV1/FVC Date Value Ref Range Status 05/22/2024 79 % Final IMPRESSION: NORMAL Assessment Chanel Ruelas is a 69 y.o.year old female with Chronic cough [R05.3] 1. Chronic cough (Primary) Assessment & Plan: Chronic cough much improved. Unclear if due to laryngeal hypersensitivity or esophageal dysmotility combination thereof. Will hold on any new therapies currently. Await results of brain MRI regarding appearance of the sinuses. If there is evidence of chronic sinusitis, consider high-dose intranasal steroids with budesonide nasal rinse or Xhance sinus spray. She has an appointment with ENT either May or June which she will keep depending on the findings. 2. Seasonal allergies Overview: seasonal;PHS Allergy Remediation Assessment & Plan: Continue antihistamines. Can always resume nasal steroids if tolerated with findings of sinusitis as above. 3. Gastroesophageal reflux disease, unspecified whether esophagitis present Assessment & Plan: And passive therapy recommendations in the gastroenterology service. Interestingly, her cough is always improved tolerance. Follow-up: Return in about 6 months (around 08/13/2025). Total encounter time approximately 25 minutes. documented in this encounter Miscellaneous Notes * Assessment & Plan Note - Lucas Galvan MD - 02/13/2025 7:16 PM EST Associated Problem(s): Gastroesophageal reflux disease And passive therapy recommendations in the gastroenterology service. Interestingly, her cough is always improved tolerance. * Assessment & Plan Note - Lucas Galvan MD - 02/13/2025 7:15 PM EST Associated Problem(s): Seasonal allergies Continue antihistamines. Can always resume nasal steroids if tolerated with findings of sinusitis as above. * Assessment & Plan Note - Lucas Galvan MD - 02/13/2025 7:15 PM EST Associated Problem(s): Chronic cough Chronic cough much improved. Unclear if due to laryngeal hypersensitivity or esophageal dysmotility combination thereof. Will hold on any new therapies currently. Await results of brain MRI regarding appearance of the sinuses. If there is evidence of chronic sinusitis, consider high-dose intranasal steroids with budesonide nasal rinse or Xhance sinus spray. She has an appointment with ENT either May or June which she will keep depending on the findings. documented in this encounter Plan of Treatment Upcoming Encounters Date Type Department Care Team (Late st Contact Info) Description 02/19/2025 11:20 AM EST Office Visit [facility] [address] [place] [address] Gary Edwards MD 22 [facility], [address] [place] [address] [email or web address] 08/09/2025 9:30 AM EDT Office Visit [facility] Pulmonary, Allergy and Critical Care Medicine [address] [facility] [place] [address] Lucas Galvan MD 10 [facility] 2nd [place] [address] [email or web address] documented as of this encounter Visit Diagnoses Diagnosis Chronic cough- Primary Cough Seasonal allergies Allergic rhinitis, cause unspecified Gastroesophageal reflux disease, unspecified whether esophagitis present documented in this encounter Care Teams Claim Clerk Relationship Specialty Start Date End Date Jackelyn Daniels MD [address] [place] [address] [email or web address] PCP - General Family Medicine 05/04/24 Huy Zhu MD Historical LMR Provider 01/31/17 Nuvia Woodward NP [address] [place] [address] Historical LMR Provider 01/31/17 documented as of this encounter Additional Source Comments The information contained in this document represents components of the legal health record. It is not the complete legal health record.[facility]
--- NOTE | 2025-02-16 09:47 | MHC.OFFVIS ---
Vital Signs 02/16/25 09:54 Height 5 ft 1 in Weight 134 lb 4.184 oz BMI 25.4 BP 130/90 H Blood Pressure Location Lt brachial Position Sitting Pulse 75 Pulse Source Pulse Oximeter Pulse Oximetry (%) 98 Oxygen Delivery Method Room Air Intake Visit Reasons: follow up Intake Note: Patient presents for Seropositive rheumatoid Arthritis follow up. Allergies monosodium glutamate (MSG) Allergy (Severe, Verified 02/16/25 09:54) Migraine Nitrate Analogues Allergy (Severe, Verified 02/16/25 09:54) Migraine alendronate sodium Allergy (Intermediate, Verified 02/16/25 09:54) bone pain Sulfa (Sulfonamide Antibiotics) Allergy (Intermediate, Verified 02/16/25 09:54) Nausea golimumab (From Simponi ARIA) Adverse Reaction (Intermediate, Verified 02/16/25 09:54) body pain Medication List - Last Reconciled 02/16/25 by Katerine Washington MD atogepant (Qulipta) 30 mg PO DAILY 60 days bisacodyl (Dulcolax (bisacodyl)) 10 mg (2 x 5 mg) PO BEDTIME cetirizine (Zyrtec) 10 mg PO DAILY PRN denosumab (Prolia) 60 mg subcut [id number] etanercept (Enbrel SureClick) 50 mg subcut QWEEK hydrocodone-homatropine 5-1.5 mg 1 tab PO BID PRN ivermectin 1% (Soolantra) 1 appl topical DAILY PRN lidocaine 5% 1 appl topical QID 30 days magnesium 250 mg PO BEDTIME polyethylene glycol 3350 (Miralax) 238 grams PO ONCE tramadol 50 mg PO DAILY PRN zolmitriptan take 1 tab at onset of headache; if no relief may repeat 1 tab after at least 2 hrs; max = 4 tabs/24 hr orally PRN; HPI Comments Details: Patient is a 69-year-old female with polyarticular osteoarthritis, osteoporosis and seropositive rheumatoid arthritis here today for follow up Interval History: Patient last seen 12/29/24 with me - On Enbrel 50mg SC every week and Prolia 60mg SC every 6 months - Doing well, noting decreased frequency and duration of her flares Today - On Enbrel 50mg SC every week and Prolia 60mg SC every 6 month - Patient sent a message to the portal: I?ve had a flare over the last couple days, my right hand and left heel are both painful and inflamed. Although Enbrel has been somewhat effective for me, does its efficacy plateau at some point, or even reverse? If I have to consider an alternative at some point, is Humira the only option? - Here today to discuss options and Enbrel efficacy - Flare: About 1 week ago noted swelling of the hands with difficulty closing them, plantar pain on the left when walking, right shoulder and left knee pain - Took ibuprofen and Tylenol - Before this episode it had been about 4-6 months - Feels that the Enbrel may not be as efficacious Rheumatologic History: ++RF +++CCP Plaquenil: approx 2014- 2015 not effective Methotrexate: approx 11/2021- February 2022 -discontinued due to increased LFTs. Also not effective 07/22/2022 not on any medication for RA, no active disease on exam. Flare 05/2023 HCQ started. DC 09/2023 ineffective, restarted 09/2023-DC 01/2024 ineffective Simponi infusions 01/2024 effective after 1st dose then patient had secondary nonresponse after 2nd dose Initial history: 66 year old female presents for initial evaluation of Rheumatoid arthritis. She was recently following with Dr Carney. Patient states she was diagnosed with rheumatoid arthritis around 2013 and started on plaquenil. She is not sure but thinks her rheumatoid factor and CCP were borderline. She took Plaquenil for a few months and stopped as she did not feel the medication was helpful. She states her initial joint pain was in the balls of both feet and that her foot pain has gotten progressively better over time. Patient notes that she had not been on medication for RA for about 6 years, after trying plaquenil, and recently reestablished care with Rheumatology, Dr Carney. She denies history of symmetric joint swelling and pain. She states that she sprained tendons on the ular aspect of both wrists, approx 6 years ago on the left and 1 year ago on the right. Her pain as been in tendons and feet as above. She reports history of tendonitis in the left tibal area and right ankle. She was started on 10mg of methotrexate weekly in July 2021, then increased to 15mg 3 months ago. She reports she did not notice much improvement in pain on methotrexate. Her most recent LFTs this month were elevated so her methotrexate was discontinued approx 2 weeks ago. She states her LFTS were normal in February. She denies history of gout. She states that she had pain in the left index finger and had the finger injected March 04, 2022 at [facility] with good effect. She states that her pain improved in the the index finger then traveled to base of the left 5th digit the same day. She still has pain in the 5th finger, reports she is not able to bend the finger, she admits to some swelling, no erythema. She states her pain is 50% better and she called [facility] but was not able to get an appt for injection. 3 days ago she trailed topical capsacin and she felt better. She denies any other joint pain. She reports that she follows with Podiatry for tailor's bunionette on the left 5th metatarsal head. She is following with endocrine, she experienced bone pain on Fosamax was referred to endocrine by Rheumatology. Endocrine ordered Tymlos, at first this was not approved by her insurance company but is now approved. She states she has not yet started the Tymlos, she would like to address her rheumatoid arthritis first. Current Rheumatology Medication(s): Enbrel 50mg SC weekly PFSH Medical History Chronic idiopathic constipation Tubular adenoma of colon Hepatitis B core antibody positive Osteoporosis Seropositive rheumatoid arthritis GERD (gastroesophageal reflux disease) Allergic conjunctivitis and rhinitis Presbyopia Astigmatism Hypermetropia Carpal tunnel syndrome Migraines Depression Anxiety Hyperlipidemia Hypercholesteremia Surgical History History of foot surgery Arboles teeth extracted Family History Mother Dementia Emphysema lung Father Myocardial infarct Brother COPD (chronic obstructive pulmonary disease) Brother History of heart attack Social History Household Members: None Are you a primary long term care social worker to a significant other at home: No Do you presently have visiting nurse or other home services: No Alcohol intake: current Alcohol intake frequency: a few times a week Alcohol type: hard liquor Patient Tobacco Use Status: Former Tobacco user Current occupational status: 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 Narrative Review of Systems Constitutional: Denies fever, chills, weight loss ENT: Denies vision changes, eye pain or eye redness, dental caries, dry mouth GI: Denies nausea, vomiting, diarrhea, abdominal pain, change in BM Pulm: Denies SOB, GUTIERREZ, hemoptysis, wheezing Cards: Denies chest pain, palpitations Skin: Denies Raynaud's, rash, nail changes, photosensitivity, CONTAINER CRANE OPERATOR: Denies headaches, weakness, paresthesias, recurrent falls MSK: as per HPI All other systems reviewed and are unremarkable except noted above Physical Exam Exam Exam: Vital signs reviewed Physical Examination CONSTITUITIONAL Patient alert and cooperative. Well appearing and in no apparent painful distress MSK Hands Right Hand: Able to make a fist. No swelling or tenderness to palpation of the MCPs, PIPs or DIPs. Left Hand: Able to make a fist. No swelling or tenderness to palpation of the MCPs, PIPs or DIPs. Herbedens nodes noted bilaterally Wrists Right Wrist: Full ROM to flexion and extension. No swelling or TTP Left Wrist: Full ROM to flexion and extension. No swelling or TTP Elbows Right Elbow: Full ROM. No swelling or TTP. No TTP of the medial epicondyle. No TTP of the lateral epicondyle Left Elbow: Full ROM. No swelling or TTP. No TTP of the medial epicondyle. No TTP of the lateral epicondyle Shoulders Right shoulder: Full ROM. No swelling noted. No TTP of the AC joint. No TTP of the subacromial bursa. No TTP of the posterior shoulder Left shoulder: Full ROM. No swelling noted. No TTP of the AC joint. No TTP of the subacromial bursa. No TTP of the posterior shoulder Knees Right knee: Full ROM. No swelling noted. No TTP of the knee joint line. No TTP of pes anserine bursa Left knee: Full ROM. No swelling noted. No TTP of the knee joint line. No TTP of pes anserine bursa. Crepitations felt bilaterally Ankles Right ankle: Good ankle dorsiflexion and plantar flexion. Swelling to the lateral malleolus. No TTP of the ankle joint Left ankle: Good ankle dorsiflexion and plantar flexion. No swelling. No TTP of the ankle joint Feet Right foot: Negative squeeze test Left foot: TTP of the plantar aspect consistent Tender points? No tenderness to palpation of the bilateral trapezius, supraspinatus, anterior costochondral junctions, bilateral suboccipital muscle insertions SKIN No rashes Results Reviewed Results Reviewed: Laboratory Tests 12/29/24 11:36 ESR 8 Sodium 139 Potassium 4.7 D Chloride 105 Carbon Dioxide 27 BUN 17 H Creatinine 0.75 AST 31 ALT 17 C-Reactive Protein 0.12 25-OH Vitamin D Total 92.5 Laboratory Tests 04/16/22 15:02 Rheumatoid Factor 80.8 H Cycl Citrul Peptide IgG >250 H Laboratory Tests 06/19/24 06/21/24 11:30 10:40 Hep Bs Antigen Negative Hep Bs Antibody Nonreactive Hep B Core Total Ab Reactive Hep B Core IgM Ab REACTIVE A Hep B DNA copies/mL NOT DETECTED Hep B DNA (IU/mL) NOT DETECTED TB Test (T-Spot) Com Negative Assessment & Plan Assessment & Plan (1) Seropositive rheumatoid arthritis: Comment: ++RF +++CCP Plaquenil: approx 2014- 2015 not effective Methotrexate: approx 11/2021- February 2022 -discontinued due to increased LFTs. Also not effective 07/22/2022 not on any medication for RA, no active disease on exam. Flare 05/2023 HCQ started. 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 Will continue Enbrel for now Will add prednisone course for flares with the goal of 1 to 2 flares every year Plan - Enbrel 50mg SC weekly - Prednisone short course - RTC 4 months - Labs before visit: CBC, CMP, ESR, CRP (2) Osteoporosis: Comment: DEXA [facility] 03/26/2022 t-score -3.9 AP spine, -3.2 fem neck, -2.0 hip. A few months of alendronate - stopped due to arthralgia(?2019) Advised Prolia treatment July 2022, patient undecided -eventually agreed to Prolia 11/25/2022 - followed by nausea, malaise, abdominal discomfort ? cause Code(s): M81.0 - Age-related osteoporosis without current pathological fracture Category: Medical Qualifiers: Osteoporosis type: age-related Presence of current pathological fracture: without current pathological fracture Qualified Code(s): M81.0 - Age-related osteoporosis without current pathological fracture Plan: #Osteoporosis Doing well on Prolia Plan - Prolia 60mg SC every 6 months - Vit D supplementation (3) Encounter for monitoring of etanercept therapy: Code(s): Z51.81 - Encounter for therapeutic drug level monitoring; Z79.620 - continuous churn buttermaker (current) use of immunosuppressive biologic Plan: #Long-term Use of TNF Inhibitors: Etanercept Discussed with the patient the benefits and risks of TNF inhibitors for the management of the rheumatic condition Benefits include reduce pain, maintenance of remission and reduction of flares as well as ?progression of the disease Risks include injection sites/infusion reactions, serious infections (such as bacterial infections, opportunistic infections), malignancy, delaminating syndromes, autoimmune phenomena, CHF exacerbations, palmar plantar psoriasis and cytopenias Recommended rotating injection sites, and holding medication during and for up to 1 week after resolution of a febrile illness or open skin wound (4) Encounter for monitoring denosumab therapy: Code(s): Z51.81 - Encounter for therapeutic drug level monitoring; Z79.899 - Other terminal system operator (current) drug therapy Plan: #Long-term use of Denosumab Discussed with patient the risks and benefits of denosumab (Prolia) for the management of their osteoporosis Benefits include improved bone density, decreased fracture risk Risks include rapid bone loss if denosumab stopped, osteonecrosis of the jaw especially in patients with poor oral hygiene/diabetes/use of glucocorticoids/age greater than 65 years, atypical femoral fractures, injection site reactions. Mild increased risk of infections due to RANKL on T helper cells, increased risk of hypocalcemia especially in CKD patients Keep vitamin-D at least 35 ng/mL Advised to delay non emergent dental procedures to toward the end of the 6 month cycle and if they plan to stop denosumab would need to continue antiresorptive to maintain the effects of denosumab Plan I spent 30 minutes reviewing the record and labs, taking a history, examining the patient, discussing the treatment plan, ordering diagnostic work up and documenting in the medical record Orders: Orders Complete Blood Count Auto Diff 4 Months Z79.899 - Other terminal system operator (current) drug therapy Comprehensive Met. Panel 4 Months Z79.899 - Other terminal system operator (current) drug therapy C Reactive Protein 4 Months Z79.899 - Other terminal system operator (current) drug therapy Erythrocyte Sedimentation Rate 4 Months Z79.899 - Other senior living (current) drug therapy Medications: New prednisone Take 3 tablets for 1 day then 2 tablets for 1 day then 1 tablet for 1 day then stop 5 mg PO DIRECTED 6 tabs 2RF M05.9 - Rheumatoid arthritis with rheumatoid factor, unspecified prednisone Take 3 tablets for 1 day then 2 tablets for 1 day then 1 tablet for 1 day then stop 5 mg PO DIRECTED 6 tabs 2RF M05.9 - Rheumatoid arthritis with rheumatoid factor, unspecified Coding Level of Care Code Est Pt Level 4 (32089) Complex EM visit Add On G2211 Diagnoses Seropositive rheumatoid arthritis M05.9 Age-related osteoporosis without current pathological fracture M81.0 Osteoporosis type: age-related Presence of current pathological fracture: without current pathological fracture Encounter for monitoring of etanercept therapy Z51.81; Z79.620 Encounter for monitoring denosumab therapy Z51.81; Z79.899
[2025-02-16 09:54] VITALS: BP 130/90; PULSE 75; O2SAT 98; BMI 25.4
--- OUTSIDE RECORDS SUMMARY | 2025-02-16 10:41 | XMS_ITS | Encounter Summary ---
Author Organization [facility] Address [address] [place] [address] Phone Care Team Providers Care Geodetic Advisor Name Role Phone Huy Zhu MD Unavailable Nuvia Woodward PLAYER DEVELOPMENT MANAGER Unavailable [phone] Zohra Zaman PLAYER DEVELOPMENT MANAGER Unavailable [phone] Asia Marquez RDCS Unavailable [email or web address] Huy Zhu MD Primary Care Provider Huy Zhu MD Primary Care Provider [phone] Shyann Sandoval Primary Care Provider Jackelyn Daniels MD Primary Care Provider + Jaceklyn Daniels MD Primary Care Provider + Encounter Details Date Type Department Care Team (Latest Contact Info) Description 02/14/2019 Transcribe Orders [facility] Phleb Crissy [address] [address] Elizabeth Dougherty PA 10 [place] [address] Nausea (Primary Dx) Social History Tobacco Use [...] Description 02/19/2025 11:20 AM EST Office Visit [facility] 22 [place] [address] Gary Edwards MD 22 [facility], [address] [address] [email or web address] 08/09/2025 9:30 AM EDT Office Visit [facility] Pulmonary, Allergy and Critical Care Medicine 10 [facility] [place] [address] Lucas Galvan MD [address] [place] [address] [address] [place] [address] [email or web address] documented as of this encounter Results * Creatinine/eGFR (02/14/2019 10:15 AM EST) CREATININE 0.70 0.5 - 1.5 mg/dL [facility] EGFR 91 >59 mL/min/1.7 3m2 [facility] Comment:If patient is black, multiply result by 1.159. Estimated glomerular filtration rate calculated using the CKD-EPI equation. Blood 02/14/2019 10:1 5 AM EST 02/14/2019 10:18 AM EST us Elizabeth LAN LAB BLOOD BKR ORDERABLES Fi nal Result [facility] [address] [place] [address] * BUN (02/14/2019 10:15 AM EST) BUN 11 6 - 19 mg/dL [facility] Blood 02/14/2019 10:1 5 AM EST 02/14/2019 10:18 AM EST us Elizabeth LAN LAB BLOOD BKR ORDERABLES Fi nal Result [address] [address] documented in this encounter Visit Diagnoses Diagnosis Nausea- Primary Nausea alone documented in this encounter Care Teams Geodetic Advisor Relationship Specialty Start Date End Date Huy Zhu MD [email or web address] PCP - General 04/15/17 04/25/19 Huy Zhu MD [email or web address] PCP - General Family Medicine 04/26/19 06/12/20 Shyann Sandoval PA [address] [place] [address] [email or web address] PCP - General Unknown Provider Specialty 06/13/20 12/29/23 Jackelyn Daniels MD [address] [place] [address] [email or web address] PCP - General Family Medicine 12/30/23 05/03/24 Jackelyn Daniels MD 70 [place] [address] [email or web address] PCP - General Family Medicine 05/04/24 Huy Zhu MD Historical LMR Provider 01/31/17 Nuvia Woodward, PLAYER DEVELOPMENT MANAGER 30 [place] [address] Historical LMR Provider 01/31/17 Zohra Zaman NP [address] [place] [address] Historical LMR Provider 01/31/17 2 Asia Marquez, DANIEL [email or web address] Historical LMR Provider 01/31/17 04/19/21 documented as of this encounter Additional Source Comments The information contained in this document represents components of the legal health record. It is not the complete legal health record.[facility]
--- OUTSIDE RECORDS SUMMARY | 2025-02-16 10:41 | XMS_ITS | Encounter Summary ---
Author Organization [facility] Address [address] [address] Phone Care Team Providers Care Supervisor Machine Workers Name Role Phone Huy Zhu MD Unavailable [phone] Nuvia Woodward NP Unavailable [phone] Shyann Sandoval Primary Care Provider [phone] Jackelyn Daniels MD Primary Care Provider + Jackelyn Daniels MD Primary Care Provider + Encounter Details Date Type Department Care Team (Late st Contact Info) Description 09/16/2022 Procedure Pass [place] Admitting Dept - Virtual Department [address] [place] [address] Social History Tobacco Use Types Packs/Day Years [...] Visit [facility] [address] [place] [address] Gary Edwards MD 22 [facility], [address] [place] [address] 08/09/2025 9:30 AM EDT Office Visit [facility] Pulmonary, Allergy and Critical Care Medicine 10 [place] [address] Lucas Galvan MD [address] [address] [email or web address] documented as of this encounter Visit Diagnoses Not on filedocumented in this encounter Care Teams Supervisor Machine Workers Relationship Specialty Start Date End Date Shyann Sandoval PA [address] [place] [address] [email or web address] PCP - General Unknown Provider Specialty 06/13/20 12/29/23 Jackelyn Daniels MD [address] [place] [address] [email or web address] PCP - General Family Medicine 12/30/23 05/03/24 Jackelyn Daniels MD 70 [place] [address] [email or web address] PCP - General Family Medicine 05/04/24 Huy Zhu MD [email or web address] Historical LMR Provider 01/31/17 Nuvia Woodward NP [address] [place] [address] [email or web address] Historical LMR Provider 01/31/17 documented as of this encounter Additional Source Comments The information contained in this document represents components of the legal health record. It is not the complete legal health record.[facility]
--- OUTSIDE RECORDS SUMMARY | 2025-02-16 10:42 | XMS_ITS | Encounter Summary ---
Author Organization [facility] Address [address] [place] [address] Phone Care Team Providers Care Wreath Inspector Name Role Phone Huy Zhu MD Unavailable [phone] Nuvia Woodward NP Unavailable [phone] Jackelyn Daniels MD Primary Care Provider + Encounter Details Date Type Department Care Team (Late st Contact Info) Description 05/09/2024 Procedure Pass [facility], Ct Scan - [facility] 30 [place] [address] Social History Tobacco Use Types Packs/Day Years [...] Office Visit [facility] [address] [place] [address] Gary Edwards MD [address] [address] [email or web address] 08/09/2025 9:30 AM EDT Office Visit [facility] Pulmonary, Allergy and Critical Care Medicine 10 [place] [address] Lucas Galvan MD [address] [address] [email or web address] documented as of this encounter Visit Diagnoses Not on filedocumented in this encounter Care Teams Wreath Inspector Relationship Specialty Start Date End Date Jackelyn Daniels MD [address] [place] [address] [email or web address] PCP - General Family Medicine 05/04/24 Huy Zhu MD Historical LMR Provider 01/31/17 Nuvia Woodward NP [address] [place] [address] [email or web address] Historical LMR Provider 01/31/17 documented as of this encounter Additional Source Comments The information contained in this document represents components of the legal health record. It is not the complete legal health record.[facility]
--- OUTSIDE RECORDS SUMMARY | 2025-02-16 10:42 | XMS_ITS | Encounter Summary ---
Author Organization [facility] Address [facility] [employer] [address] [address] Phone Care Team Providers Care Shiftman Name Role Phone Huy Zhu MD Unavailable [phone] Nuvia Woodward NP Unavailable [phone] Shyann Sandoval Primary Care Provider [phone] Jackelyn Daniels MD Primary Care Provider + Jackelyn Daniels MD Primary Care Provider + Encounter Details Date Type Department Care Team (Late st Contact Info) Description 07/03/2021 Procedure Pass [facility] Endoscopy Admitting Dept Virtual Department [address] [place] [address] Social History Tobacco Use Types Packs/Day Years [...] Visit [facility] [address] [place] [address] Gary Edwards MD 22 [facility], [address] [place] [address] [email or web address] 08/09/2025 9:30 AM EDT Office Visit [facility] Pulmonary, Allergy and Critical Care Medicine [address] [place] [address] [place] [address] Lucas Galvan MD [address] [place] [address] [place] [address] [email or web address] documented as of this encounter Visit Diagnoses Not on filedocumented in this encounter Care Teams Shiftman Relationship Specialty Start Date End Date Shyann Sandoval PA [address] [place] [address] [email or web address] PCP - General Unknown Provider Specialty 06/13/20 12/29/23 Jackelyn Daniels MD [address] [place] [address] [email or web address] - General Family Medicine 12/30/23 05/03/24 Jackelyn Daniels MD [address] [place] [address] [email or web address] - General Family Medicine 05/04/24 Huy Zhu MD Historical LMR Provider 01/31/17 Nuvia Woodward FORMULA CHECKER [address] [place] [address] Historical LMR Provider 01/31/17 documented as of this encounter Additional Source Comments The information contained in this document represents components of the legal health record. It is not the complete legal health record.[facility]
--- OUTSIDE RECORDS SUMMARY | 2025-02-16 10:42 | XMS_ITS | Encounter Summary ---
Author Organization [facility] Address [facility] [employer] [address] [address] Phone Care Team Providers Care Dynamics Ax Developer Name Role Phone Huy Zhu MD Unavailable [phone] Nuvia Woodward KEYPUNCH OPERATORS SUPERVISOR Unavailable [phone] Zohra Zaman KEYPUNCH OPERATORS SUPERVISOR Unavailable [phone] Asia Marquez RDCS Unavailable [email or web address] Huy Zhu MD Primary Care Provider Huy Zhu MD Primary Care Provider [phone] Shyann Sandoval Primary Care Provider [phone] Jackelyn Daniels MD Primary Care Provider + Jackelyn Daniels MD Primary Care Provider + Encounter Details Date Type Department Care Team (Latest Contact Info) Description 02/15/2019 Transcribe Orders Virtual Department 30 [place] [address] Elizabeth Dougherty PA 10 [place] [address] Nausea (Primary Dx); Weight loss Social History [...] Upcoming Encounters Date Type Department Care Team ([facility] st Contact Info) Description 02/19/2025 11:20 AM EST Office Visit [facility] 22 [place] [address] Gary Edwards MD 22 [facility], [address] [address] [email or web address] 08/09/2025 9:30 AM EDT Office Visit [facility] All[facility] Critical Care Medicine 10 [place] [address] Lucas Galvan MD [address] [address] [email or web address] documented as of this encounter Visit Diagnoses Diagnosis Nausea- Primary Nausea alone Weight loss Loss of weight documented in this encounter Care Teams Dynamics Ax Developer Relationship Specialty Start Date End Date Hyu Zhu MD PCP - General 04/15/17 04/25/19 Huy Zhu MD PCP - General Family Medicine 04/26/19 06/12/20 Shyann Sandoval PA 70 [place] [address] [email or web address] PCP - General Unknown Provider Specialty 06/13/20 12/29/23 Jackelyn Daniels MD 70 [place] [address] [email or web address] PCP - General Family Medicine 12/30/23 05/03/24 Jackelyn Daniels MD 70 [place] [address] [email or web address] PCP - General Family Medicine 05/04/24 Huy Zhu MD Historical LMR Provider 01/31/17 Nuvia Woodward NP [address] [place] [address] Historical LMR Provider 01/31/17 Zohra Zaman NP [address] [place] [address] Historical LMR Provider 01/31/17 2 Asia Marquez RDCS Historical LMR Provider 01/31/17 04/19/21 documented as of this encounter Additional Source Comments The information contained in this document represents components of the legal health record. It is not the complete legal health record.[facility]
--- OUTSIDE RECORDS SUMMARY | 2025-02-16 10:42 | XMS_ITS | Encounter Summary ---
Author Organization [facility] Address [facility] [employer] [address] [address] Phone Care Team Providers Care Appeals Examiner Name Role Phone Huy Zhu MD Unavailable Nuvia Woodward SEASONAL WAREHOUSE ASSOCIATE Unavailable [phone] Zohra Zaman SEASONAL WAREHOUSE ASSOCIATE Unavailable [phone] Asia Marquez RDCS Unavailable [email or web address] Huy Zhu MD Primary Care Provider Huy Zhu MD Primary Care Provider [phone] Shyann Sandoval Primary Care Provider Jackelyn Daniels MD Primary Care Provider + Jackelyn Daniels MD Primary Care Provider + Encounter Details Date Type Department Care Team (Late st Contact Info) Description 02/27/2019 Procedure Pass [facility] Endoscopy Admitting Dept Virtual Department 30 [place] [address] Social History Tobacco Use Types Packs/Day Years [...] Visit [facility] 22 [place] [address] Gary Edwards MD 22 [facility], [address] [place] [address] [email or web address] 08/09/2025 9:30 AM EDT Office Visit [facility], Allergy and Critical Care Medicine 10 [place], [place] [id number] Lucas Galvan MD [address] [address] [email or web address] documented as of this encounter Visit Diagnoses Not on filedocumented in this encounter Care Teams Appeals Examiner Relationship Specialty Start Date End Date Huy Zhu MD [email or web address] PCP - General 04/15/17 04/25/19 Huy Zhu MD [email or web address] PCP - General Family Medicine 04/26/19 06/12/20 Shyann Sandoval PA [address] [place] [address] [email or web address] PCP - General Unknown Provider Specialty 06/13/20 12/29/23 Jackelyn Daniels MD 70 [place] [address] [email or web address] PCP - General Family Medicine 12/30/23 05/03/24 Jackelyn Daniels MD [address] [place] [address] [email or web address] PCP - General Family Medicine 05/04/24 Huy Zhu MD Historical LMR Provider 01/31/17 Nuvia Woodward NP [address] [place] [address] [email or web address] Historical LMR Provider 01/31/17 Zohra Zaman NP [address] [place] [address] Historical LMR Provider 01/31/17 2 Asia Marquez, RD Historical LMR Provider 01/31/17 04/19/21 documented as of this encounter Additional Source Comments The information contained in this document represents components of the legal health record. It is not the complete legal health record.[facility]
--- OUTSIDE RECORDS SUMMARY | 2025-02-16 10:42 | XMS_ITS | Encounter Summary ---
Author Organization [facility] Address [facility] [employer] [address] [address] Phone Care Team Providers Care Freight Broker Name Role Phone Huy Zhu MD Unavailable [phone] Nuvia Woodward NP Unavailable [phone] Shyann Sandoval Primary Care Provider [phone] Jackelyn Daniels MD Primary Care Provider + Jackelyn Daniels MD Primary Care Provider + Encounter Details Date Type Department Care Team (Latest Contact Info) Description 11/11/2021 Transcribe Orders [facility] [place] [address] [address] Gabriela Carney MD [address] [place] [address] Rheumatoid arthritis, involving unspecified site, unspecified whether [...] Description 02/19/2025 11:20 AM EST Office Visit [facility]ery 22 [place] [address] Gary Edwards MD 22 [facility], [address] [place] [address] [email or web address] 08/09/2025 9:30 AM EDT Office Visit [facility], Allergy [facility] Critical [facility] Medicine 10 [facility] [place] [address] Lucas Galvan MD [address] [place] [address] 2nd [place] [address] [email or web address] documented as of this encounter Results * Sedimentation rate (ESR) (11/11/2021 2:11 PM EDT) ESR 26 0 - 30 mm/h [facility] Blood 11/11/2021 2:11 PM EDT 11/11/2021 2:15 PM EDT us Gabriela Carney MD LAB BLOOD BKR ORD ERABLES Final Result Performing Organization Address [facility]/ZIP Co de Phone Number [address] [address] * (ABNORMAL) C-Reactive Protein (11/11/2021 2:11 PM EDT) C REACTIVE PROTEIN 9.2(H) 0.0 - 4.0 mg/L [facility] Blood 11/11/2021 2:11 PM EDT 11/11/2021 2:15 PM EDT us Gabriela Carney MD LAB BLOOD BKR ORD ERABLES Final Result [address] [address] * (ABNORMAL) Comprehensive metabolic panel (11/11/2021 2:11 PM EDT) Pathologist [facility] SODIUM 138 133 - 146 mmol/L [facility] POTASSIUM 4.0 3.3 - 5.1 mmol/L [facility] CHLORIDE 101 96 - 108 mmol/L [facility] CO2 26 21 - 35 mmol/L [facility] BUN 11 6 - 19 mg/dL [facility] CREATININE 0.80 0.5 - 1.5 mg/dL [facility] GLUCOSE 103(H) 70 - 99 mg/dL [facility] ALBUMIN 4.6 3.9 - 4.8 g/dL [facility] TOTAL PROTEIN 7.5 6.5 - 8.0 g/dL [facility] CALCIUM 10.0 8.4 - 10.3 mg/dL [facility] ALKALINE PHOSPHATASE 102 39 - 117 U/L [facility] TOTAL BILIRUBIN 0.3 0.0 - 1.2 mg/dL [facility] AST 31 0 - 37 U/L [facility] ALT 19 0 - 40 U/L [facility] GLOBULIN 2.9 1 - 4.8 g/dL [facility] EGFR 80 >59 mL/min/1.7 3m2 [facility] Comment:Estimated glomerular filtration rate calculated using the CKD-EPI refit equation. ANION GAP 15 10 - 20 mmol/L [facility] Blood 11/11/2021 2:11 PM EDT 11/11/2021 2:15 PM EDT us Gabriela Carney MD LAB BLOOD BKR ORD ERABLES Final Result [address] [address] * CBC and differential (11/11/2021 2:11 PM EDT) WBC 8.42 4.00 - 11.00 K/uL [facility] RBC 4.19 3.72 - 5.30 M/uL [facility] HGB 13.4 11.4 - 15.9 g/dL [facility] HCT 40.1 34.2 - 46.8 % [facility] PLT 314 140 - 430 K/uL [facility] MCV 95.7 78.0 - 97.0 fL [facility] MCH 32.0 25.0 - 33.0 pg [facility] MCHC 33.4 32.0 - 36.0 g/dL [facility] RDW 12.6 11.0 - 16.0 % [facility] MPV 11.2 8.4 - 12.8 fl [facility] NRBC 0.00 0 /100 WBCs [facility] ABSOLUTE NRBC 0.00 0 K/uL [facility] DIFF METHOD Auto [facility] NEUTS 69.2 43.0 - 75.0 % [facility] LYMPHS 20.8 18.2 - 47.4 % [facility] MONOS 8.4 4.00 - 11.00 % [facility] EOS 0.8 0.0 - 8.0 % [facility] BASOS 0.6 0.0 - 2.0 % [facility] Granulocytes, immature (%) 0.2 0.0 - 0.9 % [facility] ABSOLUTE NEUTS 5.82 1.80 - 7.70 K/uL [facility] ABSOLUTE LYMPHS 1.75 1.00 - 3.10 K/uL [facility] ABSOLUTE MONOS 0.71 0.20 - 0.80 K/uL [facility] ABSOLUTE EOS 0.07 0.00 - 0.80 K/uL [facility] ABSOLUTE BASOS 0.05 0.00 - 0.09 K/uL [facility] Granulocytes, immature 0.02 0.00 - 0.05 K/uL [facility] Blood 11/11/2021 2:11 PM EDT 11/11/2021 2:15 PM EDT us Gabriela Carney MD LAB BLOOD BKR ORD ERABLES Final Result [facility] 30 [place] [address] documented in this encounter Visit Diagnoses Diagnosis Rheumatoid arthritis, involving unspecified site, unspecified whether rheumatoid factor present- Primary documented in this encounter Care Teams Freight Broker Relationship Specialty Start Date End Date Shyann Sandoval PA 70 [place] [address] [email or web address] PCP - General Unknown Provider Specialty 06/13/20 12/29/23 Jackelyn Daniels MD [address] [place] [address] [email or web address] PCP - General Family Medicine 12/30/23 05/03/24 Jackelyn Daniels MD [address] [place] [address] [email or web address] PCP - General Family Medicine 05/04/24 Huy Zhu MD [email or web address] Historical LMR Provider 01/31/17 Nuvia Woodward NP [address] [place] [address] Historical LMR Provider 01/31/17 documented as of this encounter Additional Source Comments The information contained in this document represents components of the legal health record. It is not the complete legal health record.[facility]
--- OUTSIDE RECORDS SUMMARY | 2025-02-16 10:42 | XMS_ITS | Encounter Summary ---
Author Organization [facility] Address [facility] [employer] [address] [address] Phone Care Team Providers Care Canal Equipment Maintenance Supervisor Name Role Phone Huy Zhu MD Unavailable [phone] Nuvia Woodward HOT STICK WORKER Unavailable [phone] Zohra Zaman HOT STICK WORKER Unavailable [phone] Asia Marquez RDCS Unavailable [email or web address] Shyann Sandoval Primary Care Provider Jackelyn Daniels MD Primary Care Provider + Jackelyn Daniels MD Primary Care Provider + Encounter Details Date Type Department Care Team (Late st Contact Info) Description 02/14/2021 Ancillary Orders [facility],Outside Imaging 30 [place], [place] [id number] System, Provider Not In, [facility] [employer] [address] [address] Social History Tobacco Use Types Packs/Day Years [...] Visit [facility] [address] [place] [address] Gary Edwards MD 22 [facility], [address] [place] [address] [email or web address] 08/09/2025 9:30 AM EDT Office Visit [facility], Allergy [facility] Critical Care Medicine 10 [facility] [address] Lucas Galvan MD 10 [facility] 2nd [place] [address] [email or web address] documented as of this encounter Results * [...] on filedocumented in this encounter Care Teams Canal Equipment Maintenance Supervisor Relationship Specialty Start Date End Date Shyann Sandoval PA 70 [place] [address] [email or web address] PCP - General Unknown Provider Specialty 06/13/20 12/29/23 Jackelyn Daniels MD 70 [place] [address] [email or web address] PCP - General Family Medicine 12/30/23 05/03/24 Jackelyn Daniels MD 70 [place] [address] [email or web address] PCP - General Family Medicine 05/04/24 Huy Zhu MD [email or web address] Historical LMR Provider 01/31/17 Nuvia Woodward NP [address] [place] [address] [email or web address] Historical LMR Provider 01/31/17 Zohra Zaman NP [address] [place] [address] Historical LMR Provider 01/31/17 2 Asia Marquez, RDCS [email or web address] Historical LMR Provider 01/31/17 04/19/21 documented as of this encounter Additional Source Comments The information contained in this document represents components of the legal health record. It is not the complete legal health record.[facility]
--- OUTSIDE RECORDS SUMMARY | 2025-02-16 10:42 | XMS_ITS | Encounter Summary ---
Author Organization [facility] Address [facility] [employer] [address] [address] Phone Care Team Providers Care Software Applications Architect Name Role Phone Huy Zhu MD Unavailable [phone] Nuvia Woodward NP Unavailable [phone] Shyann Sandoval Primary Care Provider [phone] Jackelyn Daniels MD Primary Care Provider + Jackelyn Daniels MD Primary Care Provider + Encounter Details Date Type Department Care Team (Latest Contact Info) Description 07/15/2022 Transcribe Orders Virtual Department 30 [place] [address] Lucas Ibarra MD [address] [place] [address] [email or web address] Chronic cough (Primary Dx) Social History Tobacco [...] Visit [facility] [address] [place] [address] Gary Edwards MD 22 [facility], [address] [place] [address] [email or web address] 08/09/2025 9:30 AM EDT Office Visit [facility] Pulmonary, Allergy and Critical Care Medicine 10 [facility] [place] [address] Lucas Galvan MD [address] [place] [address] 2nd [place] [address] [email or web address] documented as of this encounter Results * [...] Cough documented in this encounter Care Teams Software Applications Architect Relationship Specialty Start Date End Date Shyann Sandoval PA [address] [place] [address] [email or web address] PCP - General Unknown Provider Specialty 06/13/20 12/29/23 Jackelyn Daniels MD [address] [place] [address] [email or web address] PCP - General Family Medicine 12/30/23 05/03/24 Jackelyn Daniels MD [address] [place] [address] [email or web address] PCP - General Family Medicine 05/04/24 Huy Zhu MD Historical LMR Provider 01/31/17 Nuvia Woodward NP [address] [place] [address] Historical LMR Provider 01/31/17 documented as of this encounter Additional Source Comments The information contained in this document represents components of the legal health record. It is not the complete legal health record.[facility]
--- OUTSIDE RECORDS SUMMARY | 2025-02-16 10:42 | XMS_ITS | Encounter Summary ---
Author Organization [facility] Address [address] [place] [address] Phone Care Team Providers Care Script Editor Name Role Phone Huy Zhu MD Unavailable [phone] Nuvia Woodward WELDER METAL FAB Unavailable [phone] Zohra Zaman WELDER METAL FAB Unavailable [phone] Asia Marqeuz RDCS Unavailable [email or web address] Huy Zhu MD Primary Care Provider Shyann Sandoval Primary Care Provider [phone] Jackelyn Daniels MD Primary Care Provider + Jackelyn Daniels MD Primary Care Provider + Reason for Referral * Hospital - Outpatient - Closed Specialty Diagnoses / Procedures Referred By Contac t Referred To Contact Diagnoses Family history of cardiovascular disease Procedures Stress Test Exercise Stress Test Exercise Shyann Sandoval PA 70 [place] [address] Phone: tel: fax: [email or web address] Referral ID Status Reason Start Date Expiration Date Visits Re quested Visits Authorized [id number] Closed 04/26/2019 04/25/2020 1 1 Encounter Details Date Type Department Care Team (Latest Contact Info) Description 04/26/2019 Ancillary Orders [facility] Department [address] [place] [address] Shyann Sandoval PA 70 [place] [address] [email or web address] Family history of cardiovascular disease Social [...] Description 02/19/2025 11:20 AM EST Office Visit [facility] OBGYN & Midwifery [address] [place] [address] Gary Edwards MD [address] [place] [address], [address] [place] [address] [email or web address] 08/09/2025 9:30 AM EDT Office Visit [facility], Allergy and Critical Care Medicine 10 [facility] [place] [address] Lucas Galvan MD [address] [address] [email or web address] documented as of this encounter Results * Stress Test Exercise (05/02/2019 11:24 AM EST) Max BP Systolic 150 mmHg [facility] Max BP Diastolic 80 mmHg [facility] Max HR 134 BPM [facility] Resting HR 70 BPM [facility] Resting BP Systolic 100 mmHg [facility] Resting BP Diastolic 70 mmHg [facility] Peak METS 13.8 METS [facility] Peak HR 133 BPM [facility] [...] Conclusion - normal stress test. Estelle Persaud WELDER METAL FAB with Dr Churchill . us Shyann LAN CV STRESS ORDERABLES Final R esult documented in this encounter Visit Diagnoses Diagnosis Family history of cardiovascular disease Family history of other cardiovascular diseases Family history of cardiovascular disease Family history of other cardiovascular diseases documented in this encounter Care Teams Script Editor Relationship Specialty Start Date End Date Huy Zhu MD [email or web address] PCP - General Family Medicine 04/26/19 06/12/20 Shyann Sandoval PA [address] [place] [address] [email or web address] PCP - General Unknown Provider Specialty 06/13/20 12/29/23 aJckelyn Daniels MD [address] [place] [address] [email or web address] PCP - General Family Medicine 12/30/23 05/03/24 Jackelyn Daniels MD 70 [place] [address] [email or web address] PCP - General Family Medicine 05/04/24 Huy Zhu MD Historical LMR Provider 01/31/17 Nuvia Woodward NP [address] [place] [address] Historical LMR Provider 01/31/17 Zohra Zaman NP [address] [place] [address] Historical LMR Provider 01/31/17 2 Asia Marquez, RDCS Historical LMR Provider 01/31/17 04/19/21 documented as of this encounter Additional Source Comments The information contained in this document represents components of the legal health record. It is not the complete legal health record.[facility]
--- OUTSIDE RECORDS SUMMARY | 2025-02-16 10:42 | XMS_ITS | Clinical Summary ---
Author Organization [facility] Address [address] [address] Phone Care Team Providers Care Lens Finisher Name Role Phone Huy Zhu MD Unavailable [phone] Nuvia Woodward NP Unavailable Jackelyn Daniels [...] lung 09/28/2022 Overview (09/28/2022): Chest CT 08/27/2022 [facility]: No ILD, tree-in-bud nodularity, scattered 3 mm [...] CD Pulmonary, Allergy and Critical Care Medicine [address] [place] [address] Lucas Galvan MD Chronic cough (Primary Dx); Seasonal allergies; Gastroesophageal reflux disease, unspecified whether esophagitis present 11/22/2024 Procedure Pass [facility] Endoscopy Admitting Dept Virtual Department [address] [place] [address] 11/22/2024 Hospital Encounter [facility] Endoscopy Admitting Dept Virtual Department [address] [place] [address] Lucas Ibarra MD from Last 3 Months Immunizations Immunization Administration Dates Next Due COVID-19 (Pre-02/01) Pfizer Vaccine, mRNA, PF 12/29/2021 [id number] 02/05/2012 Influenza High-Dose Quadriva lent Preservative Free [...] Office Visit [facility] [address] [place] [address] [place] [address] Gary Edwards MD [address] [place] [address], [address] [place] [address] 08/09/2025 9:30 AM EDT Office Visit [facility] Pulmonary, Allergy and Critical Care Medicine [address] [place] [address] [place] [address] Lucas Galvan MD [address] [place] [address] 2nd [place] [address] Health Maintenance Due Date Last Done Comments [...] on patient's age to complete this topic IPV VACCINES Aged Out No longer eligi ble [...] AM EST) HCV NON-REACTIV E NON-REACTI VE [facility] Blood 06/19/2023 8:43 AM EST 06/19/2023 10:03 AM EST us Lucas Ibarra MD LAB BLOOD BKR ORDERABLES F inal Result [address] [id number] * (ABNORMAL) Lipid panel (09/05/2022 8:12 AM EDT) HDL 88 mg/dL [facility] Comment: Interpretation <40 mg/dL: Low HDL cholesterol (major risk factor for CHD) Greater than or equal to 60 mg/dL: High HDL cholesterol ( negative risk factor for CHD) HDL - cholesterol is affected by a number of factors, e.g. smoking, excerise, hormones, sex and age. CHOLESTEROL 249(H) 0 - 240 mg/dL [facility] TRIGLYCERIDES 102 30 - 160 mg/dL [facility] LDL 141(H) 50 - 129 mg/dL [facility] Comment: LDL levels in terms of risk for coronary heart disease: <100 mg/dL: Optimal 100-129 mg/dL: Near or above optimal 130-159 mg/dL: Borderline high 160-189 mg/dL: High >190 mg/dL: Very High CARDIAC RISK RATIO 2.8(L) 3.3 - 4.4 C [facility] Blood 09/05/2022 8:12 AM EDT 09/05/2022 8:15 AM EDT us Shyann LAN LAB BLOOD BKR ORDERABLES Fin al Result Performing Organization Address [facility] Co de Phone Number [address] [address] * Pap Smear (03/25/2022 12:00 AM EST) 03/25/2022 03/26/2022 10: 17 AM EST Narrative SEE NARRATIVE - 04/02/2022 3:21 PM EST [address] [address] Casting Technician: Kay De La Cruz MD CLINICAL RESEARCH ASSISTANT Cytology Report FINAL DIAGNOSIS A. PAP SMEAR [...] : 1955 (Age: 66) Sex: F Institution: [facility] Location: [facility] Date of Collection: 03/25/2022 Date of Reported: 04/02/2022 15:21 Results to: Jamie Han MD Jamie Han MD CYTOLOGY ORDERABLES Final Result Performing Organization Address [facility] Co de Phone Number SEE NARRATIVE * HM MAMMOGRAPHY FOR RESULT ENTRY ONLY (03/06/2020) Shyann LAN HEALTH MAINTENANCE Final Res ult from Last 3 Months or Most Recently Relevant to Health Maintenance Insurance MEDICARE PART A & B [employer] SUPPLEMENT MEDICARE PART A & B [employer] MEDEX SUPPLEMENT MEDICARE PART A & B [facility] MEDEX SUPPLEMENT MEDICARE PART A & B [employer] MEDEX SUPPLEMENT MEDICARE PART A & B [employer] MED[employer] SUPPLEMENT MEDICARE PART A & B [employer] SUPPLEMENT MEDICARE PART A & B [employer] SUPPLEMENT MEDICARE PART A & B [employer] MEDEX SUPPLEMENT MEDICARE PART A & B [employer] MEDEX SUPPLEMENT Care Teams Lens Finisher Relationship Specialty Start Date End Date Jackelyn Daniels MD [address] [place] [address] [email or web address] PCP - General Family Medicine 05/04/24 Huy Zhu MD Historical LMR Provider 01/31/17 Nuvia Woodward NP [address] [place] [address] Historical LMR Provider 01/31/17 Additional Source Comments The information contained in this document represents components of the legal health record. It is not the complete legal health record.[facility]
--- OUTSIDE RECORDS SUMMARY | 2025-02-16 10:42 | XMS_ITS | Encounter Summary ---
Author Organization [facility] Address [address] [place] [address] Phone Care Team Providers Care Smoking Pipe Mounter Name Role Phone Huy Zhu MD Unavailable Nuvia Woodward LAYOUT INSPECTOR Unavailable [phone] Zohra Zaman LAYOUT INSPECTOR Unavailable [phone] Asia Marquez RDCS Unavailable [email or web address] Huy Zhu MD Primary Care Provider [phone] Shyann Sandoval Primary Care Provider Jackelyn aDniels MD Primary Care Provider + Jackelyn Daniels MD Primary Care Provider + Encounter Details Date Type Department Care Team (Latest Contact Info) Description 04/26/2019 Transcribe Orders Virtual Department 30 [place] [address] Shyann Sandoval PA [address] [place] [address] [email or web address] No family history of cardiac disease [...] Visit [facility] [address] [place] [address] Gary Edwards MD 22 [facility], [address] [place] [address] [email or web address] 08/09/2025 9:30 AM EDT Office Visit [facility] Pulmonary, Allergy and Critical Care Medicine 10 [facility] [place] [address] Lucas Galvan MD [address] [address] [email or web address] documented as of this encounter Visit Diagnoses Diagnosis No family history of cardiac disease- Primary documented in this encounter Care Teams Smoking Pipe Mounter Relationship Specialty Start Date End Date Huy Zhu MD [email or web address] PCP - General Family Medicine 04/26/19 06/12/20 Shyann Sandoval PA [address] [place] [address] [email or web address] PCP - General Unknown Provider Specialty 06/13/20 12/29/23 Jackelyn Daniels MD [address] [place] [address] [email or web address] PCP - General Family Medicine 12/30/23 05/03/24 Jackelyn Daniels MD [address] [place] [address] [email or web address] PCP - General Family Medicine 05/04/24 Huy Zhu MD Historical LMR Provider 01/31/17 Nuvia Woodward NP [address] [place] [address] Historical LMR Provider 01/31/17 Zohra Zaman NP [address] [place] [address] Historical LMR Provider 01/31/17 2 Asia Marquez, DANIEL Historical LMR Provider 01/31/17 04/19/21 documented as of this encounter Additional Source Comments The information contained in this document represents components of the legal health record. It is not the complete legal health record.[facility]
--- OUTSIDE RECORDS SUMMARY | 2025-02-16 10:42 | XMS_ITS | Encounter Summary ---
Author Organization [facility] Address [address] [place] [address] Phone Care Team Providers Care Content Production Specialist Name Role Phone Huy Zhu MD Unavailable [phone] Nuvia Woodward MANAGER PLANNING Unavailable [phone] Zohra Zaman MANAGER PLANNING Unavailable [phone] Asia Marquez RDCS Unavailable [email or web address] Shyann Sandoval Primary Care Provider [phone] Jackelyn Daniels MD Primary Care Provider + Jackelyn Daniels MD Primary Care Provider + Reason for Referral * MRI/CAT Scan - Closed Specialty Diagnoses / Procedures Referred By Contac t Referred To Contact Radiology Diagnoses Arthralgia, unspecified joint Procedures MRI Foot (Left) Gabriela Carney MD Phone: tel: fax: Referral ID Status Reason Start Date Expiration Date Visits Re quested Visits Authorized [id number] Closed 02/04/2021 02/04/2022 1 1 Encounter Details Date Type Department Care Team (Latest Contact Info) Description 02/04/2021 Transcribe Orders [facility] Department 30 [place] [address] Gabriela Carney MD [address] [place] [address] Arthralgia, unspecified joint (Primary Dx) Social History [...] Office Visit [facility] [address] [place] [address] Gary Edwards MD [address] [place] [address] 08/09/2025 9:30 AM EDT Office Visit [facility] Pulmonary, Allergy and Critical Care Medicine [address] [place] [address] Lucas Galvan MD [address] [address] documented as of this encounter Results * [...] COLBY SCREEN ON HEP 2 Negative Negative [facility] Blood 02/05/2021 3:49 PM EDT 02/05/2021 3:55 PM EDT Gabriela Carney MD LAB BLOOD BKR ORD ERABLES Final Result [facility] 30 [place] [address] documented in this encounter Visit Diagnoses Diagnosis Arthralgia, unspecified joint- Primary Arthralgia, unspecified joint documented in this encounter Care Teams Content Production Specialist Relationship Specialty Start Date End Date Shyann Sandoval PA 70 [place] [address] [email or web address] PCP - General Unknown Provider Specialty 06/13/20 12/29/23 Jackelyn Daniels MD 70 [place] [address] [email or web address] PCP - General Family Medicine 12/30/23 05/03/24 Jackelyn Daniels MD 70 [place] [address] [email or web address] PCP - General Family Medicine 05/04/24 Huy Zhu MD Historical LMR Provider 01/31/17 Nuvia Woodward NP [address] [place] [address] Historical LMR Provider 01/31/17 Zohra Zaman NP [address] [place] [address] Historical LMR Provider 01/31/17 2 Asia Marquez, DANIEL Historical LMR Provider 01/31/17 04/19/21 documented as of this encounter Additional Source Comments The information contained in this document represents components of the legal health record. It is not the complete legal health record.[facility]
--- OUTSIDE RECORDS SUMMARY | 2025-02-16 10:42 | XMS_ITS | Encounter Summary ---
Author Organization [facility] Address [address] [place] [address] Phone Care Team Providers Care Electronic Parts Salesperson Name Role Phone Huy Zhu MD Unavailable Nuvia Woodward MOTEL FOOD SERVICE SUPERVISOR Unavailable [phone] Zohra Zaman MOTEL FOOD SERVICE SUPERVISOR Unavailable [phone] Asia Marquez RDCS Unavailable [email or web address] Huy Zhu MD Primary Care Provider Shyann Sandoval Primary Care Provider Jackelyn Daniels MD Primary Care Provider + Jackelyn Daniels MD Primary Care Provider + Encounter Details Date Type Department Care Team (Latest Contact Info) Description 04/27/2019 Transcribe Orders Virtual Department 30 [place] [address] Shyann Sandoval PA 70 [place] [address] [email or web address] Family history of cardiovascular disease (Primary Dx) [...] Visit [facility] 22 [place] [address] Gary Edwards MD 22 [facility], [address] [place] [address] [email or web address] 08/09/2025 9:30 AM EDT Office Visit [facility] Pulmonary, Allergy and Critical Care Medicine 10 [facility] [place] [address] Lucas Galvan MD [address] [address] [email or web address] documented as of this encounter Visit Diagnoses Diagnosis Family history of cardiovascular disease- Primary Family history of other cardiovascular diseases documented in this encounter Care Teams Electronic Parts Salesperson Relationship Specialty Start Date End Date Huy Zhu MD PCP - General Family Medicine 04/26/19 06/12/20 Shyann Sandoval PA 70 [place] [address] [email or web address] PCP - General Unknown Provider Specialty 06/13/20 12/29/23 Jackelyn Daniels MD 70 [place] [address] [email or web address] PCP - General Family Medicine 12/30/23 05/03/24 Jackelyn Daniels MD [address] [place] [address] [email or web address] PCP - General Family Medicine 05/04/24 Huy Zhu MD Historical LMR Provider 01/31/17 Nuvia Woodward NP [address] [place] [address] Historical LMR Provider 01/31/17 Zohra Zaman NP [address] [place] [address] Historical LMR Provider 01/31/17 2 Asia Marquez, DANIEL Historical LMR Provider 01/31/17 04/19/21 documented as of this encounter Additional Source Comments The information contained in this document represents components of the legal health record. It is not the complete legal health record.[facility]
--- OUTSIDE RECORDS SUMMARY | 2025-02-16 10:42 | XMS_ITS | Encounter Summary ---
Author Organization [facility] Address [facility] [employer] [address] [address] Phone Care Team Providers Care Cigarette Vendor Name Role Phone Huy Zhu MD Unavailable Nuvia Woodward DUMPER OPERATOR Unavailable [phone] Zohra Zaman DUMPER OPERATOR Unavailable [phone] Asia Marquez RDCS Unavailable [email or web address] Shyann Sandoval Primary Care Provider Jackelyn Daniels MD Primary Care Provider + Jackelyn Daniels MD Primary Care Provider + Encounter Details Date Type Department Care Team (Late st Contact Info) Description 02/04/2021 Procedure Pass [facility], [address] [address] Social History Tobacco Use Types Packs/Day Years [...] Visit [facility] 22 [place] [address] Gary Edwards MD 22 [facility], [address] [address] [email or web address] 08/09/2025 9:30 AM EDT Office Visit [facility] Pulmonary, Allergy and Critical Care Medicine 10 [place] [address] Lucas Galvan MD 10 [facility] 2nd [place] [address] [email or web address] documented as of this encounter Visit Diagnoses Not on filedocumented in this encounter Care Teams Cigarette Vendor Relationship Specialty Start Date End Date Shyann Sandoval PA [address] [place] [address] [email or web address] PCP - General Unknown Provider Specialty 06/13/20 12/29/23 Jackelyn Daniels MD [address] [place] [address] [email or web address] PCP - General Family Medicine 12/30/23 05/03/24 Jackelyn Daniels MD [address] [place] [address] [email or web address] PCP - General Family Medicine 05/04/24 Huy Zhu MD [email or web address] Historical LMR Provider 01/31/17 Nuvia Woodward NP [address] [place] [address] [email or web address] Historical LMR Provider 01/31/17 Zohra Zaman NP [address] [place] [address] Historical LMR Provider 01/31/17 2 Asia Marquez RDCS [email or web address] Historical LMR Provider 01/31/17 04/19/21 documented as of this encounter Additional Source Comments The information contained in this document represents components of the legal health record. It is not the complete legal health record.[facility]
--- OUTSIDE RECORDS SUMMARY | 2025-02-16 10:42 | XMS_ITS | Encounter Summary ---
Author Organization [facility] Address [address] [employer] [facility] [address] [place] [address] Phone Care Team Providers Care Ship Rigger Apprentice Name Role Phone Huy Zhu MD Unavailable [phone] Nuvia Woodward NP Unavailable [phone] Shyann Sandoval Primary Care Provider [phone] Jackelyn Daniels MD Primary Care Provider + Jackelyn Daniels MD Primary Care Provider + Encounter Details Date Type Department Care Team (Latest Contact Info) Description 06/29/2023 Transcribe Orders [address] [address] Naveen Billy MD [address] [place] [address] Bilateral shoulder pain, unspecified chronicity (Primary Dx) [...] Description 02/19/2025 11:20 AM EST Office Visit [facility] [address] [place] [address] Gary Edwards MD [address] [place] [address], [address] [address] 08/09/2025 9:30 AM EDT Office Visit [facility] Pulmonary, Allergy and Critical Care Medicine [address] [place] [address] [place] [address] Lucas Galvan MD 10 [facility] 2nd [place] [address] documented as of this encounter Results * Lyme Screen with Reflex to Immunoblot, Blood (06/29/2023 10:41 AM EDT) Lyme AB IgG Negative Negative [facility] Lyme AB IgM Negative Negative [facility] Blood 06/29/2023 10:4 1 AM EDT 06/29/2023 10:46 AM EDT us Naveen Billy MD LAB BLOOD BKR ORDERABLES Edited Result - Final [address] [address] documented in this encounter Visit Diagnoses Diagnosis Bilateral shoulder pain, unspecified chronicity- Primary documented in this encounter Care Teams Ship Rigger Apprentice Relationship Specialty Start Date End Date Shyann Sandoval PA 70 [place] [address] [email or web address] PCP - General Unknown Provider Specialty 06/13/20 12/29/23 Jackelyn Daniels MD [address] [place] [address] [email or web address] PCP - General Family Medicine 12/30/23 05/03/24 Jackelyn Daniels MD 70 [place] [address] [email or web address] PCP - General Family Medicine 05/04/24 Huy Zhu MD [email or web address] Historical LMR Provider 01/31/17 Nuvia Woodward NP 30 [place] [address] Historical LMR Provider 01/31/17 documented as of this encounter Additional Source Comments The information contained in this document represents components of the legal health record. It is not the complete legal health record.[facility]
--- OUTSIDE RECORDS SUMMARY | 2025-02-16 10:42 | XMS_ITS | Encounter Summary ---
Author Organization [facility] Address [facility] [address] [address] Phone Care Team Providers Care Manufacturing Quality Manager Name Role Phone Huy Zhu MD Unavailable Nuvia Woodward EXHIBIT SPECIALIST Unavailable [phone] Zohra Zaman EXHIBIT SPECIALIST Unavailable [phone] Asia Marquez RDCS Unavailable [email or web address] Huy Zhu MD Primary Care Provider [phone] Huy Zhu MD Primary Care Provider Shyann Sandoval Primary Care Provider [phone] Jackelyn Daniels MD Primary Care Provider + Jackelyn Daniels MD Primary Care Provider + Encounter Details Date Type Department Care Team (Late st Contact Info) Description 03/23/2019 Procedure Pass [facility] Endoscopy Admitting Dept Virtual Department 30 [place] [address] Social History Tobacco Use Types Packs/Day Years [...] Visit [facility] 22 [place] [address] Gary Edwards MD 22 [facility], [address] [place] [address] [email or web address] 08/09/2025 9:30 AM EDT Office Visit [facility] Pulmonary, Allergy and Critical Care Medicine 10 [place], [place] [address] Lucas Galvan MD [address] [address] [email or web address] documented as of this encounter Visit Diagnoses Not on filedocumented in this encounter Care Teams Manufacturing Quality Manager Relationship Specialty Start Date End Date Huy Zhu MD [email or web address] PCP - General 04/15/17 04/25/19 Huy Zhu MD [email or web address] PCP - General Family Medicine 04/26/19 06/12/20 Shyann Sandoval PA [address] [place] [address] [email or web address] PCP - General Unknown Provider Specialty 06/13/20 12/29/23 Jackelyn Daniels MD 70 [place] [address] [email or web address] PCP - General Family Medicine 12/30/23 05/03/24 Jackelyn Daniels MD [address] [place] [address] [email or web address] PCP - General Family Medicine 05/04/24 Huy Zhu MD Historical LMR Provider 01/31/17 Nuvia Woodward NP [address] [place] [address] [email or web address] Historical LMR Provider 01/31/17 Zohra Zaman NP [address] [place] [address] Historical LMR Provider 01/31/17 2 Asia Marquez, RD Historical LMR Provider 01/31/17 04/19/21 documented as of this encounter Additional Source Comments The information contained in this document represents components of the legal health record. It is not the complete legal health record.[facility]
--- OUTSIDE RECORDS SUMMARY | 2025-02-16 10:43 | XMS_ITS | Encounter Summary ---
Author Organization [facility] Address [address] [place] [address] Phone Care Team Providers Care Public Health Specialist Name Role Phone Huy Zhu MD Unavailable [phone] Nuvia Woodward NP Unavailable [phone] Jackelyn Daniels MD Primary Care Provider + Encounter Details Date Type Department Care Team (Late st Contact Info) Description 05/08/2024 Procedure Pass [facility] Endoscopy Admitting Dept Virtual Department 30 [place] [address] Social History Tobacco Use Types Packs/Day Years [...] Office Visit [facility] [address] [place] [address] Gary Edwards MD [address] [address] [email or web address] 08/09/2025 9:30 AM EDT Office Visit [facility] Pulmonary, Allergy and Critical Care Medicine 10 [place] [address] Lucas Galvan MD [address] [address] [email or web address] documented as of this encounter Visit Diagnoses Not on filedocumented in this encounter Care Teams Public Health Specialist Relationship Specialty Start Date End Date Jackelyn Daniels MD [address] [place] [address] [email or web address] PCP - General Family Medicine 05/04/24 Huy Zhu MD [email or web address] Historical LMR Provider 01/31/17 Nuvia Woodward NP [address] [place] [address] [email or web address] Historical LMR Provider 01/31/17 documented as of this encounter Additional Source Comments The information contained in this document represents components of the legal health record. It is not the complete legal health record.[facility]
--- OUTSIDE RECORDS SUMMARY | 2025-02-16 10:43 | XMS_ITS | Encounter Summary ---
Author Organization [facility] Address [address] [facility] [address] [place] [address] Phone Care Team Providers Care Classifications Officer Cc/Cm Name Role Phone Huy Zhu MD Unavailable [phone] Nuvia Woodward NP Unavailable [phone] Shyann Sandoval Primary Care Provider [phone] Jackelyn Daniels MD Primary Care Provider + Jackelyn Daniels MD Primary Care Provider + Encounter Details Date Type Department Care Team (Latest Contact Info) Description 09/04/2022 Transcribe Orders [facility] Phleb Crissy [address] [phone] Shyann Sandoval PA [address] [place], [place] [phone] [email or web address] Hyperlipidemia, unspecified hyperlipidemia type (Primary Dx) Social [...] Description 02/19/2025 11:20 AM EST Office Visit [facility] [address] [place] [address] Gary Edwards MD 22 [facility], [address] [address] 08/09/2025 9:30 AM EDT Office Visit [facility] Pulmonary, Allergy and Critical Care Medicine [address] [place] [address] Lucas Galvan MD [address] [place] [address] [email or web address] documented as of this encounter Results * (ABNORMAL) Lipid panel (09/05/2022 8:12 AM EDT) HDL 88 mg/dL [facility] Comment: Interpretation <40 mg/dL: Low HDL cholesterol (major risk factor for CHD) Greater than or equal to 60 mg/dL: High HDL cholesterol ( negative risk factor for CHD) HDL - cholesterol is affected by a number of factors, e.g. smoking, excerise, hormones, sex and age. CHOLESTEROL 249(H) 0 - 240 mg/dL [facility] TRIGLYCERIDES 102 30 - 160 mg/dL [facility] LDL 141(H) 50 - 129 mg/dL [facility] Comment: LDL levels in terms of risk for coronary heart disease: <100 mg/dL: Optimal 100-129 mg/dL: Near or above optimal 130-159 mg/dL: Borderline high 160-189 mg/dL: High >190 mg/dL: Very High CARDIAC RISK RATIO 2.8(L) 3.3 - 4.4 [facility] Blood 09/05/2022 8:12 AM EDT 09/05/2022 8:15 AM EDT Shyann LAN LAB BLOOD BKR ORDERABLES Fin al Result [address] [address] * (ABNORMAL) Comprehensive metabolic panel (09/04/2022 12:14 PM EDT) SODIUM 137 133 - 146 mmol/L [facility] POTASSIUM 3.9 3.3 - 5.1 mmol/L [facility] CHLORIDE 100 96 - 108 mmol/L [facility] CO2 27 21 - 35 mmol/L [facility] BUN 11 6 - 19 mg/dL [facility] CREATININE 0.60 0.5 - 1.5 mg/dL [facility] GLUCOSE 79 70 - 99 mg/dL [facility] ALBUMIN 4.4 3.9 - 4.8 g/dL [facility] TOTAL PROTEIN 7.8 6.5 - 8.0 g/dL [facility] CALCIUM 9.7 8.4 - 10.3 mg/dL [facility] ALKALINE PHOSPHATASE 122(H) 39 - 117 U/L [facility] TOTAL BILIRUBIN 0.3 0.0 - 1.2 mg/dL [facility] AST 70(H) 0 - 37 U/L [facility] ALT 65(H) 0 - 40 U/L [facility] GLOBULIN 3.4 1 - 4.8 g/dL [facility] EGFR 97 >59 mL/min/1.7 3m2 [facility] Comment:Estimated glomerular filtration rate calculated using the CKD-EPI refit equation. ANION GAP 14 10 - 20 mmol/L [facility] Blood 09/04/2022 12:1 4 PM EDT 09/04/2022 12:17 PM EDT Shyann LAN LAB BLOOD BKR ORDERABLES Fin al Result [address] [address] * (ABNORMAL) C-Reactive Protein (09/04/2022 12:14 PM EDT) Pathologist [facility] C REACTIVE PROTEIN 6.8(H) 0.0 - 4.0 mg/L [facility] Blood 09/04/2022 12:1 4 PM EDT 09/04/2022 12:17 PM EDT Shyann LAN LAB BLOOD BKR ORDERABLES Fin al Result Performing Organization Address [facility]/ZIP Co de Phone Number [address] [address] * CBC and differential (09/04/2022 12:14 PM EDT) Pathologist [facility] WBC 7.18 4.00 - 11.00 K/uL [facility] RBC 4.31 3.72 - 5.30 M/uL [facility] HGB 13.5 11.4 - 15.9 g/dL [facility] HCT 40.9 34.2 - 46.8 % [facility] PLT 340 140 - 430 K/uL [facility] MCV 94.9 78.0 - 97.0 [facility] MCH 31.3 25.0 - 33.0 pg [facility] MCHC 33.0 32.0 - 36.0 g/dL [facility] RDW 12.7 11.0 - 16.0 % [facility] MPV 10.9 8.4 - 12.8 [facility] DIFF METHOD Auto [facility] NEUTS 65.8 43.0 - 75.0 % [facility] LYMPHS 23.3 18.2 - 47.4 % [facility] MONOS 9.1 4.00 - 11.00 % [facility] EOS 0.8 0.0 - 8.0 % [facility] BASOS 0.7 0.0 - 2.0 % [facility] Granulocytes, immature (%) 0.3 0.0 - 0.9 % [facility] ABSOLUTE NEUTS 4.73 1.80 - 7.70 K/uL [facility] ABSOLUTE LYMPHS 1.67 1.00 - 3.10 K/uL [facility] ABSOLUTE MONOS 0.65 0.20 - 0.80 K/uL [facility] ABSOLUTE EOS 0.06 0.00 - 0.80 K/uL [facility] ABSOLUTE BASOS 0.05 0.00 - 0.09 K/uL [facility] Granulocytes, immature 0.02 0.00 - 0.05 K/uL [facility] Blood 09/04/2022 12:1 4 PM EDT 09/04/2022 12:17 PM EDT us Shyann LAN LAB BLOOD BKR ORDERABLES Fin al Result Performing Organization Address City/State/[facility] Co de Phone Number [facility] [address] [place] [address] documented in this encounter Visit Diagnoses Diagnosis Hyperlipidemia, unspecified hyperlipidemia type- Primary documented in this encounter Care Teams Classifications Officer Cc/Cm Relationship Specialty Start Date End Date Shyann Sandoval PA [address] [place] [address] [email or web address] PCP - General Unknown Provider Specialty 06/13/20 12/29/23 Jackelyn Daniels MD [address] [place] [address] [email or web address] PCP - General Family Medicine 12/30/23 05/03/24 Jackelyn Daniels MD [address] [place] [address] [email or web address] PCP - General Family Medicine 05/04/24 Huy Zhu MD [email or web address] Historical LMR Provider 01/31/17 Nuvia Woodward NP [address] [place] [address] [email or web address] Historical LMR Provider 01/31/17 documented as of this encounter Additional Source Comments The information contained in this document represents components of the legal health record. It is not the complete legal health record.[facility]
--- OUTSIDE RECORDS SUMMARY | 2025-02-16 10:43 | XMS_ITS | Encounter Summary ---
Author Organization [facility] Address [address] [place] [address] [facility] [address] [place] [address] Phone Care Team Providers Care Train Dispatcher Name Role Phone Huy Zhu MD Unavailable [phone] Nuvia Woodward NP Unavailable [phone] Shyann Sandoval Primary Care Provider [phone] Jackelyn Daniels MD Primary Care Provider + Jackelyn Daniels MD Primary Care Provider + Encounter Details Date Type Department Care Team (Late st Contact Info) Description 01/13/2023 Procedure Pass [facility], Ct Scan - [address] [address] Social History Tobacco Use Types Packs/Day Years [...] 4:37 PM EDT Yesenia Grigsby RN * Bryant Suicide Severity Rating Scale (Screener/Recent Self-Report) Question [...] Office Visit [facility] [address] [place] [address] [place] [address] Gary Edwards MD 22 [facility], [address] [place] [address] 08/09/2025 9:30 AM EDT Office Visit [facility] Pul[facility], Allergy and Critical Care Medicine [address] [place] [address] Lucas Galvan MD [address] [place] [address] [email or web address] documented as of this encounter Visit Diagnoses Not on filedocumented in this encounter Care Teams Train Dispatcher Relationship Specialty Start Date End Date Shyann aSndoval PA [address] [place] [address] [email or web address] PCP - General Unknown Provider Specialty 06/13/20 12/29/23 Jackelyn Daniels MD [address] [place] [address] [email or web address] PCP - General Family Medicine 12/30/23 05/03/24 Jackelyn Daniels MD [address] [place] [address] [email or web address] PCP - General Family Medicine 05/04/24 Huy Zhu MD [email or web address] Historical LMR Provider 01/31/17 Nuvia Woodward NP [address] [place] [address] [email or web address] Historical LMR Provider 01/31/17 documented as of this encounter Additional Source Comments The information contained in this document represents components of the legal health record. It is not the complete legal health record.[facility]
--- OUTSIDE RECORDS SUMMARY | 2025-02-16 10:43 | XMS_ITS | Encounter Summary ---
Author Organization [facility] Address [address] [employer] [address] [address] Phone Care Team Providers Care Sharepoint Engineer Name Role Phone Huy Zhu MD Unavailable [phone] Nuvia Woodward NP Unavailable [phone] Shyann Sandoval Primary Care Provider [phone] Jackelyn Daniels MD Primary Care Provider + Jackelyn Daniels MD Primary Care Provider + Encounter Details Date Type Department Care Team (Late st Contact Info) Description 12/11/2022 Procedure Pass [facility] Endoscopy Admitting Dept Virtual Department [address] [place] [address] Social History Tobacco Use Types Packs/Day Years [...] Visit [facility] [address] [place] [address] Gary Edwards MD 22 [facility], [address] [place] [address] 08/09/2025 9:30 AM EDT Office Visit [facility] Pulmonary, Allergy and Critical Care Medicine 10 [facility] [place] [address] Lucas Galvan MD [address] [address] [email or web address] documented as of this encounter Visit Diagnoses Not on filedocumented in this encounter Care Teams Sharepoint Engineer Relationship Specialty Start Date End Date Shyann Sandoval PA 70 [place] [address] [email or web address] PCP - General Unknown Provider Specialty 06/13/20 12/29/23 Jackelyn Daniels MD 70 [place] [address] [email or web address] PCP - General Family Medicine 12/30/23 05/03/24 Jackelyn Daniels MD 70 [place] [address] [email or web address] PCP - General Family Medicine 05/04/24 Huy Zhu MD [email or web address] Historical LMR Provider 01/31/17 Nuvia Woodward NP [address] [place] [address] [email or web address] Historical LMR Provider 01/31/17 documented as of this encounter Additional Source Comments The information contained in this document represents components of the legal health record. It is not the complete legal health record.[facility]
--- OUTSIDE RECORDS SUMMARY | 2025-02-16 10:43 | XMS_ITS | Encounter Summary ---
Author Organization [facility] Address [address] [place] [address] Phone Care Team Providers Care Spot Cleaner Name Role Phone Huy Zhu MD Unavailable [phone] Nuvia Woodward NP Unavailable [phone] Shyann Sandoval Primary Care Provider [phone] Jackelyn Daniels MD Primary Care Provider + Jackelyn Daniels MD Primary Care Provider + Encounter Details Date Type Department Care Team (Late st Contact Info) Description 03/18/2022 Transcribe Orders [facility] Specimen Processing 30 [place] [address] Shyann Sandoval PA 70 [place], [place] [phone] [email or web address] Social History Tobacco Use Types Packs/Day Years [...] Visit [facility] 22 [place] [address] Gary Edwards MD 22 [facility], [address] [address] [email or web address] 08/09/2025 9:30 AM EDT Office Visit [facility], Allergy and Critical Care Medicine 10 [place] [address] Lucas Galvan MD [address] [address] [email or web address] documented as of this encounter Visit Diagnoses Not on filedocumented in this encounter Care Teams Spot Cleaner Relationship Specialty Start Date End Date Shyann Sandoval PA [address] [place] [address] [email or web address] PCP - General Unknown Provider Specialty 06/13/20 12/29/23 Jackelyn Daniels MD [address] [place] [address] [email or web address] PCP - General Family Medicine 12/30/23 05/03/24 Jackelyn Daniels MD [address] [place] [address] [email or web address] PCP - General Family Medicine 05/04/24 Huy Zhu MD Historical LMR Provider 01/31/17 Nuvia Woodward NP [address] [place] [address] [email or web address] Historical LMR Provider 01/31/17 documented as of this encounter Additional Source Comments The information contained in this document represents components of the legal health record. It is not the complete legal health record.[facility]
--- OUTSIDE RECORDS SUMMARY | 2025-02-16 10:43 | XMS_ITS | Encounter Summary ---
Author Organization [facility] Address [address] [address] Phone Care Team Providers Care Gold Beater Name Role Phone Huy Zhu MD Unavailable [phone] Nuvia Woodward NP Unavailable [phone] Shyann Sandoval Primary Care Provider [phone] Jackelyn Daniels MD Primary Care Provider + Jackelyn Daniels MD Primary Care Provider + Encounter Details Date Type Department Care Team (Late st Contact Info) Description 12/15/2022 Procedure Pass [facility] Endoscopy Admitting Dept Virtual Department [address] [place] [address] Social History Tobacco Use Types Packs/Day Years [...] Visit [facility] [address] [place] [address] Gary Edwards MD 22 [facility], [address] [place] [address] 08/09/2025 9:30 AM EDT Office Visit [facility]monary, Allergy and Critical Care Medicine 10 [facility] [place] [address] Lucas Galvan MD [address] [address] [email or web address] documented as of this encounter Visit Diagnoses Not on filedocumented in this encounter Care Teams Gold Beater Relationship Specialty Start Date End Date Shyann Sandoval PA 70 [place] [address] [email or web address] PCP - General Unknown Provider Specialty 06/13/20 12/29/23 Jackelyn Daniels MD 70 [place] [address] [email or web address] PCP - General Family Medicine 12/30/23 05/03/24 Jackelyn Daniels MD 70 [place] [address] [email or web address] PCP - General Family Medicine 05/04/24 Huy Zhu MD [email or web address] Historical LMR Provider 01/31/17 Nuvia Woodward NP [address] [place] [address] [email or web address] Historical LMR Provider 01/31/17 documented as of this encounter Additional Source Comments The information contained in this document represents components of the legal health record. It is not the complete legal health record.[facility]
--- OUTSIDE RECORDS SUMMARY | 2025-02-16 10:43 | XMS_ITS | Encounter Summary ---
Author Organization [facility] Address [address] [employer] [facility] [address] [place] [address] Phone Care Team Providers Care Poultry Farmworker Name Role Phone Huy Zhu MD Unavailable [phone] Nuvia Woodward NP Unavailable [phone] Jackelyn Daniels MD Primary Care Provider + Jackelyn Daniels MD Primary Care Provider + Encounter Details Date Type Department Care Team (Late st Contact Info) Description 04/26/2024 Procedure Pass [facility], Ct Scan - [address] [address] Social History Tobacco Use Types Packs/Day Years [...] Visit [facility] 22 [place] [address] Gary Edwards MD [address] [address] 08/09/2025 9:30 AM EDT Office Visit [facility], Allergy and Critical Care Medicine 10 [place] [address] Lucas Galvan MD [address] [address] documented as of this encounter Visit Diagnoses Not on filedocumented in this encounter Care Teams Poultry Farmworker Relationship Specialty Start Date End Date Jackelyn Daniels MD 30 [place] [address] [email or web address] PCP - General Family Medicine 12/30/23 05/03/24 Jackelyn Daniels MD 70 [place] [address] [email or web address] PCP - General Family Medicine 05/04/24 Huy Zhu MD [email or web address] Historical LMR Provider 01/31/17 Nuvia Woodward NP [address] [place] [address] [email or web address] Historical LMR Provider 01/31/17 documented as of this encounter Additional Source Comments The information contained in this document represents components of the legal health record. It is not the complete legal health record.[facility]
--- OUTSIDE RECORDS SUMMARY | 2025-02-16 10:43 | XMS_ITS | Encounter Summary ---
Author Organization [facility] Address [address] [employer] [facility] [address] [place] [address] Phone Care Team Providers Care Homeland Security Program Specialist Name Role Phone Huy Zhu MD Unavailable [phone] Nuvia Woodward NP Unavailable [phone] Shyann Sandoval Primary Care Provider [phone] Jackelyn Daniels MD Primary Care Provider + Jackelyn Daniels MD Primary Care Provider + Encounter Details Date Type Department Care Team (Latest Contact Info) Description 09/28/2023 Transcribe Orders [facility] Phleb Crissy [address] Floor [place], [place] [phone] Lucas Ibarra MD [address] [address] [email or web address] Abnormal results of liver function studies (Primary [...] Description 02/19/2025 11:20 AM EST Office Visit [facility] [address] [place] [address] Gary Edwards MD [address] [place] [address] 08/09/2025 9:30 AM EDT Office Visit [facility], Allergy [facility] Critical Care Medicine [address] [place] [address] Lucas Galvan MD [address] [address] documented as of this encounter Results * (ABNORMAL) Comprehensive metabolic panel (09/28/2023 10:44 AM EDT) SODIUM 134 133 - 146 mmol/L [facility] POTASSIUM 4.3 3.3 - 5.1 mmol/L [facility] CHLORIDE 96 96 - 108 mmol/L [facility] CO2 26 21 - 35 mmol/L [facility] BUN 20(H) 6 - 19 mg/dL [facility] CREATININE 0.70 0.5 - 1.5 mg/dL [facility] GLUCOSE 103(H) 70 - 99 mg/dL [facility] ALBUMIN 4.1 3.9 - 4.8 g/dL [facility] TOTAL PROTEIN 7.0 6.5 - 8.0 g/dL [facility] CALCIUM 9.4 8.4 - 10.3 mg/dL [facility] ALKALINE PHOSPHATASE 80 39 - 117 U/L [facility] TOTAL BILIRUBIN <0.2 0.0 - 1.2 mg/dL [facility] AST 23 0 - 37 U/L [facility] ALT 30 0 - 40 U/L [facility] GLOBULIN 2.9 1 - 4.8 g/dL [facility] EGFR 93 >59 mL/min/1.7 3m2 [facility] Comment:Estimated glomerular filtration rate calculated using the CKD-EPI refit equation. ANION GAP 16 10 - 20 mmol/L [facility] Blood 09/28/2023 10:4 4 AM EDT 09/28/2023 10:49 AM EDT Lucas Ibarra MD LAB BLOOD BKR ORDERABLES F inal Result Performing Organization Address City/State/[facility] Co de Phone Number [facility] 30 [place] [address] documented in this encounter Visit Diagnoses Diagnosis Abnormal results of liver function studies- Primary Nonspecific abnormal results of liver function study documented in this encounter Care Teams Homeland Security Program Specialist Relationship Specialty Start Date End Date Shyann Sandoval PA 70 [place] [address] [email or web address] PCP - General Unknown Provider Specialty 06/13/20 12/29/23 Jackelyn Daniels MD 70 [place] [address] [email or web address] PCP - General Family Medicine 12/30/23 05/03/24 Jackelyn Daniels MD [address] [place] [address] [email or web address] PCP - General Family Medicine 05/04/24 Huy Zhu MD [email or web address] Historical LMR Provider 01/31/17 Nuvia Woodward NP [address] [place] [address] [email or web address] Historical LMR Provider 01/31/17 documented as of this encounter Additional Source Comments The information contained in this document represents components of the legal health record. It is not the complete legal health record.[facility]
--- OUTSIDE RECORDS SUMMARY | 2025-02-16 10:43 | XMS_ITS | Encounter Summary ---
Author Organization [facility] Address [address] [place] [address] Phone Care Team Providers Care First Beater Name Role Phone Huy Zhu MD Unavailable [phone] Nuvia Woodward NP Unavailable [phone] Jackelyn Daniels MD Primary Care Provider + Encounter Details Date Type Department Care Team (Late st Contact Info) Description 11/22/2024 Procedure Pass [facility] Endoscopy Admitting Dept Virtual Department 30 [place] [address] Social History Tobacco Use Types Packs/Day Years [...] Office Visit [facility] [address] [place] [address] Gary Edwards MD [address] [address] [email or web address] 08/09/2025 9:30 AM EDT Office Visit [facility] Allergy [facility] Critical [facility] Medicine 10 [place] [address] Lucas Galvan MD [address] [address] [email or web address] documented as of this encounter Visit Diagnoses Not on filedocumented in this encounter Care Teams First Beater Relationship Specialty Start Date End Date Jackelyn Daniels MD [address] [place] [address] [email or web address] PCP - General Family Medicine 05/04/24 Huy Zhu MD [email or web address] Historical LMR Provider 01/31/17 Nuvia Woodward NP [address] [place] [address] [email or web address] Historical LMR Provider 01/31/17 documented as of this encounter Additional Source Comments The information contained in this document represents components of the legal health record. It is not the complete legal health record.[facility]
--- OUTSIDE RECORDS SUMMARY | 2025-02-16 10:43 | XMS_ITS | Encounter Summary ---
Author Organization [facility] Address [address] [employer] [facility] [address] [place] [address] Phone Care Team Providers Care Ring Facer Name Role Phone Huy Zhu MD Unavailable [phone] Nuvia Woodward NP Unavailable [phone] Jackelyn Daniels MD Primary Care Provider + Reason for Visit * Auth/Cert (Routine) Specialty Diagnoses / Procedures Referred By Contac t Referred To Contact Diagnoses colon Procedures AL COLONOSCOPY FLX DX W/COLLJ SPEC WHEN PFRMD AL COLONOSCOPY W/BIOPSY SINGLE/MULTIPLE AL COLSC FLX W/RMVL OF TUMOR POLYP LESION SNARE TQ COLONOSCOPY Referral ID Status Reason Start Date Expiration Date Visits Re quested Visits Authorized [id number] 1 1 Encounter Details Date Type Department Care Team (Late st Contact Info) Description 11/22/2024 Hospital Encounter [facility] Endoscopy Admitting Dept Virtual Department 30 [place] [address] Lucas Ibarra MD [address] [place] [address] [email or web address] Social History Tobacco Use Types Packs/Day Years [...] Office Visit [facility] [address] [place] [address] Gary Edwards MD [address] [address] 08/09/2025 9:30 AM EDT Office Visit [facility] Pulmonary, Allergy and Critical Care Medicine 10 [facility] [place] [address] Lucas Galvan MD 10 [facility] 2nd [place] [address] documented as of this encounter Visit Diagnoses Not on filedocumented in this encounter Care Teams Ring Facer Relationship Specialty Start Date End Date Jackelyn Daniels MD [address] [place] [address] [email or web address] PCP - General Family Medicine 05/04/24 Huy Zhu MD [email or web address] Historical LMR Provider 01/31/17 Nuvia Woodward NP [address] [place] [address] [email or web address] Historical LMR Provider 01/31/17 documented as of this encounter Additional Source Comments The information contained in this document represents components of the legal health record. It is not the complete legal health record.[facility]
--- OUTSIDE RECORDS SUMMARY | 2025-02-16 10:44 | XMS_ITS | Encounter Summary ---
Author Organization [facility] Address [address] [place] [address] Phone Care Team Providers Care Recovery Collector Name Role Phone Huy Zhu MD Unavailable [phone] Nuvia Woodward NP Unavailable [phone] Jackelyn Daniels MD Primary Care Provider + Encounter Details Date Type Department Care Team (Late st Contact Info) Description 05/12/2024 Procedure Pass [facility] Endoscopy Admitting Dept Virtual Department 30 [place] [address] Social History Tobacco Use Types Packs/Day Years [...] Office Visit [facility] [address] [place] [address] Gary Edwards MD [address] [address] [email or web address] 08/09/2025 9:30 AM EDT Office Visit [facility] Pulmonary, Allergy and Critical Care Medicine 10 [place] [address] Lucas Galvan MD [address] [address] [email or web address] documented as of this encounter Visit Diagnoses Not on filedocumented in this encounter Care Teams Recovery Collector Relationship Specialty Start Date End Date Jackelyn Daniels MD [address] [place] [address] [email or web address] PCP - General Family Medicine 05/04/24 Huy Zhu MD [email or web address] Historical LMR Provider 01/31/17 Nuvia Woodward NP [address] [place] [address] [email or web address] Historical LMR Provider 01/31/17 documented as of this encounter Additional Source Comments The information contained in this document represents components of the legal health record. It is not the complete legal health record.[facility]
== END 2025-02-16 10:34 | disposition home or self-care (01) ==
LOC: HO.RHES 09:28
PROVIDERS: PCP Family Medicine; Visit Provider Student in an Organized Health Care Education/Training Program
DX: M05.9 Rheumatoid arthritis with rheumatoid factor, unspecified (principal); M81.0 Age-related osteoporosis without current pathological fracture; Z51.81 Encounter for therapeutic drug level monitoring; Z79.620 Long term (current) use of immunosuppressive biologic; Z79.899 Other long term (current) drug therapy
CPT/HCPCS: 99214; G2211

== ENCOUNTER → 2025-02-16 09:27 | Outpatient (BNVA) | payer MEDICARE, SELFPAY | PROVIDERS: PCP Family Medicine; Visit Provider Student in an Organized Health Care Education/Training Program | DX: M05.79 Rheumatoid arthritis with rheumatoid factor of multiple sites without organ or systems involvement (principal); M81.0 Age-related osteoporosis without current pathological fracture; Z79.620 Long term (current) use of immunosuppressive biologic; Z79.899 Other long term (current) drug therapy | CPT/HCPCS: 99212 ==

== ENCOUNTER → 2025-03-12 13:47 | Outpatient (REF) | payer MEDICARE, SELFPAY ==
--- OUTSIDE RECORDS SUMMARY | 2025-03-12 17:17 | XMS_ITS | Clinical Summary ---
Author Organization Located [facility] Address [address] [employer] [address] [address] Phone Care Team Providers Care Animal Shelter Manager Name Role Phone Huy Zhu MD Unavailable [phone] Nuvia Woodward NP Unavailable [phone] Jackelyn Daniels MD Primary Care Provider + Allergies Active Allergy Reactions Criticality Noted Date Comments Acetaminophen-Codeine Headaches 09/24/2022 Alendronate Sodium Other (See Comments) 023 Other 07/02/2021 MSG, nitrates, nitrites cause migraines Sulfa (Sulfonamide Antibiotics) Nausea and/or Vomiting 01/17/2019 Medications ZOLMitriptan (ZOMIG) 2.5 MG tablet Take 2.5 mg by mouth as needed for migraine. Active cetirizine (ZYRTEC) 10 MG tablet Take 10 mg by mouth daily. Active cholecalciferol (VITAMIN D3) 5,000 unit tablet Take 1,000 Units by mouth daily. Active denosumab (PROLIA) 60 mg/mL Syrg subcutaneous [...] ITCHY AREAS TWICE DAILY NEEDED 01/20/20 Active CALCIUM ORAL Take 1 tablet by mouth daily. Discontin ued(No longer taking) therapeutic multivitamin tablet Take 1 tablet by mouth daily. Discontin ued(No longer taking) celecoxib (CELEBREX) 100 MG capsule Take 1 capsule by mouth 2 (two) times a day as needed. 12/27/19 24 Discontin ued(No longer taking) fluticasone furoate (FLONASE [...] lung 09/28/2022 Overview (09/28/2022): Chest CT 08/27/2022 [facility]: No ILD, tree-in-bud nodularity, scattered 3 [...] Encounters Date Type Department Care Team Description 02/19/2025 11:20 AM EST Office Visit [facility] [address] [place] [address] [place] [address] Gary Edwards MD Encounter for gynecological examination without abnormal finding (Primary Dx) 02/13/2025 9:30 AM EST Office Visit [facility] Pulmonary, Allergy and Critical Care Medicine [address] [place] [address] Lucas Galvan MD Chronic cough (Primary Dx); Seasonal allergies; Gastroesophageal reflux disease, unspecified whether esophagitis present from Last 3 Months Immunizations Immunization Administration Dates Next Due COVID-19 (Pre-02/01) Pfizer Vaccine, mRNA, PF 12/29/2021 [id number] 02/05/2012 Influenza High-Dose Quadriva lent Preservative Free [...] Sign Reading Time Taken Comments Blood Pressure 116/78 02/19/2025 11:22 AM EST Pulse 74 02/13/2025 9:19 AM EST Temperature 36.4 C (97.5 F) 02/13/2025 9:19 AM EST Respiratory Rate 17 05/08/2024 10:30 AM EST Oxygen Saturation 95% 02/13/2025 9:19 AM EST Inhaled Oxygen Concentration - - Weight 60.8 kg (134 lb) 02/19/2025 11:22 AM EST Height 157.5 cm (5' 2 ) 02/13/2025 9:19 AM EST Body Mass Index 24.51 02/13/2025 9:19 AM EST Plan of Treatment Upcoming Encounters Date Type Department Care Team ([facility] st Contact Info) Description 08/09/2025 9:30 AM EDT Office Visit [facility] Pulmonary, Allergy and Critical Care Medicine [address] [place] [address] [place] [address] Lucas Galvan MD [address] [place] [address] [email or web address] Health Maintenance Due Date Last Done Comments DEPRESSION SCREENING 1965 COLOGUARD 1998 COLONOSCOPY 1998 COLORECTAL CANCER SCREENING 1998 FIT TEST 1998 FOBT 1998 SIGMOIDOSCOPY 1998 VIRTUAL COLONOSCOPY 1998 RSV VACCINE (1 - Risk 50-74 years 1-dose series) 06/15/2003 OSTEOPOROSIS SCREENING INITIAL (ONE-TIME) 2018 MAMMOGRAM 03/06/2022 03/06/2020, 12/10/2014 COVID-19 VACCINE ( season) 2024 01/10/2024, 04/09/2023, 12/29/2021, Additional history exists BLOOD PRESSURE 08/19/2025 02/19/2025 LIPID PANEL 09/06/2027 09/05/2022, 04/24/2020 Adult Td,Tdap Booster 09/09/2028 09/09/2018 , 08/22/2018, 12/10/2009 PAP SMEAR 02/19/2030 02/19/2025, 03/12, 04/24/2016, Additional history exists PNEUMOCOCCAL VACCINES (50+ years) Completed 07/25/2020, 03/16/2019 HEPATITIS C SCREENING Completed 06/19/2023, 024 ZOSTER VACCINES Completed 05/31/2024, 08/0 04/2023, 02/06/2015 INFLUENZA VACCINE Completed 01/10/2025, , 02/08/2023, Additional history exists SMOKING STATUS SCREENING (Once After 26 Yrs) Completed 02/19/2025 HEPATITIS A VACCINES Aged Out No long [...] Procedure Name Priority Date/Time Associated Diagnosis Comments PAP TEST Routine 02/19/2025 11:56 AM EST Encounter for gynecological examination without abnormal finding CERVICAL CANCER SCREENING Routine 02/19/2025 11:56 AM EST Encounter for gynecological examination without abnormal finding GENETIC PROBE AMPLIFICATION FOR HUMAN PAPILLOMAVIRUS Routine 02/19/2025 11:56 AM EST Encounter for gynecological examination without abnormal finding HEPATITIS C ANTIBODY, QUALITATIVE Routine 06/19/2023 8:43 AM EST Need for hepatitis C screening test LIPID PANEL Routine 09/05/2022 8:12 AM EDT Hyperlipidemia, unspecified hyperlipidemia type HM MAMMOGRAPHY Routine 03/06/2020 from Last 3 Months or Most Recently Relevant to Health Maintenance Results * Human Papillomavirus (HPV), Nucleic Acid Amplification (02/19/2025 11:56 AM EST) HPV 16 Negative 03/01/2025 5:55 AM EST [facility] HPV 18 Negative 03/01/2025 5:55 AM EST [facility] HPV 45 Negative 03/01/2025 5:55 AM EST [facility] HPV 31 Negative 03/01/2025 5:55 AM EST [facility] HPV 51 Negative 03/01/2025 5:55 AM EST [facility] HPV 52 Negative 03/01/2025 5:55 AM EST [facility] HPV 33, 58 Negative 03/01/2025 5:55 AM EST [facility] HPV 35, 39, 68 Negative 03/01/2025 5:55 AM EST [facility] HPV 56, 59, 66 Negative 03/01/2025 5:55 AM EST [facility] HPV Disclaimer: Performed by real-time polymerase chain reaction (PCR) at [facility], [address] [place] [address] using the FDA-approved 3nder Onclarity HPV Assay with extended genotyping. Uses of the assay in scenarios other than those approved by the FDA should be considered off-label use. The accuracy and precision of this test for all other off-label specimen sources has been verified in the Cytopathology Laboratory of the [facility] and has not been cleared or approved by the U.S. Food and Drug Administration. Clinical correlation is advised. The assay assesses the E6/E7 DNA target and utilizes human beta globin as an internal control. Cytology and HPV testing are screening assays and should not be used as the sole means of detecting cancer. False-positives and false-negatives can occur. 03/01/2025 5:55 AM EST [facility] Pap Collection (Cervix) 02/19/2025 11:56 AM EST 02/20/2025 8:43 AM EST us Gary Edwards MD LAB GENERAL ORDERABLES F inal Result [facility] [address] [place] [address] * Pap Test (02/19/2025 11:56 AM EST) Final Diagnosis A. PAP TEST: CERVIX SPECIMEN ADEQUACY: Satisfactory for evaluation, transformation zone indeteriminate due to atrophy INTERPRETATION: Negative For Intraepithelial Lesion or Malignancy. HPV RESULTS: HPV 16: Negative HPV 18: Negative HPV 45: Negative HPV 31: Negative HPV 51: Negative HPV 52: Negative HPV 33, 58: Negative HPV 35, 39, 68: Negative HPV 56, 59, 66: Negative 03/01/2025 5:55 AM [facility] at 0555 EST Pap Methodology This specimen was successfully pre-screened using the [employer] DigitalPrep Imaging System. Selected chou from the multimedia programmer were reviewed by a Business Analytics Manager. If indicated, this case was reviewed by a Pathologist. The Pap test is a screening test primarily for detecting cervical Squamous Cell Carcinoma and its precursors. The test has an inherent but low probability of error, with liquid-based methods having a reported false negative rate of about 2%. Regular sampling and follow-up of unexplained clinical signs and symptoms are recommended to minimize false negative results. 03/01/2025 5:55 AM [facility] Clinical History ICD-10: Encounter for gynecological examination without abnormal finding 03/01/2025 5:55 AM [facility] LMP? N/A 03/01/2025 5:55 AM [facility] Gross Description A. PAP TEST: CERVIX: 1 Preservcyt vial received labeled with two patient identifiers. 1 ThinPrep slide prepared. 03/01/2025 5:55 AM [facility] A. Adequacy Satisfactory for evaluation, transformation zone indeteriminate due to atrophy 03/01/2025 5:55 AM [facility] A. Interpretation Negative For Intraepithelial Lesion or Malignancy. 03/01/2025 5:55 AM [facility] Pap Collection (Cervix) 02/19/2025 11:56 AM EST 02/19/2025 11:56 AM EST us Gary Edwards MD LAB CYTOLOGY ORDERABLES Final Result Performing Organization Address City/[facility]/ZIP Co de Phone Number [address] [address] * Hepatitis C antibody, qualitative (06/19/2023 8:43 AM EST) HCV NON-REACTIV E NON-REACTI VE [facility] Blood 06/19/2023 8:43 AM EST 06/19/2023 10:03 AM EST us Lucas Ibarra MD LAB BLOOD BKR ORDERABLES F inal Result Performing Organization Address [facility] Co de Phone Number [address] [address] * (ABNORMAL) Lipid panel (09/05/2022 8:12 AM EDT) HDL 88 mg/dL [facility] Comment: Interpretation <40 mg/dL: Low HDL cholesterol (major risk factor for CHD) Greater than or equal to 60 mg/dL: High HDL cholesterol ( negative risk factor for CHD) HDL - cholesterol is affected by a number of factors, e.g. smoking, excerise, hormones, sex and age. CHOLESTEROL 249(H) 0 - 240 mg/dL [facility] TRIGLYCERIDES 102 30 - 160 mg/dL [facility] LDL 141(H) 50 - 129 mg/dL [facility] Comment: LDL levels in terms of risk for coronary heart disease: <100 mg/dL: Optimal 100-129 mg/dL: Near or above optimal 130-159 mg/dL: Borderline high 160-189 mg/dL: High >190 mg/dL: Very High CARDIAC RISK RATIO 2.8(L) 3.3 - 4.4 C [facility] Blood 09/05/2022 8:12 AM EDT 09/05/2022 8:15 AM EDT us Shyann LAN LAB BLOOD BKR ORDERABLES Fin al Result Performing Organization Address City/[facility]/ZIP Co de Phone Number [address] [address] * MAMMOGRAPHY FOR RESULT ENTRY ONLY (03/06/2020) Shyann LAN HEALTH MAINTENANCE Final Res ult from Last 3 Months or Most Recently Relevant to Health Maintenance Insurance [place] [id number] [employer] MEDEX SUPPLEMENT MEDICARE PART A & B [employer] MEDEX SUPPLEMENT MEDICARE PART A & B [employer] MEDEX SUPPLEMENT MEDICARE PART A & B [employer] MEDEX SUPPLEMENT MEDICARE PART A & B [employer] MEDEX SUPPLEMENT MEDICARE PART A & B [employer] MEDEX SUPPLEMENT MEDICARE PART A & B [employer] MEDEX SUPPLEMENT MEDICARE PART A & B [facility] MEDEX SUPPLEMENT MEDICARE PART A & B [employer] MEDEX SUPPLEMENT Care Teams Animal Shelter Manager Relationship Specialty Start Date End Date Jackelyn Daniels MD [address] [place] [address] [email or web address] PCP - General Family Medicine 05/04/24 Huy Zhu MD Historical LMR Provider 01/31/17 Nuvia Woodward NP [address] [place] [address] Historical LMR Provider 01/31/17 Additional Source Comments The information contained in this document represents components of the legal health record. It is not the complete legal health record.[facility]
--- OUTSIDE RECORDS SUMMARY | 2025-03-12 17:17 | XMS_ITS | Encounter Summary ---
Author Organization [facility] Address [facility] [address] [address] Phone Care Team Providers Care Java Designer Name Role Phone Huy Zhu MD Unavailable Nuvia Woodward TUBE CUTTER Unavailable [phone] Zohra Zaman TUBE CUTTER Unavailable [phone] Asia Marquez RDCS Unavailable [email or web address] Huy Zhu MD Primary Care Provider [phone] Huy Zhu MD Primary Care Provider Shyann Sandoval Primary Care Provider Jackelyn Daniels MD Primary Care Provider + Jackelyn Daniels MD Primary Care Provider + Encounter Details Date Type Department Care Team (Latest Contact Info) Description 02/15/2019 Transcribe Orders Virtual Department 30 [place] [address] Elizabeth Dougherty PA 10 [place], [place] [phone] Nausea (Primary Dx); Weight loss Social History [...] Care Team (Late st Contact Info) Description 08/09/2025 9:30 AM EDT Office Visit [facility] Pulmonary, Allergy and Critical Care Medicine 10 [place] [address] Lucas Galvan MD [address] [address] [email or web address] documented as of this encounter Visit Diagnoses Diagnosis Nausea- Primary Nausea alone Weight loss Loss of weight documented in this encounter Care Teams Java Designer Relationship Specialty Start Date End Date Huy Zhu MD [email or web address] PCP - General 04/15/17 04/25/19 Huy Zhu MD [email or web address] PCP - General Family Medicine 04/26/19 06/12/20 Shyann Sandoval PA [address] [place] [address] [email or web address] PCP - General Unknown Provider Specialty 06/13/20 12/29/23 Jackelyn Daniels MD [address] [place] [address] [email or web address] PCP - General Family Medicine 12/30/23 05/03/24 Jackelyn Daniels MD [address] [place] [address] [email or web address] PCP - General Family Medicine 05/04/24 Huy Zhu MD [email or web address] Historical LMR Provider 01/31/17 Nuvia Woodward NP [address] [place] [address] [email or web address] Historical LMR Provider 01/31/17 Zohra aZman NP [address] [place] [address] Historical LMR Provider 01/31/17 2 Asia Marquez, RDCS [email or web address] Historical LMR Provider 01/31/17 04/19/21 documented as of this encounter Additional Source Comments The information contained in this document represents components of the legal health record. It is not the complete legal health record.[facility]
--- OUTSIDE RECORDS SUMMARY | 2025-03-12 17:17 | XMS_ITS | Encounter Summary ---
Author Organization [facility] Address [facility] [employer] [address] [address] Phone Care Team Providers Care Gear Straightener Name Role Phone Huy Zhu MD Unavailable [phone] Nuvia Woodward NP Unavailable [phone] Shyann Sandoval Primary Care Provider [phone] Jackelyn Daniels MD Primary Care Provider + Jackelyn Daniels MD Primary Care Provider + Encounter Details Date Type Department Care Team (Late st Contact Info) Description 09/16/2022 Procedure Pass OR Admitting Dept - Virtual Department [address] [place] [address] Social History Tobacco Use Types Packs/Day Years [...] Upcoming Encounters Date Type Department Care Team ([facility] st Contact Info) Description 08/09/2025 9:30 AM EDT Office Visit [facility] Pulmonary, Allergy and Critical Care Medicine 10 [place] [address] Lucas Galvan MD [address] [address] [email or web address] documented as of this encounter Visit Diagnoses Not on filedocumented in this encounter Care Teams Gear Straightener Relationship Specialty Start Date End Date Shyann Sandoval PA [address] [place] [address] [email or web address] PCP - General Unknown Provider Specialty 06/13/20 12/29/23 Jackelyn Daniels MD [address] [place] [address] [email or web address] PCP - General Family Medicine 12/30/23 05/03/24 Jackelyn Daniels MD [address] [place] [address] [email or web address] PCP - General Family Medicine 05/04/24 Huy Zhu MD [email or web address] Historical LMR Provider 01/31/17 Nuvia Woodward GENERATOR REPAIRER [address] [place] [address] Historical LMR Provider 01/31/17 documented as of this encounter Additional Source Comments The information contained in this document represents components of the legal health record. It is not the complete legal health record.[facility]
--- OUTSIDE RECORDS SUMMARY | 2025-03-12 17:17 | XMS_ITS | Encounter Summary ---
Author Organization [facility] Address [address] [place] [address] Phone Care Team Providers Care Prism Inspector Name Role Phone Huy Zhu MD Unavailable Nuvia Woodward WATER SYSTEMS DESIGNER Unavailable [phone] Zohra Zaman WATER SYSTEMS DESIGNER Unavailable [phone] Asia Marquez RDCS Unavailable [email or web address] Huy Zhu MD Primary Care Provider Huy Zhu MD Primary Care Provider Shyann Sandoval Primary Care Provider Jackelyn Daniels MD Primary Care Provider + Jackelyn Daniels MD Primary Care Provider + Encounter Details Date Type Department Care Team (Latest Contact Info) Description 02/14/2019 Transcribe Orders [facility] Phleb Crissy [address] [address] Elizabeth Dougherty PA 10 [place] [address] Nausea (Primary Dx) Social History Tobacco Use [...] Pulmonary, Allergy and Critical Care Medicine 10 [place] [address] Lucas Galvan MD 10 [facility] 2nd [place] [address] [email or web address] documented as of this encounter Results * Creatinine/eGFR (02/14/2019 10:15 AM EST) CREATININE 0.70 0.5 - 1.5 mg/dL [facility] EGFR 91 >59 mL/min/1.7 3m2 [facility] Comment:If patient is black, multiply result by 1.159. Estimated glomerular filtration rate calculated using the CKD-EPI equation. Blood 02/14/2019 10:1 5 AM EST 02/14/2019 10:18 AM EST us Elizabeth LAN LAB BLOOD BKR ORDERABLES Fi nal Result [address] [address] * BUN (02/14/2019 10:15 AM EST) BUN 11 6 - 19 mg/dL [facility] Blood 02/14/2019 10:1 5 AM EST 02/14/2019 10:18 AM EST us Elizabeth LAN LAB BLOOD BKR ORDERABLES Fi nal Result [address] [address] documented in this encounter Visit Diagnoses Diagnosis Nausea- Primary Nausea alone documented in this encounter Care Teams Prism Inspector Relationship Specialty Start Date End Date Huy Zhu MD [email or web address] PCP - General 04/15/17 04/25/19 Huy Zhu MD [email or web address] PCP - General Family Medicine 04/26/19 06/12/20 Shyann Sandoval PA [address] [place] [address] [email or web address] PCP - General Unknown Provider Specialty 06/13/20 12/29/23 Jackelyn Daniels MD [address] [place] [address] [email or web address] PCP - General Family Medicine 12/30/23 05/03/24 Jackelyn Daniels MD [address] [place] [address] [email or web address] PCP - General Family Medicine 05/04/24 Huy Zhu MD [email or web address] Historical LMR Provider 01/31/17 Nuvia Woodward, WATER SYSTEMS DESIGNER [address] [place] [address] Historical LMR Provider 01/31/17 Zohra Zaman, WATER SYSTEMS DESIGNER [address] [place] [address] Historical LMR Provider 01/31/17 2 Asia Marquez, DANIEL Historical LMR Provider 01/31/17 04/19/21 documented as of this encounter Additional Source Comments The information contained in this document represents components of the legal health record. It is not the complete legal health record.[facility]
--- OUTSIDE RECORDS SUMMARY | 2025-03-12 17:17 | XMS_ITS | Encounter Summary ---
Author Organization [facility] Address [facility] [address] [address] Phone Care Team Providers Care Machine Milker Name Role Phone Huy Zhu MD Unavailable Nuvia Woodward GRAIN SHIPPER Unavailable [phone] Zohra Zaman GRAIN SHIPPER Unavailable [phone] Asia Marquez RDCS Unavailable [email or web address] Huy Zhu MD Primary Care Provider [phone] Huy Zhu MD Primary Care Provider Shyann Sandoval Primary Care Provider Jackelyn Daniels MD Primary Care Provider + Jackelyn Daniels MD Primary Care Provider + Encounter Details Date Type Department Care Team (Late st Contact Info) Description 02/27/2019 Procedure Pass [facility] Endoscopy Admitting Dept Virtual Department [address] [place] [address] Social History Tobacco Use Types Packs/Day Years [...] Pulmonary, Allergy and Critical Care Medicine 10 [place] [address] Lucas Galvan MD 10 [facility] [address] [place] [address] [email or web address] documented as of this encounter Visit Diagnoses Not on filedocumented in this encounter Care Teams Machine Milker Relationship Specialty Start Date End Date Huy Zhu MD [email or web address] PCP - General 04/15/17 04/25/19 Huy Zhu MD [email or web address] PCP - General Family Medicine 04/26/19 06/12/20 Shyann Sandoval PA [address] [place] [address] PCP - General Unknown Provider Specialty 06/13/20 12/29/23 Jackelyn Daniels MD [address] [place] [address] PCP - General Family Medicine 12/30/23 05/03/24 Jackelyn Daniels MD [address] [place] [address] PCP - General Family Medicine 05/04/24 Huy Zhu MD [email or web address] Historical LMR Provider 01/31/17 Nuvia Woodward NP [address] [place] [address] Historical LMR Provider 01/31/17 Zohra Zaman NP [address] [place] [address] Historical LMR Provider 01/31/17 2 Asia Marquez, RDCS [email or web address] Historical LMR Provider 01/31/17 04/19/21 documented as of this encounter Additional Source Comments The information contained in this document represents components of the legal health record. It is not the complete legal health record.[facility]
--- OUTSIDE RECORDS SUMMARY | 2025-03-12 17:18 | XMS_ITS | Encounter Summary ---
Author Organization [facility] Address Count includes the [facility] [employer] [address] [address] Phone Care Team Providers Care Reflector Driller And Deburrer Name Role Phone Huy Zhu MD Unavailable Nuvia Woodward NEWS VIDEOTAPE EDITOR Unavailable [phone] Zohra Zaman NEWS VIDEOTAPE EDITOR Unavailable [phone] Asia Marquez RDCS Unavailable [email or web address] Huy Zhu MD Primary Care Provider Huy Zhu MD Primary Care Provider Shyann Sandoval Primary Care Provider [phone] Jackelyn Daniels MD Primary Care Provider + Jackelyn Daniels MD Primary Care Provider + Encounter Details Date Type Department Care Team (Late st Contact Info) Description 03/23/2019 Procedure Pass [facility] Endoscopy Admitting Dept Virtual Department 30 [place] [address] Social History Tobacco Use Types Packs/Day Years [...] Pulmonary, Allergy and Critical Care Medicine 10 [place] [address] Lucas Galvan MD 10 [facility] 2nd [place] [address] [email or web address] documented as of this encounter Visit Diagnoses Not on filedocumented in this encounter Care Teams Reflector Driller And Deburrer Relationship Specialty Start Date End Date Huy Zhu MD [email or web address] PCP - General 04/15/17 04/25/19 Huy Zhu MD [email or web address] PCP - General Family Medicine 04/26/19 06/12/20 Shyann Sandoval PA [address] [place] [address] [email or web address] PCP - General Unknown Provider Specialty 06/13/20 12/29/23 Jackelyn Daniels MD [address] [place] [address] [email or web address] PCP - General Family Medicine 12/30/23 05/03/24 Jackelyn Daniels MD [address] [place] [address] [email or web address] PCP - General Family Medicine 05/04/24 Huy Zhu MD [email or web address] Historical LMR Provider 01/31/17 Nuvia Woodward NP 30 [place] [address] Historical LMR Provider 01/31/17 Zohra Zaman NP [address] [place] [address] Historical LMR Provider 01/31/17 2 Asia Marquez, RDCS [email or web address] Historical LMR Provider 01/31/17 04/19/21 documented as of this encounter Additional Source Comments The information contained in this document represents components of the legal health record. It is not the complete legal health record.[facility]
--- OUTSIDE RECORDS SUMMARY | 2025-03-12 17:18 | XMS_ITS | Encounter Summary ---
Author Organization [facility] Address [address] [place] [address] Phone Care Team Providers Care Plant Buyer Name Role Phone Huy Zhu MD Unavailable [phone] Nuvia Woodward ACID PUMPER Unavailable [phone] Zohra Zaman ACID PUMPER Unavailable [phone] Asia Marquez RDCS Unavailable [email or web address] Huy Zhu MD Primary Care Provider Shyann Sandoval Primary Care Provider [phone] Jackelyn Daniels MD Primary Care Provider + Jackelyn Daniels MD Primary Care Provider + Encounter Details Date Type Department Care Team (Latest Contact Info) Description 04/27/2019 Transcribe Orders Virtual Department 30 [place] [address] Shyann Sandoval PA [address] [place] [address] [email or web address] Family history of cardiovascular disease (Primary Dx) [...] Pulmonary, Allergy and Critical Care Medicine 10 [place] [address] Lucas Galvan MD [address] [address] [email or web address] documented as of this encounter Visit Diagnoses Diagnosis Family history of cardiovascular disease- Primary Family history of other cardiovascular diseases documented in this encounter Care Teams Plant Buyer Relationship Specialty Start Date End Date Huy Zhu MD [email or web address] PCP - General Family Medicine 04/26/19 06/12/20 Shyann Sandoval PA [address] [place] [address] [email or web address] PCP - General Unknown Provider Specialty 06/13/20 12/29/23 Jackelyn Daniels MD [address] [place] [address] [email or web address] PCP - General Family Medicine 12/30/23 05/03/24 Jackelyn Daniels MD 70 [place] [address] [email or web address] PCP - General Family Medicine 05/04/24 Huy Zhu MD Historical LMR Provider 01/31/17 Nuvia Woodward NP 30 [place] [address] [email or web address] Historical LMR Provider 01/31/17 Zohra Zaman NP [address] [place] [address] Historical LMR Provider 01/31/17 2 Asia Marquez, ARTUROCS [email or web address] Historical LMR Provider 01/31/17 04/19/21 documented as of this encounter Additional Source Comments The information contained in this document represents components of the legal health record. It is not the complete legal health record.[facility]
--- OUTSIDE RECORDS SUMMARY | 2025-03-12 17:18 | XMS_ITS | Encounter Summary ---
Author Organization [facility] Address [address] [place] [address] Phone Care Team Providers Care Point Of Sale Associate Name Role Phone Huy Zhu MD Unavailable [phone] Nuvia Woodward NP Unavailable Jackelyn Daniels MD Primary Care Provider + Encounter Details Date Type Department Care Team (Late st Contact Info) Description 05/12/2024 Procedure Pass [facility] Endoscopy Admitting Dept Virtual Department 30 [place] [address] Social History Tobacco Use Types Packs/Day Years [...] Pulmonary, Allergy and Critical Care Medicine 10 [place] [address] Lucas Galvan MD [address] [address] [email or web address] documented as of this encounter Visit Diagnoses Not on filedocumented in this encounter Care Teams Point Of Sale Associate Relationship Specialty Start Date End Date Jackelyn Daniels MD [address] [place] [address] [email or web address] PCP - General Family Medicine 05/04/24 Huy Zhu MD Historical LMR Provider 01/31/17 Nuvia Woodward NP [address] [place] [address] Historical LMR Provider 01/31/17 documented as of this encounter Additional Source Comments The information contained in this document represents components of the legal health record. It is not the complete legal health record.[facility]
--- OUTSIDE RECORDS SUMMARY | 2025-03-12 17:18 | XMS_ITS | Encounter Summary ---
Author Organization [facility] Address [address] [place] [address] Phone Care Team Providers Care Produce Service Team Member Name Role Phone Huy Zhu MD Unavailable [phone] Nuvia Woodward NP Unavailable [phone] Jackelyn Daniels MD Primary Care Provider + Encounter Details Date Type Department Care Team (Late st Contact Info) Description 05/08/2024 Procedure Pass [facility] Endoscopy Admitting Dept Virtual Department [address] [place] [address] Social History Tobacco Use Types Packs/Day Years [...] Pulmonary, Allergy and Critical Care Medicine 10 [place] [address] Lucas Galvan MD [address] [address] [email or web address] documented as of this encounter Visit Diagnoses Not on filedocumented in this encounter Care Teams Produce Service Team Member Relationship Specialty Start Date End Date Jackelyn Daniels MD [address] [place] [address] [email or web address] PCP - General Family Medicine 05/04/24 Huy Zhu MD Historical LMR Provider 01/31/17 Nuvia Woodward NP [address] [place] [address] Historical LMR Provider 01/31/17 documented as of this encounter Additional Source Comments The information contained in this document represents components of the legal health record. It is not the complete legal health record.[facility]
--- OUTSIDE RECORDS SUMMARY | 2025-03-12 17:18 | XMS_ITS | Encounter Summary ---
Author Organization [facility] Address [address] [facility] [address] [place] [address] Phone Care Team Providers Care Dowel Pointer Name Role Phone Huy Zhu MD Unavailable [phone] Nuvia Woodward NP Unavailable [phone] Jackelyn Daniels MD Primary Care Provider + Jackelyn Daniels MD Primary Care Provider + Encounter Details Date Type Department Care Team (Late st Contact Info) Description 04/26/2024 Procedure Pass [facility], Ct Scan - [address] [address] Social History Tobacco Use Types Packs/Day Years Used Date Smoking Tobacco: Former Cigarettes 1.5 20 1 979 - 1998 Smokeless Tobacco: Never Comments:Quit smokin04/12 Alcohol Use Standard Drinks/Week Comments Yes 0 (1 standard drink = 0.6 oz pur e alcohol) 1 monthly Education Answer Date Recorded Are you interested in more education? Not on teira e 08/06/2022 Are you concerned about learning? [...] [facility] Pulmonary, Allergy and Critical Care Medicine [address] [place] [address] Lucas Galvan MD [address] [place] [address] [email or web address] documented as of this encounter Visit Diagnoses Not on filedocumented in this encounter Care Teams Dowel Pointer Relationship Specialty Start Date End Date Jackelyn Daniels MD 30 [place] [address] [email or web address] PCP - General Family Medicine 12/30/23 05/03/24 Jackelyn Daniels MD 70 [place] [address] [email or web address] PCP - General Family Medicine 05/04/24 Huy Zhu MD [email or web address] Historical LMR Provider 01/31/17 Nuvia Woodward NP [address] [place] [address] Historical LMR Provider 01/31/17 documented as of this encounter Additional Source Comments The information contained in this document represents components of the legal health record. It is not the complete legal health record.[facility]
--- OUTSIDE RECORDS SUMMARY | 2025-03-12 17:18 | XMS_ITS | Encounter Summary ---
Author Organization [facility] Address [email or web address] [facility] [address] [place] [address] Phone Care Team Providers Care Regulatory Affairs Assistant Name Role Phone Huy Zhu MD Unavailable [phone] Nuvia Woodward NP Unavailable [phone] Shyann Sandoval Primary Care Provider [phone] Jackelyn Daniels MD Primary Care Provider + Jackelyn Daniels MD Primary Care Provider + Encounter Details Date Type Department Care Team (Late st Contact Info) Description 01/13/2023 Procedure Pass [facility], Ct Scan - [address] [address] Social History Tobacco Use Types Packs/Day Years [...] 4:37 PM EDT Yesenia Grigsby RN * [place] Suicide Severity Rating Scale (Screener/Recent Self-Report) Question [...] [facility] Pulmonary, Allergy and Critical Care Medicine [address] [place] [address] [place] [address] Lucas Galvan MD [address] [place] [address] 2nd [place] [address] [email or web address] documented as of this encounter Visit Diagnoses Not on filedocumented in this encounter Care Teams Regulatory Affairs Assistant Relationship Specialty Start Date End Date Shyann Sandoval PA [address] [place] [address] [email or web address] PCP - General Unknown Provider Specialty 06/13/20 12/29/23 Jackelyn Daniels MD [address] [place] [address] [email or web address] PCP - General Family Medicine 12/30/23 05/03/24 Jackelyn Daniels MD [address] [place] [address] [email or web address] PCP - General Family Medicine 05/04/24 Hyu Zhu MD [email or web address] Historical LMR Provider 01/31/17 Nuvia Woodward NP [address] [place] [address] [email or web address] Historical LMR Provider 01/31/17 documented as of this encounter Additional Source Comments The information contained in this document represents components of the legal health record. It is not the complete legal health record.[facility]
--- OUTSIDE RECORDS SUMMARY | 2025-03-12 17:18 | XMS_ITS | Encounter Summary ---
Author Organization [facility] Address [address] [facility] [address] [place] [address] Phone Care Team Providers Care Cytogenetics Technologist Name Role Phone Huy Zhu MD Unavailable [phone] Nuvia Woodward NP Unavailable [phone] Shyann Sandoval Primary Care Provider [phone] Jackelyn Daniels MD Primary Care Provider + Jackelyn Daniels MD Primary Care Provider + Encounter Details Date Type Department Care Team (Latest Contact Info) Description 09/04/2022 Transcribe Orders [facility] Phleb [facility] [address] [id number] Shyann Sandoval PA 70 [place], [place] [id number] [email or web address] Hyperlipidemia, unspecified hyperlipidemia type (Primary Dx) Social [...] [facility] Pulmonary, Allergy and Critical Care Medicine [address] [place] [address] Lucas Galvan MD [address] [place] [address] [email or web address] documented as of this encounter Results * (ABNORMAL) Lipid panel (09/05/2022 8:12 AM EDT) HDL 88 mg/dL [facility] Comment: Interpretation <40 mg/dL: Low HDL cholesterol (major risk factor for CHD) Greater than or equal to 60 mg/dL: High HDL cholesterol ( negative risk factor for CHD) HDL - cholesterol is affected by a number of factors, e.g. smoking, excerise, hormones, sex and age. CHOLESTEROL 249(H) 0 - 240 mg/dL [facility] TRIGLYCERIDES 102 30 - 160 mg/dL [facility] LDL 141(H) 50 - 129 mg/dL [facility] Comment: LDL levels in terms of risk for coronary heart disease: <100 mg/dL: Optimal 100-129 mg/dL: Near or above optimal 130-159 mg/dL: Borderline high 160-189 mg/dL: High >190 mg/dL: Very High CARDIAC RISK RATIO 2.8(L) 3.3 - 4.4 C [facility] Blood 09/05/2022 8:12 AM EDT 09/05/2022 8:15 AM EDT Shyann LAN LAB BLOOD BKR ORDERABLES Fin al Result [address] [address] * (ABNORMAL) Comprehensive metabolic panel (09/04/2022 12:14 PM EDT) SODIUM 137 133 - 146 mmol/L [facility] POTASSIUM 3.9 3.3 - 5.1 mmol/L [facility] CHLORIDE 100 96 - 108 mmol/L [facility] CO2 27 21 - 35 mmol/L [facility] BUN 11 6 - 19 mg/dL [facility] CREATININE 0.60 0.5 - 1.5 mg/dL [facility] GLUCOSE 79 70 - 99 mg/dL [facility] ALBUMIN 4.4 3.9 - 4.8 g/dL [facility] TOTAL PROTEIN 7.8 6.5 - 8.0 g/dL [facility] CALCIUM 9.7 8.4 - 10.3 mg/dL [facility] ALKALINE PHOSPHATASE 122(H) 39 - 117 U/L [facility] TOTAL BILIRUBIN 0.3 0.0 - 1.2 mg/dL [facility] AST 70(H) 0 - 37 U/L [facility] ALT 65(H) 0 - 40 U/L [facility] GLOBULIN 3.4 1 - 4.8 g/dL [facility] EGFR 97 >59 mL/min/1.7 3m2 [facility] Comment:Estimated glomerular filtration rate calculated using the CKD-EPI refit equation. ANION GAP 14 10 - 20 mmol/L [facility] Blood 09/04/2022 12:1 4 PM EDT 09/04/2022 12:17 PM EDT us Shyann LAN LAB BLOOD BKR ORDERABLES Fin al Result [address] [address] * (ABNORMAL) C-Reactive Protein (09/04/2022 12:14 PM EDT) C REACTIVE PROTEIN 6.8(H) 0.0 - 4.0 mg/L [facility] Blood 09/04/2022 12:1 4 PM EDT 09/04/2022 12:17 PM EDT us Shyann LAN LAB BLOOD BKR ORDERABLES Fin al Result [facility] [address] [place] [address] * CBC and differential (09/04/2022 12:14 PM EDT) WBC 7.18 4.00 - 11.00 K/uL [facility] RBC 4.31 3.72 - 5.30 M/uL [facility] HGB 13.5 11.4 - 15.9 g/dL [facility] HCT 40.9 34.2 - 46.8 % [facility] PLT 340 140 - 430 K/uL [facility] MCV 94.9 78.0 - 97.0 fL [facility] MCH 31.3 25.0 - 33.0 pg [facility] MCHC 33.0 32.0 - 36.0 g/dL [facility] RDW 12.7 11.0 - 16.0 % [facility] MPV 10.9 8.4 - 12.8 fl [facility] DIFF METHOD Auto [facility] NEUTS 65.8 43.0 - 75.0 % [facility] LYMPHS 23.3 18.2 - 47.4 % [facility] MONOS 9.1 4.00 - 11.00 % [facility] EOS 0.8 0.0 - 8.0 % [facility] BASOS 0.7 0.0 - 2.0 % [facility] Granulocytes, immature (%) 0.3 0.0 - 0.9 % [facility] ABSOLUTE NEUTS 4.73 1.80 - 7.70 K/uL [facility] ABSOLUTE LYMPHS 1.67 1.00 - 3.10 K/uL [facility] ABSOLUTE MONOS 0.65 0.20 - 0.80 K/uL [facility] ABSOLUTE EOS 0.06 0.00 - 0.80 K/uL [facility] ABSOLUTE BASOS 0.05 0.00 - 0.09 K/uL [facility] Granulocytes, immature 0.02 0.00 - 0.05 K/uL [facility] Blood 09/04/2022 12:1 4 PM EDT 09/04/2022 12:17 PM EDT us Shyann LAN LAB BLOOD BKR ORDERABLES Fin al Result [address] [address] documented in this encounter Visit Diagnoses Diagnosis Hyperlipidemia, unspecified hyperlipidemia type- Primary documented in this encounter Care Teams Cytogenetics Technologist Relationship Specialty Start Date End Date Shyann Sandoval PA [address] [place] [address] [email or web address] PCP - General Unknown Provider Specialty 06/13/20 12/29/23 Jackelyn Daniels MD [address] [place] [address] [email or web address] PCP - General Family Medicine 12/30/23 05/03/24 Jackelyn Daniels MD [address] [place] [address] [email or web address] PCP - General Family Medicine 05/04/24 Huy Zhu MD [email or web address] Historical LMR Provider 01/31/17 Nuvia Woodward NP [address] [place] [address] Historical LMR Provider 01/31/17 documented as of this encounter Additional Source Comments The information contained in this document represents components of the legal health record. It is not the complete legal health record.[facility]
--- OUTSIDE RECORDS SUMMARY | 2025-03-12 17:18 | XMS_ITS | Encounter Summary ---
Author Organization [facility] Address [address] [place] [address] Phone Care Team Providers Care Crystalizer Operator Name Role Phone Huy Zhu MD Unavailable Nuvia Woodward HAND POLISHER Unavailable [phone] Zohra Zaman HAND POLISHER Unavailable [phone] Asia Marquez RDCS Unavailable [email or web address] Huy Zhu MD Primary Care Provider [phone] Shyann Sandoval Primary Care Provider [phone] Jackelyn Daniels MD Primary Care Provider + Jackelyn Daniels MD Primary Care Provider + Reason for Referral * Hospital - Outpatient - Closed Specialty Diagnoses / Procedures Referred By Contac t Referred To Contact Diagnoses Family history of cardiovascular disease Procedures Stress Test Exercise Stress Test Exercise Shyann Sandoval PA [address] [place] [address] Phone: tel: fax: [email or web address] Referral ID Status Reason Start Date Expiration Date Visits Re quested Visits Authorized [id number] Closed 04/26/2019 04/25/2020 1 1 Encounter Details Date Type Department Care Team (Latest Contact Info) Description 04/26/2019 Ancillary Orders [facility] Department [address] [place] [address] Shyann Sandoval PA [address] [place] [address] [email or web address] Family history of cardiovascular [...] Upcoming Encounters Date Type Department Care Team ([facility] st Contact Info) Description 08/09/2025 9:30 AM EDT Office Visit CD Pulmonary, Allergy and Critical Care Medicine 10 [place] [address] Lucas Galvan MD 10 [facility] 2nd [place] [address] documented as of this encounter Results * Stress Test Exercise (05/02/2019 11:24 AM EST) Max BP Systolic 150 mmHg [facility] Max BP Diastolic 80 mmHg [facility] Max HR 134 BPM [facility] Resting HR 70 BPM [facility] Resting BP Systolic 100 mmHg [facility] Resting BP Diastolic 70 mmHg [facility] Peak METS 13.8 METS [facility] Peak HR 133 BPM [facility] Anatomical Region Laterality Modality Heart Other 05/02/2019 [...] Conclusion - normal stress test. Estelle Persaud HAND POLISHER with Dr Churchill . us Shyann LAN CV STRESS ORDERABLES Final R esult documented in this encounter Visit Diagnoses Diagnosis Family history of cardiovascular disease Family history of other cardiovascular diseases Family history of cardiovascular disease Family history of other cardiovascular diseases documented in this encounter Care Teams Crystalizer Operator Relationship Specialty Start Date End Date Huy Zhu MD [email or web address] PCP - General Family Medicine 04/26/19 06/12/20 Shyann Sandoval PA [address] [place] [address] [email or web address] PCP - General Unknown Provider Specialty 06/13/20 12/29/23 Jackelyn Daniels MD [address] [place] [address] [email or web address] PCP - General Family Medicine 12/30/23 05/03/24 Jackelyn Daniels MD [address] [place] [address] [email or web address] PCP - General Family Medicine 05/04/24 Huy Zhu MD Historical LMR Provider 01/31/17 Nuvia Woodward NP 30 [place] [address] Historical LMR Provider 01/31/17 Zohra Zaman NP [address] [place] [address] Historical LMR Provider 01/31/17 2 Asia Marquez, RDCS Historical LMR Provider 01/31/17 04/19/21 documented as of this encounter Additional Source Comments The information contained in this document represents components of the legal health record. It is not the complete legal health record.[facility]
--- OUTSIDE RECORDS SUMMARY | 2025-03-12 17:18 | XMS_ITS | Encounter Summary ---
Author Organization [facility] Address [address] [place] [address] Phone Care Team Providers Care Assistant Warehouse Manager Name Role Phone Huy Zhu MD Unavailable [phone] Nuvia Woodward NP Unavailable [phone] Shyann Sandoval Primary Care Provider [phone] Jackelyn Daniels MD Primary Care Provider + Jackelyn Daniels MD Primary Care Provider + Encounter Details Date Type Department Care Team (Late st Contact Info) Description 03/18/2022 Transcribe Orders [facility] Specimen Processing 30 [place] [address] Shyann Sandoval PA 70 [place], [place] [id number] [email or web address] Social History Tobacco Use Types Packs/Day Years [...] Medicine 10 [facility] [place] [address] Lucas Galvan MD 10 [facility] 2nd [place] [address] [email or web address] documented as of this encounter Visit Diagnoses Not on filedocumented in this encounter Care Teams Assistant Warehouse Manager Relationship Specialty Start Date End Date Shyann Sandoval PA 70 [place] [address] [email or web address] PCP - General Unknown Provider Specialty 06/13/20 12/29/23 Jackelyn Daniels MD [address] [place] [address] [email or web address] PCP - General Family Medicine 12/30/23 05/03/24 Jackelyn Daniels MD [address] [place] [address] [email or web address] PCP - General Family Medicine 05/04/24 Huy Zhu MD [email or web address] Historical LMR Provider 01/31/17 Nuvia Woodward NP [address] [place] [address] Historical LMR Provider 01/31/17 documented as of this encounter Additional Source Comments The information contained in this document represents components of the legal health record. It is not the complete legal health record.[facility]
--- OUTSIDE RECORDS SUMMARY | 2025-03-12 17:18 | XMS_ITS | Encounter Summary ---
Author Organization [facility] Address [facility] [employer] [address] [address] Phone Care Team Providers Care Burr Machine Operator Name Role Phone Huy Zhu MD Unavailable [phone] Nuvia Woodward NP Unavailable [phone] Shyann Sandoval Primary Care Provider [phone] Jackelyn Daniels MD Primary Care Provider + Jackelyn Daniels MD Primary Care Provider + Encounter Details Date Type Department Care Team (Latest Contact Info) Description 11/11/2021 Transcribe Orders [facility] Phleb [place] [address] [address] Gabriela Carney MD [address] [place] [address] Rheumatoid arthritis, involving unspecified site, unspecified whether [...] Critical Care Medicine [address] [place] [address] Lucas Galvan MD 10 [facility] 2nd [place] [address] documented as of this encounter Results * Sedimentation rate (ESR) (11/11/2021 2:11 PM EDT) Pathologist [facility] ESR 26 0 - 30 mm/h [facility] Blood 11/11/2021 2:11 PM EDT 11/11/2021 2:15 PM EDT us Gabriela Carney MD LAB BLOOD BKR ORD ERABLES Final Result [address] [address] * (ABNORMAL) C-Reactive Protein (11/11/2021 2:11 PM EDT) [facility] C REACTIVE PROTEIN 9.2(H) 0.0 - 4.0 mg/L [facility] Blood 11/11/2021 2:11 PM EDT 11/11/2021 2:15 PM EDT us Gabriela Carney MD LAB BLOOD BKR ORD ERABLES Final Result [address] [address] * (ABNORMAL) Comprehensive metabolic panel (11/11/2021 2:11 PM EDT) [facility] SODIUM 138 133 - 146 mmol/L [facility] POTASSIUM 4.0 3.3 - 5.1 mmol/L [facility] CHLORIDE 101 96 - 108 mmol/L [facility] CO2 26 21 - 35 mmol/L [facility] BUN 11 6 - 19 mg/dL [facility] CREATININE 0.80 0.5 - 1.5 mg/dL [facility] GLUCOSE 103(H) 70 - 99 mg/dL [facility] ALBUMIN 4.6 3.9 - 4.8 g/dL [facility] TOTAL PROTEIN 7.5 6.5 - 8.0 g/dL [facility] CALCIUM 10.0 8.4 - 10.3 mg/dL [facility] ALKALINE PHOSPHATASE 102 39 - 117 U/L [facility] TOTAL BILIRUBIN 0.3 0.0 - 1.2 mg/dL [facility] AST 31 0 - 37 U/L [facility] ALT 19 0 - 40 U/L [facility] GLOBULIN 2.9 1 - 4.8 g/dL [facility] EGFR 80 >59 mL/min/1.7 3m2 [facility] Comment:Estimated glomerular filtration rate calculated using the CKD-EPI refit equation. ANION GAP 15 10 - 20 mmol/L [facility] Blood 11/11/2021 2:11 PM EDT 11/11/2021 2:15 PM EDT us Gabriela Carney MD LAB BLOOD BKR ORD ERABLES Final Result [facility] 30 [place] [address] * CBC and differential (11/11/2021 2:11 PM EDT) WBC 8.42 4.00 - 11.00 K/uL [facility] RBC 4.19 3.72 - 5.30 M/uL [facility] HGB 13.4 11.4 - 15.9 g/dL [facility] HCT 40.1 34.2 - 46.8 % [facility] PLT 314 140 - 430 K/uL [facility] MCV 95.7 78.0 - 97.0 fL [facility] MCH 32.0 25.0 - 33.0 pg [facility] MCHC 33.4 32.0 - 36.0 g/dL [facility] RDW 12.6 11.0 - 16.0 % [facility] MPV 11.2 8.4 - 12.8 fl [facility] NRBC 0.00 0 /100 WBCs [facility] ABSOLUTE NRBC 0.00 0 K/uL [facility] DIFF METHOD Auto [facility] NEUTS 69.2 43.0 - 75.0 % [facility] LYMPHS 20.8 18.2 - 47.4 % [facility] MONOS 8.4 4.00 - 11.00 % [facility] EOS 0.8 0.0 - 8.0 % [facility] BASOS 0.6 0.0 - 2.0 % [facility] Granulocytes, immature (%) 0.2 0.0 - 0.9 % [facility] ABSOLUTE NEUTS 5.82 1.80 - 7.70 K/uL [facility] ABSOLUTE LYMPHS 1.75 1.00 - 3.10 K/uL [facility] ABSOLUTE MONOS 0.71 0.20 - 0.80 K/uL [facility] ABSOLUTE EOS 0.07 0.00 - 0.80 K/uL [facility] ABSOLUTE BASOS 0.05 0.00 - 0.09 K/uL [facility] Granulocytes, immature 0.02 0.00 - 0.05 K/uL [facility] Blood 11/11/2021 2:11 PM EDT 11/11/2021 2:15 PM EDT us Gabriela Carney MD LAB BLOOD BKR ORD ERABLES Final Result [facility] 30 [place] [address] documented in this encounter Visit Diagnoses Diagnosis Rheumatoid arthritis, involving unspecified site, unspecified whether rheumatoid factor present- Primary documented in this encounter Care Teams Burr Machine Operator Relationship Specialty Start Date End Date Shyann Sandoval PA [address] [place] [address] [email or web address] PCP - General Unknown Provider Specialty 06/13/20 12/29/23 Jackelyn Daniels MD [address] [place] [address] [email or web address] PCP - General Family Medicine 12/30/23 05/03/24 Jackelyn Daniels MD 70 [place] [address] [email or web address] PCP - General Family Medicine 05/04/24 Huy Zhu MD [email or web address] Historical LMR Provider 01/31/17 Nuvia Woodward NP [address] [place] [address] [email or web address] Historical LMR Provider 01/31/17 documented as of this encounter Additional Source Comments The information contained in this document represents components of the legal health record. It is not the complete legal health record.[facility]
--- OUTSIDE RECORDS SUMMARY | 2025-03-12 17:18 | XMS_ITS | Encounter Summary ---
Author Organization [facility] Address [address] [place] [address] Phone Care Team Providers Care Rf Design Engineer Name Role Phone Huy Zhu MD Unavailable [phone] Nuvia Woodward NP Unavailable [phone] Jackelyn Daniels MD Primary Care Provider + Encounter Details Date Type Department Care Team (Late st Contact Info) Description 11/22/2024 Procedure Pass [facility] Endoscopy Admitting Dept Virtual Department 30 [place] [address] Social History Tobacco Use Types Packs/Day Years [...] Pulmonary, Allergy and Critical Care Medicine 10 [place] [address] Lucas Galvan MD [address] [address] [email or web address] documented as of this encounter Visit Diagnoses Not on filedocumented in this encounter Care Teams Rf Design Engineer Relationship Specialty Start Date End Date Jackelyn Daniels MD [address] [place] [address] [email or web address] PCP - General Family Medicine 05/04/24 Huy Zhu MD Historical LMR Provider 01/31/17 Nuvia Woodward NP [address] [place] [address] Historical LMR Provider 01/31/17 documented as of this encounter Additional Source Comments The information contained in this document represents components of the legal health record. It is not the complete legal health record.[facility]
--- OUTSIDE RECORDS SUMMARY | 2025-03-12 17:18 | XMS_ITS | Encounter Summary ---
Author Organization [facility] Address [facility] [address] [address] Phone Care Team Providers Care Press Operator Meat Name Role Phone Huy Zhu MD Unavailable [phone] Nuvia Woodward MOTIVATIONAL SPEAKER Unavailable [phone] Zohra Zaman MOTIVATIONAL SPEAKER Unavailable [phone] Asia Marquez RDCS Unavailable [email or web address] Shyann Sandoval Primary Care Provider Jackelyn Daniels MD Primary Care Provider + Jackelyn Daniels MD Primary Care Provider + Encounter Details Date Type Department Care Team (Late st Contact Info) Description 02/04/2021 Procedure Pass [facility], [address] [address] Social History Tobacco Use Types Packs/Day Years [...] Pulmonary, Allergy and Critical Care Medicine 10 [place] [address] Lucas Galvan MD [address] [address] [email or web address] documented as of this encounter Visit Diagnoses Not on filedocumented in this encounter Care Teams Press Operator Meat Relationship Specialty Start Date End Date Shyann Sandoval PA [address] [place] [address] [email or web address] PCP - General Unknown Provider Specialty 06/13/20 12/29/23 Jackelyn Daniels MD 70 [place] [address] [email or web address] PCP - General Family Medicine 12/30/23 05/03/24 Jackelyn Daniels MD [address] [place] [address] [email or web address] PCP - General Family Medicine 05/04/24 Huy Zhu MD [email or web address] Historical LMR Provider 01/31/17 Nuvia Woodward, MOTIVATIONAL SPEAKER [address] [place] [address] [email or web address] Historical LMR Provider 01/31/17 Zohra Zaman, MOTIVATIONAL SPEAKER [address] [place] [address] Historical LMR Provider 01/31/17 2 Asia Marquez, RDCS Historical LMR Provider 01/31/17 04/19/21 documented as of this encounter Additional Source Comments The information contained in this document represents components of the legal health record. It is not the complete legal health record.[facility]
--- OUTSIDE RECORDS SUMMARY | 2025-03-12 17:18 | XMS_ITS | Encounter Summary ---
Author Organization [facility] Address [address] [facility] [place] [address] [place] [address] Phone Care Team Providers Care Rubber Mold Maker Name Role Phone Huy Zhu MD Unavailable [phone] Nuvia Woodward NP Unavailable [phone] Shyann Sandoval Primary Care Provider [phone] Jackelyn Daniels MD Primary Care Provider + Jackelyn Daniels MD Primary Care Provider + Encounter Details Date Type Department Care Team (Latest Contact Info) Description 09/28/2023 Transcribe Orders [facility] Phleb [place] [address] 2nd Floor [place], [place] [id number] Lucas Ibarra MD [address] [address] [email or web address] Abnormal results of liver function studies (Primary [...] [facility] Pulmonary, Allergy and Critical Care Medicine [address] [place] [address] Lucas Galvan MD [address] [place] [address] [email or web address] documented as of this encounter Results * (ABNORMAL) Comprehensive metabolic panel (09/28/2023 10:44 AM EDT) SODIUM 134 133 - 146 mmol/L [facility] POTASSIUM 4.3 3.3 - 5.1 mmol/L [facility] CHLORIDE 96 96 - 108 mmol/L [facility] CO2 26 21 - 35 mmol/L [facility] BUN 20(H) 6 - 19 mg/dL [facility] CREATININE 0.70 0.5 - 1.5 mg/dL [facility] GLUCOSE 103(H) 70 - 99 mg/dL [facility] ALBUMIN 4.1 3.9 - 4.8 g/dL [facility] TOTAL PROTEIN 7.0 6.5 - 8.0 g/dL [facility] CALCIUM 9.4 8.4 - 10.3 mg/dL [facility] ALKALINE PHOSPHATASE 80 39 - 117 U/L [facility] TOTAL BILIRUBIN <0.2 0.0 - 1.2 mg/dL [facility] AST 23 0 - 37 U/L [facility] ALT 30 0 - 40 U/L [facility] GLOBULIN 2.9 1 - 4.8 g/dL [facility] EGFR 93 >59 mL/min/1.7 3m2 [facility] Comment:Estimated glomerular filtration rate calculated using the CKD-EPI refit equation. ANION GAP 16 10 - 20 mmol/L [facility] Blood 09/28/2023 10:4 4 AM EDT 09/28/2023 10:49 AM EDT Lucas Ibarra MD LAB BLOOD BKR ORDERABLES F inal Result Performing Organization Address City/State/[facility] Co de Phone Number [facility] [address] [place] [address] documented in this encounter Visit Diagnoses Diagnosis Abnormal results of liver function studies- Primary Nonspecific abnormal results of liver function study documented in this encounter Care Teams Rubber Mold Maker Relationship Specialty Start Date End Date Shyann Sandoval PA [address] [place] [address] [email or web address] PCP - General Unknown Provider Specialty 06/13/20 12/29/23 Jackelyn Daniels MD [address] [place] [address] [email or web address] PCP - General Family Medicine 12/30/23 05/03/24 Jackelny Daniels MD [address] [place] [address] [email or web address] PCP - General Family Medicine 05/04/24 Huy Zhu MD [email or web address] Historical LMR Provider 01/31/17 Nuvia Woodward NP [address] [place] [address] [email or web address] Historical LMR Provider 01/31/17 documented as of this encounter Additional Source Comments The information contained in this document represents components of the legal health record. It is not the complete legal health record.[facility]
--- OUTSIDE RECORDS SUMMARY | 2025-03-12 17:18 | XMS_ITS | Encounter Summary ---
Author Organization [facility] Address [address] [facility] [address] [place] [address] Phone Care Team Providers Care Instructional Services Specialist Name Role Phone Huy Zhu MD Unavailable [phone] Nuvia Woodward NP Unavailable [phone] Jackelyn Daniels MD Primary Care Provider + Reason for Visit * Auth/Cert (Routine) Specialty Diagnoses / Procedures Referred By Contac t Referred To Contact Diagnoses colon Procedures OR COLONOSCOPY FLX DX W/COLLJ SPEC WHEN PFRMD OR COLONOSCOPY W/BIOPSY SINGLE/MULTIPLE OR COLSC FLX W/RMVL OF TUMOR POLYP LESION SNARE TQ COLONOSCOPY Referral ID Status Reason Start Date Expiration Date Visits Re quested Visits Authorized [id number] 1 1 Encounter Details Date Type Department Care Team (Late st Contact Info) Description 11/22/2024 Hospital Encounter [facility] Endoscopy Admitting Dept Virtual Department 30 [place] [address] Lucas Ibarra MD [address] [place] [address] [email or web address] Social History Tobacco Use Types Packs/Day Years [...] Pulmonary, Allergy and Critical Care Medicine 10 [place] [address] Lucas Galvan MD [address] [address] [email or web address] documented as of this encounter Visit Diagnoses Not on filedocumented in this encounter Care Teams Instructional Services Specialist Relationship Specialty Start Date End Date Jackelyn Daniels MD 70 [place] [address] [email or web address] PCP - General Family Medicine 05/04/24 Huy Zhu MD Historical LMR Provider 01/31/17 Nuvia Woodward NP 30 [place] [address] [email or web address] Historical LMR Provider 01/31/17 documented as of this encounter Additional Source Comments The information contained in this document represents components of the legal health record. It is not the complete legal health record.[facility]
--- OUTSIDE RECORDS SUMMARY | 2025-03-12 17:18 | XMS_ITS | Encounter Summary ---
Author Organization [facility] Address [facility] [address] [address] Phone Care Team Providers Care Software Writer Name Role Phone Huy Zhu MD Unavailable [phone] Nuvia Woodward NP Unavailable [phone] Shyann Sandoval Primary Care Provider [phone] Jackelyn Daniels MD Primary Care Provider + Jackelyn Daniels MD Primary Care Provider + Encounter Details Date Type Department Care Team (Latest Contact Info) Description 07/15/2022 Transcribe Orders Virtual Department 30 [place] [address] Lucas Ibarra MD [address] [place] [address] [email or web address] Chronic cough (Primary Dx) Social History Tobacco [...] Pulmonary, Allergy and Critical Care Medicine 10 [facility] [place] [address] Lucas Galvan MD 10 [facility] 2nd [place] [address] documented as of this encounter Results * [...] documented in this encounter Care Teams Software Writer Relationship Specialty Start Date End Date Shyann Sandoval PA [address] [place] [address] [email or web address] PCP - General Unknown Provider Specialty 06/13/20 12/29/23 Jackelyn Daniels MD 70 [place] [address] [email or web address] PCP - General Family Medicine 12/30/23 05/03/24 Jackelyn Daniels MD 70 [place] [address] [email or web address] PCP - General Family Medicine 05/04/24 Huy Zhu MD [email or web address] Historical LMR Provider 01/31/17 Nuvia Woodward NP [address] [place] [address] [email or web address] Historical LMR Provider 01/31/17 documented as of this encounter Additional Source Comments The information contained in this document represents components of the legal health record. It is not the complete legal health record.[facility]
--- OUTSIDE RECORDS SUMMARY | 2025-03-12 17:18 | XMS_ITS | Encounter Summary ---
Author Organization [facility] Address [address] [employer] [facility] [address] [place] [address] Phone Care Team Providers Care Deep Well Contractor Name Role Phone Huy Zhu MD Unavailable [phone] Nuvia Woodward NP Unavailable [phone] Shyann Sandoval Primary Care Provider [phone] Jackelyn Daniels MD Primary Care Provider + Jackelyn Daniels MD Primary Care Provider + Encounter Details Date Type Department Care Team (Latest Contact Info) Description 06/29/2023 Transcribe Orders [address] [address] Naveen Billy MD [address] [place] [address] Bilateral shoulder pain, unspecified chronicity (Primary Dx) [...] [facility] Pul[facility], All[facility] Critical [facility] [address] [place] [address] Lucas Galvan MD [address] [place] [address] documented as of this encounter Results * Lyme Screen with Reflex to Immunoblot, Blood (06/29/2023 10:41 AM EDT) Lyme AB IgG Negative Negative [facility] Lyme AB IgM Negative Negative [facility] Blood 06/29/2023 10:4 1 AM EDT 06/29/2023 10:46 AM EDT us Naveen Billy MD LAB BLOOD BKR ORDERABLES Edited Result - Final [facility] [address] [place] [address] documented in this encounter Visit Diagnoses Diagnosis Bilateral shoulder pain, unspecified chronicity- Primary documented in this encounter Care Teams Deep Well Contractor Relationship Specialty Start Date End Date Shyann Sandoval PA [address] [place] [address] [email or web address] PCP - General Unknown Provider Specialty 06/13/20 12/29/23 Jackelyn Daniels MD [address] [place] [address] [email or web address] PCP - General Family Medicine 12/30/23 05/03/24 Jackelyn Daniels MD [address] [place] [address] [email or web address] PCP - General Family Medicine 05/04/24 Huy Zhu MD [email or web address] Historical LMR Provider 01/31/17 Nuvia Woodward NP [address] [place] [address] [email or web address] Historical LMR Provider 01/31/17 documented as of this encounter Additional Source Comments The information contained in this document represents components of the legal health record. It is not the complete legal health record.[facility]
--- OUTSIDE RECORDS SUMMARY | 2025-03-12 17:18 | XMS_ITS | Encounter Summary ---
Author Organization [facility] Address [address] [place] [address] Phone Care Team Providers Care Housekeeping Director Name Role Phone Huy Zhu MD Unavailable Nuvia Woodward STOCK RAISER Unavailable [phone] Zohra Zaman STOCK RAISER Unavailable [phone] Asia Marquez RDCS Unavailable [email or web address] Huy Zhu MD Primary Care Provider Shyann Sandoval Primary Care Provider Jackelyn Daniels MD Primary Care Provider + Jackelyn Daniels MD Primary Care Provider + Encounter Details Date Type Department Care Team (Latest Contact Info) Description 04/26/2019 Transcribe Orders Virtual Department 30 [place] [address] Shyann Sandoval PA [address] [place] [address] [email or web address] No family history of cardiac [...] Pulmonary, Allergy and Critical Care Medicine 10 [place] [address] Lucas Galvan MD [address] [address] [email or web address] documented as of this encounter Visit Diagnoses Diagnosis No family history of cardiac disease- Primary documented in this encounter Care Teams Housekeeping Director Relationship Specialty Start Date End Date Huy Zhu MD [email or web address] PCP - General Family Medicine 04/26/19 06/12/20 Shyann Sandoval PA [address] [place] [address] [email or web address] PCP - General Unknown Provider Specialty 06/13/20 12/29/23 Jackelyn Daniels MD [address] [place] [address] [email or web address] [email or web address] - General Family Medicine 12/30/23 05/03/24 Jackelyn Daniels MD [address] [place] [address] [email or web address] [email or web address] - General Family Medicine 05/04/24 Huy Zhu MD Historical LMR Provider 10/22/17 Nuvia Woodward STOCK RAISER [address] [place] [address] Historical LMR Provider 01/31/17 Zohra Zaman NP [address] [place] [address] Historical LMR Provider 01/31/17 2 Asia Marquez, RDCS [email or web address] Historical LMR Provider 01/31/17 04/19/21 documented as of this encounter Additional Source Comments The information contained in this document represents components of the legal health record. It is not the complete legal health record.[facility]
--- OUTSIDE RECORDS SUMMARY | 2025-03-12 17:18 | XMS_ITS | Encounter Summary ---
Author Organization [facility] Address [address] [place] [address] Phone Care Team Providers Care Diabetes Physician Name Role Phone Huy Zhu MD Unavailable [phone] Nuvia Woodward NP Unavailable [phone] Shyann Sandoval Primary Care Provider [phone] Jackelyn Daniels MD Primary Care Provider + Jackelyn Daniels MD Primary Care Provider + Encounter Details Date Type Department Care Team (Late Contact Info) Description 07/03/2021 Procedure Pass [facility] Endoscopy Admitting Dept Virtual Department [address] [place] [address] Social History Tobacco Use Types Packs/Day Years [...] Upcoming Encounters Date Type Department Care Team ([facility] Contact Info) Description 08/09/2025 9:30 AM EDT Office Visit [facility] Pul[facility], Allergy [facility] Critical [facility] Medicine 10 [place], [place] [phone] Lucas Galvan MD [address] [place] [address] documented as of this encounter Visit Diagnoses Not on filedocumented in this encounter Care Teams Diabetes Physician Relationship Specialty Start Date End Date Shyann Sandoval PA [address] [place] [address] [email or web address] PCP - General Unknown Provider Specialty 06/13/20 12/29/23 Jackelyn Daniels MD [address] [place] [address] [email or web address] PCP - General Family Medicine 12/30/23 05/03/24 Jackelyn Daniels MD [address] [place] [address] [email or web address] PCP - General Family Medicine 05/04/24 Huy Zhu MD Historical LMR Provider 01/31/17 Nuvia Woodward NP [address] [place] [address] Historical LMR Provider 01/31/17 documented as of this encounter Additional Source Comments The information contained in this document represents components of the legal health record. It is not the complete legal health record.[facility]
--- OUTSIDE RECORDS SUMMARY | 2025-03-12 17:18 | XMS_ITS | Encounter Summary ---
Author Organization [facility] Address [address] [place] [address] Phone Care Team Providers Care Digester Operator Name Role Phone Huy Zhu MD Unavailable [phone] Nuvia Woodward NP Unavailable [phone] Jackelyn Daniels MD Primary Care Provider + Encounter Details Date Type Department Care Team (Late st Contact Info) Description 05/09/2024 Procedure Pass [facility], Ct Scan - [facility] [address] [place] [address] Social History Tobacco Use Types Packs/Day Years [...] Upcoming Encounters Date Type Department Care Team ([facility] st Contact Info) Description 08/09/2025 9:30 AM EDT Office Visit [facility] Pulmonary, Allergy and Critical Care Medicine 10 [place] [address] Lucas Galvan MD [address] [address] [email or web address] documented as of this encounter Visit Diagnoses Not on filedocumented in this encounter Care Teams Digester Operator Relationship Specialty Start Date End Date Jackelyn Daniels MD [address] [place] [address] [email or web address] PCP - General Family Medicine 05/04/24 Huy Zhu MD Historical LMR Provider 01/31/17 Nuvia Woodward NP [address] [place] [address] Historical LMR Provider 01/31/17 documented as of this encounter Additional Source Comments The information contained in this document represents components of the legal health record. It is not the complete legal health record.[facility]
--- OUTSIDE RECORDS SUMMARY | 2025-03-12 17:18 | XMS_ITS | Encounter Summary ---
Author Organization [facility] Address [address] [address] Phone Care Team Providers Care Protective Services Officer Name Role Phone Huy Zhu MD Unavailable [phone] Nuvia Woodward NP Unavailable [phone] Shyann Sandoval Primary Care Provider [phone] Jackelyn Daniels MD Primary Care Provider + Jackelyn Daniels MD Primary Care Provider + Encounter Details Date Type Department Care Team (Late st Contact Info) Description 12/11/2022 Procedure Pass [facility] Endoscopy Admitting Dept Virtual Department [address] [place] [address] Social History Tobacco Use Types Packs/Day Years [...] Pulmonary, Allergy and Critical Care Medicine 10 [facility] [place] [address] Lucas Galvan MD 10 [facility] 2nd [place] [address] [email or web address] documented as of this encounter Visit Diagnoses Not on filedocumented in this encounter Care Teams Protective Services Officer Relationship Specialty Start Date End Date Shyann Sandoval PA 70 [place] [address] [email or web address] PCP - General Unknown Provider Specialty 06/13/20 12/29/23 Jackelyn Daniels MD 70 [place] [address] [email or web address] PCP - General Family Medicine 12/30/23 05/03/24 Jackelyn Daniels MD [address] [place] [address] [email or web address] PCP - General Family Medicine 05/04/24 Huy Zhu MD [email or web address] Historical LMR Provider 01/31/17 Nuvia Woodward EMPLOYMENT LEGAL ASSISTANT [address] [place] [address] Historical LMR Provider 01/31/17 documented as of this encounter Additional Source Comments The information contained in this document represents components of the legal health record. It is not the complete legal health record.[facility]
--- OUTSIDE RECORDS SUMMARY | 2025-03-12 17:18 | XMS_ITS | Encounter Summary ---
Author Organization [facility] Address Replaced by [facility] [address] [address] Phone Care Team Providers Care Processing Analyst Name Role Phone Huy hZu MD Unavailable [phone] Nuvia Woodward EVENT SALES ASSISTANT Unavailable [phone] Zohra Zaman EVENT SALES ASSISTANT Unavailable [phone] Asia Marquez RDCS Unavailable [email or web address] Shyann Sandoval Primary Care Provider Jackelyn Daniels MD Primary Care Provider + Jackelyn Daniels MD Primary Care Provider + Encounter Details Date Type Department Care Team (Late st Contact Info) Description 02/14/2021 Ancillary Orders [facility],Outside Imaging 30 [place], [place] [phone] System, Provider Not In, [facility] [address] [address] Social History Tobacco Use Types Packs/Day Years [...] Pulmonary, Allergy and Critical Care Medicine 10 [facility] [place] [address] Lucas Galvan MD 10 [facility] 2nd [place] [address] [email or web address] documented as of this [...] on filedocumented in this encounter Care Teams Processing Analyst Relationship Specialty Start Date End Date Shyann Sandoval PA [address] [place] [address] [email or web address] PCP - General Unknown Provider Specialty 06/13/20 12/29/23 Jackelyn Daniels MD 70 [place] [address] [email or web address] PCP - General Family Medicine 12/30/23 05/03/24 Jackelyn Daniels MD [address] [place] [address] [email or web address] PCP - General Family Medicine 05/04/24 Huy Zhu MD [email or web address] Historical LMR Provider 01/31/17 Nuvia Woodward, EVENT SALES ASSISTANT 30 [place] [address] [email or web address] Historical LMR Provider 01/31/17 Zohra Zaman NP 65 [place] [address] Historical LMR Provider 01/31/17 2 Asia Marquez RDCS [email or web address] Historical LMR Provider 01/31/17 04/19/21 documented as of this encounter Additional Source Comments The information contained in this document represents components of the legal health record. It is not the complete legal health record.[facility]
--- OUTSIDE RECORDS SUMMARY | 2025-03-12 17:18 | XMS_ITS | Encounter Summary ---
Author Organization [facility] Address [address] [address] Phone Care Team Providers Care Catalyst Operator Name Role Phone Huy Zhu MD Unavailable [phone] Nuvia Woodward NP Unavailable [phone] Shyann Sandoval Primary Care Provider [phone] Jackelyn Daniels MD Primary Care Provider + Jackelyn Daniels MD Primary Care Provider + Encounter Details Date Type Department Care Team (Late st Contact Info) Description 12/15/2022 Procedure Pass [facility] Endoscopy Admitting Dept Virtual Department [address] [place] [address] Social History Tobacco Use Types Packs/Day Years [...] Pulmonary, Allergy and Critical Care Medicine 10 [facility] [place] [address] Lucas Galvan MD 10 [facility] 2nd [place] [address] documented as of this encounter Visit Diagnoses Not on filedocumented in this encounter Care Teams Catalyst Operator Relationship Specialty Start Date End Date Shyann Sandoval PA [address] [place] [address] [email or web address] PCP - General Unknown Provider Specialty 06/13/20 12/29/23 Jackelyn Daniels MD [address] [place] [address] [email or web address] PCP - General Family Medicine 12/30/23 05/03/24 Jackelyn Daniels MD [address] [place] [address] [email or web address] [email or web address] - General Family Medicine 05/04/24 Huy Zhu MD [email or web address] Historical LMR Provider 01/31/17 Nuvia Woodward MASTER IN CHANCERY [address] [place] [address] Historical LMR Provider 01/31/17 documented as of this encounter Additional Source Comments The information contained in this document represents components of the legal health record. It is not the complete legal health record.[facility]
== END ==
LOC: HO.SL 13:47
PROVIDERS: PCP Family Medicine; Visit Provider Physician Assistant Medical
DX: G47.19 Other hypersomnia (principal); R06.83 Snoring
CPT/HCPCS: 95806

== ENCOUNTER → 2025-03-12 14:08 | Outpatient (BNV) | payer MEDICARE, SELFPAY | PROVIDERS: PCP Family Medicine; Visit Provider Psychiatry & Neurology Neurology | DX: R06.83 Snoring (principal) | CPT/HCPCS: 95806 ==

== ENCOUNTER 2025-03-13 13:40 | Outpatient (AMB) | payer MEDICARE, SELFPAY ==
--- NOTE | 2025-03-13 13:10 | MHC.OFFVIS ---
Intake Visit Reasons: Follow up, MRI(?) Depilatory Painter Required: No Accompanied by: Self / Same As Patient Allergies monosodium glutamate (MSG) Allergy (Severe, Verified 03/16/25 09:20) Migraine Nitrate Analogues Allergy (Severe, Verified 03/16/25 09:20) Migraine alendronate sodium Allergy (Intermediate, Verified 03/16/25 09:20) bone pain Sulfa (Sulfonamide Antibiotics) Allergy (Intermediate, Verified 03/16/25 09:20) Nausea golimumab (From Simponi ARIA) Adverse Reaction (Intermediate, Verified 03/16/25 09:20) body pain Medication List - Last Reconciled 03/13/25 by KATE Alfaro atogepant (Qulipta) 30 mg PO DAILY 60 days bisacodyl (Dulcolax (bisacodyl)) 10 mg (2 x 5 mg) PO BEDTIME cetirizine (Zyrtec) 10 mg PO DAILY PRN denosumab (Prolia) 60 mg subcut [id number] etanercept (Enbrel SureClick) 50 mg subcut QWEEK hydrocodone-homatropine 5-1.5 mg 1 tab PO BID PRN ivermectin 1% (Soolantra) 1 appl topical DAILY PRN lidocaine 5% 1 appl topical QID 30 days magnesium 250 mg PO BEDTIME polyethylene glycol 3350 (Miralax) 238 grams PO ONCE prednisone 5 mg PO DIRECTED tramadol 50 mg PO DAILY PRN zolmitriptan take 1 tab at onset of headache; if no relief may repeat 1 tab after at least 2 hrs; max = 4 tabs/24 hr orally PRN; HPI Comments Details: 69-yr-old female presents for follow-up for migraine via televideo. Patient was last seen in Dec 2024 by our colleague, Candis LAN- at which time a brain MRI and sleep study was ordered. 02/16/2025, Brain MRI w/o: Unremarkable brain MRI. 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 She completed home sleep study last night on 03/12/2025. She reports a recent uptake her headache frequency without a clear precipitating cause: she has woken up, between 3-5 am, with a typical headache, 7 out of the last 8 nights. She reports that when she started the qulipta, she had a decrease in headache frequency to 1 headache per week. Denies headache a/w restlessness. When she wakes up with the headache- she tries breathing in through her one nostril (the one that is not congested) until it induces yawning. Zomig tends to be effective, but may try not to take it if possible. Baseline headache characteristics: Moderate to Severe frontal headache. Pressure, heaviness a/e photophobia, nausea, now rarely vomiting, activity tolerance, sinus congestion, runny nose, deep sighs. Palpable cervical spinal tenderness during headache. Pertinent denials: Restlessness, recurrent sinus infections, usual neck pain Duration- 2 hours w/ treatment. can be 3-5 hours, and in the past could last 1-2 days. Postdrome- may have an exhilaration sensation Family h/o headache: Her grandmother had frequent headaches, as well as sinus congestion, and had undergone sinus surgery in hope it with a alleviate both, however it was ineffective. [facility] Medical History Chronic idiopathic constipation Tubular adenoma of colon Hepatitis B core antibody positive Osteoporosis Seropositive rheumatoid arthritis GERD (gastroesophageal reflux disease) Allergic conjunctivitis and rhinitis Presbyopia Astigmatism Hypermetropia Carpal tunnel syndrome Migraines Depression Anxiety Hyperlipidemia Hypercholesteremia Surgical History History of foot surgery [place] teeth extracted Family History Mother Dementia Emphysema lung Father Myocardial infarct Brother COPD (chronic obstructive pulmonary disease) Brother History of heart attack Social History Household Members: None Are you a primary health care coordinator to a significant other at home: No Do you presently have visiting nurse or other home services: No Alcohol intake: current Alcohol intake frequency: a few times a week Alcohol type: hard liquor Patient Tobacco Use Status: Former Tobacco user Current occupational status: retired Physical Exam Const General: cooperative and no acute distress Orientation/consciousness: patient oriented x3 Resp Effort & Inspection: normal respiratory effort and able to speak in complete sentences Neuro General: patient oriented x3 Cranial nerves: Yes Normal facial strength present Cognition (Neuro): normal cognition Psych Appearance: grossly normal Mental Status: mental status grossly normal Speech and movement: Normal speech and movement present Affect: normal affect Attitude: cooperative Telehealth Telehealth Telehealth Platform: [employer] Location of provider rendering services: practice address Location of patient: address on file Patient Identification confirmed using: Name, : Yes Telehealth method: video Patient verbally consented to treatment: Yes Patient verbally consented to billing insurance company: Yes Patient informed of any privacy concerns related to visit: Yes Minutes spent on Phone/Video with Pt.: 55 Results Reviewed Results Reviewed: Assessment & Plan Assessment & Plan (1) Migraine without aura: Code(s): G43.009 - Migraine without aura, not intractable, without status migrainosus Category: Medical Qualifiers: Intractability: intractable Status migrainosus presence: without status migrainosus Qualified Code(s): G43.019 - Migraine without aura, intractable, without status migrainosus (2) Cervicalgia: Code(s): M54.2 - Cervicalgia Category: Medical Plan Reviewed brain MRI with and without contrast images and results with patient, overall unremarkable exam, with only a few scattered punctuate foci of T2 hyperintensities, which are nonspecific but 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 There was no evidence of active sinus disease or inflammation. We will review home sleep study results when available For cervicalgia: Denies any current neck pain Previous c-spine and t-spine XR- Cervical lordotic straightening, mild anterolisthesis C4 on C5, Multilevel disc space narrowings, most pronounced C7-T1. F/u w/ rheumatology. For overall headache management: Continue to optimize good self-care, including but not limited to maintaining a healthy diet, adequate fluid intake, adequate sleep, and engaging in regular physical activity. Track headaches. ? For acute headache treatment: Continue Zolmitriptan 2.5mg prn at onset of migraine, MR in 2 hrs. Previous acute migraine medication trials: Sumatriptan- not tolerated caused jumpiness. Cafargot- was ineffective. Ergotamine- not effective. Acute migraine medication contraindications: None at this time Future considerations: Indomethacin trial ? For headache prevention medication: Start OTC Riboflavin 400mg daily in the am Start OTC Co Q10 400 mg daily in the morning Take with a healthy higher-fat food, such as avocado, peanut butter, whole-milk yogurt, or an egg This is generally well tolerated, however possible side effects include upset stomach, diarrhea, heartburn, nausea, and trouble sleeping Continue Magnesium 400mg qhs Continue Qulipta 30 mg p.o. daily in the morning-as patient has had greater than 50% reduction in monthly migraine days and intensity. Start Verapamil ER 120mg daily at bedtime Possible side effects include constipation (typically at higher doses and in the immediate release formulation), lower blood pressure and/or heart rate) lightheadedness, fatigue, lower extremity swelling/edema, headache (likely transient and will salt subside) Previous preventative medication use: Feverfew- ineffective. Propranol Er- was not as effective. Migraine prevention medication contraindications: TCAs and AEDs as pt is > 65 years old ? Pt to follow-up in 6 months or sooner prn. Addendum: 03/12/2025, HST revealed AHI 2/hr w/ O2 margret 89% w/ SpO2 < 90% x's 0.1 min, SpO2 < 88% x's 0 min, and average SpO2 94%, and snoring occured for 7% of study time. Medications: New verapamil ER 120 mg PO QPM 30 tabs 6RF 30 days Changed From zolmitriptan take 1 tab at onset of headache; if no relief may repeat 1 tab after at least 2 hrs; max = 4 tabs/24 hr orally PRN; Migraine Headache To zolmitriptan 2.5 mg PO Q2H PRN 36 tabs 1RF Migraine Headache 90 days MDD 2 Coding Level of Care Code Tele Est Pt Level 4 (95183) Diagnoses Intractable migraine without aura and without status migrainosus G43.019 Intractability: intractable Status migrainosus presence: without status migrainosus Cervicalgia M54.2
--- OUTSIDE RECORDS SUMMARY | 2025-03-13 15:38 | XMS_ITS | Encounter Summary ---
Author Organization [facility] Address Formerly [facility] [employer] [address] [address] Phone Care Team Providers Care Asbestos Siding Mechanic Name Role Phone Huy Zhu MD Unavailable [phone] Nuvia Woodward NP Unavailable [phone] Shyann Sandoval Primary Care Provider [phone] Jackelyn Daniels MD Primary Care Provider + Jackelyn Daniels MD Primary Care Provider + Encounter Details Date Type Department Care Team (Late st Contact Info) Description 09/16/2022 Procedure Pass OR Admitting Dept - Virtual Department [address] [place] [address] Social History Tobacco Use Types Packs/Day Years [...] Upcoming Encounters Date Type Department Care Team ([facility] st Contact Info) Description 08/09/2025 9:30 AM EDT Office Visit [facility] Pulmonary, Allergy and Critical Care Medicine 10 [place] [address] Lucas Galvan MD [address] [address] [email or web address] documented as of this encounter Visit Diagnoses Not on filedocumented in this encounter Care Teams Asbestos Siding Mechanic Relationship Specialty Start Date End Date Shyann Sandoval PA [address] [place] [address] [email or web address] PCP - General Unknown Provider Specialty 06/13/20 12/29/23 Jackelyn Daniels MD [address] [place] [address] [email or web address] PCP - General Family Medicine 12/30/23 05/03/24 Jackelyn Daniels MD [address] [place] [address] [email or web address] PCP - General Family Medicine 05/04/24 Huy Zhu MD Historical LMR Provider 01/31/17 Nuvia Woodward [employer] [address] [place] [address] Historical LMR Provider 01/31/17 documented as of this encounter Additional Source Comments The information contained in this document represents components of the legal health record. It is not the complete legal health record.[facility]
--- OUTSIDE RECORDS SUMMARY | 2025-03-13 15:39 | XMS_ITS | Encounter Summary ---
Author Organization [facility] Address [address] [place] [address] Phone Care Team Providers Care Ditch Tender Name Role Phone Huy Zhu MD Unavailable [phone] Nuvia Woodward NP Unavailable [phone] Shyann Sandoval Primary Care Provider [phone] Jackelyn Daniels MD Primary Care Provider + Jackelyn Daniels MD Primary Care Provider + Encounter Details Date Type Department Care Team (Late Contact Info) Description 07/03/2021 Procedure Pass [facility] Endoscopy Admitting Dept Virtual Department [address] [place] [address] Social History Tobacco Use Types Packs/Day Years [...] Upcoming Encounters Date Type Department Care Team ([facility] Contact Info) Description 08/09/2025 9:30 AM EDT Office Visit [facility] Pulmonary, Allergy and Critical Care Medicine 10 [place], [place] [phone] Lucas Galvan MD [address] [place] [address] [email or web address] documented as of this encounter Visit Diagnoses Not on filedocumented in this encounter Care Teams Ditch Tender Relationship Specialty Start Date End Date Shyann Sandoval PA [address] [place] [address] [email or web address] PCP - General Unknown Provider Specialty 06/13/20 12/29/23 Jackelyn Daniels MD [address] [place] [address] [email or web address] PCP - General Family Medicine 12/30/23 05/03/24 Jackelyn Daniels MD [address] [place] [address] [email or web address] PCP - General Family Medicine 05/04/24 Huy Zhu MD [email or web address] Historical LMR Provider 01/31/17 Nuvia Woodward NP [address] [place] [address] Historical LMR Provider 01/31/17 documented as of this encounter Additional Source Comments The information contained in this document represents components of the legal health record. It is not the complete legal health record.[facility]
--- OUTSIDE RECORDS SUMMARY | 2025-03-13 15:39 | XMS_ITS | Encounter Summary ---
Author Organization [facility] Address Pending sale to [facility] [employer] [address] [address] Phone Care Team Providers Care Salesperson Art Objects Name Role Phone Huy Zhu MD Unavailable Nuvia Woodward SCHEDULE CHECKER Unavailable [phone] Zohra Zaman SCHEDULE CHECKER Unavailable [phone] Asia Marquez RDCS Unavailable [email or web address] Huy Zhu MD Primary Care Provider Huy Zhu MD Primary Care Provider [phone] Shyann Sandoval Primary Care Provider Jackelyn Daniels MD Primary Care Provider + Jackelyn Daniels MD Primary Care Provider + Encounter Details Date Type Department Care Team (Late st Contact Info) Description 02/27/2019 Procedure Pass [facility] Endoscopy Admitting Dept Virtual Department 30 [place] [address] Social History Tobacco Use Types Packs/Day Years [...] Pulmonary, Allergy and Critical Care Medicine 10 [place] [address] Lucas Galvan MD 10 [facility] 2nd [place] [address] [email or web address] documented as of this encounter Visit Diagnoses Not on filedocumented in this encounter Care Teams Salesperson Art Objects Relationship Specialty Start Date End Date Huy Zhu MD [email or web address] PCP - General 04/15/17 04/25/19 Huy Zhu MD [email or web address] PCP - General Family Medicine 04/26/19 06/12/20 Shyann Sandoval PA [address] [place] [address] [email or web address] PCP - General Unknown Provider Specialty 06/13/20 12/29/23 Jackelyn Daniels MD [address] [place] [address] [email or web address] PCP - General Family Medicine 12/30/23 05/03/24 Jackelyn Daniels MD [address] [place] [address] [email or web address] PCP - General Family Medicine 05/04/24 Huy Zhu MD [email or web address] Historical LMR Provider 01/31/17 Nuvia Woodward NP 30 [place] [address] Historical LMR Provider 01/31/17 Zohra Zaman NP [address] [place] [address] Historical LMR Provider 01/31/17 2 Asia Marquez, RDCS [email or web address] Historical LMR Provider 01/31/17 04/19/21 documented as of this encounter Additional Source Comments The information contained in this document represents components of the legal health record. It is not the complete legal health record.[facility]
--- OUTSIDE RECORDS SUMMARY | 2025-03-13 15:39 | XMS_ITS | Encounter Summary ---
Author Organization [facility] Address [address] [place] [address] Phone Care Team Providers Care Master Mechanic Name Role Phone Huy Zhu MD Unavailable [phone] Nuvia Woodward GALLERY OR MUSEUM TECHNICIAN Unavailable [phone] Zohra Zaman GALLERY OR MUSEUM TECHNICIAN Unavailable [phone] Asia Marquez RDCS Unavailable [email or web address] Huy Zhu MD Primary Care Provider Shyann Sandoval Primary Care Provider Jackelyn Daniels MD Primary Care Provider + Jackelyn Daniels MD Primary Care Provider + Encounter Details Date Type Department Care Team (Latest Contact Info) Description 04/27/2019 Transcribe Orders Virtual Department [address] [place] [address] Shyann Sandoval PA [address] [place] [address] [email or web address] Family history of cardiovascular disease (Primary Dx) [...] Pulmonary, Allergy and Critical Care Medicine 10 [place] [address] Lucas Galvan MD [address] [address] [email or web address] documented as of this encounter Visit Diagnoses Diagnosis Family history of cardiovascular disease- Primary Family history of other cardiovascular diseases documented in this encounter Care Teams Master Mechanic Relationship Specialty Start Date End Date Huy Zhu MD [email or web address] PCP - General Family Medicine 04/26/19 06/12/20 Shyann Sandoval PA [address] [place] [address] [email or web address] PCP - General Unknown Provider Specialty 06/13/20 12/29/23 Jackelyn Daniels MD [address] [place] [address] [email or web address] PCP - General Family Medicine 12/30/23 05/03/24 Jackelyn Daniels MD [address] [place] [address] [email or web address] PCP - General Family Medicine 05/04/24 Huy Zhu MD Historical LMR Provider 01/31/17 Nuvia Woodward NP 30 [place] [address] [email or web address] Historical LMR Provider 01/31/17 Zohra Zaman NP [address] [place] [address] Historical LMR Provider 01/31/17 2 Asia Marquez, ARTUROCS [email or web address] Historical LMR Provider 01/31/17 04/19/21 documented as of this encounter Additional Source Comments The information contained in this document represents components of the legal health record. It is not the complete legal health record.[facility]
--- OUTSIDE RECORDS SUMMARY | 2025-03-13 15:39 | XMS_ITS | Clinical Summary ---
Author Organization [facility] Address [address] [employer] [address] [address] Phone Care Team Providers Care Group Social Worker Name Role Phone Huy Zhu MD Unavailable [phone] Nuvia Woodward NP Unavailable [phone] Jackelyn Daniels MD Primary Care Provider [...] lung 09/28/2022 Overview (09/28/2022): Chest CT 08/27/2022 [facility]: No ILD, tree-in-bud nodularity, scattered 3 [...] Office Visit [facility] [address] [place] [address] [place] [address] Gary Edwards MD Encounter for gynecological examination without abnormal finding (Primary Dx) 02/13/2025 9:30 AM EST Office Visit [facility] Pulmonary, Allergy and Critical Care Medicine [address] [place] [address] Lucas Galvan MD Chronic cough (Primary Dx); Seasonal allergies; Gastroesophageal reflux disease, unspecified whether esophagitis present from Last 3 Months Immunizations Immunization Administration Dates Next Due COVID-19 (Pre-02/01) Pfizer Vaccine, mRNA, PF 12/29/2021 [id number] 02/05/2012 Influenza High-Dose Quadriva lent Preservative Free [...] Upcoming Encounters Date Type Department Care Team ([facility] st Contact Info) Description 08/09/2025 9:30 AM EDT Office Visit [facility] Pulmonary, Allergy and Critical Care Medicine [address] [place] [address] [place] [address] Lucas Galvan MD [address] [place] [address] [email or web address] Health Maintenance Due Date Last Done Comments [...] HPV 16 Negative 03/01/2025 5:55 AM EST [facility] HPV 18 Negative 03/01/2025 5:55 AM EST [facility] HPV 45 Negative 03/01/2025 5:55 AM EST [facility] HPV 31 Negative 03/01/2025 5:55 AM EST [facility] HPV 51 Negative 03/01/2025 5:55 AM EST [facility] HPV 52 Negative 03/01/2025 5:55 AM EST [facility] HPV 33, 58 Negative 03/01/2025 5:55 AM EST [facility] HPV 35, 39, 68 Negative 03/01/2025 5:55 AM EST [facility] HPV 56, 59, 66 Negative 03/01/2025 5:55 AM EST [facility] HPV Disclaimer: Performed by real-time polymerase chain reaction (PCR) at [facility], [address] [place] [address] using the FDA-approved [employer] Onclarity HPV Assay with extended genotyping. Uses of the assay in scenarios other than those approved by the FDA should be considered off-label use. The accuracy and precision of this test for all other off-label specimen sources has been verified in the Cytopathology Laboratory of the [facility] and has not been cleared or approved by the U.S. Food and Drug Administration. Clinical correlation is advised. The assay assesses the E6/E7 DNA target and utilizes human beta globin as an internal control. Cytology and HPV testing are screening assays and should not be used as the sole means of detecting cancer. False-positives and false-negatives can occur. 03/01/2025 5:55 AM EST [facility] Pap Collection (Cervix) 02/19/2025 11:56 AM EST 02/20/2025 8:43 AM EST us Gary Edwards MD LAB GENERAL ORDERABLES F inal Result [facility] [address] [place] [address] * Pap Test (02/19/2025 11:56 AM EST) [...] 56, 59, 66: Negative 03/01/2025 5:55 AM [facility] at 0555 EST Pap Methodology This specimen was successfully pre-screened using the PhonologicsPrep Imaging System. Selected chou from the direct support specialist were reviewed by a Bearingizer. If indicated, this case was reviewed by [...] minimize false negative results. 03/01/2025 5:55 AM [facility] Clinical History ICD-10: Encounter for gynecological examination without abnormal finding 03/01/2025 5:55 AM [facility] LMP? N/A 03/01/2025 5:55 AM [facility] Gross Description A. PAP TEST: CERVIX: 1 Preservcyt vial received labeled with two patient identifiers. 1 ThinPrep slide prepared. 03/01/2025 5:55 AM [facility] A. Adequacy Satisfactory for evaluation, transformation zone indeteriminate due to atrophy 03/01/2025 5:55 AM [facility] A. Interpretation Negative For Intraepithelial Lesion or Malignancy. 03/01/2025 5:55 AM [facility] Pap Collection (Cervix) 02/19/2025 11:56 AM EST 02/19/2025 11:56 AM EST us Gary Edwards MD LAB CYTOLOGY ORDERABLES Final Result Performing Organization Address City/[facility]/ZIP Co de Phone Number [address] [address] * Hepatitis C antibody, qualitative (06/19/2023 8:43 AM EST) HCV NON-REACTIV E NON-REACTI VE [facility] Blood 06/19/2023 8:43 AM EST 06/19/2023 10:03 AM EST us Lucas Ibarra MD LAB BLOOD BKR ORDERABLES F inal Result Performing Organization Address [facility] Co de Phone Number [address] [address] * (ABNORMAL) Lipid panel (09/05/2022 8:12 AM EDT) HDL 88 mg/dL [facility] Comment: Interpretation <40 mg/dL: Low HDL cholesterol (major risk factor for CHD) Greater than or equal to 60 mg/dL: High HDL cholesterol ( negative risk factor for CHD) HDL - cholesterol is affected by a number of factors, e.g. smoking, excerise, hormones, sex and age. CHOLESTEROL 249(H) 0 - 240 mg/dL [facility] TRIGLYCERIDES 102 30 - 160 mg/dL [facility] LDL 141(H) 50 - 129 mg/dL [facility] Comment: LDL levels in terms of risk for coronary heart disease: <100 mg/dL: Optimal 100-129 mg/dL: Near or above optimal 130-159 mg/dL: Borderline high 160-189 mg/dL: High >190 mg/dL: Very High CARDIAC RISK RATIO 2.8(L) 3.3 - 4.4 C [facility] Blood 09/05/2022 8:12 AM EDT 09/05/2022 8:15 AM EDT us Shyann LAN LAB BLOOD BKR ORDERABLES Fin al Result Performing Organization Address City/[facility]/ZIP Co de Phone Number [address] [address] * MAMMOGRAPHY FOR RESULT ENTRY ONLY (03/06/2020) Shyann LAN HEALTH MAINTENANCE Final Res ult from Last 3 Months or Most Recently Relevant to Health Maintenance Insurance [place] [id number] [employer] MEDEX SUPPLEMENT MEDICARE PART A & B [employer] MEDEX SUPPLEMENT MEDICARE PART A & B [employer] MEDEX SUPPLEMENT MEDICARE PART A & B [employer] MEDEX SUPPLEMENT MEDICARE PART A & B [employer] MEDEX SUPPLEMENT MEDICARE PART A & B [employer] MEDEX SUPPLEMENT MEDICARE PART A & B [employer] MEDEX SUPPLEMENT MEDICARE PART A & B [facility] MEDEX SUPPLEMENT MEDICARE PART A & B [employer] Care Teams Group Social Worker Relationship Specialty Start Date End Date Jackelyn Daniels MD [address] [place] [address] [email or web address] PCP - General Family Medicine 05/04/24 Huy Zhu MD Historical LMR Provider 01/31/17 Nuvia Woodward NP [address] [place] [address] Historical LMR Provider 01/31/17 Additional Source Comments The information contained in this document represents components of the legal health record. It is not the complete legal health record.[facility]
--- OUTSIDE RECORDS SUMMARY | 2025-03-13 15:39 | XMS_ITS | Encounter Summary ---
Author Organization [facility] Address [facility] [employer] [address] [address] Phone Care Team Providers Care Senior Staff Accountant Name Role Phone Huy Zhu MD Unavailable [phone] Nuvia Woodward NP Unavailable [phone] Shyann Sandoval Primary Care Provider [phone] Jackelyn Daniels MD Primary Care Provider + Jackelyn Daniels MD Primary Care Provider + Encounter Details Date Type Department Care Team (Latest Contact Info) Description 11/11/2021 Transcribe Orders [facility] [address] [address] Gabriela Carney MD [address] [place] [address] Rheumatoid arthritis, involving unspecified site, unspecified whether [...] Critical Care Medicine [address] [place] [address] Lucas Galvan MD 10 [facility] 2nd [place] [address] documented as of this encounter Results * Sedimentation rate (ESR) (11/11/2021 2:11 PM EDT) Pathologist [facility] ESR 26 0 - 30 mm/h [facility] Blood 11/11/2021 2:11 PM EDT 11/11/2021 2:15 PM EDT us Gabriela Carney MD LAB BLOOD BKR ORD ERABLES Final Result [address] [address] * (ABNORMAL) C-Reactive Protein (11/11/2021 2:11 PM EDT) [facility] C REACTIVE PROTEIN 9.2(H) 0.0 - 4.0 mg/L [facility] Blood 11/11/2021 2:11 PM EDT 11/11/2021 2:15 PM EDT us Gabriela Carney MD LAB BLOOD BKR ORD ERABLES Final Result [address] [address] * (ABNORMAL) Comprehensive metabolic panel (11/11/2021 2:11 PM EDT) [facility] SODIUM 138 133 - 146 mmol/L [facility] POTASSIUM 4.0 3.3 - 5.1 mmol/L [facility] CHLORIDE 101 96 - 108 mmol/L [facility] CO2 26 21 - 35 mmol/L [facility] BUN 11 6 - 19 mg/dL [facility] CREATININE 0.80 0.5 - 1.5 mg/dL [facility] GLUCOSE 103(H) 70 - 99 mg/dL [facility] ALBUMIN 4.6 3.9 - 4.8 g/dL [facility] TOTAL PROTEIN 7.5 6.5 - 8.0 g/dL [facility] CALCIUM 10.0 8.4 - 10.3 mg/dL [facility] ALKALINE PHOSPHATASE 102 39 - 117 U/L [facility] TOTAL BILIRUBIN 0.3 0.0 - 1.2 mg/dL [facility] AST 31 0 - 37 U/L [facility] ALT 19 0 - 40 U/L [facility] GLOBULIN 2.9 1 - 4.8 g/dL [facility] EGFR 80 >59 mL/min/1.7 3m2 [facility] Comment:Estimated glomerular filtration rate calculated using the CKD-EPI refit equation. ANION GAP 15 10 - 20 mmol/L [facility] Blood 11/11/2021 2:11 PM EDT 11/11/2021 2:15 PM EDT us Gabriela Carney MD LAB BLOOD BKR ORD ERABLES Final Result [facility] [address] [place] [address] * CBC and differential (11/11/2021 2:11 PM EDT) WBC 8.42 4.00 - 11.00 K/uL [facility] RBC 4.19 3.72 - 5.30 M/uL [facility] HGB 13.4 11.4 - 15.9 g/dL [facility] HCT 40.1 34.2 - 46.8 % [facility] PLT 314 140 - 430 K/uL [facility] MCV 95.7 78.0 - 97.0 fL [facility] MCH 32.0 25.0 - 33.0 pg [facility] MCHC 33.4 32.0 - 36.0 g/dL [facility] RDW 12.6 11.0 - 16.0 % [facility] MPV 11.2 8.4 - 12.8 fl [facility] NRBC 0.00 0 /100 WBCs [facility] ABSOLUTE NRBC 0.00 0 K/uL [facility] DIFF METHOD Auto [facility] NEUTS 69.2 43.0 - 75.0 % [facility] LYMPHS 20.8 18.2 - 47.4 % [facility] MONOS 8.4 4.00 - 11.00 % [facility] EOS 0.8 0.0 - 8.0 % [facility] BASOS 0.6 0.0 - 2.0 % [facility] Granulocytes, immature (%) 0.2 0.0 - 0.9 % [facility] ABSOLUTE NEUTS 5.82 1.80 - 7.70 K/uL [facility] ABSOLUTE LYMPHS 1.75 1.00 - 3.10 K/uL [facility] ABSOLUTE MONOS 0.71 0.20 - 0.80 K/uL [facility] ABSOLUTE EOS 0.07 0.00 - 0.80 K/uL [facility] ABSOLUTE BASOS 0.05 0.00 - 0.09 K/uL [facility] Granulocytes, immature 0.02 0.00 - 0.05 K/uL [facility] Blood 11/11/2021 2:11 PM EDT 11/11/2021 2:15 PM EDT us Gabriela Carney MD LAB BLOOD BKR ORD ERABLES Final Result [facility] [address] [place] [address] documented in this encounter Visit Diagnoses Diagnosis Rheumatoid arthritis, involving unspecified site, unspecified whether rheumatoid factor present- Primary documented in this encounter Care Teams Senior Staff Accountant Relationship Specialty Start Date End Date Shyann Sandoval PA [address] [place] [address] [email or web address] PCP - General Unknown Provider Specialty 06/13/20 12/29/23 Jackelyn Daniels MD [address] [place] [address] [email or web address] PCP - General Family Medicine 12/30/23 05/03/24 Jackelyn Daniels MD [address] [place] [address] [email or web address] PCP - General Family Medicine 05/04/24 Huy Zhu MD [email or web address] Historical LMR Provider 01/31/17 Nuvia Woodward NP [address] [place] [address] [email or web address] Historical LMR Provider 01/31/17 documented as of this encounter Additional Source Comments The information contained in this document represents components of the legal health record. It is not the complete legal health record.[facility]
--- OUTSIDE RECORDS SUMMARY | 2025-03-13 15:39 | XMS_ITS | Encounter Summary ---
Author Organization [facility] Address [facility] [employer] [address] [address] Phone Care Team Providers Care Client Program Manager Name Role Phone Huy Zhu MD Unavailable Nuvia Woodward CRUISE COORDINATOR Unavailable [phone] Zohra Zaman CRUISE COORDINATOR Unavailable [phone] Asia Marquez RDCS Unavailable [email or web address] Huy Zhu MD Primary Care Provider Huy Zhu MD Primary Care Provider Shyann Sandoval Primary Care Provider Jackelyn Daniels MD Primary Care Provider + Jackelyn Daniels MD Primary Care Provider + Encounter Details Date Type Department Care Team (Late st Contact Info) Description 03/23/2019 Procedure Pass [facility] Endoscopy Admitting Dept Virtual Department [address] [place] [address] Social History Tobacco Use Types Packs/Day Years [...] Pulmonary, Allergy and Critical Care Medicine 10 [place] [address] Lucas Galvan MD 10 [facility] 2nd [place] [address] [email or web address] documented as of this encounter Visit Diagnoses Not on filedocumented in this encounter Care Teams Client Program Manager Relationship Specialty Start Date End Date Huy Zhu MD [email or web address] PCP - General 04/15/17 04/25/19 Huy Zhu MD [email or web address] PCP - General Family Medicine 04/26/19 06/12/20 Shyann Sandoval PA [address] [place] [address] [email or web address] PCP - General Unknown Provider Specialty 06/13/20 12/29/23 Jackelyn Daniels MD [address] [place] [address] [email or web address] PCP - General Family Medicine 12/30/23 05/03/24 Jackelyn Daniels MD [address] [place] [address] [email or web address] PCP - General Family Medicine 05/04/24 Huy Zhu MD [email or web address] Historical LMR Provider 01/31/17 Nuvia Woodward NP [address] [place] [address] Historical LMR Provider 01/31/17 Zohra Zaman NP [address] [place] [address] Historical LMR Provider 01/31/17 2 Asia Marquez, RDCS [email or web address] Historical LMR Provider 01/31/17 04/19/21 documented as of this encounter Additional Source Comments The information contained in this document represents components of the legal health record. It is not the complete legal health record.[facility]
--- OUTSIDE RECORDS SUMMARY | 2025-03-13 15:39 | XMS_ITS | Encounter Summary ---
Author Organization [facility] Address [address] [place] [address] Phone Care Team Providers Care Processor Inspector Name Role Phone Huy Zhu MD Unavailable [phone] Nuvia Woodward NP Unavailable [phone] Jackelyn Daniels MD Primary Care Provider + Encounter Details Date Type Department Care Team (Late st Contact Info) Description 05/09/2024 Procedure Pass [facility], Ct Scan - [facility] 30 [place] [address] Social History Tobacco Use Types Packs/Day Years [...] Upcoming Encounters Date Type Department Care Team ([facility] st Contact Info) Description 08/09/2025 9:30 AM EDT Office Visit [facility] Pulmonary, Allergy and Critical Care Medicine 10 [place] [address] Lucas Galvan MD [address] [address] [email or web address] documented as of this encounter Visit Diagnoses Not on filedocumented in this encounter Care Teams Processor Inspector Relationship Specialty Start Date End Date Jackelyn Daniels MD [address] [place] [address] [email or web address] PCP - General Family Medicine 05/04/24 Huy Zhu MD Historical LMR Provider 01/31/17 Nuvia Woodward NP [address] [place] [address] Historical LMR Provider 01/31/17 documented as of this encounter Additional Source Comments The information contained in this document represents components of the legal health record. It is not the complete legal health record.[facility]
--- OUTSIDE RECORDS SUMMARY | 2025-03-13 15:39 | XMS_ITS | Encounter Summary ---
Author Organization [facility] Address [address] [place] [address] Phone Care Team Providers Care City Auditor Name Role Phone Huy Zhu MD Unavailable Nuvia Woodward NOVELTY WORKER Unavailable [phone] Zohra Zaman NOVELTY WORKER Unavailable [phone] Asia Marquez RDCS Unavailable [email or web address] Huy Zhu MD Primary Care Provider [phone] Huy Zhu MD Primary Care Provider [phone] Shyann Sandoval Primary Care Provider Jackelyn Daniels MD Primary Care Provider + Jackelyn Daniels MD Primary Care Provider + Encounter Details Date Type Department Care Team (Latest Contact Info) Description 02/14/2019 Transcribe Orders [facility] [address] [address] Elizabeth Dougherty PA 10 [place] [address] Nausea (Primary Dx) Social History Tobacco Use [...] Pulmonary, Allergy and Critical Care Medicine 10 [place] [address] Lucas Galvan MD 10 [facility] 2nd [place] [address] [email or web address] documented as of this encounter Results * Creatinine/eGFR (02/14/2019 10:15 AM EST) CREATININE 0.70 0.5 - 1.5 mg/dL [facility] EGFR 91 >59 mL/min/1.7 3m2 [facility] Comment:If patient is black, multiply result by 1.159. Estimated glomerular filtration rate calculated using the CKD-EPI equation. Blood 02/14/2019 10:1 5 AM EST 02/14/2019 10:18 AM EST us Elizabeth LAN LAB BLOOD BKR ORDERABLES Fi nal Result [address] [address] * BUN (02/14/2019 10:15 AM EST) BUN 11 6 - 19 mg/dL [facility] Blood 02/14/2019 10:1 5 AM EST 02/14/2019 10:18 AM EST us Elizabeth LAN LAB BLOOD BKR ORDERABLES Fi nal Result [address] [address] documented in this encounter Visit Diagnoses Diagnosis Nausea- Primary Nausea alone documented in this encounter Care Teams City Auditor Relationship Specialty Start Date End Date Huy Zhu MD [email or web address] PCP - General 04/15/17 04/25/19 Huy Zhu MD [email or web address] PCP - General Family Medicine 04/26/19 06/12/20 Shyann Sandoval PA 70 [place] [address] [email or web address] PCP - General Unknown Provider Specialty 06/13/20 12/29/23 Jackelyn Daniels MD [address] [place] [address] [email or web address] PCP - General Family Medicine 12/30/23 05/03/24 Jackelyn Daniels MD [address] [place] [address] [email or web address] PCP - General Family Medicine 05/04/24 Huy Zhu MD [email or web address] Historical LMR Provider 01/31/17 Nuvia Woodward, NOVELTY WORKER [address] [place] [address] Historical LMR Provider 01/31/17 Zohra Zaman, NOVELTY WORKER [address] [place] [address] Historical LMR Provider 01/31/17 2 Asia Marquez, DANIEL Historical LMR Provider 01/31/17 04/19/21 documented as of this encounter Additional Source Comments The information contained in this document represents components of the legal health record. It is not the complete legal health record.[facility]
--- OUTSIDE RECORDS SUMMARY | 2025-03-13 15:39 | XMS_ITS | Encounter Summary ---
Author Organization [facility] Address [address] [facility] [address] [place] [address] Phone Care Team Providers Care Wet Pan Operator Name Role Phone Huy Zhu MD Unavailable [phone] Nuvia Woodward NP Unavailable [phone] Shyann Sandoval Primary Care Provider [phone] Jackelyn Daniels MD Primary Care Provider + Jackelyn Daniels MD Primary Care Provider + Encounter Details Date Type Department Care Team (Latest Contact Info) Description 06/29/2023 Transcribe Orders [address] [address] Naveen Billy MD [address] [place] [address] Bilateral shoulder pain, unspecified chronicity (Primary Dx) [...] [facility] Pulmonary, Allergy and Critical Care Medicine [address] [place] [address] Lucas Galvan MD [address] [place] [address] documented as of this encounter Results * Lyme Screen with Reflex to Immunoblot, Blood (06/29/2023 10:41 AM EDT) Lyme AB IgG Negative Negative [facility] Lyme AB IgM Negative Negative [facility] Blood 06/29/2023 10:4 1 AM EDT 06/29/2023 10:46 AM EDT us Naveen Billy MD LAB BLOOD BKR ORDERABLES Edited Result - Final [facility] 30 [place] [address] documented in this encounter Visit Diagnoses Diagnosis Bilateral shoulder pain, unspecified chronicity- Primary documented in this encounter Care Teams Wet Pan Operator Relationship Specialty Start Date End Date Shyann Sandoval PA [address] [place] [address] [email or web address] PCP - General Unknown Provider Specialty 06/13/20 12/29/23 Jackelyn Daniels MD [address] [place] [address] [email or web address] PCP - General Family Medicine 12/30/23 05/03/24 Jackelyn Daniels MD [address] [place] [address] [email or web address] PCP - General Family Medicine 05/04/24 Huy Zhu MD [email or web address] Historical LMR Provider 01/31/17 Nuvia Woodward NP [address] [place] [address] [email or web address] Historical LMR Provider 01/31/17 documented as of this encounter Additional Source Comments The information contained in this document represents components of the legal health record. It is not the complete legal health record.[facility]
--- OUTSIDE RECORDS SUMMARY | 2025-03-13 15:39 | XMS_ITS | Encounter Summary ---
Author Organization [facility] Address [address] [place] [address] Phone Care Team Providers Care Rod Finisher Name Role Phone Huy hZu MD Unavailable [phone] Nuvia Woodward JUNIOR BUSINESS ANALYST Unavailable [phone] Zohra Zaman JUNIOR BUSINESS ANALYST Unavailable [phone] Asia Marquez RDCS Unavailable [email or web address] Huy Zhu MD Primary Care Provider Shyann Sandoval Primary Care Provider [phone] Jackelyn Daniels MD Primary Care Provider + Jackelyn Daniels MD Primary Care Provider + Encounter Details Date Type Department Care Team (Latest Contact Info) Description 04/26/2019 Transcribe Orders Virtual Department 30 [place] [address] Shyann Sandoval PA 70 [place] [address] [email or web address] No family history of cardiac disease [...] Allergy and Critical Care Medicine 10 [place] [address] Lucas Galvan MD [address] [address] [email or web address] documented as of this encounter Visit Diagnoses Diagnosis No family history of cardiac disease- Primary documented in this encounter Care Teams Rod Finisher Relationship Specialty Start Date End Date Huy Zhu MD [email or web address] PCP - General Family Medicine 04/26/19 06/12/20 Shyann Sandoval PA 70 [place] [address] [email or web address] PCP - General Unknown Provider Specialty 06/13/20 12/29/23 Jackelyn Daniels MD [address] [place] [address] [email or web address] PCP - General Family Medicine 12/30/23 05/03/24 Jackelyn Daniels MD 70 [place] [address] [email or web address] PCP - General Family Medicine 05/04/24 Huy Zhu MD Historical LMR Provider 10/22/17 Nuvia Woodward JUNIOR BUSINESS ANALYST 30 [place] [address] Historical LMR Provider 01/31/17 Zohra Zaman NP [address] [place] [address] Historical LMR Provider 01/31/17 2 Asia Marquez, RDCS [email or web address] Historical LMR Provider 01/31/17 04/19/21 documented as of this encounter Additional Source Comments The information contained in this document represents components of the legal health record. It is not the complete legal health record.[facility]
--- OUTSIDE RECORDS SUMMARY | 2025-03-13 15:39 | XMS_ITS | Encounter Summary ---
Author Organization [facility] Address [facility] [employer] [address] [address] Phone Care Team Providers Care Linen Keeper Name Role Phone Huy Zhu MD Unavailable Nuvia Woodward SPUDDER Unavailable [phone] Zohra Zaman SPUDDER Unavailable [phone] Asia Marquez RDCS Unavailable [email or web address] Huy Zhu MD Primary Care Provider [phone] Huy Zhu MD Primary Care Provider Shyann Sandoval Primary Care Provider Jackelyn Daniels MD Primary Care Provider + Jackelyn Daniels MD Primary Care Provider + Encounter Details Date Type Department Care Team (Latest Contact Info) Description 02/15/2019 Transcribe Orders Virtual Department 30 [place] [address] Elizabeth Dougherty PA 10 [place], [place] [id number] Nausea (Primary Dx); Weight loss Social History [...] Pulmonary, Allergy and Critical Care Medicine 10 [place] [address] Lucas Galvan MD [address] [address] [email or web address] documented as of this encounter Visit Diagnoses Diagnosis Nausea- Primary Nausea alone Weight loss Loss of weight documented in this encounter Care Teams Linen Keeper Relationship Specialty Start Date End Date Huy Zhu MD [email or web address] PCP - General 04/15/17 04/25/19 Huy Zhu MD [email or web address] PCP - General Family Medicine 04/26/19 06/12/20 Shyann Sandoval PA 70 [place] [address] [email or web address] PCP - General Unknown Provider Specialty 06/13/20 12/29/23 Jackelyn Daniels MD 70 [place] [address] [email or web address] PCP - General Family Medicine 12/30/23 05/03/24 Jackelyn Daniels MD 70 [place] [address] [email or web address] PCP - General Family Medicine 05/04/24 Huy Zhu MD [email or web address] Historical LMR Provider 01/31/17 Nuvia Woodward NP [address] [place] [address] [email or web address] Historical LMR Provider 01/31/17 Zohra Zaman NP [address] [place] [address] Historical LMR Provider 01/31/17 2 Asia Marquez, RDCS [email or web address] Historical LMR Provider 01/31/17 04/19/21 documented as of this encounter Additional Source Comments The information contained in this document represents components of the legal health record. It is not the complete legal health record.[facility]
--- OUTSIDE RECORDS SUMMARY | 2025-03-13 15:39 | XMS_ITS | Encounter Summary ---
Author Organization [facility] Address [facility] [employer] [address] [address] Phone Care Team Providers Care Armhole Raiser Lockstitch Name Role Phone Huy Zhu MD Unavailable [phone] Nuvia Woodward NP Unavailable [phone] Shyann Sandoval Primary Care Provider [phone] Jackelyn Daniels MD Primary Care Provider + Jackelyn Daniels MD Primary Care Provider + Encounter Details Date Type Department Care Team (Latest Contact Info) Description 07/15/2022 Transcribe Orders Virtual Department 30 [place] [address] Lucas Ibarra MD [address] [place] [address] [email or web address] Chronic cough (Primary Dx) Social History Tobacco [...] Pulmonary, Allergy and Critical Care Medicine 10 [facility] [place] [address] Lucas Galvan MD 10 [facility] 2nd [place] [address] documented as of this encounter Results * [...] Cough documented in this encounter Care Teams Armhole Raiser Lockstitch Relationship Specialty Start Date End Date Shyann Sandoval PA [address] [place] [address] [email or web address] PCP - General Unknown Provider Specialty 06/13/20 12/29/23 Jackelyn Daniels MD 70 [place] [address] [email or web address] PCP - General Family Medicine 12/30/23 05/03/24 Jackelyn Daniels MD 70 [place] [address] [email or web address] PCP - General Family Medicine 05/04/24 Huy Zhu MD [email or web address] Historical LMR Provider 01/31/17 Nuvia Woodward NP [address] [place] [address] [email or web address] Historical LMR Provider 01/31/17 documented as of this encounter Additional Source Comments The information contained in this document represents components of the legal health record. It is not the complete legal health record.[facility]
--- OUTSIDE RECORDS SUMMARY | 2025-03-13 15:39 | XMS_ITS | Encounter Summary ---
Author Organization [facility] Address [address] [place] [address] Phone Care Team Providers Care Double Needle Operator Lockstitch Name Role Phone Huy Zhu MD Unavailable Nuvia Woodward HISTORY TEACHER Unavailable [phone] Zohra Zaman HISTORY TEACHER Unavailable [phone] Asia Marquez RDCS Unavailable [email or web address] Huy Zhu MD Primary Care Provider Shyann Sandoval Primary Care Provider [phone] Jackelyn Daniels MD Primary Care Provider + Jackelyn Daniels MD Primary Care Provider + Reason for Referral * Hospital - Outpatient - Closed Specialty Diagnoses / Procedures Referred By Contac t Referred To Contact Diagnoses Family history of cardiovascular disease Procedures Stress Test Exercise Stress Test Exercise Shyann Sandoval PA 70 [place] [address] Phone: tel: fax: [email or web address] Referral ID Status Reason Start Date Expiration Date Visits Re quested Visits Authorized [id number] Closed 04/26/2019 04/25/2020 1 1 Encounter Details Date Type Department Care Team (Latest Contact Info) Description 04/26/2019 Ancillary Orders [facility] Department [address] [place] [address] Shyann Sandoval PA 70 [place] [address] [email or web address] Family history of cardiovascular disease [...] Upcoming Encounters Date Type Department Care Team ([facility] st Contact Info) Description 08/09/2025 9:30 AM EDT Office Visit CD Pulmonary, Allergy and Critical Care Medicine 10 [place] [address] Lucas Galvan MD 10 [facility] 2nd [place] [address] documented as of this encounter Results * Stress Test Exercise (05/02/2019 11:24 AM EST) Max BP Systolic 150 mmHg [facility] Max BP Diastolic 80 mmHg [facility] Max HR 134 BPM [facility] Resting HR 70 BPM [facility] Resting BP Systolic 100 mmHg [facility] Resting BP Diastolic 70 mmHg [facility] Peak METS 13.8 METS [facility] Peak HR 133 BPM [facility] Anatomical Region Laterality Modality Heart Other 05/02/2019 [...] Conclusion - normal stress test. Estelle Persaud HISTORY TEACHER with Dr Churchill . us Shyann LAN CV STRESS ORDERABLES Final R esult documented in this encounter Visit Diagnoses Diagnosis Family history of cardiovascular disease Family history of other cardiovascular diseases Family history of cardiovascular disease Family history of other cardiovascular diseases documented in this encounter Care Teams Double Needle Operator Lockstitch Relationship Specialty Start Date End Date Huy Zhu MD [email or web address] PCP - General Family Medicine 04/26/19 06/12/20 Shyann Sandoval PA [address] [place] [address] [email or web address] PCP - General Unknown Provider Specialty 06/13/20 12/29/23 Jackelyn Daniels MD [address] [place] [address] [email or web address] PCP - General Family Medicine 12/30/23 05/03/24 Jackelyn Daniels MD [address] [place] [address] [email or web address] PCP - General Family Medicine 05/04/24 uHy Zhu MD Historical LMR Provider 01/31/17 Nuvia Woodward NP 30 [place] [address] Historical LMR Provider 01/31/17 Zohra Zaman NP [address] [place] [address] Historical LMR Provider 01/31/17 2 Asia Marquez, RDCS Historical LMR Provider 01/31/17 04/19/21 documented as of this encounter Additional Source Comments The information contained in this document represents components of the legal health record. It is not the complete legal health record.[facility]
--- OUTSIDE RECORDS SUMMARY | 2025-03-13 15:40 | XMS_ITS | Encounter Summary ---
Author Organization [facility] Address [facility] [employer] [address] [address] Phone Care Team Providers Care Elementary Esl Teacher Name Role Phone Huy Zhu MD Unavailable [phone] Nuvia Woodward INTERNAL COMMUNICATIONS SPECIALIST Unavailable [phone] Zohra Zaman INTERNAL COMMUNICATIONS SPECIALIST Unavailable [phone] Asia Marquez RDCS Unavailable [email or web address] Shyann Sandoval Primary Care Provider Jackelyn Daniels MD Primary Care Provider + Jackelyn Daniels MD Primary Care Provider + Encounter Details Date Type Department Care Team (Late st Contact Info) Description 02/14/2021 Ancillary Orders [facility],Outside Imaging 30 [place], [place] [phone] System, Provider Not In, [employer] [address] [address] Social History Tobacco Use Types Packs/Day Years [...] Medicine 10 [facility] [place] [address] Lucas Galvan MD 10 [facility] 2nd [place] [address] [email or web address] documented as of this encounter Results * [...] on filedocumented in this encounter Care Teams Elementary Esl Teacher Relationship Specialty Start Date End Date Shyann Sandoval PA [address] [place] [address] [email or web address] PCP - General Unknown Provider Specialty 06/13/20 12/29/23 Jackelyn Daniels MD 70 [place] [address] [email or web address] PCP - General Family Medicine 12/30/23 05/03/24 Jackelyn Daniels MD [address] [place] [address] [email or web address] PCP - General Family Medicine 05/04/24 Huy Zhu MD [email or web address] Historical LMR Provider 01/31/17 Nuvia Woodward, INTERNAL COMMUNICATIONS SPECIALIST 30 [place] [address] [email or web address] Historical LMR Provider 01/31/17 Zohra Zaman NP 65 [place] [address] Historical LMR Provider 01/31/17 2 Asia Marquez RDCS [email or web address] Historical LMR Provider 01/31/17 04/19/21 documented as of this encounter Additional Source Comments The information contained in this document represents components of the legal health record. It is not the complete legal health record.[facility]
--- OUTSIDE RECORDS SUMMARY | 2025-03-13 15:40 | XMS_ITS | Encounter Summary ---
Author Organization [facility] Address [address] [employer] [address] [address] Phone Care Team Providers Care Skiver Hand Name Role Phone Huy Zhu MD Unavailable [phone] Nuvia Woodward NP Unavailable [phone] Shyann Sandoval Primary Care Provider [phone] Jackelyn Daniels MD Primary Care Provider + Jackelyn Daniels MD Primary Care Provider + Encounter Details Date Type Department Care Team (Late st Contact Info) Description 12/11/2022 Procedure Pass [facility] Endoscopy Admitting Dept Virtual Department [address] [place] [address] Social History Tobacco Use Types Packs/Day Years [...] Pulmonary, Allergy and Critical Care Medicine 10 [facility] [place] [address] Lucas Galvan MD 10 [facility] 2nd [place] [address] [email or web address] documented as of this encounter Visit Diagnoses Not on filedocumented in this encounter Care Teams Skiver Hand Relationship Specialty Start Date End Date Shyann Sandoval PA 70 [place] [address] [email or web address] PCP - General Unknown Provider Specialty 06/13/20 12/29/23 Jackelyn Daniels MD 70 [place] [address] [email or web address] PCP - General Family Medicine 12/30/23 05/03/24 Jackelyn Daniels MD [address] [place] [address] [email or web address] PCP - General Family Medicine 05/04/24 Huy hZu MD [email or web address] Historical LMR Provider 01/31/17 Nuvia Woodward CHIEF RISK OFFICER [address] [place] [address] Historical LMR Provider 01/31/17 documented as of this encounter Additional Source Comments The information contained in this document represents components of the legal health record. It is not the complete legal health record.[facility]
--- OUTSIDE RECORDS SUMMARY | 2025-03-13 15:40 | XMS_ITS | Encounter Summary ---
Author Organization [facility] Address [address] [place] [address] Phone Care Team Providers Care Associate Spa Director Name Role Phone Huy Zhu MD Unavailable [phone] Nuvia Woodward NP Unavailable [phone] Jackelyn Daniels MD Primary Care Provider + Encounter Details Date Type Department Care Team (Late st Contact Info) Description 05/12/2024 Procedure Pass [facility] Endoscopy Admitting Dept Virtual Department 30 [place] [address] Social History Tobacco Use Types Packs/Day Years [...] Pulmonary, Allergy and Critical Care Medicine 10 [place] [address] Lucas Galvan MD [address] [address] [email or web address] documented as of this encounter Visit Diagnoses Not on filedocumented in this encounter Care Teams Associate Spa Director Relationship Specialty Start Date End Date Jackelyn Daniels MD [address] [place] [address] [email or web address] PCP - General Family Medicine 05/04/24 Huy Zhu MD Historical LMR Provider 01/31/17 Nuvia Woodward NP [address] [place] [address] Historical LMR Provider 01/31/17 documented as of this encounter Additional Source Comments The information contained in this document represents components of the legal health record. It is not the complete legal health record.[facility]
--- OUTSIDE RECORDS SUMMARY | 2025-03-13 15:40 | XMS_ITS | Encounter Summary ---
Author Organization [facility] Address [address] [employer] [facility] [address] [place] [address] Phone Care Team Providers Care Virology Teacher Name Role Phone Huy Zhu MD Unavailable [phone] Nuvia Woodward NP Unavailable [phone] Jackelyn Daniels MD Primary Care Provider + Jackelyn Daniels MD Primary Care Provider + Encounter Details Date Type Department Care Team (Late st Contact Info) Description 04/26/2024 Procedure Pass [facility], Ct Scan - [address] [address] Social History Tobacco Use Types Packs/Day Years [...] [facility] Pulmonary, Allergy and Critical Care Medicine [address] [place] [address] Lucas Galvan MD [address] [place] [address] [email or web address] documented as of this encounter Visit Diagnoses Not on filedocumented in this encounter Care Teams Virology Teacher Relationship Specialty Start Date End Date Jackelyn Daniels MD 30 [place] [address] [email or web address] PCP - General Family Medicine 12/30/23 05/03/24 Jackelyn Daniles MD 70 [place] [address] [email or web address] PCP - General Family Medicine 05/04/24 Huy Zhu MD [email or web address] Historical LMR Provider 01/31/17 Nuvia Woodward NP [address] [place] [address] Historical LMR Provider 01/31/17 documented as of this encounter Additional Source Comments The information contained in this document represents components of the legal health record. It is not the complete legal health record.[facility]
--- OUTSIDE RECORDS SUMMARY | 2025-03-13 15:40 | XMS_ITS | Encounter Summary ---
Author Organization [facility] Address [address] [employer] [facility] [address] [place] [address] Phone Care Team Providers Care Indian Nanny Name Role Phone Huy Zhu MD Unavailable [phone] Nuvia Woodward NP Unavailable [phone] Shyann Sandoval Primary Care Provider [phone] Jackelyn Daniels MD Primary Care Provider + Jackelyn Daniels MD Primary Care Provider + Encounter Details Date Type Department Care Team (Latest Contact Info) Description 09/04/2022 Transcribe Orders [facility] Phleb Criss[facility] [address] [id number] Shyann Sandoval PA [address] [place], [place] [phone] [email or web address] Hyperlipidemia, unspecified hyperlipidemia type (Primary Dx) Social [...] [facility] Pulmonary, Allergy and Critical Care Medicine [address] [place] [address] Lucas Galvan MD [address] [place] [address] [email or web address] documented as of this encounter Results * (ABNORMAL) Lipid panel (09/05/2022 8:12 AM EDT) HDL 88 mg/dL [facility] Comment: Interpretation <40 mg/dL: Low HDL cholesterol (major risk factor for CHD) Greater than or equal to 60 mg/dL: High HDL cholesterol ( negative risk factor for CHD) HDL - cholesterol is affected by a number of factors, e.g. smoking, excerise, hormones, sex and age. CHOLESTEROL 249(H) 0 - 240 mg/dL [facility] TRIGLYCERIDES 102 30 - 160 mg/dL [facility] LDL 141(H) 50 - 129 mg/dL [facility] Comment: LDL levels in terms of risk for coronary heart disease: <100 mg/dL: Optimal 100-129 mg/dL: Near or above optimal 130-159 mg/dL: Borderline high 160-189 mg/dL: High >190 mg/dL: Very High CARDIAC RISK RATIO 2.8(L) 3.3 - 4.4 C [facility] Blood 09/05/2022 8:12 AM EDT 09/05/2022 8:15 AM EDT Shyann LAN LAB BLOOD BKR ORDERABLES Fin al Result [address] [address] * (ABNORMAL) Comprehensive metabolic panel (09/04/2022 12:14 PM EDT) SODIUM 137 133 - 146 mmol/L [facility] POTASSIUM 3.9 3.3 - 5.1 mmol/L [facility] CHLORIDE 100 96 - 108 mmol/L [facility] CO2 27 21 - 35 mmol/L [facility] BUN 11 6 - 19 mg/dL [facility] CREATININE 0.60 0.5 - 1.5 mg/dL [facility] GLUCOSE 79 70 - 99 mg/dL [facility] ALBUMIN 4.4 3.9 - 4.8 g/dL [facility] TOTAL PROTEIN 7.8 6.5 - 8.0 g/dL [facility] CALCIUM 9.7 8.4 - 10.3 mg/dL [facility] ALKALINE PHOSPHATASE 122(H) 39 - 117 U/L [facility] TOTAL BILIRUBIN 0.3 0.0 - 1.2 mg/dL [facility] AST 70(H) 0 - 37 U/L [facility] ALT 65(H) 0 - 40 U/L [facility] GLOBULIN 3.4 1 - 4.8 g/dL [facility] EGFR 97 >59 mL/min/1.7 3m2 [facility] Comment:Estimated glomerular filtration rate calculated using the CKD-EPI refit equation. ANION GAP 14 10 - 20 mmol/L [facility] Blood 09/04/2022 12:1 4 PM EDT 09/04/2022 12:17 PM EDT us Shyann LAN LAB BLOOD BKR ORDERABLES Fin al Result [address] [address] * (ABNORMAL) C-Reactive Protein (09/04/2022 12:14 PM EDT) C REACTIVE PROTEIN 6.8(H) 0.0 - 4.0 mg/L [facility] Blood 09/04/2022 12:1 4 PM EDT 09/04/2022 12:17 PM EDT us Shyann LAN LAB BLOOD BKR ORDERABLES Fin al Result [facility] 30 [place] [address] * CBC and differential (09/04/2022 12:14 PM EDT) WBC 7.18 4.00 - 11.00 K/uL [facility] RBC 4.31 3.72 - 5.30 M/uL [facility] HGB 13.5 11.4 - 15.9 g/dL [facility] HCT 40.9 34.2 - 46.8 % [facility] PLT 340 140 - 430 K/uL [facility] MCV 94.9 78.0 - 97.0 fL [facility] MCH 31.3 25.0 - 33.0 pg [facility] MCHC 33.0 32.0 - 36.0 g/dL [facility] RDW 12.7 11.0 - 16.0 % [facility] MPV 10.9 8.4 - 12.8 fl [facility] DIFF METHOD Auto [facility] NEUTS 65.8 43.0 - 75.0 % [facility] LYMPHS 23.3 18.2 - 47.4 % [facility] MONOS 9.1 4.00 - 11.00 % [facility] EOS 0.8 0.0 - 8.0 % [facility] BASOS 0.7 0.0 - 2.0 % [facility] Granulocytes, immature (%) 0.3 0.0 - 0.9 % [facility] ABSOLUTE NEUTS 4.73 1.80 - 7.70 K/uL [facility] ABSOLUTE LYMPHS 1.67 1.00 - 3.10 K/uL [facility] ABSOLUTE MONOS 0.65 0.20 - 0.80 K/uL [facility] ABSOLUTE EOS 0.06 0.00 - 0.80 K/uL [facility] ABSOLUTE BASOS 0.05 0.00 - 0.09 K/uL [facility] Granulocytes, immature 0.02 0.00 - 0.05 K/uL [facility] Blood 09/04/2022 12:1 4 PM EDT 09/04/2022 12:17 PM EDT us Shyann LAN LAB BLOOD BKR ORDERABLES Fin al Result [address] [address] documented in this encounter Visit Diagnoses Diagnosis Hyperlipidemia, unspecified hyperlipidemia type- Primary documented in this encounter Care Teams Indian Nanny Relationship Specialty Start Date End Date Shyann Sandoval PA [address] [place] [address] [email or web address] PCP - General Unknown Provider Specialty 06/13/20 12/29/23 Jackelyn Daniels MD [address] [place] [address] [email or web address] PCP - General Family Medicine 12/30/23 05/03/24 Jackelyn Daniels MD [address] [place] [address] [email or web address] [email or web address] - General Family Medicine 05/04/24 Huy Zhu MD [email or web address] Historical LMR Provider 01/31/17 Nuvia Woodward NP [address] [place] [address] Historical LMR Provider 01/31/17 documented as of this encounter Additional Source Comments The information contained in this document represents components of the legal health record. It is not the complete legal health record.[facility]
--- OUTSIDE RECORDS SUMMARY | 2025-03-13 15:40 | XMS_ITS | Encounter Summary ---
Author Organization [facility] Address [address] [place] [address] Phone Care Team Providers Care Fire Hydrant Mechanic Name Role Phone Huy Zhu MD Unavailable [phone] Nuvia Woodward NP Unavailable [phone] Shyann Sandoval Primary Care Provider [phone] Jackelyn Daniels MD Primary Care Provider + Jackelyn Daniels MD Primary Care Provider + Encounter Details Date Type Department Care Team (Late st Contact Info) Description 03/18/2022 Transcribe Orders [facility] Specimen Processing 30 [place] [address] Shyann Sandoval PA 70 [place], [place] [phone] [email or web address] Social History Tobacco Use Types Packs/Day Years [...] Pulmonary, Allergy and Critical Care Medicine 10 [facility] [place] [address] Lucas Galvan MD [address] [employer] 2nd [place] [address] [email or web address] documented as of this encounter Visit Diagnoses Not on filedocumented in this encounter Care Teams Fire Hydrant Mechanic Relationship Specialty Start Date End Date Shyann Sandoval PA [address] [place] [address] [email or web address] PCP - General Unknown Provider Specialty 06/13/20 12/29/23 Jackelyn Daniels MD [address] [place] [address] [email or web address] PCP - General Family Medicine 12/30/23 05/03/24 Jackelyn Daniels MD [address] [place] [address] [email or web address] PCP - General Family Medicine 05/04/24 Huy Zhu MD [email or web address] Historical LMR Provider 01/31/17 Nuvia Woodward NP [address] [place] [address] Historical LMR Provider 01/31/17 documented as of this encounter Additional Source Comments The information contained in this document represents components of the legal health record. It is not the complete legal health record.[facility]
--- OUTSIDE RECORDS SUMMARY | 2025-03-13 15:40 | XMS_ITS | Encounter Summary ---
Author Organization [facility] Address [address] [employer] [facility] [address] [place] [address] Phone Care Team Providers Care Irrigation Worker Name Role Phone Huy Zhu MD Unavailable [phone] Nuvia Woodward NP Unavailable [phone] Jackelyn Daniels MD Primary Care Provider + Reason for Visit * Auth/Cert (Routine) Specialty Diagnoses / Procedures Referred By Contac t Referred To Contact Diagnoses colon Procedures MD COLONOSCOPY FLX DX W/COLLJ SPEC WHEN PFRMD MD COLONOSCOPY W/BIOPSY SINGLE/MULTIPLE MD COLSC FLX W/RMVL OF TUMOR POLYP LESION SNARE TQ COLONOSCOPY Referral ID Status Reason Start Date Expiration Date Visits Re quested Visits Authorized [id number] 1 1 Encounter Details Date Type Department Care Team (Late st Contact Info) Description 11/22/2024 Hospital Encounter [facility] Endoscopy Admitting Dept Virtual Department 30 [place] [address] Lucas Ibarra MD [address] [place] [address] [email or web address] Social History Tobacco Use Types Packs/Day Years [...] Allergy and Critical Care Medicine [address] [place] [address] Lucas Galvan MD [address] [address] [email or web address] documented as of this encounter Visit Diagnoses Not on filedocumented in this encounter Care Teams Irrigation Worker Relationship Specialty Start Date End Date Jackelyn Daniels MD 70 [place] [address] [email or web address] PCP - General Family Medicine 05/04/24 Huy Zhu MD Historical LMR Provider 01/31/17 Nuvia Woodward NP 30 [place] [address] [email or web address] Historical LMR Provider 01/31/17 documented as of this encounter Additional Source Comments The information contained in this document represents components of the legal health record. It is not the complete legal health record.[facility]
--- OUTSIDE RECORDS SUMMARY | 2025-03-13 15:40 | XMS_ITS | Encounter Summary ---
Author Organization [facility] Address [address] [place] [address] Phone Care Team Providers Care Eligibility And Occupancy Interviewer Name Role Phone Huy Zhu MD Unavailable [phone] Nuvia Woodward WRAPPER COUNTER Unavailable [phone] Zohra Zaman WRAPPER COUNTER Unavailable [phone] Asia Marquez RDCS Unavailable [email or web address] Shyann Sandoval Primary Care Provider [phone] Jackelyn Daniels MD Primary Care Provider + Jackelyn Daniels MD Primary Care Provider + Reason for Referral * MRI/CAT Scan - Closed Specialty Diagnoses / Procedures Referred By Contac t Referred To Contact Radiology Diagnoses Arthralgia, unspecified joint Procedures MRI Foot (Left) Gabriela Carney MD Phone: tel: fax: Referral ID Status Reason Start Date Expiration Date Visits Re quested Visits Authorized [id number] Closed 02/04/2021 02/04/2022 1 1 Encounter Details Date Type Department Care Team (Latest Contact Info) Description 02/04/2021 Transcribe Orders [facility] Department 30 [place] [address] Gabriela Carney MD [address] [place] [address] Arthralgia, unspecified joint (Primary Dx) Social History [...] Pulmonary, Allergy and Critical Care Medicine [address] [place] [address] Lucas Galvan MD [address] [place] [address] documented as of this encounter Results * [...] retrocalcaneal bursa may could be due tobursitis. us Gabriela Carney MD IMG MR EXTREMITY Edited Result - Final * Antinuclear antibody (COLBY) (02/05/2021 3:49 PM EDT) COLBY SCREEN ON HEP 2 Negative Negative [facility] Blood 02/05/2021 3:49 PM EDT 02/05/2021 3:55 PM EDT us Gabriela Carney MD LAB BLOOD BKR ORD ERABLES Final Result Performing Organization Address City/State/[facility] Co de Phone Number [facility] [address] [place] [address] documented in this encounter Visit Diagnoses Diagnosis Arthralgia, unspecified joint- Primary Arthralgia, unspecified joint documented in this encounter Care Teams Eligibility And Occupancy Interviewer Relationship Specialty Start Date End Date Shyann Sandoval PA 70 [place] [address] [email or web address] PCP - General Unknown Provider Specialty 06/13/20 12/29/23 Jackelyn Daniels MD 70 [place] [address] [email or web address] PCP - General Family Medicine 12/30/23 05/03/24 Jackelyn Daniels MD 70 [place] [address] [email or web address] PCP - General Family Medicine 05/04/24 Huy Zhu MD Historical LMR Provider 01/31/17 Nuvia Woodward WRAPPER COUNTER 30 [place] [address] [email or web address] Historical LMR Provider 01/31/17 Zohra Zaman NP [address] [place] [address] Historical LMR Provider 01/31/17 2 Asia Marquez, DANIEL [email or web address] Historical LMR Provider 01/31/17 04/19/21 documented as of this encounter Additional Source Comments The information contained in this document represents components of the legal health record. It is not the complete legal health record.[facility]
--- OUTSIDE RECORDS SUMMARY | 2025-03-13 15:40 | XMS_ITS | Encounter Summary ---
Author Organization [facility] Address [facility] [employer] [address] [address] Phone Care Team Providers Care Dispensing Optician Apprentice Name Role Phone Huy Zhu MD Unavailable [phone] Nuvia Woodward VELVET STEAMER Unavailable [phone] Zohra Zaman VELVET STEAMER Unavailable [phone] Asia Marquez RDCS Unavailable [email or web address] Shyann Sandoval Primary Care Provider Jackelyn Daniels MD Primary Care Provider + Jackelyn Daniels MD Primary Care Provider + Encounter Details Date Type Department Care Team (Late st Contact Info) Description 02/04/2021 Procedure Pass [facility], [address] [address] Social History Tobacco Use Types Packs/Day Years [...] Pulmonary, Allergy and Critical Care Medicine 10 [place] [address] Lucas Galvan MD [address] [address] [email or web address] documented as of this encounter Visit Diagnoses Not on filedocumented in this encounter Care Teams Dispensing Optician Apprentice Relationship Specialty Start Date End Date Shyann Sandoval PA 70 [place] [address] [email or web address] PCP - General Unknown Provider Specialty 06/13/20 12/29/23 Jackelyn Daniels MD 70 [place] [address] [email or web address] PCP - General Family Medicine 12/30/23 05/03/24 Jackelyn Daniels MD [address] [place] [address] [email or web address] PCP - General Family Medicine 05/04/24 Huy Zhu MD [email or web address] Historical LMR Provider 01/31/17 Nuvia Woodward, VELVET STEAMER [address] [place] [address] [email or web address] Historical LMR Provider 01/31/17 Zohra Zaman, VELVET STEAMER [address] [place] [address] Historical LMR Provider 01/31/17 2 Asia Marquez, RDCS Historical LMR Provider 01/31/17 04/19/21 documented as of this encounter Additional Source Comments The information contained in this document represents components of the legal health record. It is not the complete legal health record.[facility]
--- OUTSIDE RECORDS SUMMARY | 2025-03-13 15:40 | XMS_ITS | Encounter Summary ---
Author Organization [facility] Address [address] [place] [address] Phone Care Team Providers Care Communications Project Lead Name Role Phone Huy Zhu MD Unavailable [phone] Nuvia Woodward NP Unavailable [phone] Jackelyn Daniels MD Primary Care Provider + Encounter Details Date Type Department Care Team (Late st Contact Info) Description 05/08/2024 Procedure Pass [facility] Endoscopy Admitting Dept Virtual Department 30 [place] [address] Social History Tobacco Use Types Packs/Day Years [...] Pulmonary, Allergy and Critical Care Medicine 10 [place] [address] Lucas Galvan MD [address] [address] [email or web address] documented as of this encounter Visit Diagnoses Not on filedocumented in this encounter Care Teams Communications Project Lead Relationship Specialty Start Date End Date Jackelyn Daniels MD [address] [place] [address] [email or web address] PCP - General Family Medicine 05/04/24 Huy Zhu MD Historical LMR Provider 01/31/17 Nuvia Woodward NP [address] [place] [address] Historical LMR Provider 01/31/17 documented as of this encounter Additional Source Comments The information contained in this document represents components of the legal health record. It is not the complete legal health record.[facility]
--- OUTSIDE RECORDS SUMMARY | 2025-03-13 15:40 | XMS_ITS | Encounter Summary ---
Author Organization [facility] Address [address] [employer] [facility] [address] [place] [address] Phone Care Team Providers Care Skin Installer Name Role Phone Huy Zhu MD Unavailable [phone] Nuvia Woodward NP Unavailable [phone] Shyann Sandoval Primary Care Provider [phone] Jackelyn Daniels MD Primary Care Provider + Jackelyn Daniels MD Primary Care Provider + Encounter Details Date Type Department Care Team (Late st Contact Info) Description 01/13/2023 Procedure Pass [facility], Ct Scan - [address] [address] Social History Tobacco Use Types Packs/Day Years [...] 4:37 PM EDT Yesenia Grigsby RN * [place] Suicide Severity Rating Scale (Screener/Recent Self-Report) Question [...] [facility] Pulmonary, Allergy and Critical Care Medicine [address] [place] [address] [place] [address] Lucas Galvan MD [address] [place] [address] 2nd [place] [address] documented as of this encounter Visit Diagnoses Not on filedocumented in this encounter Care Teams Skin Installer Relationship Specialty Start Date End Date Shyann Sandoval PA [address] [place] [address] [email or web address] PCP - General Unknown Provider Specialty 06/13/20 12/29/23 Jackelyn Daniels MD [address] [place] [address] [email or web address] PCP - General Family Medicine 12/30/23 05/03/24 Jackelyn Daniels MD [address] [place] [address] [email or web address] PCP - General Family Medicine 05/04/24 Huy Zhu MD Historical LMR Provider 01/31/17 Nuvia Woodward NP [address] [place] [address] Historical LMR Provider 01/31/17 documented as of this encounter Additional Source Comments The information contained in this document represents components of the legal health record. It is not the complete legal health record.[facility]
--- OUTSIDE RECORDS SUMMARY | 2025-03-13 15:40 | XMS_ITS | Encounter Summary ---
Author Organization [facility] Address [address] [employer] [address] [address] Phone Care Team Providers Care Whirley Operator Name Role Phone Huy Zhu MD Unavailable [phone] Nuvia Woodward NP Unavailable [phone] Shyann Sandoval Primary Care Provider [phone] Jackelyn Daniels MD Primary Care Provider + Jackelyn Daniels MD Primary Care Provider + Encounter Details Date Type Department Care Team (Late st Contact Info) Description 12/15/2022 Procedure Pass [facility] Endoscopy Admitting Dept Virtual Department [address] [place] [address] Social History Tobacco Use Types Packs/Day Years [...] Pulmonary, Allergy and Critical Care Medicine 10 [facility] [place] [address] Lucas Galvan MD 10 [facility] 2nd [place] [address] [email or web address] documented as of this encounter Visit Diagnoses Not on filedocumented in this encounter Care Teams Whirley Operator Relationship Specialty Start Date End Date Shyann Sandoval PA 70 [place] [address] [email or web address] PCP - General Unknown Provider Specialty 06/13/20 12/29/23 Jackelyn Daniels MD 70 [place] [address] [email or web address] PCP - General Family Medicine 12/30/23 05/03/24 Jackelyn Daniels MD [address] [place] [address] [email or web address] [email or web address] - General Family Medicine 05/04/24 Huy Zhu MD [email or web address] Historical LMR Provider 01/31/17 Nuvia Woodward HAND FLESHER [address] [place] [address] Historical LMR Provider 01/31/17 documented as of this encounter Additional Source Comments The information contained in this document represents components of the legal health record. It is not the complete legal health record.[facility]
--- OUTSIDE RECORDS SUMMARY | 2025-03-13 15:40 | XMS_ITS | Encounter Summary ---
Author Organization [facility] Address [address] [facility] [address] [place] [phone] Phone Care Team Providers Care Caterer Helper Name Role Phone Huy Zhu MD Unavailable [phone] Nuvia Woodward NP Unavailable [phone] Shyann Sandoval Primary Care Provider [phone] Jackelyn Daniels MD Primary Care Provider + Jackelyn Daniels MD Primary Care Provider + Encounter Details Date Type Department Care Team (Latest Contact Info) Description 09/28/2023 Transcribe Orders [facility] Phleb [facility] [address] Floor [place], [place] [id number] Lucas Ibarra MD [address] [address] [email or web address] Abnormal results of liver function studies (Primary [...] [facility] Pulmonary, Allergy and Critical Care Medicine [address] [place] [address] Lucas Galvan MD [address] [place] [phone] [email or web address] documented as of this encounter Results * (ABNORMAL) Comprehensive metabolic panel (09/28/2023 10:44 AM EDT) SODIUM 134 133 - 146 mmol/L [facility] POTASSIUM 4.3 3.3 - 5.1 mmol/L [facility] CHLORIDE 96 96 - 108 mmol/L [facility] CO2 26 21 - 35 mmol/L [facility] BUN 20(H) 6 - 19 mg/dL [facility] CREATININE 0.70 0.5 - 1.5 mg/dL [facility] GLUCOSE 103(H) 70 - 99 mg/dL [facility] ALBUMIN 4.1 3.9 - 4.8 g/dL [facility] TOTAL PROTEIN 7.0 6.5 - 8.0 g/dL [facility] CALCIUM 9.4 8.4 - 10.3 mg/dL [facility] ALKALINE PHOSPHATASE 80 39 - 117 U/L [facility] TOTAL BILIRUBIN <0.2 0.0 - 1.2 mg/dL [facility] AST 23 0 - 37 U/L [facility] ALT 30 0 - 40 U/L [facility] GLOBULIN 2.9 1 - 4.8 g/dL [facility] EGFR 93 >59 mL/min/1.7 3m2 [facility] Comment:Estimated glomerular filtration rate calculated using the CKD-EPI refit equation. ANION GAP 16 10 - 20 mmol/L [facility] Blood 09/28/2023 10:4 4 AM EDT 09/28/2023 10:49 AM EDT Lucas Ibarra MD LAB BLOOD BKR ORDERABLES F inal Result Performing Organization Address City/State/[facility] Co de Phone Number [facility] [address] [place] [address] documented in this encounter Visit Diagnoses Diagnosis Abnormal results of liver function studies- Primary Nonspecific abnormal results of liver function study documented in this encounter Care Teams Caterer Helper Relationship Specialty Start Date End Date Shyann Sandoval PA [address] [place] [phone] [email or web address] PCP - General Unknown Provider Specialty 06/13/20 12/29/23 Jackelyn Daniels MD [address] [place] [phone] [email or web address] PCP - General Family Medicine 12/30/23 05/03/24 Jackelyn Daniels MD [address] [place] [address] [email or web address] PCP - General Family Medicine 05/04/24 Huy Zhu MD [email or web address] Historical LMR Provider 01/31/17 Nuvia Woodward NP [address] [place] [phone] [email or web address] Historical LMR Provider 01/31/17 documented as of this encounter Additional Source Comments The information contained in this document represents components of the legal health record. It is not the complete legal health record.[facility]
--- OUTSIDE RECORDS SUMMARY | 2025-03-13 15:40 | XMS_ITS | Encounter Summary ---
Author Organization [facility] Address [address] [place] [phone] Phone Care Team Providers Care Police Crime Scene Technician Name Role Phone Huy Zhu MD Unavailable [phone] Nuvia Woodward NP Unavailable [phone] Jackelyn Daniels MD Primary Care Provider + Encounter Details Date Type Department Care Team (Late st Contact Info) Description 11/22/2024 Procedure Pass [facility] Endoscopy Admitting Dept Virtual Department [address] [place] [address] Social History Tobacco Use Types Packs/Day Years [...] Pulmonary, Allergy and Critical Care Medicine [address] [place] [address] Lucas Galvan MD [address] [address] [email or web address] documented as of this encounter Visit Diagnoses Not on filedocumented in this encounter Care Teams Police Crime Scene Technician Relationship Specialty Start Date End Date Jackelyn Daniels MD [address] [place] [phone] [email or web address] PCP - General Family Medicine 05/04/24 Huy Zhu MD Historical LMR Provider 01/31/17 Nuvia Woodward NP [address] [place] [address] Historical LMR Provider 01/31/17 documented as of this encounter Additional Source Comments The information contained in this document represents components of the legal health record. It is not the complete legal health record.[facility]
== END 2025-03-13 15:06 | disposition home or self-care (01) ==
PROVIDERS: PCP Family Medicine; Visit Provider Nurse Practitioner Family
DX: G43.019 Migraine without aura, intractable, without status migrainosus (principal); M54.2 Cervicalgia
CPT/HCPCS: 99214

== ENCOUNTER 2025-03-16 09:03 | Outpatient (AMB) | payer MEDICARE, SELFPAY ==
--- NOTE | 2025-03-16 09:17 | A.OFFVIS_ITS ---
Vital Signs 03/16/25 09:22 Height 5 ft 1 in Weight 134 lb BMI 25.3 BP 140/70 H Blood Pressure Location Rt brachial Position Sitting Pulse 74 Pulse Source Pulse Oximeter Pulse Oximetry (%) 97 Oxygen Delivery Method Room Air Intake Visit Reasons: s/p colo Intake Note: Est pt for mgmt of GERD + CIC. S/P FUV. CC: C/O mild to moderate BM irregularities intermittently. Pt states that she takes miralax OTC PRN which is helpful. However, she had been told by another individual that you are not supposed to take this daily. Contract Assistant Required: No Accompanied by: Self / Same As Patient Allergies monosodium glutamate (MSG) Allergy (Severe, Verified 03/16/25 09:20) Migraine Nitrate Analogues Allergy (Severe, Verified 03/16/25 09:20) Migraine alendronate sodium Allergy (Intermediate, Verified 03/16/25 09:20) bone pain Sulfa (Sulfonamide Antibiotics) Allergy (Intermediate, Verified 03/16/25 09:20) Nausea golimumab (From Simponi ARIA) Adverse Reaction (Intermediate, Verified 03/16/25 09:20) body pain HPI HPI s/p colo: Details: LAST VISIT Chronic idiopathic constipation Screen for colon cancer Postprandial diarrhea GERD (gastroesophageal reflux disease) Plan Patient denies any cardiac or respiratory symptoms. Patient reports ports irregularity in her bowels from loose stools postprandially to occasional constipation. Discussed with patient low FODMAP diet. List of food recommended list of food to avoid given to patient. Will check vitamin-D, B12, folate, transglutaminase. Patient will be sent for colonoscopy. Fax sent to [facility] requesting records of her visits and procedures.? Denies any issues with anesthesia in the past.? Denies any history of sleep apnea.? No history infectious diseases in the past or present.? Not on any anticoagulation th erapy.? No family of colon cancer.? Patient denies melena, hematochezia or ribbon like stools.? Discussed at length the pre-procedure,? prep, diet & medications as well as what to expect prior, during and after the procedure.?? Stressed the importance of good bowel prep.? Recommended the use of Vaseline or Calmoseptine OTC & baby wipes with bowel movements to promote comfort.? ?Patient verbalizes understanding and agrees to plan of care.? She was given the opportunity to ask questions and all questions answered.? We will see her after the procedure.? Orders Vitamin D 25-OH (D2 and D3) Today E55.9 Transglutaminase IgA Today R10.9 Vitamin B12 and Folate Today R19.7 New bisacodyl (Dulcolax (bisacodyl)) take 4 tabs at noon the day before your colonoscopy 20 mg (4 x 5 mg) PO ONCE 4 tabs 0RF constipation 1 day Z12.11 polyethylene glycol 3350 (Miralax) As directed by gastroenterology department at [facility] 238 grams PO ONCE 238 grams 0RF Z12.11 COLONOSCOPY Findings: Terminal Ileum-normal Cecum:normal Right sided retroflexion- normal Ascending Colon: normal Transverse Colon -normal Descending Colon:normal Sigmoid Colon: normal Rectum: Retroflexion with small internal hemorrhoids seen, grade I Anorectum - normal Intervention: none Colon preparation: [place] Bowel Preparation Scale Right colon; 2 Transverse colon: 3 Left colon; 2 (0 = Unprepared colon segment with mucosa not seen due to solid stool that ca nnot be cleared. 1 = Portion of mucosa of the colon segment seen, but other areas of the colon segment not well seen due to staining, residual stool and/or opaque liquid. 2 = Minor amount of residual staining, small fragments of stool and/or opaque liquid, but mucosa of colon segment seen well. 3 = Entire mucosa of colon segment seen well with no residual staining, small fragments of stool or opaque liquid) Impression and Post Procedure Diagnosis: internal hemorrhoids Plan: High fiber diet leaflet Avoid straining at stool, epsom salts and sitz bath, anusol supps or cream Repeat Colonoscopy in 10 years or earlier if clinically indicated TODAY'S VISIT Patient is here today for follow-up. Patient reports that she did well with colonoscopy. Denies any ill effects from the prep, anesthesia or procedure itself. Patient reports to be feeling fairly well. Still has occasional constipation. Patient try taking the Mag oxide however the medication was too big. Even the smaller does the tablets are large and she is having hard time swallowing them. Patient denies any abdominal pain or discomfort. Colonoscopy was normal. No diverticulosis seen. Internal hemorrhoids. No polyps. The patient denies dyspepsia, dysphagia or odynophagia. Denies any melena, hematochezia, unintentional weight loss or ribbon like stools. [facility] Medical History Chronic idiopathic constipation Tubular adenoma of colon Hepatitis B core antibody positive Osteoporosis Seropositive rheumatoid arthritis GERD (gastroesophageal reflux disease) Allergic conjunctivitis and rhinitis Presbyopia Astigmatism Hypermetropia Carpal tunnel syndrome Migraines Depression Anxiety Hyperlipidemia Hypercholesteremia Surgical History History of foot surgery [place] teeth extracted Family History Mother Dementia Emphysema lung Father Myocardial infarct Brother COPD (chronic obstructive pulmonary disease) Brother History of heart attack Social History Household Members: None Are you a primary intensive care anaesthetist to a significant other at home: No Do you presently have visiting nurse or other home services: No Alcohol intake: current Alcohol intake frequency: a few times a week Alcohol type: hard liquor Patient Tobacco Use Status: Former Tobacco user Current occupational status: 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 Const Denies weight gain and Denies weight loss ENT Reports no additional complaints, Denies dysphagia and Denies odynophagia Card Reports no additional complaints Resp Reports no additional complaints GI Denies abdominal pain, Denies belching, Denies melena, Denies bloating, Denies change in bowel habits, Reports constipation, Denies dysphagia, Denies excessive flatus, Denies dyspepsia, Denies heartburn, Denies diarrhea, Reports loose stools, Denies nausea, Denies odynophagia and Denies vomiting Reports no additional complaints Musc Reports no additional complaints Neuro Reports no additional complaints Psych Reports no additional complaints Endo Reports no additional complaints Physical Exam Vital Signs: Last Vital Signs Pulse 74 03/16/25 09:22 BP 140/70 H 03/16/25 09:22 Pulse Ox 97 03/16/25 09:22 Oxygen Delivery Method Room Air 03/16/25 09:22 BMI result Body Mass Index 25.3 Const General: healthy appearing, no acute distress and well developed Nutritional Appearance: well nourished Orientation/consciousness: patient oriented x3 Resp Effort & Inspection: normal respiratory effort, able to speak in complete sentences, no tracheal deviation and symmetric chest movement Auscultation: clear to auscultation bilaterally Cardio Rate: regular rate GI Inspection: Yes normal to inspection and No distended Palpation (GI): Soft to palpation, not firm, nontender and No hepatosplenomegaly present Auscultation: normal bowel sounds General: Yes no CVA tenderness Back/Spine/Pelvis Back: no CVA tenderness Skin General skin exam: elasticity normal, turgor normal and dry skin Neuro General: patient oriented x3 Psych Appearance: grossly normal Mental Status: mental status grossly normal Results Reviewed Results Reviewed: Laboratory Tests 10/30/24 15:41 Vitamin B12 437 25-OH Vitamin D Total 47 Folate 9.3 Tiss Transglutamin IgA <1.0 Assessment & Plan Assessment & Plan (1) GERD (gastroesophageal reflux disease): Code(s): K21.9 - Gastro-esophageal reflux disease without esophagitis Category: Medical Qualifiers: Esophagitis presence: esophagitis presence not specified Qualified Code(s): K21.9 - Gastro-esophageal reflux disease without esophagitis (2) Nausea: Code(s): R11.0 - Nausea Category: Medical (3) Elevated transaminase measurement: Code(s): R74.01 - Elevation of levels of liver transaminase levels Category: Medical (4) Chronic idiopathic constipation: Code(s): K59.04 - Chronic idiopathic constipation Category: Medical (5) Hepatitis B core antibody positive: Comment: She likely has false positive antibody with no other abnormal parameters Code(s): R76.8 - Other specified abnormal immunological findings in serum Category: Medical Plan Patient had normal colonoscopy no repeat unless symptomatic. Patient will continue avoiding dietary triggers. May take MiraLax daily to help with bowel movements. Increase fluid intake and activity to promote bowel motility. Patient will follow-up in 4 months. Patient was encouraged to call if she will have any GI concerning symptoms. Patient is agreeable to current plan of care and verbalizes understanding of instructions. She was given the opportunity to ask questions and all questions answered. Thank for allowing me to participate in her care Coding Level of Care Code Est Pt Level 3 (03243) Diagnoses Gastroesophageal reflux disease, unspecified whether esophagitis present K21.9 Esophagitis presence: esophagitis presence not specified Nausea R11.0 Elevated transaminase measurement R74.01 Chronic idiopathic constipation K59.04 Hepatitis B core antibody positive R76.8 Time Spent (min) 30 Comment 20 minutes spent with patient and additional 10 minutes spent reviewing her re cords
[2025-03-16 09:22] VITALS: BP 140/70; PULSE 74; O2SAT 97; BMI 25.3
== END 2025-03-16 09:52 | disposition home or self-care (01) ==
LOC: HO.HGI 09:04
PROVIDERS: PCP Family Medicine; Visit Provider Nurse Practitioner Family
DX: K21.9 Gastro-esophageal reflux disease without esophagitis (principal); R11.0 Nausea; R74.01 Elevation of levels of liver transaminase levels; K59.04 Chronic idiopathic constipation; R76.89 Other specified abnormal immunological findings in serum
CPT/HCPCS: 99213

== ENCOUNTER → 2025-03-16 09:03 | Outpatient (BNVA) | payer MEDICARE, SELFPAY | PROVIDERS: PCP Family Medicine; Visit Provider Nurse Practitioner Family | DX: K21.9 Gastro-esophageal reflux disease without esophagitis (principal); R11.0 Nausea; R74.01 Elevation of levels of liver transaminase levels; K59.04 Chronic idiopathic constipation; R76.89 Other specified abnormal immunological findings in serum | CPT/HCPCS: 99212 ==